=== PATIENT | male | born 1955 | race Hispanic/Latino ===

== ENCOUNTER 2019-09-30 08:43 | Inpatient (IN) | payer MEDICARE ==
[2019-09-27 10:15] LABS: BASOPHILS # (AUTO) 0.1 (0.0-0.1); BASOPHILS % 0.6 % (0.0-1.0); EOSINOPHILS # (AUTO) 0.8 (0.0-0.4); EOSINOPHILS % 10.2 % (0.0-6.0); HEMATOCRIT 34.4 % (38.2-49.6); HEMOGLOBIN 10.9 g/dL (14.0-18.0); LYMPHOCYTES # (AUTO) 1.4 (1.0-3.2); LYMPHOCYTES % 16.9 % (18.0-39.1); MEAN CORPUSCULAR HEMOGLOBIN 26.9 pg (28-32); MEAN CORPUSCULAR HGB CONC 31.7 g/dL (31-35); MEAN CORPUSCULAR VOLUME 84.9 fL (81-99); MONOCYTES # (AUTO) 0.6 (0.2-0.8); MONOCYTES % 7.4 % (4.4-11.3); NEUTROPHILS # (AUTO) 5.2 (2.1-6.9); NEUTROPHILS % 64.5 % (38.7-80.0); PLATELET COUNT 159 x10e3/uL (140-360); RED BLOOD COUNT 4.05 x10e6/uL (4.3-5.7); RED CELL DISTRIBUTION WIDTH 17.3 % (11.7-14.4)
[2019-09-27 10:31] LABS: ANION GAP 15.4 mmol/L (8-16); CALCIUM 9.2 mg/dL (8.4-10.2); CREATININE, SERUM 2.31 mg/dL (0.72-1.25); POTASSIUM 4.4 mmol/L (3.5-5.1)
--- NOTE | 2019-09-27 11:14 | Diagnostic Imaging Report ---
Chest, PA and lateral. History: Preoperative evaluation for knee surgery. Comparison: None available. Discussion: The cardiomediastinal silhouette and pulmonary vasculature are within normal limits. The lungs are clear without evidence of consolidation or effusion. There are no acute osseous abnormalities. IMPRESSION: No acute cardiopulmonary abnormality. Signed by: Alpesh Dalton MD on 09/27/2019 11:10 AM
[~2019-09-30] VITALS: Ht 172.7 cm; Wt 140.2 kg
[~2019-09-30 08:43] MED LIST: ALLOPURINOL300 MG PO; AMLODIPINE BESY10 MG PO; ASPIR-LOW81 MG PO; BUMETANIDE PO; FERROUS SULFAT325 MG PO; FLOMAX0.4 MG PO; GABAPENTIN300 MG PO; GLIMEPERIDE PO; HUMALOG MI100 UNITS/ SQ; HYDROCODON-ACE1 EAC9 PO; ISOSORBIDE ER PO; LISINOPRIL PO; METOLAZONE PO; METOPROLOL SUCC50 MG PO; NITROGLYCERIN0.4 MG SL; POTASSIUM CHLO10 ME1 PO; PRAVASTATIN SOD40 MG PO; TRULICITY1.5 MG/0.5 SQ; TYLENOL EXTRA500 MG PO; [UNRECOGNIZED DRUG - OTHER] PO
[2019-09-30] MEDS ORDERED: ROPIVACAINE 246.25 MG, EPINEPHRINE HCL 1:1000 1ML 0.5 MG, CLONIDINE HCL 0.08 MG, KETORO... INJ ONE ×5 (09:00)
[2019-09-30] MEDS ORDERED: TRANEXAMIC ACID 1,000 MG/10 ML ML ONE (09:27)
[2019-09-30] MEDS ORDERED: BACITRACIN 50,000 UNIT VIAL ONE ×2 (09:27→11:54)
[2019-09-30] MEDS ORDERED: SODIUM CHLORIDE 0.9% 500ML 500 ML ONE (09:27)
[2019-09-30] MEDS ORDERED: VANCOMYCIN HCL 1,000 MG ONE (09:27)
[2019-09-30] MEDS ORDERED: CELECOXIB 200 MG CAP ONE (09:36)
[2019-09-30] MEDS ORDERED: VANCOMYCIN 1GM/NS 250 ML 250 ML ONE (09:37)
[2019-09-30] MEDS ORDERED: GABAPENTIN 300 MG CAP ONE (09:37)
[2019-09-30] MEDS ORDERED: DEXAMETHASONE SOD PHOS 10 MG/1 ML VIAL ONE (09:37)
[2019-09-30] MEDS ORDERED: HYDROCODONE/APAP 5MG-325MG TAB PO PRN (13:00)
[2019-09-30] MEDS ORDERED: DIPHENHYDRAMINE HCL INJ 50 MG/ML VIAL IM/IV PRN (13:00)
[2019-09-30] MEDS ORDERED: DOCUSATE SODIUM 100 MG CAP PO PRN (13:00)
[2019-09-30] MEDS ORDERED: ACETAMINOPHEN 650 MG SUPP PR PRN (13:00)
[2019-09-30] MEDS ORDERED: ONDANSETRON HCL INJ 2MG/ML 2ML 2 MG/ML VIAL IV PRN (13:00)
[2019-09-30] MEDS ORDERED: PROMETHAZINE HCL (IM) 25 MG/ML VIAL INJ PRN (13:00)
[2019-09-30] MEDS ORDERED: ZOLPIDEM TARTRATE 5 MG TAB PO PRN (13:00)
[2019-09-30] MEDS ORDERED: HYDROMORPHONE 1MG/1ML INJ ONE ×2 (13:35→13:48)
--- NOTE | 2019-09-30 14:55 | Diagnostic Imaging Report ---
EXAMINATION: KNEE LEFT 1-2 VIEWS INDICATION: Postoperative COMPARISON: None FINDINGS: Postoperative findings of left knee arthroplasty hardware removal and placement of spacer. Alignment appears anatomic. Cortical regularity at the anterior tibial metaphysis may be postoperative. Postoperative subcutaneous soft tissue emphysema. Surgical clips in the soft tissues. IMPRESSION: Postoperative findings of the left knee as above. Signed by: Eulalio Johnson MD on 09/30/2019 2:52 PM
[2019-09-30 15:30] VITALS: BP 111/52
--- NOTE | 2019-09-30 15:30 | NUR ---
Received patient from PACU. Lying in bed with eyes open. Respiration even and unlabored without SOB. Left knee surgical site with acewrap and brace, no bleeding noted. Family members at bedside.
[2019-09-30 15:47] VITALS: BP 111/52
[2019-09-30] MEDS ORDERED: VANCOMYCIN 1GM/NS 250 ML 250 ML IV SCH ×2 (16:00→21:00)
[2019-09-30] MEDS ORDERED: CELECOXIB 100 MG CAP PO SCH (17:00)
[2019-09-30 17:35] LABS: CREATINE KINASE MB 4.3 ng/mL (0-5.0)
[2019-09-30] MEDS ORDERED: NITROGLYCERIN 0.4 MG SUBL SL PRN (17:45)
[2019-09-30] MEDS: CELECOXIB 200 MG CAP PO SCH (17:54)
[2019-09-30] MEDS: SODIUM CHLORIDE 0.9% 1000ML 1,000 ML IV SCH (17:54)
[2019-09-30] MEDS: ASPIRIN 325 MG TAB PO SCH (17:54)
[2019-09-30] MEDS: ACETAMINOPHEN 1000 MG/100 ML 100 ML IV SCH (17:54)
[2019-09-30] MEDS ORDERED: ACETAMINOPHEN 1000 MG/100 ML IV SCH (18:00)
[2019-09-30] MEDS ORDERED: FENTANYL CITRATE/PF 100MCG/2 ML INJ ONE (18:54)
[2019-09-30] MEDS ORDERED: MIDAZOLAM HCL 2 MG/2 ML VIAL ONE (18:54)
--- NOTE | 2019-09-30 19:05 | NUR ---
Report given to veneer redrier. Respiration even and unlabored without SOB. Family at bedside. Call light in reach.
[2019-09-30] MEDS ORDERED: BUPIVACAINE 0.25% 30ML SDV INJ ONE (19:52)
[2019-09-30] MEDS ORDERED: EPINEPHRINE HCL 1:1000 1ML 1 MG/ML AMP ONE (19:52)
[2019-09-30 20:00] VITALS: BP 101/55
[2019-09-30] MEDS ORDERED: SEVOFLURANE INHAL SOLN 250 ML PEN BTL ONE (20:14)
[2019-09-30] MEDS ORDERED: LIDOCAINE HCL 2% LOCAL INJ 5 ML SDV VIAL INJ ONE (20:14)
[2019-09-30] MEDS ORDERED: PROPOFOL IV EMULSION 10 MG/ML 20 ML VIAL ONE (20:14)
[2019-09-30] MEDS ORDERED: ONDANSETRON HCL INJ 2MG/ML 2ML 2 MG/ML VIAL ONE (20:14)
[2019-09-30] MEDS ORDERED: PHENYLEPHRINE HCL 1% 10 MG/ML VIAL ONE (20:14)
[2019-09-30] MEDS: KETOROLAC TROMETHAMINE 30 MG/ML VIAL IV PRN (20:30)
[2019-09-30 21:00] VITALS: BP 101/55
[2019-09-30] MEDS: HYDROCODONE/APAP 7.5MG-325MG 1 EA TAB PO PRN (22:40)
--- NOTE | 2019-09-30 22:53 | Consultation ---
DATE OF CONSULTATION: HISTORY OF PRESENT ILLNESS: The patient has infected knee. This patient who is a 64-year-old male, who was admitted from Dr. Kan jones. The patient had revision of left total knee arthroplasty, was placed on antibiotic spacer. I was asked to see him. The patient cultures still pending. The patient is currently lying in bed comfortably. No complaints. PHYSICAL EXAMINATION: GENERAL: He is currently alert, oriented, does not seem to be in acute distress. VITAL SIGNS: Stable, currently afebrile. HEENT: Not icteric. NECK: Supple. CHEST: Clear. HEART: S1-S2. No S3, S4 or murmur. ABDOMEN: Soft. Bowel sounds present. No tenderness. EXTREMITIES: No edema. SKIN: No rash, status post total knee surgery. LABORATORY DATA: White count 8.1, hemoglobin of 10. Sodium 136, potassium 4.4, creatinine of 2.3. The patient total knee infection, status post revision and status post first-stage, await culture and sensitivity. He is currently on vancomycin. We will adjust for his kidney function. We will get a central line for IV antibiotic. We will follow. MD ALISSA Menard/HERIBERTO /[id number]
[2019-10-01] VITALS (8 sets, daily range): BP systolic 119–129; BP diastolic 56–63
[2019-10-01] MEDS: HYDROCODONE/APAP 7.5MG-325MG 1 EA TAB PO PRN ×2 (03:24→21:05)
[2019-10-01 05:50] LABS: HEMATOCRIT 29.5 % (38.2-49.6); HEMOGLOBIN 9.6 g/dL (14.0-18.0)
[2019-10-01] MEDS: ACETAMINOPHEN 1000 MG/100 ML 100 ML IV SCH ×3 (06:00→12:06)
--- NOTE | 2019-10-01 06:15 | Consultation ---
DATE OF CONSULTATION: REASON FOR CONSULTATION: Postop medical management. HISTORY OF PRESENT ILLNESS: The patient is a 64-year-old gentleman who is status post revision of the left knee due to infected left knee, who is doing well postoperatively, but does complain of some pain in the left knee, but just recently got some pain medicine and denies any chest pain, fever, chills, nausea, vomiting, headache, shortness of breath, or dizziness. PAST MEDICAL HISTORY: Significant for diabetes, chronic kidney disease stage 3, hypertension, neuropathy, hyperlipidemia, and gout. MEDICATIONS: See MAR. ALLERGIES: NONE. SOCIAL HISTORY: Disabled, is . Nonsmoker and nondrinker. FAMILY HISTORY: Alzheimer's and coronary artery disease. PHYSICAL EXAMINATION: VITAL SIGNS: Temperature 98.6, pulse 74, blood pressure 142/76, sats 98%. GENERAL: No apparent distress, lying in bed, wearing his BiPAP. NECK: Supple. CARDIOVASCULAR: Regular rate and rhythm. LUNGS: Clear to auscultation bilaterally. ABDOMEN: Good bowel sounds. Soft, nontender. EXTREMITIES: No clubbing or cyanosis. NEUROLOGIC: Nonfocal. ASSESSMENT AND PLAN: 1. Left knee pain, continue with physical therapy and postoperative pain medicine. 2. Diabetes. Continue with current care monitoring. 3. Chronic kidney disease, stage 3. Continue to monitor. 4. Anemia. Continue to monitor and check a CBC. 5. Hypertension. Continue to monitor. 6. Sleep apnea. Continue with his BiPAP. Please see hospital chart for full details. MD ALONZO Calvert/HERIBERTO /[id number]
[2019-10-01] MEDS: SODIUM CHLORIDE 0.9% 1000ML 1,000 ML IV SCH ×2 (06:39→08:50)
[2019-10-01] MEDS: ASPIRIN 325 MG TAB PO SCH ×2 (08:48→17:59)
[2019-10-01] MEDS: CELECOXIB 200 MG CAP PO SCH ×2 (08:49→17:59)
[2019-10-01 08:56] LABS: BASOPHILS % 0.1 % (0.0-1.0); HEMATOCRIT 31.3 % (38.2-49.6); LYMPHOCYTES # (AUTO) 0.7 (1.0-3.2); LYMPHOCYTES % 5.7 % (18.0-39.1); MEAN CORPUSCULAR HEMOGLOBIN 27.1 pg (28-32); MEAN CORPUSCULAR HGB CONC 31.9 g/dL (31-35); MEAN CORPUSCULAR VOLUME 84.8 fL (81-99); MONOCYTES # (AUTO) 0.4 (0.2-0.8); MONOCYTES % 3.4 % (4.4-11.3); NEUTROPHILS # (AUTO) 11.6 (2.1-6.9); NEUTROPHILS % 90.4 % (38.7-80.0); PLATELET COUNT 152 x10e3/uL (140-360); RED BLOOD COUNT 3.69 x10e6/uL (4.3-5.7); RED CELL DISTRIBUTION WIDTH 17.6 % (11.7-14.4)
[2019-10-01] MEDS: CEFEPIME 1GM/NS 0.9% 50 ML 50 ML IV SCH (08:59)
[2019-10-01 09:11] LABS: ANION GAP 14.5 mmol/L (8-16); CALCIUM 8.1 mg/dL (8.4-10.2); CREATININE, SERUM 2.55 mg/dL (0.72-1.25); POTASSIUM 4.5 mmol/L (3.5-5.1)
--- NOTE | 2019-10-01 10:06 | Diagnostic Imaging Report ---
EXAM: CHEST SINGLE (PORTABLE) DATE: 10/01/2019 8:21 AM INDICATION: Hypothermia COMPARISON: 09/27/2019 IMPRESSION: The trachea is midline. There has been interval improvement of previously visualized perihilar opacities. There is no evidence for large focal consolidation, pneumothorax, or significant pleural effusion. The cardiomediastinal silhouette is stable in appearance. No acute osseous abnormality is identified. The surrounding soft tissues are unremarkable. Signed by: Dr. Simeon Sorto MD on 10/01/2019 10:03 AM
--- NOTE | 2019-10-01 11:42 | NUR ---
Dr. Darwin Bunn nephrology in to consult patient, made aware patient will need 6 weeks of antibiotics therapy with dr. Valdes, I also informed Dr. Bunn the hospital policy regarding peripherally inserted central catheter, regarding GFR is less than 30. Received orders for PICC line to be today and once PICC line is inserted; patient line is ok to use patient can be discharged home from renal standpoint.
--- NOTE | 2019-10-01 12:15 | NUR ---
Spoke with Al regarding IV abx outpatient. He states patient not to d/c today dt hypothemia, also he wants to check labs in am and possibly adjust abx dosing
--- NOTE | 2019-10-01 12:33 | Consultation ---
DATE OF CONSULTATION: Nephrology Consultation REASON FOR CONSULTATION: Chronic kidney disease. HISTORY OF PRESENT ILLNESS: The patient is a 64-year-old, obese male with type 2 diabetes mellitus, hypertension, dyslipidemia, and chronic kidney disease stage 3. He is followed by us in the office and likely has a creatinine at baseline of just under 2 mg/dL. He is presently admitted with an infected left knee joint, which has been surgically cleaned and will need IV antibiotics for several weeks before redo surgery is attempted. This consultation is requested to assist in managing his chronic kidney disease. The patient denies any shortness of breath, nausea, vomiting, diarrhea, abdominal or flank pain, dysuria or gross hematuria. He has not been taking NSAIDs at home. PAST MEDICAL HISTORY: As above. He has had bilateral lower extremity bypass surgeries. SOCIAL HISTORY: Denies alcohol or tobacco use. MEDICATIONS: As per MAR. REVIEW OF SYSTEMS: Negative, except as noted above in HPI. PHYSICAL EXAMINATION: GENERAL: The patient is alert and oriented and comfortable at rest. VITAL SIGNS: Blood pressure 125/60, pulse 60 per minute, respirations 18 per minute, he is afebrile. Oxygen saturation 98% on room air. SKIN: Normal turgor. No active lesions. HEENT: Normocephalic, atraumatic head. No icterus. NECK: Supple without jugular venous distention. CHEST: Somewhat diminished breath sounds bilaterally, but I do not hear any wheezing or crepitations. CARDIOVASCULAR: Regular rate and rhythm. I do not hear any rub or gallop. ABDOMEN: Soft, obese, but not distended. Not tender. EXTREMITIES: Left lower leg is under an Aniket wrap. Right leg has no appreciable pitting edema. No cyanosis. NEUROLOGIC: Alert and oriented x3. Grossly, nonfocal exam. IMAGING DATA: Chest x-ray report is stable. LABORATORY DATA: Hemoglobin is 10, white count 12.8, platelet count 152,000. Electrolytes show serum sodium mildly decreased at 133, potassium normal, bicarb low at 17, BUN 82, creatinine 2.5, estimated GFR 26, glucose 224, calcium 8.1. IMPRESSION: 1. Chronic kidney disease, likely secondary to diabetes mellitus and hypertension. He was stage III chronic kidney disease at last followup, while current creatinine is a little higher. This may either be a natural progression of chronic kidney disease or acute deterioration from infection and potential vancomycin nephrotoxicity, although his trough level was 14 and not very high. He has also received some IV Toradol for pain in the hospital. 2. Hypertension, controlled on current medications. 3. Metabolic acidosis, secondary to chronic kidney disease. 4. Mild hyponatremia, dilutional. Asymptomatic. 5. Anemia secondary to chronic kidney disease. 6. Infected left knee, requiring several weeks of IV vancomycin. RECOMMENDATIONS: 1. The patient will have a PICC line placed if no other stable IV access is possible for long-term IV antibiotics. 2. Vancomycin trough level need to be kept below 20 to avoid nephrotoxicity. 3. Avoid all NSAIDs including Toradol. 4. May resume his home medications including diuretics at discharge from the hospital. 5. He will follow up in the Nephrology Clinic within a week with BMP result if discharged soon. We will follow the patient in the hospital if he stays on today. Thank you for the opportunity to participate in his care. Darwin Bunn MD [facility]/MOD[facility] /[id number]
[2019-10-01] MEDS ORDERED: ACETAMINOPHEN 1000 MG/100 ML IV PRN (13:00)
--- NOTE | 2019-10-01 19:10 | NUR ---
Bedside report with morning nurse. Pt alert and orient to name and situation. Pt with chips on bedside table, Pt educated about the unhealthy eating of potato chips. Pt lying in bed HOB 75 degrees. Denies pain at this time. Bed low and locked call jeffrey within reach.
--- NOTE | 2019-10-01 19:54 | Diagnostic Imaging Report ---
EXAMINATION: CHEST XRAY LINE PLACEMENT INDICATION: ^Check Picc line placement COMPARISON: 10/01/2019 FINDINGS: TUBES and LINES: Left upper extremity PICC with distal tip not well-visualized. It does not appear to extend into the SVC, possibly within the left innominate vein.. LUNGS: Lungs are well inflated. Lungs are clear. There is no evidence of pneumonia or pulmonary edema. PLEURA: No pleural effusion or pneumothorax. HEART AND MEDIASTINUM: The cardiomediastinal silhouette is unremarkable. BONES AND SOFT TISSUES: No acute osseous lesion. Soft tissues are unremarkable. UPPER ABDOMEN: No free air under the diaphragm. IMPRESSION: Left upper extremity PICC with distal tip not well-visualized, possibly within the left innominate vein. Signed by: Dr. Ramya Traore M.D. on 10/01/2019 7:51 PM
--- NOTE | 2019-10-01 20:05 | Operative Report ---
DATE OF PROCEDURE: 09/30/2019 SURGEON: Kip Kim MD WHARF LABOURER: Mele Garcia, certified PA. PREOPERATIVE DIAGNOSIS: Mechanical loosening of internal left knee prosthetic joint. 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 PROCEDURE: Left knee irrigation and debridement, synovectomy, removal of prosthesis, and placement of temporary antibiotic prosthesis, * and added complexity secondary to BMI of 46. INDICATIONS: The patient is a 64-year-old gentleman with a long and complicated history. He had a left total knee replacement done several years ago by another doctor. He initially had the procedure done in 2013. Approximately eight months later, he had a one stage irrigation and debridement. Over the years, he has had continued pain in his left knee. Clinic exam shows catastrophic loosening of the tibial base plate. I have discussed the findings and options. We have obtained inflammatory blood work. This was highly elevated. We then obtained cultures which were negative. I explained the possibility of false negatives. The patient would like to proceed with definitive intervention. We have discussed the possibility of a resection arthroplasty and placement of an antibiotic prosthesis versus a one stage revision. The patient understands the difference. The risks and benefits were explained at length. The challenges due to his obesity and the increased risk of perioperative complications was discussed. He states he understands and wishes to proceed. PROCEDURE IN DETAIL: The patient was brought to the operating room and placed under general anesthetic. He received tranexamic acid and a regional block in the holding area. His left lower extremity was prepped and draped in a sterile manner. A preoperative time-out was performed. The extremity was exsanguinated and a proximal tourniquet was inflated to 300 mmHg. The patient had practically two previous incisions over his right knee. These joann-crossed each other in a number of different locations. We tried to utilize with the hybrid of both incisions. This was a fairly extensile incision from before. Dense scar tissue was encountered. Added challenges were encountered due to the patient's size in the altered surgical field. The tissue was rigid in firm and difficult to mobilize. A medial parapatellar arthrotomy was performed. There was extensive synovitis. A subtotal synovectomy was necessary to mobilize the soft tissue. A lateral retinacular release was necessary to mobilize the patella. The patient had a massive on replaced patella that was largely osteophyte. This was dissected out and contoured back to its original anatomy. The synovial tissue was sent to the pathologist for frozen sections. We progressed with soft tissue releases to gradually bring the knee up into flexion. While we were working on mobilization of the tissue and exposure, the pathologist notified us that there were signs of acute inflammatory changes with a high number of polymorphic nuclear leukocytes per high-powered field. We therefore knew that we were going to proceed with a debridement and placement of antibiotic spacer. Antibiotics were given once cultures have been taken. The tibial baseplate was grossly loose. Once this was appropriately exposed, the polyethylene liner was removed. The tibial baseplate was eventually removed. It was very difficult due to the rigidity of the soft tissue to mobilize the knee forward to remove the tibial baseplate without destruction of other structures. The cement mantle from the tibial baseplate was removed with osteotomes and curved curettes. A fibrinous membrane down the canal was debrided. The tibial baseplate had collapsed into varus. Some of the lateral bone was removed to get a more perpendicular baseplate for the tibial antibiotic spacer later on in the case. Throughout this portion of the case, the wound was continuously or repeatedly irrigated with a shower tip pulsatile lavage. Additional irrigation with a diluted mixture of polymyxin and vancomycin spray was performed. The tibial bone was ultimately debrided back to more healthy tissue. Attention was directed towards the distal femur. Flexible osteotomes were used to separate the prosthesis from the cement mantle. A bone punch was used to remove the femoral component. This was done with minimal bone loss. Some bone was lost when we had to remove the bones to the cement mantle that extended into the medial and lateral femoral condyles from the plugs on the prosthesis. A new cut was made of the distal femur to compensate for the pending antibiotic femoral spacer. The Biomet stage I molds were prepared on the back table. 3 g of vancomycin was placed into each of the femoral and tibial molds. Additional 3.6 g of tobramycin was placed into the molds as well. The femoral component had a 70 mm medial to lateral width and a 52 mm anterior to posterior width. The tibial component had a 75 mm medial to lateral width and a 45 mm anterior to posterior width. It took a significant amount of time for the cement to cure with all of the antibiotics placed into the mix. Additional palmaris was used on both the femoral and tibial components. These were mixed sequentially to ensure that we had adequate space for the tibial component. I fabricated a keel for the tibial component. During the time that the cement was curing, further debridement and final aspects of that subtotal synovectomy were performed. The components were cemented into place sequentially using another mix of high viscosity Biomet cement on each side. Ultimately, both components were cemented into place. The wound was further irrigated. A 100 mL premixed pericapsular DANISH injection was placed into the surrounding soft tissue. The arthrotomy was carefully closed with interrupted #1 Ethibond. The skin was closed with interrupted 2-0 Prolene in a [id number] fashion. A sterile bandage and a knee immobilizer were placed. The patient was extubated and transported to the recovery room in stable condition. The tourniquet was deflated at about an hour and a half and the rest of the procedure was performed without the tourniquet. I was concerned because of his peripheral vascular disease. Postoperatively, his toes were pink and warm. Kip Kim MD DR/HERIBERTO /[id number]
[2019-10-01] MEDS: VANCOMYCIN 1GM/NS 250 ML 250 ML IV SCH (20:30)
--- NOTE | 2019-10-01 23:12 | Diagnostic Imaging Report ---
EXAMINATION: CHEST XRAY LINE PLACEMENT INDICATION: ^PICC LINE PLACEMENT ^[id number] ^2245 ^Y COMPARISON: Same day at 1857 hours FINDINGS: AP view TUBES and LINES: Left PICC in place. The distal tip is not clearly visualized and is probably projecting over the left brachiocephalic vein. Multiple external leads overlie the right thorax. LUNGS: Limited by body habitus. Lungs are well inflated. Pulmonary vascular congestion on mild interstitial edema. PLEURA: No pleural effusion or pneumothorax. HEART AND MEDIASTINUM: The cardiomediastinal silhouette is prominent. BONES AND SOFT TISSUES: No acute osseous lesion. Soft tissues are unremarkable. UPPER ABDOMEN: No free air under the diaphragm. IMPRESSION: No change from prior exam. Signed by: Dr. Saeid Painter MD on 10/01/2019 11:09 PM
[2019-10-01] MEDS: KETOROLAC TROMETHAMINE 30 MG/ML VIAL IV PRN (23:15)
[2019-10-02] VITALS (8 sets, daily range): BP systolic 131–151; BP diastolic 63–72
--- NOTE | 2019-10-02 01:10 | Diagnostic Imaging Report ---
EXAMINATION: CHEST XRAY LINE PLACEMENT INDICATION: ^[id number] ^0020 ^picc line adjustment COMPARISON: 10/01/2019 at 2249 hours FINDINGS: AP view TUBES and LINES: Redemonstration of left PICC with tip projecting over mid SVC. LUNGS: Lungs are well inflated. Pulmonary vascular congestion and mild interstitial edema. PLEURA: No pleural effusion or pneumothorax. HEART AND MEDIASTINUM: The cardiomediastinal silhouette is prominent. BONES AND SOFT TISSUES: No acute osseous lesion. Soft tissues are unremarkable. UPPER ABDOMEN: No free air under the diaphragm. IMPRESSION: PICC line tip projects over mid SVC. Pulmonary vascular congestion and mild additional edema. Signed by: Dr. Saeid Painter MD on 10/02/2019 1:07 AM
--- NOTE | 2019-10-02 03:00 | NUR ---
Left knee dressing with mod bleeding. Changed devante wrap, Pt c/o mild pain. Left knee brace in place.
[2019-10-02 05:45] LABS: HEMATOCRIT 27.3 % (38.2-49.6); HEMOGLOBIN 8.8 g/dL (14.0-18.0); MEAN CORPUSCULAR HEMOGLOBIN 27.3 pg (28-32); MEAN CORPUSCULAR HGB CONC 32.2 g/dL (31-35); MEAN CORPUSCULAR VOLUME 84.8 fL (81-99); PLATELET COUNT 138 x10e3/uL (140-360); RED BLOOD COUNT 3.22 x10e6/uL (4.3-5.7); RED CELL DISTRIBUTION WIDTH 17.4 % (11.7-14.4)
[2019-10-02 06:02] LABS: ANION GAP 12.5 mmol/L (8-16); CALCIUM 7.7 mg/dL (8.4-10.2); CREATININE, SERUM 2.07 mg/dL (0.72-1.25); POTASSIUM 4.5 mmol/L (3.5-5.1)
--- NOTE | 2019-10-02 06:55 | NUR ---
Report given to morning nurse. Pt lying quietly in bed. No acute distress noted.
--- NOTE | 2019-10-02 07:00 | NUR ---
BEDSIDE SHIFT REPORT RECEIVED FROM TRANSITION SPECIALIST RN. PT DENIES NEEDS AT THIS TIME.
[2019-10-02] MEDS: ASPIRIN 325 MG TAB PO SCH ×2 (09:00→17:00)
[2019-10-02] MEDS: HYDROCODONE/APAP 7.5MG-325MG 1 EA TAB PO PRN ×2 (09:04→19:35)
[2019-10-02] MEDS: CELECOXIB 200 MG CAP PO SCH (09:29)
[2019-10-02] MEDS: CEFEPIME 1GM/NS 0.9% 50 ML 50 ML IV SCH (09:29)
--- NOTE | 2019-10-02 12:30 | NUR ---
THIS NURSE AT BEDSIDE WITH DARIUS. PT KNEE DRESSING REMOVED, INCISION CLEANED, 5 BEAU PLACED AND 4 STERI STRIPS TO REINFORCE INCISION SITE. PT TOLERATED.
--- NOTE | 2019-10-02 14:50 | NUR ---
Spoke to Dr. Valdes. Order received for IV abx outpatient. Patient has already been set up with home health and PT per order from Dr. Kim. Discussed with patient, he chooses [facility]. Choice letter placed on chart, clinicals sent to [facility] [phone],
[2019-10-02] MEDS ORDERED: ONDANSETRON HCL 4 MG ORAL DISINTEGRATING TAB PO PRN (16:15)
--- NOTE | 2019-10-02 16:37 | NUR ---
Call received from Heidi with [facility] who states the pricing for IV abx will be 200~ dollars a week. Patient is set to have iv abx for 6 weeks. Heidi is calling patient to discuss this 20% copay with him.
--- NOTE | 2019-10-02 17:26 | NUR ---
Spoke to Emily with [employer]. New order faxed to her. [phone]. States since we have to switch it to [facility], not able to confirm if he will be able to be seen tomorrow. States possibly can do an same day admit tomorrow however. Will speak to me in the AM tomorrow.
--- NOTE | 2019-10-02 17:30 | NUR ---
Spoke to Dr. Keisha cernaut pricing - he says ok to not do cefepime. CM order change.d
--- NOTE | 2019-10-02 17:34 | NUR ---
Spoke to Lizzie [phone], she can burr picker her dad any time after 8. New IV abx order faxed to [facility] [phone], and [facility] [phone]
--- NOTE | 2019-10-02 17:58 | Progress Note ---
DATE: Nephrology Progress Note SUBJECTIVE: The patient is being followed up for bakvl-tt-qomwqcj kidney disease. He has no specific complaints today. Appears pain free. OBJECTIVE: VITAL SIGNS: Stable. Blood pressure 150/64, afebrile, pulse is 62 per minute. NECK: Without jugular venous distention. Supple. CHEST: Clear to auscultation. No wheezing or crepitations. CARDIOVASCULAR: Regular S1, S2 without murmur, rub, or gallop. ABDOMEN: Soft, obese, nontender, nondistended. EXTREMITIES: Without pitting edema or cyanosis. LABORATORY DATA: Hemoglobin 8.8, white count 11.4, platelet count 138,000. Sodium 133, potassium 4.5, bicarb 18, creatinine improved to 2.07, BUN 82, glucose 216, total calcium 7.7. IMPRESSION: 1. Acute kidney injury, appears improving. Continue to monitor while in hospital. I have discontinued the Celebrex and IV Toradol. 2. Chronic kidney disease, probably stage III secondary to diabetes mellitus and hypertension. We will continue follow up in the clinic. 3. Hypertension, resume home medications. 4. Anemia, secondary to chronic kidney disease. 5. Infected knee joint, long-term IV antibiotics per Orthopedics. Keep trough vancomycin level less than 20 if vancomycin is used. Darwin Bunn MD [facility] /[id number]
--- NOTE | 2019-10-02 19:29 | Progress Note ---
DATE: SUBJECTIVE: Mr. Razo is doing well. No new complaints. There is no more fever. REVIEW OF SYSTEMS: Negative. Discussed with Dr. Kim. The cultures are remaining negative, but that is from aspiration, which was done in the office. His blood cultures here are negative. PHYSICAL EXAMINATION: GENERAL: He is currently alert and oriented. Obese. Does not seem to be in acute distress. VITAL SIGNS: Stable, afebrile. HEENT: He is not icteric. NECK: Supple. CHEST: Clear. HEART: S1 and S2. No S3, S4, or murmur. ABDOMEN: Soft. LABORATORY DATA: His sodium 133, potassium 4.5, and creatinine 2.07. IMPRESSION: 1. Infected knee, unknown pathogen. 2. Morbidly obese patient. 3. Chronic kidney disease. 4. Diabetes mellitus with neuropathy. 5. We will discharge him home with vancomycin 1 g a day for 6 weeks and cefepime 1 g a day for 6 weeks. Biweekly CBC, chemistry panel, and vancomycin trough. Follow up with me in 2 weeks. MD ALISSA Menard/HERIBERTO /[id number]
[2019-10-02] MEDS: VANCOMYCIN 1GM/NS 250 ML 250 ML IV SCH (19:35)
--- NOTE | 2019-10-02 20:00 | NUR ---
Assessment done.no resp.distress.pain voiced 05/25.medicated with norco 7.5 mg po.dressing to left knee is dry.voided.bed locked and in lowest position.phone and call light within reach.instructed to call for assistance as needed.
[2019-10-03] VITALS: BP 148/65
[2019-10-03 04:00] VITALS: BP 138/65
[2019-10-03] MEDS: HYDROCODONE/APAP 7.5MG-325MG 1 EA TAB PO PRN (04:11)
--- NOTE | 2019-10-03 06:00 | NUR ---
DRESSING CHANGED AFTER GIVING PAIN MEDICINE.PT TOLERATED WELL.
--- NOTE | 2019-10-03 07:00 | NUR ---
BED SIDE SHIFT REPORT GIVEN TO THE ONCOMING RN.STABLE CONDITION.
--- NOTE | 2019-10-03 07:05 | NUR ---
walking rounds completed, change of shift report received from weight shifter RN, pt resting, no signs of distress. will continue to assess.
[2019-10-03 08:28] VITALS: BP 141/63
[2019-10-03] MEDS: ASPIRIN 325 MG TAB PO SCH (08:33)
[2019-10-03] MEDS: CEFEPIME 1GM/NS 0.9% 50 ML 50 ML IV SCH (08:33)
[2019-10-03 08:48] VITALS: BP 141/63
--- NOTE | 2019-10-03 08:50 | NUR ---
OK FROM STANDPOINT OF ID FOR PT TO DC HOME ONCE ABTX IS SET UP. FOLLOW UP IN 2 WEEKS.
--- NOTE | 2019-10-03 09:40 | NUR ---
Called [facility], the filter tip inspector states they will not be able to admit the patient today. Spoke with Intake at [facility] [phone], she gave updated pricing for just vancomycin IV. Called Heidi with [facility] [phone], she states she will be able to do teaching here at bedside after 12 pm. Went to patient's room, gave him and daughter Lizzie updated pricing, they would like to continue both IV abx, provided them with Heidi's number to discuss time to meet up for teaching and ordering abx. Left KATT's number on white board for follow up. Updated Javier POLO.
--- NOTE | 2019-10-03 10:22 | NUR ---
spoke with Hyun from [facility] who states pt is okay to be discharged home; pt's peripheral IV was discontinued. PICC line in place and patent. [facility] states pt will be okay to be discharged around 1200 after receiving education on dressing changes.
--- NOTE | 2019-10-03 11:45 | NUR ---
Spoke to Heidi, she is headed over to do teaching.
[2019-10-03 12:08] VITALS: BP 148/65
[2019-10-03 12:42] LABS: BAND NEUTROPHILS % (MANUAL) 4 %; LYMPHOCYTES % (MANUAL) 9 % (19-48); MONOCYTES % (MANUAL) 6 % (3.4-9.0); NEUTROPHILS % (MANUAL) 81 % (40-74); PLATELET ESTIMATE SLIGHTLY DECREASED; PLATELET MORPHOLOGY COMMENT NORMAL; RBC MORPHOLOGY COMMENT NORMAL
--- NOTE | 2019-10-03 13:05 | NUR ---
Heidi is here to do the teaching. Daughter Lizzie is here. Spoke to [facility], provided Lizzie's number to facilitate ordering of meds, also [facility] confirmed they have the order for both IV abx which is the one the patient wants
--- NOTE | 2019-10-03 13:42 | NUR ---
spoke to [facility] - provided dorcas's chele
--- OUTSIDE RECORDS SUMMARY | 2019-10-04 12:49 | XMS REPORT ---
[facility] Address Unknown Phone Unavailable Care Team Providers Care Capital Project Engineer Name Role Phone INES GUO Unavailable Unavailable Payers Payer Name Policy Type Policy Number Effective Date Expiration Date Problems This patient has no known problems. Allergies, Adverse Reactions, Alerts Allergy Name Allergy Type Status Severity Reaction(s) Onset Date Inactive Date Treating Clinician Comments No Known Allergies DA Active U 2019-05-09 00:00:00 No Known Allergies DA Active U 2018-09-03 00:00:00 No Known Allergies DA Active U 2018-01-02 00:00:00 Medications This patient has no known medications. Results Test Description Test Time Test Comments Text Results Atomic Results Result Comments CHEST XRAY LINE PLACEMENT 2019-10-02 01:06:[address] [address] Patient Name: NJ MELCHOR JR MR #: [id number] : 1955 Age/Sex: 64/M Req #: [id number] Adm Physician: INES GUO MD Ordered by: ANAHI BARROS MD Report #: [id number] Location: MED/SURG Room/Bed: [facility] Procedure: [id number] DX/CHEST XRAY LINE PLACEMENT Exam Date: 10/02/19 Exam Time: 19 REPORT STATUS: Signed EXAMINATION: CHEST XRAY LINE PLACEMENT INDICATION: [id number] picc line adjustment COMPARISON: 10/01/2019 at 2249 hours FINDINGS: AP view TUBES and LINES: Redemonstration of left PICC with tip projecting over mid SVC. LUNGS: Lungs are well inflated. Pulmonary vascular congestion and mild interstitial edema. PLEURA: No pleural effusion or pneumothorax. HEART AND MEDIAS TINUM: The cardiomediastinal silhouette is prominent. BONES AND SOFT TISSUES: No acute osseous lesion. Soft tissues are unremarkable. UPPER ABDOMEN: No free air under the diaphragm. IMPRESSION: PICC line tip projects over mid SVC. Pulmonary vascular congestion and mild additional edema. Signed by: Dr. Anahi Barros MD on 10/02/2019 1:07 AM Dictated By: ANAHI BARROS MD 6 Transcribed By: AJ on 10/02/19106 COPY TO: ANAHI BARROS MD CHEST XRAY LINE PLACEMENT 2019-10-01 23:07:00 [place] [address] Patient Name: NJ MELCHOR JR MR #: [id number] : 1955 Age/Sex: 64/M Req #: [id number] [facility] Physician: INES GUO MD Ordered by: KENNEDY HEIN MD Report #: [id number] Location: MED/SURG Room/Bed: [facility] Procedure: [id number] DX/CHEST XRAY LINE PLACEMENT Exam Date: 10/01/19 Exam Time: 2244 REPORT STATUS: Signed EXAMINATION: CHEST XRAY LINE PLACEMENT INDICATION: PICC LINE PLACEMENT 20191001 Y COMPARISON: Same day at 1857 hours FINDINGS: AP view TUBES and LINES: Left PICC in place. The distal tip is not clearly visualized and is probably projecting over the left brachiocephalic vein. Multiple external leads overlie the right thorax. LUNGS: Limited by body habitus. Lungs are well inflated. Pulmonary vascular congestion on mild interstitial edema. PLEURA: No pleural effusion or pneumothorax. HEART AND MEDIASTINUM: The cardiomediastinal silhouette is prominent. BONES AND SOFT TISSUES: No acute osseous lesion. Soft tissues are unremarkable. UPPER ABDOMEN: No free air under the diaphragm. IMPRESSION: No change from prior exam. Signed by: Dr. Anahi Barros MD on 10/01/2019 11:09 PM Dictated By: ANAHI BARROS MD 08 Transcribed By: AJ on 10/01/192308 COPY TO: KENNEDY HEIN MD CHEST XRAY LINE PLACEMENT 2019-10-01 19:49:00 [place] [address] Patient Name: NJ MELCHOR JR MR #: [id number] : 1955 Age/Sex: 64/M Req #: [id number] Adm Physician: INES GUO MD Ordered by: KENNEDY HARVEY MD Report #: [id number] Location: MED/SURG Room/Bed: [facility] Procedure: [id number] DX/CHEST XRAY LINE PLACEMENT Exam Date: Exam Time: REPORT STATUS: Signed EXAMINATION: CHEST XRAY LINE PLACEMENT INDICATION: Check Picc line placement COMPARISON: 10/01/2019 FINDINGS: TUBES and LINES: Left upper extremity PICC with distal tip not well-visualized. It does not appear to extend into the SVC, possibly within the left innominate vein.. LUNGS: Lungs are well inflated. Lungs are clear. There is no evidence of pneumonia or pulmonary edema. PLEURA: No pleur al effusion or pneumothorax. HEART AND MEDIASTINUM: The cardiomediastinal silhouette is unremarkable. BONES AND SOFT TISSUES: No acute osseous lesion. Soft tissues are unremarkable. UPPER ABDOMEN: No free air under the diaphragm. IMPRESSION: Left upper extremity PICC with distal tip not well-visualized, possibly within the left innominate vein. Signed by: Dr. Ramya Del Toro M.D. on 10/01/2019 7:51 PM Dictated By: CLINT DEL TORO MD, MD 50 Transcribed By: JA on 10/01/191950 COPY TO: KENNEDY HARVEY MD CHEST SINGLE (PORTABLE) 2019-10-01 10:01:00 [place] [address] Patient Name: NJ MELCHOR JR MR #: [id number] : 1955 Age/Sex: 64/M Req #: [id number] Adm Physician: INES GUO MD Ordered by: ABARHAM ALVES PA Report #: [id number] Location: MED/SURG Room/Bed: [facility] Procedure: [id number] DX/CHEST SINGLE (PORTABLE) Exam Date: 10/01/19 Exam Time: 0900 REPORT STATUS: Signed EXAM: CHEST SINGLE (PORTABLE) DATE: 10/01/2019 8:21 AM INDICATION: Hypothermia COMPARISON: 09/27/2019 IMPRESSION: The trachea is midline. There has been interval improvement of previously visualized perihilar opacities. There is no evidence for large focal consolidation, pneumothorax, or significant pleural effusion. The cardiomediastinal silhouette is stable in appearance. No acute osseous abnormality is identified. The surrounding soft tissues are unremarkable. Signed by: Dr. Simeon Sorto MD on 10/01/2019 10:03 AM Dictated By: SIMEON SORTO MD 1003 Transcribed By: AJ on 10/01/19 1003 COPY TO: ABRAHAM ALVES KNEE LEFT 1-2 VIEWS 2019-09-30 14:50:00 [place] [address] Patient Name: NJ MELCHOR JR MR #: [id number] : 1955 Age/Sex: 64/M Req #: [id number] Adm Physician: INES GUO MD Ordered by: INES GUO MD Report #: [id number] Location: PACU Room/Bed: PACU-1 Procedure: [id number] DX/KNEE LEFT 1-2 VIEWS Exam Date: Exam Time: REPORT STATUS: Signed EXAMINATION: KNEE LEFT 1-2 VIEWS INDICATION: Postoperative COMPARISON: None FINDINGS: Postoperative findings of left knee arthroplasty hardware removal and placement of spacer. Alignment appears anatomic. Cortical regularity at the anterior tibial metaphysis may be postoperative. Postoperative subcutaneous soft tissue emphysema. Surgical clips in the soft tissues. IMPRESSION: Postoperative findings of the left knee as above. Signed by: Jyothi Tapia MD on 09/30/2019 2:52 PM Dictated By: JYOTHI TAPIA MD 51 Transcribed By: AJ on 09/30/191451 COPY TO: INES GUO MD CHEST 2 VIEWS 2019-09-27 11:10:00 [place] [address] Patient Name: NJ MELCHOR JR MR #: [id number] : 1955 Age/Sex: 64/M Req #: [id number] Adm Physician: Ordered by: INES GUO MD Report #: [id number] Location: OR Room/Bed: Procedure: [id number] DX/CHEST 2 VIEWS Exam Date: 09/27/19 Exam Time: 1019 REPORT STATUS: Signed Chest, PA and lateral. History: Preoperative evaluation for knee surgery. Comparison: None available. Discussion: The cardiomediastinal silhouette and pulmonary vasculature are within normal limits. The lungs are clear without evidence of consolidation or effusion. There are no acute osseous abnormalities. IMPRESSION: No acute cardiopulmonary abnormality. Signed by: Alpesh Mcgee MD on 09/27/2019 11:10 AM Dictated By: ALPESH MCGEE MD 09 Transcribed By: AJ on 09/27/191109 COPY TO: INES GUO MD GLUBED 2019-05-23 17:58:00 GLUBED (test code=GLUBED) 145 mg/dL 74-106 Performed by certified wired music operator at [facility] [id number] 16:53:00* Test Item Value Reference Range Comments GLUBED (test code=GLUBED) 198 mg/dL 74-106 Performed by certified wired music operator at [facility] COMPREHENSIVE METABOLIC [id number] 06:38:00* Test Item Value Reference Range Comments SODIUM (test code=NA) 134 mmol/L 136-145 POTASSIUM (test code=K) 3.9 mmol/L 3.5-5.1 CHLORIDE (test code=CL) 94.0 mmol/L 98-107 CARBON DIOXIDE (test code=CO2) 29.0 mmol/L 21-32 ANION GAP (test code=GAP) 14.9 10-20 GLUCOSE (test code=GLU) 197 mg/dL 74-106 BLOOD UREA NITROGEN (test code=BUN) 60 mg/dL 7-18 GLOMERULAR FILTRATION RATE (test code=GFR) 34 mL/min >=60 Estimated GFR by using Modified MDRD formula.Chronic kidney disease is defined as either kidney damageor GFR <60 mL/min/1.73 m2 for >3 months. CREATININE (test code=CREAT) 2.00 mg/dL 0.7-1.3 BUN/CREATININE RATIO (test code=BUN/CREA) 29.9 10-20 TOTAL PROTEIN (test code=PROT) 7.6 gram/dL 6.4-8.2 ALBUMIN (test code=ALB) 3.1 g/dL 3.4-5.0 GLOBULIN (test code=GLOB) 4.5 gram/dL 2.7-4.2 ALBUMIN/GLOBULIN RATIO (test code=A/G) 0.7 0.75-1.50 CALCIUM (test code=CA) 8.7 mg/dL 8.5-10.1 BILIRUBIN TOTAL (test code=BILT) 0.30 mg/dL 0.0-1.0 SGOT/AST (test code=AST) 31 IUnit/L 15-37 SGPT/ALT (test code=ALT) 48 IUnit/L 12-78 ALKALINE PHOSPHATASE TOTAL (test code=ALKP) 112 IUnit/L 45-117 Note change in reference range due to change in reagent. [id number] 06:38:00* Test Item Value Reference Range Comments MAGNESIUM (test code=MAG) 2.6 mg/dL 1.8-2.4 COMPREHENSIVE METABOLIC [id number] 06:28:00* Test Item Value Reference Range Comments SODIUM (test code=NA) 134 mmol/L 136-145 POTASSIUM (test code=K) 3.9 mmol/L 3.5-5.1 CHLORIDE (test code=CL) 94.0 mmol/L 98-107 CARBON DIOXIDE (test code=CO2) mmol/L 21-32 ANION GAP (test code=GAP) 10-20 GLUCOSE (test code=GLU) mg/dL 74-106 BLOOD UREA NITROGEN (test code=BUN) mg/dL 7-18 GLOMERULAR FILTRATION RATE (test code=GFR) mL/min >=60 CREATININE (test code=CREAT) mg/dL 0.7-1.3 BUN/CREATININE RATIO (test code=BUN/CREA) 10-20 TOTAL PROTEIN (test code=PROT) gram/dL 6.4-8.2 ALBUMIN (test code=ALB) g/dL 3.4-5.0 GLOBULIN (test code=GLOB) gram/dL 2.7-4.2 ALBUMIN/GLOBULIN RATIO (test code=A/G) 0.75-1.50 CALCIUM (test code=CA) mg/dL 8.5-10.1 BILIRUBIN TOTAL (test code=BILT) mg/dL 0.0-1.0 SGOT/AST (test code=AST) IUnit/L 15-37 SGPT/ALT (test code=ALT) IUnit/L 12-78 ALKALINE PHOSPHATASE TOTAL (test code=ALKP) IUnit/L 45-117 [id number] 06:28:00* Test Item Value Reference Range Comments MAGNESIUM (test code=MAG) mg/dL 1.8-2.4 CBC W/AUTO [id number] 06:10:00* Test Item Value Reference Range Comments WHITE BLOOD CELL (test code=WBC) 9.6 K/mm3 4.5-12.5 RED BLOOD CELL (test code=RBC) 3.87 mill/mm3 4.0-5.8 HEMOGLOBIN (test code=HGB) 10.4 gram/dL 13.0-17.5 HEMATOCRIT (test code=HCT) 32.4 % 42.0-52.0 MEAN CELL VOLUME (test code=MCV) 83.7 fL 80-98 MEAN CELL HGB (test code=MCH) 26.9 picogram 27.0-33.0 MEAN CELL HGB CONCETRATION (test code=MCHC) 32.1 gram/dL 33.0-36.0 RED CELL DISTRIBUTION WIDTH (test code=RDW) 15.3 % 11.6-16.2 RED CELL DISTRIBUTION WIDTH SD (test code=RDW-SD) 46.5 fL 37.0-51.0 PLATELET COUNT (test code=PLT) 307 K/mm3 150-450 MEAN PLATELET VOLUME (test code=MPV) 10.9 fL 6.7-11.0 NEUTROPHIL % (test code=NT%) 66.8 % 39.0-69.0 IMMATURE GRANULOCYTE % (test code=IG%) 1.3 % 0.0-5.0 LYMPHOCYTE % (test code=LY%) 20.4 % 25.0-55.0 MONOCYTE % (test code=MO%) 7.3 % 0.0-10.0 EOSINOPHIL % (test code=EO%) 3.8 % 0.0-5.0 BASOPHIL % (test code=BA%) 0.4 % 0.0-1.0 NUCLEATED RBC % (test code=NRBC%) 0.0 % 0-0 NEUTROPHIL # (test code=NT#) 6.42 K/mm3 1.8-7.7 IMMATURE GRANULOCYTE # (test code=IG#) 0.12 x10 3/uL 0-0.03 LYMPHOCYTE # (test code=LY#) 1.96 K/mm3 1.0-5.0 MONOCYTE # (test code=MO#) 0.70 K/mm3 0-0.8 EOSINOPHIL # (test code=EO#) 0.36 K/mm3 0.0-0.5 BASOPHIL # (test code=BA#) 0.04 K/mm3 0.0-0.2 NUCLEATED RBC # (test code=NRBC#) 0.00 K/mm3 0.0-0.1 MANUAL DIFF REQUIRED (test code=MDIFF) NO [id number] 05:03:00* Test Item Value Reference Range Comments GLUBED (test code=GLUBED) 186 mg/dL 74-106 Performed by certified wired music operator at [facility] [id number] 20:58:00* Test Item Value Reference Range Comments GLUBED (test code=GLUBED) 152 mg/dL 74-106 Performed by certified wired music operator at [facility] [id number] 17:02:00* Test Item Value Reference Range Comments GLUBED (test code=GLUBED) 194 mg/dL 74-106 Performed by certified wired music operator at [facility] [id number] 12:08:00* Test Item Value Reference Range Comments GLUBED (test code=GLUBED) 249 mg/dL 74-106 Performed by certified wired music operator at [facility] - XR CHEST 1 [id number] 09:30:00 FAX: Shreyas Johnson MD [phone] [place]: St: ADM FAX: Baldemar Barreto MD [phone] FAX: Ines Barbosa MD [phone] Name: NJ MELCHOR [facility] : 1955 Age/S: 63/M [address] [facility] Unit #: [id number] Loc: V.2 [place] [address] Phys: Shreyas Stack MD Acct: [id number] Dis Date: Status: ADM IN ONE #: [phone] Exam Date: 05/22/2019 08 FAX #: [phone] Reason: chf EXAMS: CPT CODE: [id number] XR CHEST 1 V 25005 REASON FOR EXAM: chf Exam Order Date: 05/22/2019 6:00 AM Alisa anderson M.D.: Shreyas Stack MD PROCEDURE: - XR CHEST 1 V COMPARISON: 2 view chest x-ray May 20, 2019 FINDINGS: There is atelectasis within the right middle lobe. Otherwise the lungs are clear. Cardiomediastinal silhouette is prominent but stable in size. The mediastinal contours are within normal limits. Deg enerative changes are present in the spine. The visualized upper a bdomen is within normal limits. IMPRESSION: The lungs ar e clear other than atelectasis within the right middle lobe. Remaining f indings are unchanged. Electronically Signed by Arya Crow MD on at 0930 Reported and signed by: Arya Crow MD CC: Shreyas Stack MD; Baldemar Barreto MD; Ines Torres MD Technolo gist: MARI RODAS, RT(R) Trnscrd Date/Time/B y: 05/22/2019 (929) : By: [email or web address] Orig Print D/T: S: 05/22/2019 () PAGE 1 Signed Report COMPREHENSIVE METABOLIC [id number] 07:06:00* Test Item Value Reference Range Comments SODIUM (test code=NA) 134 mmol/L 136-145 POTASSIUM (test code=K) 4.0 mmol/L 3.5-5.1 CHLORIDE (test code=CL) 92.0 mmol/L 98-107 CARBON DIOXIDE (test code=CO2) 30.0 mmol/L 21-32 ANION GAP (test code=GAP) 16.0 10-20 GLUCOSE (test code=GLU) 166 mg/dL 74-106 BLOOD UREA NITROGEN (test code=BUN) 62 mg/dL 7-18 GLOMERULAR FILTRATION RATE (test code=GFR) 34 mL/min >=60 Estimated GFR by using Modified MDRD formula.Chronic kidney disease is defined as either kidney damageor GFR <60 mL/min/1.73 m2 for >3 months. CREATININE (test code=CREAT) 2.00 mg/dL 0.7-1.3 BUN/CREATININE RATIO (test code=BUN/CREA) 31.0 10-20 TOTAL PROTEIN (test code=PROT) 8.2 gram/dL 6.4-8.2 ALBUMIN (test code=ALB) 2.9 g/dL 3.4-5.0 GLOBULIN (test code=GLOB) 5.3 gram/dL 2.7-4.2 ALBUMIN/GLOBULIN RATIO (test code=A/G) 0.6 0.75-1.50 CALCIUM (test code=CA) 8.8 mg/dL 8.5-10.1 BILIRUBIN TOTAL (test code=BILT) 0.50 mg/dL 0.0-1.0 SGOT/AST (test code=AST) 32 IUnit/L 15-37 SGPT/ALT (test code=ALT) 61 IUnit/L 12-78 ALKALINE PHOSPHATASE TOTAL (test code=ALKP) 109 IUnit/L 45-117 Note change in reference range due to change in reagent. [id number] 07:06:00* Test Item Value Reference Range Comments PHOSPHORUS (test code=PHOS) 4.9 mg/dL 2.5-4.9 [id number] 07:06:00* Test Item Value Reference Range Comments MAGNESIUM (test code=MAG) 2.5 mg/dL 1.8-2.4 COMPREHENSIVE METABOLIC [id number] 06:59:00* Test Item Value Reference Range Comments SODIUM (test code=NA) 134 mmol/L 136-145 POTASSIUM (test code=K) 4.0 mmol/L 3.5-5.1 CHLORIDE (test code=CL) 92.0 mmol/L 98-107 CARBON DIOXIDE (test code=CO2) mmol/L 21-32 ANION GAP (test code=GAP) 10-20 GLUCOSE (test code=GLU) mg/dL 74-106 BLOOD UREA NITROGEN (test code=BUN) mg/dL 7-18 GLOMERULAR FILTRATION RATE (test code=GFR) mL/min >=60 CREATININE (test code=CREAT) mg/dL 0.7-1.3 BUN/CREATININE RATIO (test code=BUN/CREA) 10-20 TOTAL PROTEIN (test code=PROT) gram/dL 6.4-8.2 ALBUMIN (test code=ALB) g/dL 3.4-5.0 GLOBULIN (test code=GLOB) gram/dL 2.7-4.2 ALBUMIN/GLOBULIN RATIO (test code=A/G) 0.75-1.50 CALCIUM (test code=CA) mg/dL 8.5-10.1 BILIRUBIN TOTAL (test code=BILT) mg/dL 0.0-1.0 SGOT/AST (test code=AST) IUnit/L 15-37 SGPT/ALT (test code=ALT) IUnit/L 12-78 ALKALINE PHOSPHATASE TOTAL (test code=ALKP) IUnit/L 45-117 [id number] 06:59:00* Test Item Value Reference Range Comments PHOSPHORUS (test code=PHOS) mg/dL 2.5-4.9 [id number] 06:59:00* Test Item Value Reference Range Comments MAGNESIUM (test code=MAG) mg/dL 1.8-2.4 CBC W/AUTO [id number] 06:38:00* Test Item Value Reference Range Comments WHITE BLOOD CELL (test code=WBC) 9.0 K/mm3 4.5-12.5 RED BLOOD CELL (test code=RBC) 3.77 mill/mm3 4.0-5.8 HEMOGLOBIN (test code=HGB) 9.9 gram/dL 13.0-17.5 HEMATOCRIT (test code=HCT) 31.3 % 42.0-52.0 MEAN CELL VOLUME (test code=MCV) 83.0 fL 80-98 MEAN CELL HGB (test code=MCH) 26.3 picogram 27.0-33.0 MEAN CELL HGB CONCETRATION (test code=MCHC) 31.6 gram/dL 33.0-36.0 RED CELL DISTRIBUTION WIDTH (test code=RDW) 15.2 % 11.6-16.2 RED CELL DISTRIBUTION WIDTH SD (test code=RDW-SD) 46.1 fL 37.0-51.0 PLATELET COUNT (test code=PLT) 318 K/mm3 150-450 MEAN PLATELET VOLUME (test code=MPV) 10.8 fL 6.7-11.0 NEUTROPHIL % (test code=NT%) 60.9 % 39.0-69.0 IMMATURE GRANULOCYTE % (test code=IG%) 1.2 % 0.0-5.0 LYMPHOCYTE % (test code=LY%) 25.5 % 25.0-55.0 MONOCYTE % (test code=MO%) 7.8 % 0.0-10.0 EOSINOPHIL % (test code=EO%) 4.0 % 0.0-5.0 BASOPHIL % (test code=BA%) 0.6 % 0.0-1.0 NUCLEATED RBC % (test code=NRBC%) 0.0 % 0-0 NEUTROPHIL # (test code=NT#) 5.46 K/mm3 1.8-7.7 IMMATURE GRANULOCYTE # (test code=IG#) 0.11 x10 3/uL 0-0.03 LYMPHOCYTE # (test code=LY#) 2.29 K/mm3 1.0-5.0 MONOCYTE # (test code=MO#) 0.70 K/mm3 0-0.8 EOSINOPHIL # (test code=EO#) 0.36 K/mm3 0.0-0.5 BASOPHIL # (test code=BA#) 0.05 K/mm3 0.0-0.2 NUCLEATED RBC # (test code=NRBC#) 0.00 K/mm3 0.0-0.1 MANUAL DIFF REQUIRED (test code=MDIFF) NO [id number] 05:18:00* Test Item Value Reference Range Comments GLUBED (test code=GLUBED) 167 mg/dL 74-106 Performed by certified wired music operator at [facility] [id number] 21:38:00* Test Item Value Reference Range Comments GLUBED (test code=GLUBED) 193 mg/dL 74-106 Performed by certified wired music operator at [facility] [id number] 18:54:00* Test Item Value Reference Range Comments GLUBED (test code=GLUBED) 184 mg/dL 74-106 Performed by certified wired music operator at [facility] [id number] 18:54:00* Test Item Value Reference Range Comments GLUBED (test code=GLUBED) 172 mg/dL 74-106 Performed by certified wired music operator at [facility] COMPREHENSIVE METABOLIC [id number] 06:24:00* Test Item Value Reference Range Comments SODIUM (test code=NA) 136 mmol/L 136-145 POTASSIUM (test code=K) 4.4 mmol/L 3.5-5.1 CHLORIDE (test code=CL) 94.0 mmol/L 98-107 CARBON DIOXIDE (test code=CO2) 31.0 mmol/L 21-32 ANION GAP (test code=GAP) 15.4 10-20 GLUCOSE (test code=GLU) 201 mg/dL 74-106 BLOOD UREA NITROGEN (test code=BUN) 58 mg/dL 7-18 GLOMERULAR FILTRATION RATE (test code=GFR) 32 mL/min >=60 Estimated GFR by using Modified MDRD formula.Chronic kidney disease is defined as either kidney damageor GFR <60 mL/min/1.73 m2 for >3 months. CREATININE (test code=CREAT) 2.10 mg/dL 0.7-1.3 BUN/CREATININE RATIO (test code=BUN/CREA) 27.6 10-20 TOTAL PROTEIN (test code=PROT) 7.9 gram/dL 6.4-8.2 ALBUMIN (test code=ALB) 3.1 g/dL 3.4-5.0 GLOBULIN (test code=GLOB) 4.8 gram/dL 2.7-4.2 ALBUMIN/GLOBULIN RATIO (test code=A/G) 0.7 0.75-1.50 CALCIUM (test code=CA) 8.8 mg/dL 8.5-10.1 BILIRUBIN TOTAL (test code=BILT) 0.50 mg/dL 0.0-1.0 SGOT/AST (test code=AST) 53 IUnit/L 15-37 SGPT/ALT (test code=ALT) 79 IUnit/L 12-78 ALKALINE PHOSPHATASE TOTAL (test code=ALKP) 117 IUnit/L 45-117 Note change in reference range due to change in reagent. [id number] 06:24:00* Test Item Value Reference Range Comments MAGNESIUM (test code=MAG) 2.3 mg/dL 1.8-2.4 COMPREHENSIVE METABOLIC [id number] 06:11:00* Test Item Value Reference Range Comments SODIUM (test code=NA) 136 mmol/L 136-145 POTASSIUM (test code=K) 4.4 mmol/L 3.5-5.1 CHLORIDE (test code=CL) 94.0 mmol/L 98-107 CARBON DIOXIDE (test code=CO2) mmol/L 21-32 ANION GAP (test code=GAP) 10-20 GLUCOSE (test code=GLU) mg/dL 74-106 BLOOD UREA NITROGEN (test code=BUN) mg/dL 7-18 GLOMERULAR FILTRATION RATE (test code=GFR) mL/min >=60 CREATININE (test code=CREAT) mg/dL 0.7-1.3 BUN/CREATININE RATIO (test code=BUN/CREA) 10-20 TOTAL PROTEIN (test code=PROT) gram/dL 6.4-8.2 ALBUMIN (test code=ALB) g/dL 3.4-5.0 GLOBULIN (test code=GLOB) gram/dL 2.7-4.2 ALBUMIN/GLOBULIN RATIO (test code=A/G) 0.75-1.50 CALCIUM (test code=CA) mg/dL 8.5-10.1 BILIRUBIN TOTAL (test code=BILT) mg/dL 0.0-1.0 SGOT/AST (test code=AST) IUnit/L 15-37 SGPT/ALT (test code=ALT) IUnit/L 12-78 ALKALINE PHOSPHATASE TOTAL (test code=ALKP) IUnit/L 45-117 [id number] 06:11:00* Test Item Value Reference Range Comments MAGNESIUM (test code=MAG) mg/dL 1.8-2.4 B-TYPE NATRIURETIC [id number] 06:09:00* Test Item Value Reference Range Comments B-TYPE NATRIURETIC PEPTIDE (test code=BNP) 66.67 pgram/mL 0-100 CBC W/AUTO [id number] 05:32:00* Test Item Value Reference Range Comments WHITE BLOOD CELL (test code=WBC) 9.4 K/mm3 4.5-12.5 RED BLOOD CELL (test code=RBC) 3.77 mill/mm3 4.0-5.8 HEMOGLOBIN (test code=HGB) 10.0 gram/dL 13.0-17.5 HEMATOCRIT (test code=HCT) 31.7 % 42.0-52.0 MEAN CELL VOLUME (test code=MCV) 84.1 fL 80-98 MEAN CELL HGB (test code=MCH) 26.5 picogram 27.0-33.0 MEAN CELL HGB CONCETRATION (test code=MCHC) 31.5 gram/dL 33.0-36.0 RED CELL DISTRIBUTION WIDTH (test code=RDW) 15.2 % 11.6-16.2 RED CELL DISTRIBUTION WIDTH SD (test code=RDW-SD) 46.0 fL 37.0-51.0 PLATELET COUNT (test code=PLT) 317 K/mm3 150-450 MEAN PLATELET VOLUME (test code=MPV) 10.9 fL 6.7-11.0 NEUTROPHIL % (test code=NT%) 63.6 % 39.0-69.0 IMMATURE GRANULOCYTE % (test code=IG%) 1.6 % 0.0-5.0 LYMPHOCYTE % (test code=LY%) 21.9 % 25.0-55.0 MONOCYTE % (test code=MO%) 8.0 % 0.0-10.0 EOSINOPHIL % (test code=EO%) 4.0 % 0.0-5.0 BASOPHIL % (test code=BA%) 0.9 % 0.0-1.0 NUCLEATED RBC % (test code=NRBC%) 0.0 % 0-0 NEUTROPHIL # (test code=NT#) 5.99 K/mm3 1.8-7.7 IMMATURE GRANULOCYTE # (test code=IG#) 0.15 x10 3/uL 0-0.03 LYMPHOCYTE # (test code=LY#) 2.06 K/mm3 1.0-5.0 MONOCYTE # (test code=MO#) 0.75 K/mm3 0-0.8 EOSINOPHIL # (test code=EO#) 0.38 K/mm3 0.0-0.5 BASOPHIL # (test code=BA#) 0.08 K/mm3 0.0-0.2 NUCLEATED RBC # (test code=NRBC#) 0.00 K/mm3 0.0-0.1 MANUAL DIFF REQUIRED (test code=MDIFF) NO [id number] 05:18:00* Test Item Value Reference Range Comments GLUBED (test code=GLUBED) 191 mg/dL 74-106 Performed by certified wired music operator at [facility] [id number] 20:57:00* Test Item Value Reference Range Comments GLUBED (test code=GLUBED) 203 mg/dL 74-106 Performed by certified wired music operator at [facility] [id number] 16:56:00* Test Item Value Reference Range Comments GLUBED (test code=GLUBED) 214 mg/dL 74-106 Performed by certified wired music operator at [facility] COMPREHENSIVE METABOLIC [id number] 12:13:00* Test Item Value Reference Range Comments SODIUM (test code=NA) 138 mmol/L 136-145 POTASSIUM (test code=K) 4.3 mmol/L 3.5-5.1 CHLORIDE (test code=CL) 98.0 mmol/L 98-107 CARBON DIOXIDE (test code=CO2) 29.0 mmol/L 21-32 ANION GAP (test code=GAP) 15.3 10-20 GLUCOSE (test code=GLU) 221 mg/dL 74-106 BLOOD UREA NITROGEN (test code=BUN) 51 mg/dL 7-18 GLOMERULAR FILTRATION RATE (test code=GFR) 38 mL/min >=60 Estimated GFR by using Modified MDRD formula.Chronic kidney disease is defined as either kidney damageor GFR <60 mL/min/1.73 m2 for >3 months. CREATININE (test code=CREAT) 1.80 mg/dL 0.7-1.3 BUN/CREATININE RATIO (test code=BUN/CREA) 28.3 10-20 TOTAL PROTEIN (test code=PROT) 8.4 gram/dL 6.4-8.2 ALBUMIN (test code=ALB) 2.8 g/dL 3.4-5.0 GLOBULIN (test code=GLOB) 5.6 gram/dL 2.7-4.2 ALBUMIN/GLOBULIN RATIO (test code=A/G) 0.5 0.75-1.50 CALCIUM (test code=CA) 8.9 mg/dL 8.5-10.1 BILIRUBIN TOTAL (test code=BILT) 0.50 mg/dL 0.0-1.0 SGOT/AST (test code=AST) 45 IUnit/L 15-37 SGPT/ALT (test code=ALT) 67 IUnit/L 12-78 ALKALINE PHOSPHATASE TOTAL (test code=ALKP) 111 IUnit/L 45-117 Note change in reference range due to change in reagent. [id number] 12:13:00* Test Item Value Reference Range Comments PHOSPHORUS (test code=PHOS) 4.1 mg/dL 2.5-4.9 [id number] 12:13:00* Test Item Value Reference Range Comments MAGNESIUM (test code=MAG) 2.1 mg/dL 1.8-2.4 CALCIUM [id number] 12:13:00* Test Item Value Reference Range Comments CALCIUM IONIZED (test code=EBENEZER) 1.20 mmol/L 1.12-1.32 [id number] 12:05:00* Test Item Value Reference Range Comments GLUBED (test code=GLUBED) 201 mg/dL 74-106 Performed by certified wired music operator at [facility] COMPREHENSIVE METABOLIC [id number] 12:04:00* Test Item Value Reference Range Comments SODIUM (test code=NA) 138 mmol/L 136-145 POTASSIUM (test code=K) 4.3 mmol/L 3.5-5.1 CHLORIDE (test code=CL) 98.0 mmol/L 98-107 CARBON DIOXIDE (test code=CO2) mmol/L 21-32 ANION GAP (test code=GAP) 10-20 GLUCOSE (test code=GLU) mg/dL 74-106 BLOOD UREA NITROGEN (test code=BUN) mg/dL 7-18 GLOMERULAR FILTRATION RATE (test code=GFR) mL/min >=60 CREATININE (test code=CREAT) mg/dL 0.7-1.3 BUN/CREATININE RATIO (test code=BUN/CREA) 10-20 TOTAL PROTEIN (test code=PROT) gram/dL 6.4-8.2 ALBUMIN (test code=ALB) g/dL 3.4-5.0 GLOBULIN (test code=GLOB) gram/dL 2.7-4.2 ALBUMIN/GLOBULIN RATIO (test code=A/G) 0.75-1.50 CALCIUM (test code=CA) mg/dL 8.5-10.1 BILIRUBIN TOTAL (test code=BILT) mg/dL 0.0-1.0 SGOT/AST (test code=AST) IUnit/L 15-37 SGPT/ALT (test code=ALT) IUnit/L 12-78 ALKALINE PHOSPHATASE TOTAL (test code=ALKP) IUnit/L 45-117 [id number] 12:04:00* Test Item Value Reference Range Comments PHOSPHORUS (test code=PHOS) mg/dL 2.5-4.9 [id number] 12:04:00* Test Item Value Reference Range Comments MAGNESIUM (test code=MAG) mg/dL 1.8-2.4 CALCIUM [id number] 12:04:00* Test Item Value Reference Range Comments CALCIUM IONIZED (test code=EBENEZER) 1.20 mmol/L 1.12-1.32 COMPREHENSIVE METABOLIC [id number] 12:03:00* Test Item Value Reference Range Comments SODIUM (test code=NA) 138 mmol/L 136-145 POTASSIUM (test code=K) 4.3 mmol/L 3.5-5.1 CHLORIDE (test code=CL) 98.0 mmol/L 98-107 CARBON DIOXIDE (test code=CO2) mmol/L 21-32 ANION GAP (test code=GAP) 10-20 GLUCOSE (test code=GLU) mg/dL 74-106 BLOOD UREA NITROGEN (test code=BUN) mg/dL 7-18 GLOMERULAR FILTRATION RATE (test code=GFR) mL/min >=60 CREATININE (test code=CREAT) mg/dL 0.7-1.3 BUN/CREATININE RATIO (test code=BUN/CREA) 10-20 TOTAL PROTEIN (test code=PROT) gram/dL 6.4-8.2 ALBUMIN (test code=ALB) g/dL 3.4-5.0 GLOBULIN (test code=GLOB) gram/dL 2.7-4.2 ALBUMIN/GLOBULIN RATIO (test code=A/G) 0.75-1.50 CALCIUM (test code=CA) mg/dL 8.5-10.1 BILIRUBIN TOTAL (test code=BILT) mg/dL 0.0-1.0 SGOT/AST (test code=AST) IUnit/L 15-37 SGPT/ALT (test code=ALT) IUnit/L 12-78 ALKALINE PHOSPHATASE TOTAL (test code=ALKP) IUnit/L 45-117 [id number] 12:03:00* Test Item Value Reference Range Comments PHOSPHORUS (test code=PHOS) mg/dL 2.5-4.9 [id number] 12:03:00* Test Item Value Reference Range Comments MAGNESIUM (test code=MAG) mg/dL 1.8-2.4 CALCIUM [id number] 12:03:00* Test Item Value Reference Range Comments CALCIUM IONIZED (test code=EBENEZER) mmol/L 1.12-1.32 CBC W/AUTO [id number] 11:13:00* Test Item Value Reference Range Comments WHITE BLOOD CELL (test code=WBC) 8.9 K/mm3 4.5-12.5 RED BLOOD CELL (test code=RBC) 3.53 mill/mm3 4.0-5.8 HEMOGLOBIN (test code=HGB) 9.4 gram/dL 13.0-17.5 HEMATOCRIT (test code=HCT) 29.9 % 42.0-52.0 MEAN CELL VOLUME (test code=MCV) 84.7 fL 80-98 MEAN CELL HGB (test code=MCH) 26.6 picogram 27.0-33.0 MEAN CELL HGB CONCETRATION (test code=MCHC) 31.4 gram/dL 33.0-36.0 RED CELL DISTRIBUTION WIDTH (test code=RDW) 15.3 % 11.6-16.2 RED CELL DISTRIBUTION WIDTH SD (test code=RDW-SD) 46.5 fL 37.0-51.0 PLATELET COUNT (test code=PLT) 298 K/mm3 150-450 MEAN PLATELET VOLUME (test code=MPV) 10.7 fL 6.7-11.0 NEUTROPHIL % (test code=NT%) 66.2 % 39.0-69.0 IMMATURE GRANULOCYTE % (test code=IG%) 1.6 % 0.0-5.0 LYMPHOCYTE % (test code=LY%) 19.8 % 25.0-55.0 MONOCYTE % (test code=MO%) 7.2 % 0.0-10.0 EOSINOPHIL % (test code=EO%) 4.6 % 0.0-5.0 BASOPHIL % (test code=BA%) 0.6 % 0.0-1.0 NUCLEATED RBC % (test code=NRBC%) 0.0 % 0-0 NEUTROPHIL # (test code=NT#) 5.86 K/mm3 1.8-7.7 IMMATURE GRANULOCYTE # (test code=IG#) 0.14 x10 3/uL 0-0.03 LYMPHOCYTE # (test code=LY#) 1.75 K/mm3 1.0-5.0 MONOCYTE # (test code=MO#) 0.64 K/mm3 0-0.8 EOSINOPHIL # (test code=EO#) 0.41 K/mm3 0.0-0.5 BASOPHIL # (test code=BA#) 0.05 K/mm3 0.0-0.2 NUCLEATED RBC # (test code=NRBC#) 0.00 K/mm3 0.0-0.1 MANUAL DIFF REQUIRED (test code=MDIFF) NO - XR CHEST 2 [id number] 09:15:00 FAX: Gaurav Green MD [phone] [place]: B St: ADM FAX: Baldemar Barreto MD [phone] FAX: Ines Barbosa MD [phone] Name: [place] MELCHOR [facility] : 1955 Age/S: 63/M [address] [facility] Unit #: [id number] Loc: V.[address] [place] [address] Phys: Gaurav Amos MD Acct: [id number] Dis Date: Status: ADM IN ONE #: [phone] Exam Date: 05/20/2019 0900 FAX #: [phone] Reason: CHF EXAMS: CPT CODE: [id number] XR CHEST 2 V [id number] REASON FOR EXAM: CHF Exam Order Date: 05/20/2019 7:00 AM Ord monica Hayes: Gaurav Amos MD PROCEDURE: - XR CHEST 2 V COMPARISON: CT of the chest May 18, 2019 FINDINGS: There are small pleural effusions blunting the costophrenic recesses. T here is also mild subsegmental atelectasis in the lung bases. Upper lungs appear grossly clear and the previously seen groundglass opacities are not appreciated on this exam. Cardiomediastinal silhouette is normal in size for technique. The mediastinal contours are within normal limits. Degenerative changes are present in the right shoulder and through out the spine. The visualized upper abdomen is within normal limits. IMPRESSION: Small bilateral pleural effusions. Lungs otherwise appear clear other than mild bibasilar subsegmental atel ectasis. The previously seen opacities are not appreciated on this exam. at 0915 Reported and signed by: Arya Crow MD CC: Gaurav Amos MD; Baldemar Barreto MD; Ines Torres MD Technologist: ETTA KNUTSON JR Trnscrd Date/Time/By: 05/20/2019 (15) : By: [email or web address] Orig Print D/T: S: 05/20/2019 (18) PAGE 1 Signed Report GLUBED 2019-05-20 05:17:00* Test Item Value Reference Range Comments GLUBED (test code=GLUBED) 154 mg/dL 74-106 Performed by certified wired music operator at [facility] [id number] 20:11:00* Test Item Value Reference Range Comments GLUBED (test code=GLUBED) 271 mg/dL 74-106 Performed by certified wired music operator at [facility] [id number] 16:48:00* Test Item Value Reference Range Comments GLUBED (test code=GLUBED) 261 mg/dL 74-106 Performed by certified wired music operator at [facility] [id number] 12:06:00* Test Item Value Reference Range Comments GLUBED (test code=GLUBED) 223 mg/dL 74-106 Performed by certified wired music operator at [facility] B-TYPE NATRIURETIC [id number] 07:51:00* Test Item Value Reference Range Comments B-TYPE NATRIURETIC PEPTIDE (test code=BNP) 251.78 pgram/mL 0-100 BASIC METABOLIC [id number] 07:50:00* Test Item Value Reference Range Comments SODIUM (test code=NA) 134 mmol/L 136-145 POTASSIUM (test code=K) 4.6 mmol/L 3.5-5.1 CHLORIDE (test code=CL) 101.0 mmol/L 98-107 CARBON DIOXIDE (test code=CO2) 27.0 mmol/L 21-32 ANION GAP (test code=GAP) 10.6 10-20 GLUCOSE (test code=GLU) 260 mg/dL 74-106 BLOOD UREA NITROGEN (test code=BUN) 53 mg/dL 7-18 GLOMERULAR FILTRATION RATE (test code=GFR) 38 mL/min >=60 Estimated GFR by using Modified MDRD formula.Chronic kidney disease is defined as either kidney damageor GFR <60 mL/min/1.73 m2 for >3 months. CREATININE (test code=CREAT) 1.80 mg/dL 0.7-1.3 BUN/CREATININE RATIO (test code=BUN/CREA) 29.6 10-20 CALCIUM (test code=CA) 8.6 mg/dL 8.5-10.1 HEPATIC FUNCTION [id number] 07:50:00* Test Item Value Reference Range Comments TOTAL PROTEIN (test code=PROT) 8.3 gram/dL 6.4-8.2 ALBUMIN (test code=ALB) 2.7 g/dL 3.4-5.0 GLOBULIN (test code=GLOB) 5.6 gram/dL 2.7-4.2 ALBUMIN/GLOBULIN RATIO (test code=A/G) 0.5 0.75-1.50 BILIRUBIN TOTAL (test code=BILT) 0.30 mg/dL 0.0-1.0 BILIRUBIN DIRECT (test code=BILD) 0.15 mg/dL 0.0-0.20 SGOT/AST (test code=AST) 44 IUnit/L 15-37 SGPT/ALT (test code=ALT) 62 IUnit/L 12-78 ALKALINE PHOSPHATASE TOTAL (test code=ALKP) 115 IUnit/L 45-117 Note change in reference range due to change in reagent. [id number] 07:50:00* Test Item Value Reference Range Comments PHOSPHORUS (test code=PHOS) 4.2 mg/dL 2.5-4.9 [id number] 07:50:00* Test Item Value Reference Range Comments MAGNESIUM (test code=MAG) 2.9 mg/dL 1.8-2.4 CALCIUM [id number] 07:50:00* Test Item Value Reference Range Comments CALCIUM IONIZED (test code=EBENEZER) 1.20 mmol/L 1.12-1.32 BASIC METABOLIC [id number] 07:43:00* Test Item Value Reference Range Comments SODIUM (test code=NA) 134 mmol/L 136-145 POTASSIUM (test code=K) 4.6 mmol/L 3.5-5.1 CHLORIDE (test code=CL) 101.0 mmol/L 98-107 CARBON DIOXIDE (test code=CO2) mmol/L 21-32 ANION GAP (test code=GAP) 10-20 GLUCOSE (test code=GLU) mg/dL 74-106 BLOOD UREA NITROGEN (test code=BUN) mg/dL 7-18 GLOMERULAR FILTRATION RATE (test code=GFR) mL/min >=60 CREATININE (test code=CREAT) mg/dL 0.7-1.3 BUN/CREATININE RATIO (test code=BUN/CREA) 10-20 CALCIUM (test code=CA) mg/dL 8.5-10.1 HEPATIC FUNCTION [id number] 07:43:00* Test Item Value Reference Range Comments TOTAL PROTEIN (test code=PROT) gram/dL 6.4-8.2 ALBUMIN (test code=ALB) g/dL 3.4-5.0 GLOBULIN (test code=GLOB) gram/dL 2.7-4.2 ALBUMIN/GLOBULIN RATIO (test code=A/G) 0.75-1.50 BILIRUBIN TOTAL (test code=BILT) mg/dL 0.0-1.0 BILIRUBIN DIRECT (test code=BILD) mg/dL 0.0-0.20 SGOT/AST (test code=AST) IUnit/L 15-37 SGPT/ALT (test code=ALT) IUnit/L 12-78 ALKALINE PHOSPHATASE TOTAL (test code=ALKP) IUnit/L 45-117 [id number] 07:43:00* Test Item Value Reference Range Comments PHOSPHORUS (test code=PHOS) mg/dL 2.5-4.9 [id number] 07:43:00* Test Item Value Reference Range Comments MAGNESIUM (test code=MAG) mg/dL 1.8-2.4 CALCIUM [id number] 07:43:00* Test Item Value Reference Range Comments CALCIUM IONIZED (test code=EBENEZER) mmol/L 1.12-1.32 BASIC METABOLIC [id number] 07:43:00* Test Item Value Reference Range Comments SODIUM (test code=NA) 134 mmol/L 136-145 POTASSIUM (test code=K) 4.6 mmol/L 3.5-5.1 CHLORIDE (test code=CL) 101.0 mmol/L 98-107 CARBON DIOXIDE (test code=CO2) mmol/L 21-32 ANION GAP (test code=GAP) 10-20 GLUCOSE (test code=GLU) mg/dL 74-106 BLOOD UREA NITROGEN (test code=BUN) mg/dL 7-18 GLOMERULAR FILTRATION RATE (test code=GFR) mL/min >=60 CREATININE (test code=CREAT) mg/dL 0.7-1.3 BUN/CREATININE RATIO (test code=BUN/CREA) 10-20 CALCIUM (test code=CA) mg/dL 8.5-10.1 HEPATIC FUNCTION [id number] 07:43:00* Test Item Value Reference Range Comments TOTAL PROTEIN (test code=PROT) gram/dL 6.4-8.2 ALBUMIN (test code=ALB) g/dL 3.4-5.0 GLOBULIN (test code=GLOB) gram/dL 2.7-4.2 ALBUMIN/GLOBULIN RATIO (test code=A/G) 0.75-1.50 BILIRUBIN TOTAL (test code=BILT) mg/dL 0.0-1.0 BILIRUBIN DIRECT (test code=BILD) mg/dL 0.0-0.20 SGOT/AST (test code=AST) IUnit/L 15-37 SGPT/ALT (test code=ALT) IUnit/L 12-78 ALKALINE PHOSPHATASE TOTAL (test code=ALKP) IUnit/L 45-117 [id number] 07:43:00* Test Item Value Reference Range Comments PHOSPHORUS (test code=PHOS) mg/dL 2.5-4.9 [id number] 07:43:00* Test Item Value Reference Range Comments MAGNESIUM (test code=MAG) mg/dL 1.8-2.4 CALCIUM [id number] 07:43:00* Test Item Value Reference Range Comments CALCIUM IONIZED (test code=EBENEZER) 1.20 mmol/L 1.12-1.32 CBC W/AUTO [id number] 07:21:00* Test Item Value Reference Range Comments WHITE BLOOD CELL (test code=WBC) 10.7 K/mm3 4.5-12.5 RED BLOOD CELL (test code=RBC) 3.22 mill/mm3 4.0-5.8 HEMOGLOBIN (test code=HGB) 8.5 gram/dL 13.0-17.5 HEMATOCRIT (test code=HCT) 27.3 % 42.0-52.0 MEAN CELL VOLUME (test code=MCV) 84.8 fL 80-98 MEAN CELL HGB (test code=MCH) 26.4 picogram 27.0-33.0 MEAN CELL HGB CONCETRATION (test code=MCHC) 31.1 gram/dL 33.0-36.0 RED CELL DISTRIBUTION WIDTH (test code=RDW) 15.1 % 11.6-16.2 RED CELL DISTRIBUTION WIDTH SD (test code=RDW-SD) 46.7 fL 37.0-51.0 PLATELET COUNT (test code=PLT) 278 K/mm3 150-450 MEAN PLATELET VOLUME (test code=MPV) 11.3 fL 6.7-11.0 NEUTROPHIL % (test code=NT%) 87.0 % 39.0-69.0 IMMATURE GRANULOCYTE % (test code=IG%) 1.1 % 0.0-5.0 LYMPHOCYTE % (test code=LY%) 7.1 % 25.0-55.0 MONOCYTE % (test code=MO%) 4.7 % 0.0-10.0 EOSINOPHIL % (test code=EO%) 0.0 % 0.0-5.0 BASOPHIL % (test code=BA%) 0.1 % 0.0-1.0 NUCLEATED RBC % (test code=NRBC%) 0.0 % 0-0 NEUTROPHIL # (test code=NT#) 9.34 K/mm3 1.8-7.7 IMMATURE GRANULOCYTE # (test code=IG#) 0.12 x10 3/uL 0-0.03 LYMPHOCYTE # (test code=LY#) 0.76 K/mm3 1.0-5.0 MONOCYTE # (test code=MO#) 0.50 K/mm3 0-0.8 EOSINOPHIL # (test code=EO#) 0.00 K/mm3 0.0-0.5 BASOPHIL # (test code=BA#) 0.01 K/mm3 0.0-0.2 NUCLEATED RBC # (test code=NRBC#) 0.00 K/mm3 0.0-0.1 [id number] 06:07:00* Test Item Value Reference Range Comments GLUBED (test code=GLUBED) 268 mg/dL 74-106 Performed by certified wired music operator at [facility] [id number] 21:21:00* Test Item Value Reference Range Comments GLUBED (test code=GLUBED) 285 mg/dL 74-106 Performed by certified wired music operator at [facility] [id number] 20:54:00* Test Item Value Reference Range Comments GLUBED (test code=GLUBED) 318 mg/dL 74-106 Performed by certified wired music operator at [facility] [id number] 16:43:00* Test Item Value Reference Range Comments GLUBED (test code=GLUBED) 311 mg/dL 74-106 [facility]~ [id number] 11:58:00* Test Item Value Reference Range Comments LIA (test code=GLUBED) 197 mg/dL 74-106 Performed by certified wired music operator at [facility] - CT CHEST W/O [id number] 11:24:00 Name: [place] MELCHOR [facility] : 1955 Age/S: 63 / M [address] [facility]: [id number] Loc: [place] [address] Phys: Gaurav Amos MD Acct: [id number] Dis Date: Status: ADM IN PHONE #: [phone] Exam Date: 05/18/2019 1108 FAX #: [phone] Reason: Infiltrates Dyspnea EXAMS: CPT CODE: [id number] CT CHEST W/O CONTRAST 51683 REASON FOR EXAM: Infiltrates Dyspnea EXAM ORDER DATE: 05/18/2019 8:09 AM Ordering M.D.: Gaurav Amos MD PROCEDURE: - CT CHEST W/O CONTRAST FINDINGS: CT images of the chest were obtained without IV contrast. Reconstructed sagittal and coronal images of the chest were provided for interpretation. Dose modulation, iterative reconstruction, and/or weight based adjustment of the MA/KV was utilized to reduce the radiation dose to as low as reasonably achievable. The heart size is minimally enlarged. No evidence of pericardial effusion. The thoracic aorta is aorta is unremarkable. No evidence of mediastinal or hilar adenopathy. Diffuse patchy airspace opacities suggestive of pulmonary edema. Small bilateral pleural effusion seen slightly larger on the right IMPRESSION: 4 cm fat-containing left adrenal mass suggestive of benign adrenal adenoma. Congestive heart failure with pulmonary edema and small bilateral pleural effusions at 1124 Reported and signed by: Trae Powers M.D. CC: Gaurav Amos MD; Baldemar Barreto MD; Dionicio Torres MD Technologist:Vin Jackson RT(R)(CT) CTDI: DLP: Trnscb Date/Time: 05/18/2019 (1124) t.[email or web address].VTL Orig Print D/T: S: 05/18/2019 (1121) PAGE 1 Signed Report - XR CHEST 1 [id number] 08:14:00 FAX: Shreyas Johnson MD [phone] [place]: St: ADM FAX: Baldemar Barreto MD [phone] FAX: Ines Barbosa MD [phone] Name: [place] MELCHOR [facility] : 1955 Age/S: 63/M [address] [facility] Unit #: [id number] Loc: V.2044 [facility] [place] [address] Phys: Shreyas Stack MD Acct: [id number] Dis Date: Status: ADM IN ONE #: [phone] Exam Date: 05/18/2019 0737 FAX #: [phone] Reason: chf EXAMS: CPT CODE: [id number] XR CHEST 1 V 16524 REASON FOR EXAM: chf EXAM ORDER DATE: 05/18/2019 6:00 AM Alisa anderson M.D.: Shreyas Stack MD PROCEDURE: - XR CHEST 1 V COMPARISON: FINDINGS: Portable AP frontal view of the chest obtained at 7:36 AM shows diffuse airspace opacity. There is no evidence o f effusion. The heart size is minimally enlarged. Pulmonary vasculatures a re unremarkable. IMPRESSION: No active disease. at 0814 Reported and signed by: Trae Powers M.D. CC: Shreyas Stack MD; Baldemar Barreto MD; Ines Torres MD Technologist: Richie STEWART(R) Trnscrd Date/Time/By: 05/18/2019 (0814) : By: Leonardo.VTL Orig Print D/T: S: 05/18/2019 (5071) PAGE 1 Signed Report GLUBED 2019-05-18 06:25:00* Test Item Value Reference Range Comments GLUBED (test code=GLUBED) 223 mg/dL 74-106 [facility] CBC W/AUTO [id number] 05:21:00* Test Item Value Reference Range Comments WHITE BLOOD CELL (test code=WBC) 6.5 K/mm3 4.5-12.5 RED BLOOD CELL (test code=RBC) 3.21 mill/mm3 4.0-5.8 HEMOGLOBIN (test code=HGB) 8.6 gram/dL 13.0-17.5 HEMATOCRIT (test code=HCT) 27.2 % 42.0-52.0 MEAN CELL VOLUME (test code=MCV) 84.7 fL 80-98 MEAN CELL HGB (test code=MCH) 26.8 picogram 27.0-33.0 MEAN CELL HGB CONCETRATION (test code=MCHC) 31.6 gram/dL 33.0-36.0 RED CELL DISTRIBUTION WIDTH (test code=RDW) 15.0 % 11.6-16.2 RED CELL DISTRIBUTION WIDTH SD (test code=RDW-SD) 46.4 fL 37.0-51.0 PLATELET COUNT (test code=PLT) 253 K/mm3 150-450 MEAN PLATELET VOLUME (test code=MPV) 11.1 fL 6.7-11.0 NEUTROPHIL % (test code=NT%) 89.6 % 39.0-69.0 IMMATURE GRANULOCYTE % (test code=IG%) 1.1 % 0.0-5.0 LYMPHOCYTE % (test code=LY%) 6.9 % 25.0-55.0 MONOCYTE % (test code=MO%) 2.2 % 0.0-10.0 EOSINOPHIL % (test code=EO%) 0.0 % 0.0-5.0 BASOPHIL % (test code=BA%) 0.2 % 0.0-1.0 NUCLEATED RBC % (test code=NRBC%) 0.0 % 0-0 NEUTROPHIL # (test code=NT#) 5.84 K/mm3 1.8-7.7 IMMATURE GRANULOCYTE # (test code=IG#) 0.07 x10 3/uL 0-0.03 LYMPHOCYTE # (test code=LY#) 0.45 K/mm3 1.0-5.0 MONOCYTE # (test code=MO#) 0.14 K/mm3 0-0.8 EOSINOPHIL # (test code=EO#) 0.00 K/mm3 0.0-0.5 BASOPHIL # (test code=BA#) 0.01 K/mm3 0.0-0.2 NUCLEATED RBC # (test code=NRBC#) 0.00 K/mm3 0.0-0.1 MANUAL DIFF REQUIRED (test code=MDIFF) NO BASIC METABOLIC [id number] 05:20:00* Test Item Value Reference Range Comments SODIUM (test code=NA) 137 mmol/L 136-145 POTASSIUM (test code=K) 4.6 mmol/L 3.5-5.1 CHLORIDE (test code=CL) 102.0 mmol/L 98-107 CARBON DIOXIDE (test code=CO2) 27.0 mmol/L 21-32 ANION GAP (test code=GAP) 12.6 10-20 GLUCOSE (test code=GLU) 243 mg/dL 74-106 BLOOD UREA NITROGEN (test code=BUN) 49 mg/dL 7-18 GLOMERULAR FILTRATION RATE (test code=GFR) 38 mL/min >=60 Estimated GFR by using Modified MDRD formula.Chronic kidney disease is defined as either kidney damageor GFR <60 mL/min/1.73 m2 for >3 months. CREATININE (test code=CREAT) 1.80 mg/dL 0.7-1.3 BUN/CREATININE RATIO (test code=BUN/CREA) 28.0 10-20 CALCIUM (test code=CA) 8.8 mg/dL 8.5-10.1 [id number] 05:20:00* Test Item Value Reference Range Comments PHOSPHORUS (test code=PHOS) 4.4 mg/dL 2.5-4.9 [id number] 05:20:00* Test Item Value Reference Range Comments MAGNESIUM (test code=MAG) 3.0 mg/dL 1.8-2.4 CALCIUM [id number] 05:20:00* Test Item Value Reference Range Comments CALCIUM IONIZED (test code=EBENEZER) 1.21 mmol/L 1.12-1.32 BASIC METABOLIC [id number] 05:13:00* Test Item Value Reference Range Comments SODIUM (test code=NA) 137 mmol/L 136-145 POTASSIUM (test code=K) 4.6 mmol/L 3.5-5.1 CHLORIDE (test code=CL) 102.0 mmol/L 98-107 CARBON DIOXIDE (test code=CO2) mmol/L 21-32 ANION GAP (test code=GAP) 10-20 GLUCOSE (test code=GLU) mg/dL 74-106 BLOOD UREA NITROGEN (test code=BUN) mg/dL 7-18 GLOMERULAR FILTRATION RATE (test code=GFR) mL/min >=60 CREATININE (test code=CREAT) mg/dL 0.7-1.3 BUN/CREATININE RATIO (test code=BUN/CREA) 10-20 CALCIUM (test code=CA) mg/dL 8.5-10.1 [id number] 05:13:00* Test Item Value Reference Range Comments PHOSPHORUS (test code=PHOS) mg/dL 2.5-4.9 [id number] 05:13:00* Test Item Value Reference Range Comments MAGNESIUM (test code=MAG) mg/dL 1.8-2.4 CALCIUM [id number] 05:13:00* Test Item Value Reference Range Comments CALCIUM IONIZED (test code=EBENEZER) 1.21 mmol/L 1.12-1.32 BASIC METABOLIC [id number] 05:08:00* Test Item Value Reference Range Comments SODIUM (test code=NA) mmol/L 136-145 POTASSIUM (test code=K) mmol/L 3.5-5.1 CHLORIDE (test code=CL) mmol/L 98-107 CARBON DIOXIDE (test code=CO2) mmol/L 21-32 ANION GAP (test code=GAP) 10-20 GLUCOSE (test code=GLU) mg/dL 74-106 BLOOD UREA NITROGEN (test code=BUN) mg/dL 7-18 GLOMERULAR FILTRATION RATE (test code=GFR) mL/min >=60 CREATININE (test code=CREAT) mg/dL 0.7-1.3 BUN/CREATININE RATIO (test code=BUN/CREA) 10-20 CALCIUM (test code=CA) mg/dL 8.5-10.1 [id number] 05:08:00* Test Item Value Reference Range Comments PHOSPHORUS (test code=PHOS) mg/dL 2.5-4.9 [id number] 05:08:00* Test Item Value Reference Range Comments MAGNESIUM (test code=MAG) mg/dL 1.8-2.4 CALCIUM [id number] 05:08:00* Test Item Value Reference Range Comments CALCIUM IONIZED (test code=EBENEZER) 1.21 mmol/L 1.12-1.32 [id number] 20:57:00* Test Item Value Reference Range Comments GLUBED (test code=GLUBED) 267 mg/dL 74-106 Performed by certified wired music operator at [facility] [id number] 17:35:00* Test Item Value Reference Range Comments GLUBED (test code=GLUBED) 215 mg/dL 74-106 Performed by certified wired music operator at [facility] [id number] 17:35:00* Test Item Value Reference Range Comments GLUBED (test code=GLUBED) 173 mg/dL 74-106 Performed by certified wired music operator at [facility] - PULM VENT PERF [id number] 15:34:00 FAX: Gaurav Green MD [phone] [place]: [address] St: ADM FAX: Baldemar Barreto MD [phone] FAX: Ines Barbosa MD [phone] Name: [place] MELCHOR [facility] : 1955 Age/S: 63/M [address] [facility] Unit #: [id number] Loc: V.2045 [place] [address] Phys: Gaurav Amos MD Acct: [id number] Dis Date: Status: ADM IN ONE #: [phone] Exam Date: 05/17/2019 1516 FAX #: [phone] Reason: Dyspnea EXAMS: CPT CODE: [id number] PU LM VENT PERF IMAG [id number] REASON FOR EXA M: Dyspnea Exam Order Date: 05/17/2019 1:01 PM Procedu re: - PULM VENT PERF IMAG FINDINGS: The patient was injected with 5.5 mCi of technetium 99m MAA. Unremarkable radiotracer uptake in the lungs in the perfusion phase. The patient was then inhaled 10.3 mCi of x enon-133. Unremarkable inhalation uptake seen. IMPRESSION: Low probability of pulmonary embolus at 1531 Reported and signed by: Melanie Powers M.D. CC: Gaurav Amos MD; Baldemar Barreto MD ; Ines Torres MD Technologist: Roberta Tena RT(N) Trnscrd Date/Time/By: 05/17/2019 (1539) : By: [email or web address] Orig Print D/T: S: 05/17/2019 (0768) PAGE 1 Signed Report BASIC METABOLIC [id number] 09:27:00* Test Item Value Reference Range Comments SODIUM (test code=NA) 136 mmol/L 136-145 POTASSIUM (test code=K) 4.3 mmol/L 3.5-5.1 CHLORIDE (test code=CL) 102.0 mmol/L 98-107 CARBON DIOXIDE (test code=CO2) 26.0 mmol/L 21-32 ANION GAP (test code=GAP) 12.3 10-20 GLUCOSE (test code=GLU) 130 mg/dL 74-106 BLOOD UREA NITROGEN (test code=BUN) 48 mg/dL 7-18 GLOMERULAR FILTRATION RATE (test code=GFR) 38 mL/min >=60 Estimated GFR by using Modified MDRD formula.Chronic kidney disease is defined as either kidney damageor GFR <60 mL/min/1.73 m2 for >3 months. CREATININE (test code=CREAT) 1.80 mg/dL 0.7-1.3 BUN/CREATININE RATIO (test code=BUN/CREA) 26.7 10-20 CALCIUM (test code=CA) 7.9 mg/dL 8.5-10.1 [id number] 09:27:00* Test Item Value Reference Range Comments PHOSPHORUS (test code=PHOS) 5.2 mg/dL 2.5-4.9 [id number] 09:27:00* Test Item Value Reference Range Comments MAGNESIUM (test code=MAG) 2.8 mg/dL 1.8-2.4 CALCIUM [id number] 09:27:00* Test Item Value Reference Range Comments CALCIUM IONIZED (test code=EBENEZER) 1.17 mmol/L 1.12-1.32 [id number] 08:20:00* Test Item Value Reference Range Comments GLUBED (test code=GLUBED) 149 mg/dL 74-106 Performed by certified wired music operator at [facility] BASIC METABOLIC [id number] 07:01:00* Test Item Value Reference Range Comments SODIUM (test code=NA) mmol/L 136-145 POTASSIUM (test code=K) mmol/L 3.5-5.1 CHLORIDE (test code=CL) mmol/L 98-107 CARBON DIOXIDE (test code=CO2) mmol/L 21-32 ANION GAP (test code=GAP) 10-20 GLUCOSE (test code=GLU) mg/dL 74-106 BLOOD UREA NITROGEN (test code=BUN) mg/dL 7-18 GLOMERULAR FILTRATION RATE (test code=GFR) mL/min >=60 CREATININE (test code=CREAT) mg/dL 0.7-1.3 BUN/CREATININE RATIO (test code=BUN/CREA) 10-20 CALCIUM (test code=CA) mg/dL 8.5-10.1 [id number] 07:01:00* Test Item Value Reference Range Comments PHOSPHORUS (test code=PHOS) mg/dL 2.5-4.9 [id number] 07:01:00* Test Item Value Reference Range Comments MAGNESIUM (test code=MAG) mg/dL 1.8-2.4 CALCIUM [id number] 07:01:00* Test Item Value Reference Range Comments CALCIUM IONIZED (test code=EBENEZER) 1.17 mmol/L 1.12-1.32 CBC W/AUTO [id number] 06:45:00* Test Item Value Reference Range Comments WHITE BLOOD CELL (test code=WBC) 7.1 K/mm3 4.5-12.5 RED BLOOD CELL (test code=RBC) 2.98 mill/mm3 4.0-5.8 HEMOGLOBIN (test code=HGB) 8.0 gram/dL 13.0-17.5 HEMATOCRIT (test code=HCT) 25.3 % 42.0-52.0 MEAN CELL VOLUME (test code=MCV) 84.9 fL 80-98 MEAN CELL HGB (test code=MCH) 26.8 picogram 27.0-33.0 MEAN CELL HGB CONCETRATION (test code=MCHC) 31.6 gram/dL 33.0-36.0 RED CELL DISTRIBUTION WIDTH (test code=RDW) 15.4 % 11.6-16.2 RED CELL DISTRIBUTION WIDTH SD (test code=RDW-SD) 47.5 fL 37.0-51.0 PLATELET COUNT (test code=PLT) 225 K/mm3 150-450 MEAN PLATELET VOLUME (test code=MPV) 11.6 fL 6.7-11.0 NEUTROPHIL % (test code=NT%) 65.9 % 39.0-69.0 IMMATURE GRANULOCYTE % (test code=IG%) 1.4 % 0.0-5.0 LYMPHOCYTE % (test code=LY%) 17.0 % 25.0-55.0 MONOCYTE % (test code=MO%) 8.9 % 0.0-10.0 EOSINOPHIL % (test code=EO%) 6.2 % 0.0-5.0 BASOPHIL % (test code=BA%) 0.6 % 0.0-1.0 NUCLEATED RBC % (test code=NRBC%) 0.0 % 0-0 NEUTROPHIL # (test code=NT#) 4.64 K/mm3 1.8-7.7 IMMATURE GRANULOCYTE # (test code=IG#) 0.10 x10 3/uL 0-0.03 LYMPHOCYTE # (test code=LY#) 1.20 K/mm3 1.0-5.0 MONOCYTE # (test code=MO#) 0.63 K/mm3 0-0.8 EOSINOPHIL # (test code=EO#) 0.44 K/mm3 0.0-0.5 BASOPHIL # (test code=BA#) 0.04 K/mm3 0.0-0.2 NUCLEATED RBC # (test code=NRBC#) 0.00 K/mm3 0.0-0.1 MANUAL DIFF REQUIRED (test code=MDIFF) NO [id number] 20:58:00* Test Item Value Reference Range Comments GLUBED (test code=GLUBED) 195 mg/dL 74-106 Performed by certified wired music operator at [facility] ARTERIAL BLOOD [id number] 19:24:00* Test Item Value Reference Range Comments ARTERIAL BLOOD GAS PH (test code=PHA) 7.47 7.35-7.45 ARTERIAL BLOOD GAS PCO2 (test code=PCO2A) 33.3 mm Hg 35-45 ARTERIAL BLOOD GAS PO2 (test code=PO2A) 48.0 mmHg 80-100 Results called to and read back by dr colunga 19:05/16/2019; by [id number] BICARBONATE TOTAL HCO3 (test code=HCO3) 23.9 mmol/L 23.0-27.0 BASE EXCESS (test code=WILFRED) 0.6 mmol/L -3.0-5.0 ABG O2 SATURATION (test code=SATA) 87.7 % 90.0-98.0 ABG TYPE (test code=TYPEA) Arterial FIO2 (test code=FIO2A) 32.0 ABG SITE (test code=SITEA) Lt BRACHIAL ARTERY MODIFIED ALLENS (test code=MODALL) Yes CHECK PERFORMED SODIUM (test code=NA/ABG) 132.5 mEq/L 135-148 POTASSIUM (test code=K/ABG) 3.8 mEq/L 3.5-4.5 CHLORIDE (test code=CL/ABG) 98 mEq/L 98-106 GLUCOSE (test code=GLU/ABG) 229 mg/dL 74-99 HEMATOCRIT (test code=HCT/ABG) 29 % 42-52 IONIZED CALCIUM (test code=CAIABG) 1.08 mmol/L 1.1-1.37 TOTAL HGB (test code=THB) 9.9 gram/dL 13.0-17.5 HGB O2 SAT (test code=HBOSAT) 87.1 % 94.00-98.00 CARBOXYHEMOGLOBIN (test code=HOHGBT) 0.3 %totalHg 0.5-1.5 Results called to and read back by dr colunga 19:05/16/2019; by [id number] METHEMOGLOBIN (test code=METHGB) 0.4 % 0.0-1.50 O2 CONTENT (test code=O2CT) 12.1 % vol 18.0-22.0 - XR CHEST 1 [id number] 18:58:00 FAX: Shawna Navarro NP [phone] [place]: St: ADM FAX: Baldemar Barreto MD [phone] FAX: Ines Barbosa MD [phone] Name: [place] MELCHOR [facility] : 1955 Age/S: 63/M [address] Unit #: [id number] Loc: V.S06 [place] [address] Phys: Shawna Navarro NP Acct: [id number] Dis Date: Status: ADM IN ONE #: [phone] Exam Date: 05/16/2019 1857 FAX #: [phone] Reason: sob EXAMS: CPT CODE: [id number] XR CHEST 1 V 15824 REASON FOR EXAM: sob EXAM ORDER DATE: 05/16/2019 6:37 PM Alisa anderson M.D.: Shawna Navarro NP PROCEDURE: - XR CHEST 1 V COMPARISON: 05/16/2019 at 5:25 AM FINDINGS: Portable AP frontal view of the chest obtained at 6:55 PM shows diffuse airspace opacity. The heart size is minimally enlarged. Pulmonary vasculatures are mildly sakshi ested. IMPRESSION: Persistent congestive heart failure with den se pulmonary edema at 1858 Reported and signed by: Trae Powers M.D. CC: Shawna Navarro NP; Baldemar Barreto MD; Ines Torres MD Technologist: PREM ROGER; RT Mervat(R Trnscrd Da te/Time/By: 05/16/2019 (9468) : By: PaigeL Orig Print D/T: S: 05/16 (9485) PAGE 1 Signed Report [id number] 16:25:00* Test Item Value Reference Range Comments GLUBED (test code=GLUBED) 131 mg/dL 74-106 Performed by certified wired music operator at [facility] [id number] 11:43:00* Test Item Value Reference Range Comments GLUBED (test code=GLUBED) 153 mg/dL 74-106 Performed by certified wired music operator at [facility] B-TYPE NATRIURETIC [id number] 07:45:00* Test Item Value Reference Range Comments B-TYPE NATRIURETIC PEPTIDE (test code=BNP) 235.78 pgram/mL 0-100 BASIC METABOLIC [id number] 07:23:00* Test Item Value Reference Range Comments SODIUM (test code=NA) 135 mmol/L 136-145 POTASSIUM (test code=K) 3.9 mmol/L 3.5-5.1 CHLORIDE (test code=CL) 101.0 mmol/L 98-107 CARBON DIOXIDE (test code=CO2) 27.0 mmol/L 21-32 ANION GAP (test code=GAP) 10.9 10-20 GLUCOSE (test code=GLU) 163 mg/dL 74-106 BLOOD UREA NITROGEN (test code=BUN) 48 mg/dL 7-18 GLOMERULAR FILTRATION RATE (test code=GFR) 41 mL/min >=60 Estimated GFR by using Modified MDRD formula.Chronic kidney disease is defined as either kidney damageor GFR <60 mL/min/1.73 m2 for >3 months. CREATININE (test code=CREAT) 1.70 mg/dL 0.7-1.3 BUN/CREATININE RATIO (test code=BUN/CREA) 28.2 10-20 CALCIUM (test code=CA) 8.7 mg/dL 8.5-10.1 [id number] 07:23:00* Test Item Value Reference Range Comments ALBUMIN (test code=ALB) 2.4 g/dL 3.4-5.0 [id number] 07:23:00* Test Item Value Reference Range Comments PHOSPHORUS (test code=PHOS) 3.7 mg/dL 2.5-4.9 [id number] 07:23:00* Test Item Value Reference Range Comments MAGNESIUM (test code=MAG) 3.1 mg/dL 1.8-2.4 CALCIUM [id number] 07:23:00* Test Item Value Reference Range Comments CALCIUM IONIZED (test code=EBENEZER) 1.16 mmol/L 1.12-1.32 - XR CHEST 1 [id number] 07:19:00 FAX: Shreyas Johnson MD [phone] [place]: St: ADM FAX: Baldemar Barreto MD [phone] FAX: Ines Barbosa MD [phone] Name: [place] MELCHOR [facility] : 1955 Age/S: 63/M [address] [facility] Unit #: [id number] Loc: V.S06 [place] [address] Phys: Shreyas Stack MD Acct: [id number] Dis Date: Status: ADM IN ONE #: [phone] Exam Date: 05/16/2019521 FAX #: [phone] Reason: chf EXAMS: CPT CODE: [id number] XR CHEST 1 V 33572 CLINICAL HISTO RY: chf TECHNIQUE: AP chest x-ray COMPARISON: 9 IMPRESSION: Diffuse patchy bilateral airspac e opacification. No pleural effusion. Normal heart size. Degenerative ch anges of the spine and shoulders. at 0719 Reported and signed by: Meagan Caldera D.O. CC: Shreyas Stack MD; Baldemar Barreto MD; Ines Torres MD Technologist: ETTA KNUTSON JR Trnscrd Date/Time/By: 05/16/2019 (07) : By: [email or web address] Orig Print D/T: S: 05/16/2019 (0180) PAGE 1 Signed Report BASIC METABOLIC PANEL 2019-05-16 07:09:00* Test Item Value Reference Range Comments SODIUM (test code=NA) 135 mmol/L 136-145 POTASSIUM (test code=K) 3.9 mmol/L 3.5-5.1 CHLORIDE (test code=CL) 101.0 mmol/L 98-107 CARBON DIOXIDE (test code=CO2) mmol/L 21-32 ANION GAP (test code=GAP) 10-20 GLUCOSE (test code=GLU) mg/dL 74-106 BLOOD UREA NITROGEN (test code=BUN) mg/dL 7-18 GLOMERULAR FILTRATION RATE (test code=GFR) mL/min >=60 CREATININE (test code=CREAT) mg/dL 0.7-1.3 BUN/CREATININE RATIO (test code=BUN/CREA) 10-20 CALCIUM (test code=CA) mg/dL 8.5-10.1 [id number] 07:09:00* Test Item Value Reference Range Comments ALBUMIN (test code=ALB) g/dL 3.4-5.0 [id number] 07:09:00* Test Item Value Reference Range Comments PHOSPHORUS (test code=PHOS) mg/dL 2.5-4.9 [id number] 07:09:00* Test Item Value Reference Range Comments MAGNESIUM (test code=MAG) mg/dL 1.8-2.4 CALCIUM [id number] 07:09:00* Test Item Value Reference Range Comments CALCIUM IONIZED (test code=EBENEZER) 1.16 mmol/L 1.12-1.32 BASIC METABOLIC [id number] 07:07:00* Test Item Value Reference Range Comments SODIUM (test code=NA) 135 mmol/L 136-145 POTASSIUM (test code=K) 3.9 mmol/L 3.5-5.1 CHLORIDE (test code=CL) 101.0 mmol/L 98-107 CARBON DIOXIDE (test code=CO2) mmol/L 21-32 ANION GAP (test code=GAP) 10-20 GLUCOSE (test code=GLU) mg/dL 74-106 BLOOD UREA NITROGEN (test code=BUN) mg/dL 7-18 GLOMERULAR FILTRATION RATE (test code=GFR) mL/min >=60 CREATININE (test code=CREAT) mg/dL 0.7-1.3 BUN/CREATININE RATIO (test code=BUN/CREA) 10-20 CALCIUM (test code=CA) mg/dL 8.5-10.1 [id number] 07:07:00* Test Item Value Reference Range Comments ALBUMIN (test code=ALB) g/dL 3.4-5.0 [id number] 07:07:00* Test Item Value Reference Range Comments PHOSPHORUS (test code=PHOS) mg/dL 2.5-4.9 [id number] 07:07:00* Test Item Value Reference Range Comments MAGNESIUM (test code=MAG) mg/dL 1.8-2.4 CALCIUM [id number] 07:07:00* Test Item Value Reference Range Comments CALCIUM IONIZED (test code=EBENEZER) mmol/L 1.12-1.32 CBC W/AUTO [id number] 07:01:00* Test Item Value Reference Range Comments WHITE BLOOD CELL (test code=WBC) 8.2 K/mm3 4.5-12.5 RED BLOOD CELL (test code=RBC) 2.90 mill/mm3 4.0-5.8 HEMOGLOBIN (test code=HGB) 7.8 gram/dL 13.0-17.5 HEMATOCRIT (test code=HCT) 24.4 % 42.0-52.0 MEAN CELL VOLUME (test code=MCV) 84.1 fL 80-98 MEAN CELL HGB (test code=MCH) 26.9 picogram 27.0-33.0 MEAN CELL HGB CONCETRATION (test code=MCHC) 32.0 gram/dL 33.0-36.0 RED CELL DISTRIBUTION WIDTH (test code=RDW) 14.8 % 11.6-16.2 RED CELL DISTRIBUTION WIDTH SD (test code=RDW-SD) 45.4 fL 37.0-51.0 PLATELET COUNT (test code=PLT) 210 K/mm3 150-450 MEAN PLATELET VOLUME (test code=MPV) 11.6 fL 6.7-11.0 NEUTROPHIL % (test code=NT%) 74.2 % 39.0-69.0 IMMATURE GRANULOCYTE % (test code=IG%) 1.5 % 0.0-5.0 LYMPHOCYTE % (test code=LY%) 9.9 % 25.0-55.0 MONOCYTE % (test code=MO%) 8.3 % 0.0-10.0 EOSINOPHIL % (test code=EO%) 5.5 % 0.0-5.0 BASOPHIL % (test code=BA%) 0.6 % 0.0-1.0 NUCLEATED RBC % (test code=NRBC%) 0.2 % 0-0 NEUTROPHIL # (test code=NT#) 6.10 K/mm3 1.8-7.7 IMMATURE GRANULOCYTE # (test code=IG#) 0.12 x10 3/uL 0-0.03 LYMPHOCYTE # (test code=LY#) 0.81 K/mm3 1.0-5.0 MONOCYTE # (test code=MO#) 0.68 K/mm3 0-0.8 EOSINOPHIL # (test code=EO#) 0.45 K/mm3 0.0-0.5 BASOPHIL # (test code=BA#) 0.05 K/mm3 0.0-0.2 NUCLEATED RBC # (test code=NRBC#) 0.02 K/mm3 0.0-0.1 [id number] 19:27:00* Test Item Value Reference Range Comments GLUBED (test code=GLUBED) 156 mg/dL 74-106 Performed by certified wired music operator at [facility] [id number] 17:04:00* Test Item Value Reference Range Comments GLUBED (test code=GLUBED) 181 mg/dL 74-106 Performed by certified wired music operator at [facility] THROMBOPLASTIN TIME [id number] 07:52:00* Test Item Value Reference Range Comments THROMBOPLASTIN TIME PARTIAL (test code=PTT) 75.5 seconds 25.0-36.5 IS PATIENT ON ANTICOAGULANTS? YLIST ANTICOAGULANTS [id number] 07:50:00* Test Item Value Reference Range Comments GLUBED (test code=GLUBED) 210 mg/dL 74-106 Performed by certified wired music operator at [facility] B-TYPE NATRIURETIC [id number] 07:09:00* Test Item Value Reference Range Comments B-TYPE NATRIURETIC PEPTIDE (test code=BNP) 206.46 pgram/mL 0-100 CBC W/AUTO [id number] 07:03:00* Test Item Value Reference Range Comments WHITE BLOOD CELL (test code=WBC) 9.2 K/mm3 4.5-12.5 RED BLOOD CELL (test code=RBC) 2.81 mill/mm3 4.0-5.8 HEMOGLOBIN (test code=HGB) 7.7 gram/dL 13.0-17.5 HEMATOCRIT (test code=HCT) 23.5 % 42.0-52.0 MEAN CELL VOLUME (test code=MCV) 83.6 fL 80-98 MEAN CELL HGB (test code=MCH) 27.4 picogram 27.0-33.0 MEAN CELL HGB CONCETRATION (test code=MCHC) 32.8 gram/dL 33.0-36.0 RED CELL DISTRIBUTION WIDTH (test code=RDW) 14.9 % 11.6-16.2 RED CELL DISTRIBUTION WIDTH SD (test code=RDW-SD) 45.6 fL 37.0-51.0 PLATELET COUNT (test code=PLT) 174 K/mm3 150-450 MEAN PLATELET VOLUME (test code=MPV) 11.9 fL 6.7-11.0 NEUTROPHIL % (test code=NT%) 71.9 % 39.0-69.0 IMMATURE GRANULOCYTE % (test code=IG%) 1.5 % 0.0-5.0 LYMPHOCYTE % (test code=LY%) 13.1 % 25.0-55.0 MONOCYTE % (test code=MO%) 9.0 % 0.0-10.0 EOSINOPHIL % (test code=EO%) 4.1 % 0.0-5.0 BASOPHIL % (test code=BA%) 0.4 % 0.0-1.0 NUCLEATED RBC % (test code=NRBC%) 0.2 % 0-0 NEUTROPHIL # (test code=NT#) 6.60 K/mm3 1.8-7.7 IMMATURE GRANULOCYTE # (test code=IG#) 0.14 x10 3/uL 0-0.03 LYMPHOCYTE # (test code=LY#) 1.20 K/mm3 1.0-5.0 MONOCYTE # (test code=MO#) 0.83 K/mm3 0-0.8 EOSINOPHIL # (test code=EO#) 0.38 K/mm3 0.0-0.5 BASOPHIL # (test code=BA#) 0.04 K/mm3 0.0-0.2 NUCLEATED RBC # (test code=NRBC#) 0.02 K/mm3 0.0-0.1 COMPREHENSIVE METABOLIC [id number] 06:51:00* Test Item Value Reference Range Comments SODIUM (test code=NA) 133 mmol/L 136-145 POTASSIUM (test code=K) 3.7 mmol/L 3.5-5.1 CHLORIDE (test code=CL) 99.0 mmol/L 98-107 CARBON DIOXIDE (test code=CO2) 26.0 mmol/L 21-32 ANION GAP (test code=GAP) 11.7 10-20 GLUCOSE (test code=GLU) 180 mg/dL 74-106 BLOOD UREA NITROGEN (test code=BUN) 53 mg/dL 7-18 GLOMERULAR FILTRATION RATE (test code=GFR) 36 mL/min >=60 Estimated GFR by using Modified MDRD formula.Chronic kidney disease is defined as either kidney damageor GFR <60 mL/min/1.73 m2 for >3 months. CREATININE (test code=CREAT) 1.90 mg/dL 0.7-1.3 BUN/CREATININE RATIO (test code=BUN/CREA) 28.3 10-20 TOTAL PROTEIN (test code=PROT) 7.6 gram/dL 6.4-8.2 ALBUMIN (test code=ALB) 2.4 g/dL 3.4-5.0 GLOBULIN (test code=GLOB) 5.2 gram/dL 2.7-4.2 ALBUMIN/GLOBULIN RATIO (test code=A/G) 0.5 0.75-1.50 CALCIUM (test code=CA) 8.3 mg/dL 8.5-10.1 BILIRUBIN TOTAL (test code=BILT) 0.60 mg/dL 0.0-1.0 SGOT/AST (test code=AST) 48 IUnit/L 15-37 SGPT/ALT (test code=ALT) 52 IUnit/L 12-78 ALKALINE PHOSPHATASE TOTAL (test code=ALKP) 114 IUnit/L 45-117 Note change in reference range due to change in reagent. [id number] 06:51:00* Test Item Value Reference Range Comments MAGNESIUM (test code=MAG) 2.9 mg/dL 1.8-2.4 COMPREHENSIVE METABOLIC [id number] 06:46:00* Test Item Value Reference Range Comments SODIUM (test code=NA) 133 mmol/L 136-145 POTASSIUM (test code=K) 3.7 mmol/L 3.5-5.1 CHLORIDE (test code=CL) 99.0 mmol/L 98-107 CARBON DIOXIDE (test code=CO2) mmol/L 21-32 ANION GAP (test code=GAP) 10-20 GLUCOSE (test code=GLU) mg/dL 74-106 BLOOD UREA NITROGEN (test code=BUN) mg/dL 7-18 GLOMERULAR FILTRATION RATE (test code=GFR) mL/min >=60 CREATININE (test code=CREAT) mg/dL 0.7-1.3 BUN/CREATININE RATIO (test code=BUN/CREA) 10-20 TOTAL PROTEIN (test code=PROT) gram/dL 6.4-8.2 ALBUMIN (test code=ALB) g/dL 3.4-5.0 GLOBULIN (test code=GLOB) gram/dL 2.7-4.2 ALBUMIN/GLOBULIN RATIO (test code=A/G) 0.75-1.50 CALCIUM (test code=CA) mg/dL 8.5-10.1 BILIRUBIN TOTAL (test code=BILT) mg/dL 0.0-1.0 SGOT/AST (test code=AST) IUnit/L 15-37 SGPT/ALT (test code=ALT) IUnit/L 12-78 ALKALINE PHOSPHATASE TOTAL (test code=ALKP) IUnit/L 45-117 [id number] 06:46:00* Test Item Value Reference Range Comments MAGNESIUM (test code=MAG) mg/dL 1.8-2.4 THROMBOPLASTIN TIME [id number] 01:02:00* Test Item Value Reference Range Comments THROMBOPLASTIN TIME PARTIAL (test code=PTT) 45.9 seconds 25.0-36.5 IS PATIENT ON ANTICOAGULANTS? YLIST ANTICOAGULANTS [id number] 20:02:00* Test Item Value Reference Range Comments GLUBED (test code=GLUBED) 186 mg/dL 74-106 Performed by certified wired music operator at [facility] THROMBOPLASTIN TIME [id number] 18:53:00* Test Item Value Reference Range Comments THROMBOPLASTIN TIME PARTIAL (test code=PTT) 48.3 seconds 25.0-36.5 IS PATIENT ON ANTICOAGULANTS? YLIST ANTICOAGULANTS [id number] 16:15:00* Test Item Value Reference Range Comments GLUBED (test code=GLUBED) 179 mg/dL 74-106 Performed by certified wired music operator at [facility] [id number] 15:20:00* Test Item Value Reference Range Comments TROPONIN-I (test code=TROPI) 1.440 ng/mL 0-0.045 Results called to [place] [address] by V.LAB. 05/14/19 1520Critical results verified and read back by Nurse? Y THROMBOPLASTIN TIME [id number] 12:45:00* Test Item Value Reference Range Comments THROMBOPLASTIN TIME PARTIAL (test code=PTT) 49.5 seconds 25.0-36.5 IS PATIENT ON ANTICOAGULANTS? YLIST ANTICOAGULANTS [id number] 11:16:00* Test Item Value Reference Range Comments GLUBED (test code=GLUBED) 195 mg/dL 74-106 Performed by certified wired music operator at [facility] [id number] 10:00:00* Test Item Value Reference Range Comments GLUBED (test code=GLUBED) 189 mg/dL 74-106 Performed by certified wired music operator at [facility] THROMBOPLASTIN TIME [id number] 08:25:00* Test Item Value Reference Range Comments THROMBOPLASTIN TIME PARTIAL (test code=PTT) 53.4 seconds 25.0-36.5 IS PATIENT ON ANTICOAGULANTS? YLIST ANTICOAGULANTS HEPARINCOMPREHENSIVE METABOLIC [id number] 07:14:00* Test Item Value Reference Range Comments SODIUM (test code=NA) 133 mmol/L 136-145 POTASSIUM (test code=K) 3.4 mmol/L 3.5-5.1 CHLORIDE (test code=CL) 98.0 mmol/L 98-107 CARBON DIOXIDE (test code=CO2) 23.0 mmol/L 21-32 ANION GAP (test code=GAP) 15.4 10-20 GLUCOSE (test code=GLU) 191 mg/dL 74-106 BLOOD UREA NITROGEN (test code=BUN) 51 mg/dL 7-18 GLOMERULAR FILTRATION RATE (test code=GFR) 30 mL/min >=60 Estimated GFR by using Modified MDRD formula.Chronic kidney disease is defined as either kidney damageor GFR <60 mL/min/1.73 m2 for >3 months. CREATININE (test code=CREAT) 2.20 mg/dL 0.7-1.3 BUN/CREATININE RATIO (test code=BUN/CREA) 23.4 10-20 TOTAL PROTEIN (test code=PROT) 6.9 gram/dL 6.4-8.2 ALBUMIN (test code=ALB) 2.6 g/dL 3.4-5.0 GLOBULIN (test code=GLOB) 4.3 gram/dL 2.7-4.2 ALBUMIN/GLOBULIN RATIO (test code=A/G) 0.6 0.75-1.50 CALCIUM (test code=CA) 7.8 mg/dL 8.5-10.1 BILIRUBIN TOTAL (test code=BILT) 0.80 mg/dL 0.0-1.0 SGOT/AST (test code=AST) 82 IUnit/L 15-37 SGPT/ALT (test code=ALT) 68 IUnit/L 12-78 ALKALINE PHOSPHATASE TOTAL (test code=ALKP) 135 IUnit/L 45-117 Note change in reference range due to change in reagent. COMPREHENSIVE METABOLIC [id number] 07:05:00* Test Item Value Reference Range Comments SODIUM (test code=NA) 133 mmol/L 136-145 POTASSIUM (test code=K) 3.4 mmol/L 3.5-5.1 CHLORIDE (test code=CL) 98.0 mmol/L 98-107 CARBON DIOXIDE (test code=CO2) mmol/L 21-32 ANION GAP (test code=GAP) 10-20 GLUCOSE (test code=GLU) mg/dL 74-106 BLOOD UREA NITROGEN (test code=BUN) mg/dL 7-18 GLOMERULAR FILTRATION RATE (test code=GFR) mL/min >=60 CREATININE (test code=CREAT) mg/dL 0.7-1.3 BUN/CREATININE RATIO (test code=BUN/CREA) 10-20 TOTAL PROTEIN (test code=PROT) gram/dL 6.4-8.2 ALBUMIN (test code=ALB) g/dL 3.4-5.0 GLOBULIN (test code=GLOB) gram/dL 2.7-4.2 ALBUMIN/GLOBULIN RATIO (test code=A/G) 0.75-1.50 CALCIUM (test code=CA) mg/dL 8.5-10.1 BILIRUBIN TOTAL (test code=BILT) mg/dL 0.0-1.0 SGOT/AST (test code=AST) IUnit/L 15-37 SGPT/ALT (test code=ALT) IUnit/L 12-78 ALKALINE PHOSPHATASE TOTAL (test code=ALKP) IUnit/L 45-117 [id number] 06:50:00* Test Item Value Reference Range Comments MAGNESIUM (test code=MAG) 2.6 mg/dL 1.8-2.4 CBC W/AUTO [id number] 06:03:00* Test Item Value Reference Range Comments WHITE BLOOD CELL (test code=WBC) 10.0 K/mm3 4.5-12.5 RED BLOOD CELL (test code=RBC) 3.07 mill/mm3 4.0-5.8 HEMOGLOBIN (test code=HGB) 8.3 gram/dL 13.0-17.5 HEMATOCRIT (test code=HCT) 25.7 % 42.0-52.0 MEAN CELL VOLUME (test code=MCV) 83.7 fL 80-98 MEAN CELL HGB (test code=MCH) 27.0 picogram 27.0-33.0 MEAN CELL HGB CONCETRATION (test code=MCHC) 32.3 gram/dL 33.0-36.0 RED CELL DISTRIBUTION WIDTH (test code=RDW) 14.8 % 11.6-16.2 RED CELL DISTRIBUTION WIDTH SD (test code=RDW-SD) 45.7 fL 37.0-51.0 PLATELET COUNT (test code=PLT) 160 K/mm3 150-450 MEAN PLATELET VOLUME (test code=MPV) 12.0 fL 6.7-11.0 NEUTROPHIL % (test code=NT%) 74.6 % 39.0-69.0 IMMATURE GRANULOCYTE % (test code=IG%) 1.3 % 0.0-5.0 LYMPHOCYTE % (test code=LY%) 13.9 % 25.0-55.0 MONOCYTE % (test code=MO%) 7.4 % 0.0-10.0 EOSINOPHIL % (test code=EO%) 2.3 % 0.0-5.0 BASOPHIL % (test code=BA%) 0.5 % 0.0-1.0 NUCLEATED RBC % (test code=NRBC%) 0.0 % 0-0 NEUTROPHIL # (test code=NT#) 7.49 K/mm3 1.8-7.7 IMMATURE GRANULOCYTE # (test code=IG#) 0.13 x10 3/uL 0-0.03 LYMPHOCYTE # (test code=LY#) 1.40 K/mm3 1.0-5.0 MONOCYTE # (test code=MO#) 0.74 K/mm3 0-0.8 EOSINOPHIL # (test code=EO#) 0.23 K/mm3 0.0-0.5 BASOPHIL # (test code=BA#) 0.05 K/mm3 0.0-0.2 NUCLEATED RBC # (test code=NRBC#) 0.00 K/mm3 0.0-0.1 MANUAL DIFF REQUIRED (test code=MDIFF) NO THROMBOPLASTIN TIME [id number] 01:04:00* Test Item Value Reference Range Comments THROMBOPLASTIN TIME PARTIAL (test code=PTT) 61.7 seconds 25.0-36.5 IS PATIENT ON ANTICOAGULANTS? [employer] ANTICOAGULANTS [id number] 20:23:00* Test Item Value Reference Range Comments GLUBED (test code=GLUBED) 161 mg/dL 74-106 Performed by certified wired music operator at [facility] THROMBOPLASTIN TIME [id number] 17:45:00* Test Item Value Reference Range Comments THROMBOPLASTIN TIME PARTIAL (test code=PTT) 41.3 seconds 25.0-36.5 IS PATIENT ON ANTICOAGULANTS? [employer] ANTICOAGULANTS [id number] 16:26:00* Test Item Value Reference Range Comments GLUBED (test code=GLUBED) 165 mg/dL 74-106 Performed by certified wired music operator at [facility] [id number] 11:34:00* Test Item Value Reference Range Comments GLUBED (test code=GLUBED) 187 mg/dL 74-106 Performed by certified wired music operator at [facility] THROMBOPLASTIN TIME [id number] 11:29:00* Test Item Value Reference Range Comments THROMBOPLASTIN TIME PARTIAL (test code=PTT) 46.2 seconds 25.0-36.5 IS PATIENT ON ANTICOAGULANTS? [employer] ANTICOAGULANTS HEPARINCOMPREHENSIVE METABOLIC [id number] 05:40:00* Test Item Value Reference Range Comments SODIUM (test code=NA) 133 mmol/L 136-145 POTASSIUM (test code=K) 3.4 mmol/L 3.5-5.1 CHLORIDE (test code=CL) 97.0 mmol/L 98-107 CARBON DIOXIDE (test code=CO2) 27.0 mmol/L 21-32 ANION GAP (test code=GAP) 12.4 10-20 GLUCOSE (test code=GLU) 203 mg/dL 74-106 BLOOD UREA NITROGEN (test code=BUN) 45 mg/dL 7-18 RESULT VERIFIED BY REPEAT ANALYSIS GLOMERULAR FILTRATION RATE (test code=GFR) 25 mL/min >=60 Estimated GFR by using Modified MDRD formula.Chronic kidney disease is defined as either kidney damageor GFR <60 mL/min/1.73 m2 for >3 months. CREATININE (test code=CREAT) 2.60 mg/dL 0.7-1.3 BUN/CREATININE RATIO (test code=BUN/CREA) 17.3 10-20 TOTAL PROTEIN (test code=PROT) 7.7 gram/dL 6.4-8.2 ALBUMIN (test code=ALB) 2.5 g/dL 3.4-5.0 GLOBULIN (test code=GLOB) 5.2 gram/dL 2.7-4.2 ALBUMIN/GLOBULIN RATIO (test code=A/G) 0.5 0.75-1.50 CALCIUM (test code=CA) 8.2 mg/dL 8.5-10.1 BILIRUBIN TOTAL (test code=BILT) 0.70 mg/dL 0.0-1.0 SGOT/AST (test code=AST) 60 IUnit/L 15-37 SGPT/ALT (test code=ALT) 54 IUnit/L 12-78 ALKALINE PHOSPHATASE TOTAL (test code=ALKP) 119 IUnit/L 45-117 Note change in reference range due to change in reagent. [id number] 05:40:00* Test Item Value Reference Range Comments MAGNESIUM (test code=MAG) 2.5 mg/dL 1.8-2.4 COMPREHENSIVE METABOLIC [id number] 05:15:00* Test Item Value Reference Range Comments SODIUM (test code=NA) 133 mmol/L 136-145 POTASSIUM (test code=K) 3.4 mmol/L 3.5-5.1 CHLORIDE (test code=CL) 97.0 mmol/L 98-107 CARBON DIOXIDE (test code=CO2) mmol/L 21-32 ANION GAP (test code=GAP) 10-20 GLUCOSE (test code=GLU) mg/dL 74-106 BLOOD UREA NITROGEN (test code=BUN) mg/dL 7-18 GLOMERULAR FILTRATION RATE (test code=GFR) mL/min >=60 CREATININE (test code=CREAT) mg/dL 0.7-1.3 BUN/CREATININE RATIO (test code=BUN/CREA) 10-20 TOTAL PROTEIN (test code=PROT) gram/dL 6.4-8.2 ALBUMIN (test code=ALB) g/dL 3.4-5.0 GLOBULIN (test code=GLOB) gram/dL 2.7-4.2 ALBUMIN/GLOBULIN RATIO (test code=A/G) 0.75-1.50 CALCIUM (test code=CA) mg/dL 8.5-10.1 BILIRUBIN TOTAL (test code=BILT) mg/dL 0.0-1.0 SGOT/AST (test code=AST) IUnit/L 15-37 SGPT/ALT (test code=ALT) IUnit/L 12-78 ALKALINE PHOSPHATASE TOTAL (test code=ALKP) IUnit/L 45-117 [id number] 05:15:00* Test Item Value Reference Range Comments MAGNESIUM (test code=MAG) mg/dL 1.8-2.4 THROMBOPLASTIN TIME [id number] 05:05:00* Test Item Value Reference Range Comments THROMBOPLASTIN TIME PARTIAL (test code=PTT) 50.8 seconds 25.0-36.5 IS PATIENT ON ANTICOAGULANTS? YLIST ANTICOAGULANTS HEPARINCBC W/AUTO DIFF 2019-05-13 04:59:00* Test Item Value Reference Range Comments WHITE BLOOD CELL (test code=WBC) 8.1 K/mm3 4.5-12.5 RED BLOOD CELL (test code=RBC) 2.99 mill/mm3 4.0-5.8 HEMOGLOBIN (test code=HGB) 8.1 gram/dL 13.0-17.5 HEMATOCRIT (test code=HCT) 25.3 % 42.0-52.0 MEAN CELL VOLUME (test code=MCV) 84.6 fL 80-98 MEAN CELL HGB (test code=MCH) 27.1 picogram 27.0-33.0 MEAN CELL HGB CONCETRATION (test code=MCHC) 32.0 gram/dL 33.0-36.0 RED CELL DISTRIBUTION WIDTH (test code=RDW) 14.6 % 11.6-16.2 RED CELL DISTRIBUTION WIDTH SD (test code=RDW-SD) 45.4 fL 37.0-51.0 PLATELET COUNT (test code=PLT) 136 K/mm3 150-450 MEAN PLATELET VOLUME (test code=MPV) 11.9 fL 6.7-11.0 NEUTROPHIL % (test code=NT%) 77.0 % 39.0-69.0 IMMATURE GRANULOCYTE % (test code=IG%) 0.5 % 0.0-5.0 LYMPHOCYTE % (test code=LY%) 10.8 % 25.0-55.0 MONOCYTE % (test code=MO%) 10.9 % 0.0-10.0 EOSINOPHIL % (test code=EO%) 0.4 % 0.0-5.0 BASOPHIL % (test code=BA%) 0.4 % 0.0-1.0 NUCLEATED RBC % (test code=NRBC%) 0.0 % 0-0 NEUTROPHIL # (test code=NT#) 6.27 K/mm3 1.8-7.7 IMMATURE GRANULOCYTE # (test code=IG#) 0.04 x10 3/uL 0-0.03 LYMPHOCYTE # (test code=LY#) 0.88 K/mm3 1.0-5.0 MONOCYTE # (test code=MO#) 0.89 K/mm3 0-0.8 EOSINOPHIL # (test code=EO#) 0.03 K/mm3 0.0-0.5 BASOPHIL # (test code=BA#) 0.03 K/mm3 0.0-0.2 NUCLEATED RBC # (test code=NRBC#) 0.00 K/mm3 0.0-0.1 THROMBOPLASTIN TIME [id number] 23:37:00* Test Item Value Reference Range Comments THROMBOPLASTIN TIME PARTIAL (test code=PTT) 47.7 seconds 25.0-36.5 HEMOLYZED, CALLED [id number] FOR REDRAW,V.LAB. [id number] PATIENT ON ANTICOAG ULANTS? YLIST ANTICOAGULANTS [id number] 18:28:00* Test Item Value Reference Range Comments TROPONIN-I (test code=TROPI) 0.324 ng/mL 0-0.045 RESULT VERIFIED BY REPEAT ANALYSIS - XR CHEST 1 [id number] 17:30:00 FAX: Baldemar Barreto MD [phone] [place]: St: ADM FAX: Ines Barbosa MD [phone] FAX: Elisabeth Lindquist MD [phone] Name: [place] MELCHOR [facility] : 1955 Age/S: 63/M [address] [facility] Unit #: [id number] Loc: V.S06 [place] [address] Phys: Elisabeth Joy MD Acct: [id number] Dis Date: Status: ADM IN ONE #: [phone] Exam Date: 05/12/2019 1710 FAX #: [phone] Reason: CHEST PAIN EXAMS: CPT CODE: [id number] XR CHEST 1 V [id number] REASON FOR EXAM: CHEST PAIN Exam Order Date: 05/12/2019 5:03 PM Ordering M.D.: Elisabeth Joy MD PROCEDURE: - XR CHEST 1 V COMPARISON: AP chest x-ray earlier today at 9:00 AM FINDINGS: There is atelectatic changes in the bilateral lung bases. Supe rimposed aspiration and/or developing infection cannot be excluded. Cardiomediastinal silhouette is normal in size for technique. The mediastinal contours are within normal limits. Musculoskeletal str uctures are within normal limits. The visualized upper abdomen is within normal limits. IMPRESSION: Atelectatic changes in the lung bases, similar to prior exam. Superimposed aspiration and/or d eveloping infection cannot be excluded. Electronically Sara d by Arya Crow MD on 05/12/2019 at 1730 Reported and s igned by: Arya Crow MD CC: Baldemar Barreto MD; Ines Torres MD; Elisabeth Joy MD Technologist: Ryne STEWART(Tanvir) Trnscrd Date/Time/By: 05/12/2019 (1776) : By: [email or web address] Orig Print D/T: S: 05/12/2019 (9119) PAGE 1 Signed Report THROMBOPLASTIN TIME PARTIAL 2019-05-12 17:01:00* Test Item Value Reference Range Comments THROMBOPLASTIN TIME PARTIAL (test code=PTT) 47.2 seconds 25.0-36.5 IS PATIENT ON ANTICOAGULANTS? YLIST ANTICOAGULANTS HEPARINTROPONIN-I 2019-05-12 11:35:00* Test Item Value Reference Range Comments TROPONIN-I (test code=TROPI) 0.484 ng/mL 0-0.045 [id number] 11:21:00* Test Item Value Reference Range Comments POTASSIUM (test code=K) 3.2 mmol/L 3.5-5.1 RESULT VERIFIED BY REPEAT ANALYSIS THROMBOPLASTIN TIME [id number] 10:59:00* Test Item Value Reference Range Comments THROMBOPLASTIN TIME PARTIAL (test code=PTT) 47.8 seconds 25.0-36.5 IS PATIENT ON ANTICOAGULANTS? YLIST ANTICOAGULANTS HEPARIN- XR CHEST 1 V 2019-05-12 10:16:00 FAX: Baldemar Barreto MD [phone] [place]: St: [facility] FAX: Ines Barbosa MD [phone] FAX: Elisabeth Lindquist MD [phone] Name: [place] MELCHOR [facility] : 1955 Age/S: 63/M [address] [facility] Unit #: [id number] Loc: V.S06 [place] [address] Phys: Elisabeth Joy MD Acct: [id number] Dis Date: Status: ADM IN PH ONE #: [phone] Exam Date: 05/12/2019904 FAX #: [phone] Reason: respiratory failure EXAMS: CPT CODE: [id number] XR CHEST 1 V [id number] HISTORY: Respi ratory failure. COMPARISON: Previous day. Congestion has resolved. Dependent changes. Mild cardiomegaly. IMPRESSIO N: Resolved interstitial edema. Dependent changes. No effusi on. at 1016 Reported and signed by: Nelson Sanchez M.D. CC: Baldemar Barreto MD; Ines Torres MD; Elisabeth Joy MD Tech nologist: SEKOU CHOWDARY RT(R) Trnscrd Date/Ti me/By: 05/12/2019 (1016) : By: [email or web address] Orig Print D/T: S: 05/12/2019 (1019) PAGE 1 Signed Report COMPREHENSIVE METABOLIC [id number] 06:22:00* Test Item Value Reference Range Comments SODIUM (test code=NA) 134 mmol/L 136-145 POTASSIUM (test code=K) 5.6 mmol/L 3.5-5.1 CHLORIDE (test code=CL) 101.0 mmol/L 98-107 CARBON DIOXIDE (test code=CO2) 26.0 mmol/L 21-32 ANION GAP (test code=GAP) 12.6 10-20 GLUCOSE (test code=GLU) 145 mg/dL 74-106 BLOOD UREA NITROGEN (test code=BUN) 34 mg/dL 7-18 GLOMERULAR FILTRATION RATE (test code=GFR) 30 mL/min >=60 Estimated GFR by using Modified MDRD formula.Chronic kidney disease is defined as either kidney damageor GFR <60 mL/min/1.73 m2 for >3 months. CREATININE (test code=CREAT) 2.20 mg/dL 0.7-1.3 BUN/CREATININE RATIO (test code=BUN/CREA) 15.4 10-20 TOTAL PROTEIN (test code=PROT) 8.1 gram/dL 6.4-8.2 ALBUMIN (test code=ALB) 2.6 g/dL 3.4-5.0 GLOBULIN (test code=GLOB) 5.5 gram/dL 2.7-4.2 ALBUMIN/GLOBULIN RATIO (test code=A/G) 0.5 0.75-1.50 CALCIUM (test code=CA) 8.3 mg/dL 8.5-10.1 BILIRUBIN TOTAL (test code=BILT) 1.00 mg/dL 0.0-1.0 SGOT/AST (test code=AST) 81 IUnit/L 15-37 SGPT/ALT (test code=ALT) 52 IUnit/L 12-78 ALKALINE PHOSPHATASE TOTAL (test code=ALKP) 102 IUnit/L 45-117 Note change in reference range due to change in reagent. COMPREHENSIVE METABOLIC [id number] 06:08:00* Test Item Value Reference Range Comments SODIUM (test code=NA) 134 mmol/L 136-145 POTASSIUM (test code=K) 5.6 mmol/L 3.5-5.1 CHLORIDE (test code=CL) 101.0 mmol/L 98-107 CARBON DIOXIDE (test code=CO2) mmol/L 21-32 ANION GAP (test code=GAP) 10-20 GLUCOSE (test code=GLU) mg/dL 74-106 BLOOD UREA NITROGEN (test code=BUN) mg/dL 7-18 GLOMERULAR FILTRATION RATE (test code=GFR) mL/min >=60 CREATININE (test code=CREAT) mg/dL 0.7-1.3 BUN/CREATININE RATIO (test code=BUN/CREA) 10-20 TOTAL PROTEIN (test code=PROT) gram/dL 6.4-8.2 ALBUMIN (test code=ALB) g/dL 3.4-5.0 GLOBULIN (test code=GLOB) gram/dL 2.7-4.2 ALBUMIN/GLOBULIN RATIO (test code=A/G) 0.75-1.50 CALCIUM (test code=CA) mg/dL 8.5-10.1 BILIRUBIN TOTAL (test code=BILT) mg/dL 0.0-1.0 SGOT/AST (test code=AST) IUnit/L 15-37 SGPT/ALT (test code=ALT) IUnit/L 12-78 ALKALINE PHOSPHATASE TOTAL (test code=ALKP) IUnit/L 45-117 CBC W/AUTO [id number] 05:35:00* Test Item Value Reference Range Comments WHITE BLOOD CELL (test code=WBC) 7.9 K/mm3 4.5-12.5 RED BLOOD CELL (test code=RBC) 3.20 mill/mm3 4.0-5.8 HEMOGLOBIN (test code=HGB) 8.8 gram/dL 13.0-17.5 HEMATOCRIT (test code=HCT) 27.3 % 42.0-52.0 MEAN CELL VOLUME (test code=MCV) 85.3 fL 80-98 MEAN CELL HGB (test code=MCH) 27.5 picogram 27.0-33.0 MEAN CELL HGB CONCETRATION (test code=MCHC) 32.2 gram/dL 33.0-36.0 RED CELL DISTRIBUTION WIDTH (test code=RDW) 14.9 % 11.6-16.2 RED CELL DISTRIBUTION WIDTH SD (test code=RDW-SD) 46.5 fL 37.0-51.0 PLATELET COUNT (test code=PLT) 141 K/mm3 150-450 MEAN PLATELET VOLUME (test code=MPV) 12.0 fL 6.7-11.0 NEUTROPHIL % (test code=NT%) 72.6 % 39.0-69.0 IMMATURE GRANULOCYTE % (test code=IG%) 0.5 % 0.0-5.0 LYMPHOCYTE % (test code=LY%) 12.5 % 25.0-55.0 MONOCYTE % (test code=MO%) 11.6 % 0.0-10.0 EOSINOPHIL % (test code=EO%) 2.4 % 0.0-5.0 BASOPHIL % (test code=BA%) 0.4 % 0.0-1.0 NUCLEATED RBC % (test code=NRBC%) 0.0 % 0-0 NEUTROPHIL # (test code=NT#) 5.75 K/mm3 1.8-7.7 IMMATURE GRANULOCYTE # (test code=IG#) 0.04 x10 3/uL 0-0.03 LYMPHOCYTE # (test code=LY#) 0.99 K/mm3 1.0-5.0 MONOCYTE # (test code=MO#) 0.92 K/mm3 0-0.8 EOSINOPHIL # (test code=EO#) 0.19 K/mm3 0.0-0.5 BASOPHIL # (test code=BA#) 0.03 K/mm3 0.0-0.2 NUCLEATED RBC # (test code=NRBC#) 0.00 K/mm3 0.0-0.1 THROMBOPLASTIN TIME [id number] 04:59:00* Test Item Value Reference Range Comments THROMBOPLASTIN TIME PARTIAL (test code=PTT) 59.0 seconds 25.0-36.5 IS PATIENT ON ANTICOAGULANTS? YLIST ANTICOAGULANTS HEPARINTHROMBOPLASTIN TIME [id number] 20:47:00* Test Item Value Reference Range Comments THROMBOPLASTIN TIME PARTIAL (test code=PTT) 40.2 seconds 25.0-36.5 IS PATIENT ON ANTICOAGULANTS? YLIST ANTICOAGULANTS HEPARINTHROMBOPLASTIN TIME [id number] 16:02:00* Test Item Value Reference Range Comments THROMBOPLASTIN TIME PARTIAL (test code=PTT) 39.4 seconds 25.0-36.5 IS PATIENT ON ANTICOAGULANTS? NB-TYPE NATRIURETIC [id number] 12:56:00* Test Item Value Reference Range Comments B-TYPE NATRIURETIC PEPTIDE (test code=BNP) 313.17 pgram/mL 0-100 COMPREHENSIVE METABOLIC [id number] 12:14:00* Test Item Value Reference Range Comments SODIUM (test code=NA) 136 mmol/L 136-145 POTASSIUM (test code=K) 3.8 mmol/L 3.5-5.1 CHLORIDE (test code=CL) 102.0 mmol/L 98-107 CARBON DIOXIDE (test code=CO2) 29.0 mmol/L 21-32 ANION GAP (test code=GAP) 8.8 10-20 GLUCOSE (test code=GLU) 196 mg/dL 74-106 BLOOD UREA NITROGEN (test code=BUN) 34 mg/dL 7-18 GLOMERULAR FILTRATION RATE (test code=GFR) 29 mL/min >=60 Estimated GFR by using Modified MDRD formula.Chronic kidney disease is defined as either kidney damageor GFR <60 mL/min/1.73 m2 for >3 months. CREATININE (test code=CREAT) 2.30 mg/dL 0.7-1.3 BUN/CREATININE RATIO (test code=BUN/CREA) 14.9 10-20 TOTAL PROTEIN (test code=PROT) 7.7 gram/dL 6.4-8.2 ALBUMIN (test code=ALB) 2.7 g/dL 3.4-5.0 GLOBULIN (test code=GLOB) 5.0 gram/dL 2.7-4.2 ALBUMIN/GLOBULIN RATIO (test code=A/G) 0.5 0.75-1.50 CALCIUM (test code=CA) 7.5 mg/dL 8.5-10.1 BILIRUBIN TOTAL (test code=BILT) 0.70 mg/dL 0.0-1.0 SGOT/AST (test code=AST) 63 IUnit/L 15-37 SGPT/ALT (test code=ALT) 58 IUnit/L 12-78 ALKALINE PHOSPHATASE TOTAL (test code=ALKP) 106 IUnit/L 45-117 Note change in reference range due to change in reagent. [id number] 12:14:00* Test Item Value Reference Range Comments PHOSPHORUS (test code=PHOS) 3.3 mg/dL 2.5-4.9 [id number] 12:14:00* Test Item Value Reference Range Comments MAGNESIUM (test code=MAG) 2.3 mg/dL 1.8-2.4 THYROID STIMULATING [id number] 12:14:00* Test Item Value Reference Range Comments THYROID STIMULATING HORMONE (test code=TSH) 2.010 uIU/mL 0.36-3.74 TSH REFERENCE RANGES: EUTHYROID: 0.35 - 4.3 mIU/mL HYPO : > 5.5 mIU/mL HYPER : < 0.35 mIU/mL [id number] 12:14:00* Test Item Value Reference Range Comments CKMB (test code=CKMBT) 2.3 ng/mL 0-6.0 [id number] 12:14:00* Test Item Value Reference Range Comments TROPONIN-I (test code=TROPI) 0.887 ng/mL 0-0.045 Results called to [id number] by RYLAN 05/11/19 1213Critical results verified and read back by Nurse? Y PROTHROMBIN [id number] 12:06:00* Test Item Value Reference Range Comments PROTHROMBIN TIME PATIENT (test code=PTP) 15.3 seconds 9.0-14.0 INTERNATIONAL NORMAL RATIO (test code=INR) 1.3 0.8-1.2 The therapeutic range for oral anticoagulant therapy formost indications is an international normalized ratio (INR)of between 2.0 and 3.0. The recommended therapeutic INRrange for various clinical situations is listed below: Clinical Situation INR range Pulmonary e mbolism treatment (2.0-3.0)Venous thrombosis treatmentVenous thrombosis prophylaxis (high risk surgery)Prevention of systemic embolism from: Acute myocardial infarction Valvular heart disease Atrial fibrillation Mechanical prosthetic heart valves (2.5-3.5) IS PATIENT ON ANTICOAGULANTS? NTHROMBOPLASTIN TIME [id number] 12:06:00* Test Item Value Reference Range Comments THROMBOPLASTIN TIME PARTIAL (test code=PTT) 54.0 seconds 25.0-36.5 IS PATIENT ON ANTICOAGULANTS? NCBC W/AUTO [id number] 12:04:00* Test Item Value Reference Range Comments WHITE BLOOD CELL (test code=WBC) 10.7 K/mm3 4.5-12.5 RED BLOOD CELL (test code=RBC) 3.18 mill/mm3 4.0-5.8 HEMOGLOBIN (test code=HGB) 8.8 gram/dL 13.0-17.5 HEMATOCRIT (test code=HCT) 26.9 % 42.0-52.0 MEAN CELL VOLUME (test code=MCV) 84.6 fL 80-98 MEAN CELL HGB (test code=MCH) 27.7 picogram 27.0-33.0 MEAN CELL HGB CONCETRATION (test code=MCHC) 32.7 gram/dL 33.0-36.0 RED CELL DISTRIBUTION WIDTH (test code=RDW) 14.9 % 11.6-16.2 RED CELL DISTRIBUTION WIDTH SD (test code=RDW-SD) 46.2 fL 37.0-51.0 PLATELET COUNT (test code=PLT) 120 K/mm3 150-450 MEAN PLATELET VOLUME (test code=MPV) 12.6 fL 6.7-11.0 NEUTROPHIL % (test code=NT%) 85.2 % 39.0-69.0 IMMATURE GRANULOCYTE % (test code=IG%) 0.7 % 0.0-5.0 LYMPHOCYTE % (test code=LY%) 5.3 % 25.0-55.0 MONOCYTE % (test code=MO%) 7.9 % 0.0-10.0 EOSINOPHIL % (test code=EO%) 0.5 % 0.0-5.0 BASOPHIL % (test code=BA%) 0.4 % 0.0-1.0 NUCLEATED RBC % (test code=NRBC%) 0.0 % 0-0 NEUTROPHIL # (test code=NT#) 9.10 K/mm3 1.8-7.7 IMMATURE GRANULOCYTE # (test code=IG#) 0.07 x10 3/uL 0-0.03 LYMPHOCYTE # (test code=LY#) 0.57 K/mm3 1.0-5.0 MONOCYTE # (test code=MO#) 0.84 K/mm3 0-0.8 EOSINOPHIL # (test code=EO#) 0.05 K/mm3 0.0-0.5 BASOPHIL # (test code=BA#) 0.04 K/mm3 0.0-0.2 NUCLEATED RBC # (test code=NRBC#) 0.00 K/mm3 0.0-0.1 MANUAL DIFF REQUIRED (test code=MDIFF) NO COMPREHENSIVE METABOLIC [id number] 11:51:00* Test Item Value Reference Range Comments SODIUM (test code=NA) 136 mmol/L 136-145 POTASSIUM (test code=K) 3.8 mmol/L 3.5-5.1 CHLORIDE (test code=CL) 102.0 mmol/L 98-107 CARBON DIOXIDE (test code=CO2) mmol/L 21-32 ANION GAP (test code=GAP) 10-20 GLUCOSE (test code=GLU) mg/dL 74-106 BLOOD UREA NITROGEN (test code=BUN) mg/dL 7-18 GLOMERULAR FILTRATION RATE (test code=GFR) mL/min >=60 CREATININE (test code=CREAT) mg/dL 0.7-1.3 BUN/CREATININE RATIO (test code=BUN/CREA) 10-20 TOTAL PROTEIN (test code=PROT) gram/dL 6.4-8.2 ALBUMIN (test code=ALB) g/dL 3.4-5.0 GLOBULIN (test code=GLOB) gram/dL 2.7-4.2 ALBUMIN/GLOBULIN RATIO (test code=A/G) 0.75-1.50 CALCIUM (test code=CA) mg/dL 8.5-10.1 BILIRUBIN TOTAL (test code=BILT) mg/dL 0.0-1.0 SGOT/AST (test code=AST) IUnit/L 15-37 SGPT/ALT (test code=ALT) IUnit/L 12-78 ALKALINE PHOSPHATASE TOTAL (test code=ALKP) IUnit/L 45-117 [id number] 11:51:00* Test Item Value Reference Range Comments PHOSPHORUS (test code=PHOS) mg/dL 2.5-4.9 [id number] 11:51:00* Test Item Value Reference Range Comments MAGNESIUM (test code=MAG) mg/dL 1.8-2.4 THYROID STIMULATING [id number] 11:51:00* Test Item Value Reference Range Comments THYROID STIMULATING HORMONE (test code=TSH) uIU/mL 0.36-3.74 [id number] 11:51:00* Test Item Value Reference Range Comments CKMB (test code=CKMBT) ng/mL 0-6.0 [id number] 11:51:00* Test Item Value Reference Range Comments TROPONIN-I (test code=TROPI) ng/mL 0-0.045 - XR CHEST 1 [id number] 11:28:00 FAX: Baldemar Barreto MD [phone] [place]: B St: ADM FAX: Ines Barbosa MD [phone] FAX: Elisabeth Lindquist MD [phone] Name: [place] MELCHOR [facility] : 1955 Age/S: 63/M [address] Unit #: [id number] Loc: V.S06 [place], [place] [address] Phys: Elisabeth Joy MD Acct: [id number] Dis Date: Status: ADM IN ONE #: [phone] Exam Date: 05/11/2019 1119 FAX #: [phone] Reason: chest pain EXAMS: CPT CODE: [id number] XR CHEST 1 V [id number] REASON FOR EXAM: chest pain Exam Order Date: 05/11/2019 10:07 AM Ordering M.D.: Elisabeth Joy MD PROCEDURE: - XR CHEST 1 V COMPARISON: AP chest x-ray May 09, 2019 FINDINGS: There are prominent reticulations throughout both lungs. Costophrenic sulci are sharp. Cardiomediastinal silhouette is widened but s table in size. The mediastinal contours are within normal limits. Generative changes in the spine and shoulders are similar-appearing. The visualized upper abdomen is within normal limits. IMPRESSION: Prominent reticulations in both lungs is new from the previous exam and may represent interstitial pulmonary edema however an infection cannot be excluded. at 1128 Reported and signed by: Arya maldonado MD CC: Baldemar Barreto MD; Ines Torres MD; Elisabeth Joy MD echnologist: ANDRE PATTERSON RT; SEKOU CHOWDARY RT(R) Trnscrd Date /Time/By: 05/11/2019 (1120) : By: [email or web address] Orig Print D/T: S: 019 (1382) PAGE 1 Signed Report [id number] 08:30:00* Test Item Value Reference Range Comments GLUBED (test code=GLUBED) 209 mg/dL 74-106 Performed by certified wired music operator at [facility] THROMBOPLASTIN TIME [id number] 08:19:00* Test Item Value Reference Range Comments THROMBOPLASTIN TIME PARTIAL (test code=PTT) 34.8 seconds 25.0-36.5 IS PATIENT ON ANTICOAGULANTS? [id number] 08:04:00* Test Item Value Reference Range Comments HEMATOCRIT (test code=HCT) 29.5 % 42.0-52.0 PLATELET [id number] 08:04:00* Test Item Value Reference Range Comments PLATELET COUNT (test code=PLT) 131 K/mm3 150-450 BASIC METABOLIC [id number] 06:44:00* Test Item Value Reference Range Comments SODIUM (test code=NA) 138 mmol/L 136-145 POTASSIUM (test code=K) 3.7 mmol/L 3.5-5.1 CHLORIDE (test code=CL) 102.0 mmol/L 98-107 CARBON DIOXIDE (test code=CO2) 25.0 mmol/L 21-32 ANION GAP (test code=GAP) 14.7 10-20 GLUCOSE (test code=GLU) 157 mg/dL 74-106 BLOOD UREA NITROGEN (test code=BUN) 36 mg/dL 7-18 GLOMERULAR FILTRATION RATE (test code=GFR) 28 mL/min >=60 Estimated GFR by using Modified MDRD formula.Chronic kidney disease is defined as either kidney damageor GFR <60 mL/min/1.73 m2 for >3 months. CREATININE (test code=CREAT) 2.40 mg/dL 0.7-1.3 BUN/CREATININE RATIO (test code=BUN/CREA) 15.3 10-20 CALCIUM (test code=CA) 8.5 mg/dL 8.5-10.1 [id number] 06:44:00* Test Item Value Reference Range Comments PHOSPHORUS (test code=PHOS) 4.2 mg/dL 2.5-4.9 [id number] 06:44:00* Test Item Value Reference Range Comments MAGNESIUM (test code=MAG) 2.4 mg/dL 1.8-2.4 [id number] 06:44:00* Test Item Value Reference Range Comments TROPONIN-I (test code=TROPI) 0.017 ng/mL 0-0.045 CBC W/O [id number] 05:54:00* Test Item Value Reference Range Comments WHITE BLOOD CELL (test code=WBC) 12.6 K/mm3 4.5-12.5 RED BLOOD CELL (test code=RBC) 3.59 mill/mm3 4.0-5.8 HEMOGLOBIN (test code=HGB) 9.9 gram/dL 13.0-17.5 HEMATOCRIT (test code=HCT) 30.8 % 42.0-52.0 MEAN CELL VOLUME (test code=MCV) 85.8 fL 80-98 MEAN CELL HGB (test code=MCH) 27.6 picogram 27.0-33.0 MEAN CELL HGB CONCETRATION (test code=MCHC) 32.1 gram/dL 33.0-36.0 RED CELL DISTRIBUTION WIDTH (test code=RDW) 15.2 % 11.6-16.2 PLATELET COUNT (test code=PLT) 138 K/mm3 150-450 MEAN PLATELET VOLUME (test code=MPV) 12.7 fL 6.7-11.0 [id number] 23:27:00* Test Item Value Reference Range Comments TROPONIN-I (test code=TROPI) 0.017 ng/mL 0-0.045 CPK-MB [id number] 20:05:00* Test Item Value Reference Range Comments CREATINE KINASE (CK) (test code=CK) 113 IUnit/L 26-208 CKMB (test code=CKMBT) < 1.0 ng/mL 0-6.0 RELATIVE % INDEX (test code=REL%) 0.88 % 0.00-2.50 "If the total CK is elevated, the CKMB Fraction must beinterpreted as a Relative % Index, Normal is less than 2.5%"NOTE: Relative % Index is not valid with a normal total CK. COMPREHENSIVE METABOLIC [id number] 20:05:00* Test Item Value Reference Range Comments SODIUM (test code=NA) 136 mmol/L 136-145 POTASSIUM (test code=K) 3.4 mmol/L 3.5-5.1 CHLORIDE (test code=CL) 102.0 mmol/L 98-107 CARBON DIOXIDE (test code=CO2) 27.0 mmol/L 21-32 ANION GAP (test code=GAP) 10.4 10-20 GLUCOSE (test code=GLU) 172 mg/dL 74-106 BLOOD UREA NITROGEN (test code=BUN) 32 mg/dL 7-18 GLOMERULAR FILTRATION RATE (test code=GFR) 30 mL/min >=60 Estimated GFR by using Modified MDRD formula.Chronic kidney disease is defined as either kidney damageor GFR <60 mL/min/1.73 m2 for >3 months. CREATININE (test code=CREAT) 2.20 mg/dL 0.7-1.3 BUN/CREATININE RATIO (test code=BUN/CREA) 14.4 10-20 TOTAL PROTEIN (test code=PROT) 7.9 gram/dL 6.4-8.2 ALBUMIN (test code=ALB) 2.8 g/dL 3.4-5.0 GLOBULIN (test code=GLOB) 5.1 gram/dL 2.7-4.2 ALBUMIN/GLOBULIN RATIO (test code=A/G) 0.5 0.75-1.50 CALCIUM (test code=CA) 8.0 mg/dL 8.5-10.1 BILIRUBIN TOTAL (test code=BILT) 0.70 mg/dL 0.0-1.0 SGOT/AST (test code=AST) 52 IUnit/L 15-37 SGPT/ALT (test code=ALT) 37 IUnit/L 12-78 ALKALINE PHOSPHATASE TOTAL (test code=ALKP) 105 IUnit/L 45-117 Note change in reference range due to change in reagent. [id number] 20:05:00* Test Item Value Reference Range Comments TROPONIN-I (test code=TROPI) <0.015 ng/mL 0-0.045 COMPREHENSIVE METABOLIC [id number] 20:01:00* Test Item Value Reference Range Comments SODIUM (test code=NA) 136 mmol/L 136-145 POTASSIUM (test code=K) 3.4 mmol/L 3.5-5.1 CHLORIDE (test code=CL) 102.0 mmol/L 98-107 CARBON DIOXIDE (test code=CO2) mmol/L 21-32 ANION GAP (test code=GAP) 10-20 GLUCOSE (test code=GLU) mg/dL 74-106 BLOOD UREA NITROGEN (test code=BUN) mg/dL 7-18 GLOMERULAR FILTRATION RATE (test code=GFR) mL/min >=60 CREATININE (test code=CREAT) mg/dL 0.7-1.3 BUN/CREATININE RATIO (test code=BUN/CREA) 10-20 TOTAL PROTEIN (test code=PROT) gram/dL 6.4-8.2 ALBUMIN (test code=ALB) g/dL 3.4-5.0 GLOBULIN (test code=GLOB) gram/dL 2.7-4.2 ALBUMIN/GLOBULIN RATIO (test code=A/G) 0.75-1.50 CALCIUM (test code=CA) mg/dL 8.5-10.1 BILIRUBIN TOTAL (test code=BILT) mg/dL 0.0-1.0 SGOT/AST (test code=AST) IUnit/L 15-37 SGPT/ALT (test code=ALT) IUnit/L 12-78 ALKALINE PHOSPHATASE TOTAL (test code=ALKP) IUnit/L 45-117 CBC W/AUTO [id number] 19:57:00* Test Item Value Reference Range Comments WHITE BLOOD CELL (test code=WBC) 11.2 K/mm3 4.5-12.5 RED BLOOD CELL (test code=RBC) 3.51 mill/mm3 4.0-5.8 HEMOGLOBIN (test code=HGB) 9.6 gram/dL 13.0-17.5 HEMATOCRIT (test code=HCT) 29.7 % 42.0-52.0 MEAN CELL VOLUME (test code=MCV) 84.6 fL 80-98 MEAN CELL HGB (test code=MCH) 27.4 picogram 27.0-33.0 MEAN CELL HGB CONCETRATION (test code=MCHC) 32.3 gram/dL 33.0-36.0 RED CELL DISTRIBUTION WIDTH (test code=RDW) 15.1 % 11.6-16.2 RED CELL DISTRIBUTION WIDTH SD (test code=RDW-SD) 45.9 fL 37.0-51.0 PLATELET COUNT (test code=PLT) 129 K/mm3 150-450 MEAN PLATELET VOLUME (test code=MPV) 12.8 fL 6.7-11.0 NEUTROPHIL % (test code=NT%) 79.5 % 39.0-69.0 IMMATURE GRANULOCYTE % (test code=IG%) 0.3 % 0.0-5.0 LYMPHOCYTE % (test code=LY%) 10.2 % 25.0-55.0 MONOCYTE % (test code=MO%) 7.0 % 0.0-10.0 EOSINOPHIL % (test code=EO%) 2.7 % 0.0-5.0 BASOPHIL % (test code=BA%) 0.3 % 0.0-1.0 NUCLEATED RBC % (test code=NRBC%) 0.0 % 0-0 NEUTROPHIL # (test code=NT#) 8.92 K/mm3 1.8-7.7 IMMATURE GRANULOCYTE # (test code=IG#) 0.03 x10 3/uL 0-0.03 LYMPHOCYTE # (test code=LY#) 1.14 K/mm3 1.0-5.0 MONOCYTE # (test code=MO#) 0.78 K/mm3 0-0.8 EOSINOPHIL # (test code=EO#) 0.30 K/mm3 0.0-0.5 BASOPHIL # (test code=BA#) 0.03 K/mm3 0.0-0.2 NUCLEATED RBC # (test code=NRBC#) 0.00 K/mm3 0.0-0.1 MANUAL DIFF REQUIRED (test code=MDIFF) NO [id number] 16:35:00* Test Item Value Reference Range Comments GLUBED (test code=GLUBED) 156 mg/dL 74-106 Performed by certified wired music operator at [facility] [id number] 15:01:00* Test Item Value Reference Range Comments TROPONIN-I (test code=TROPI) <0.015 ng/mL 0-0.045 [id number] 12:13:00* Test Item Value Reference Range Comments GLUBED (test code=GLUBED) 174 mg/dL 74-106 Performed by certified wired music operator at [facility] LIPID PROFILE (CORONARY RISK)2019-05-10 10:41:00* Test Item Value Reference Range Comments TRIGLYCERIDES (test code=TRIG) 100 mg/dL 20-150 CHOLESTEROL (test code=CHOL) 91 mg/dL 0-200 CHOLESTEROL/HDL RATIO (test code=CHOLHDL) 3.0 RATIO 0-4.9 RISK ASSOCIATED WITH CHOL/HDL RATIOS: Risk Male Female1/2 AVERAGE 3.43 3.27AVERAGE 4.97 4.442X AVERAGE 9.55 7.053X AVERAGE 23.39 11.04 REFERENCE VALUE IS RELATED TO RISK LEVELS ASRECOMMENDED BY THE [facility]. HEART, LUNG, AND BLOOD INST. HDL CHOLESTEROL (test code=HDL) 27 mg/dL 40-60 LIPOPROTEIN LDL (test code=LDL) 52 mg/dL 100-129 Reference Interval: mg/dL mmol/L Optimal <100 <2.6Near/above optimal 100-129 2.6- 3.3Borderline High 130-159 3.4-4.1High 160-189 4.1-4.9Very High >=190 >=4.9=========This LDL result is a direct measurement.========= [id number] 10:09:00* Test Item Value Reference Range Comments GLYCOSYLATED HEMOGLOBIN (HA1C) (test code=GLYHGB) 6.4 % HbA1 4.8-6.0 ESTIMATED AVERAGE GLUCOSE (test code=EAG) 137 MG/DL [id number] 08:12:00* Test Item Value Reference Range Comments GLUBED (test code=GLUBED) 124 mg/dL 74-106 Performed by certified wired music operator at [facility] [id number] 02:42:00* Test Item Value Reference Range Comments GLUBED (test code=GLUBED) 115 mg/dL 74-106 Performed by certified wired music operator at [facility] [id number] 20:55:00* Test Item Value Reference Range Comments GLUBED (test code=GLUBED) 102 mg/dL 74-106 Performed by certified wired music operator at [facility] [id number] 20:22:00* Test Item Value Reference Range Comments TROPONIN-I (test code=TROPI) 0.028 ng/mL 0-0.045 COMMENTS TO PAPER PRODUCTION ENGINEER: COLLECT 3 HOURS AFTER PREVIOUS [id number] 18:22:00* Test Item Value Reference Range Comments TROPONIN-I (test code=TROPI) 0.029 ng/mL 0-0.045 COMMENTS TO PAPER PRODUCTION ENGINEER: COLLECT 3 HOURS AFTER PREVIOUS [id number] 16:02:00* Test Item Value Reference Range Comments GLUBED (test code=GLUBED) 123 mg/dL 74-106 Performed by certified wired music operator at [facility] URINALYSIS [id number] 13:52:00* Test Item Value Reference Range Comments UA COLOR (test code=COLU) Light-Yellow YELLOW UA APPEARANCE (test code=APPU) Cloudy CLEAR UA GLUCOSE DIPSTICK (test code=DGLUU) NEGATIVE mg/dL NEGATIVE UA BILIRUBIN DIPSTICK (test code=BILU) NEGATIVE mg/dL NEGATIVE UA KETONE DIPSTICK (test code=KETU) NEGATIVE mg/dL NEGATIVE UA SPECIFIC GRAVITY (test code=SGU) 1.014 1.001-1.035 UA BLOOD DIPSTICK (test code=GAGANDEEP) 0.03 mg/dL (Trace) mg/dL NEGATIVE UA PH DIPSTICK (test code=RAUL) 5.5 5.0-8.0 UA PROTEIN DIPSTICK (test code=PROU) 100 (2+) mg/dL NEGATIVE UA UROBILINIOGEN DIPSTICK (test code=URO) Normal mg/dL NEGATIVE UA NITRITE DIPSTICK (test code=STACEY) NEGATIVE NEGATIVE UA LEUKOCYTE ESTERASE W REFLEX (test code=LEUUR) 250 Marilee/uL (2+) Marilee/uL NEGATIVE UA WBC (test code=WBCU) 101-150 per HPF 0-5 UA RBC (test code=RBCU) 0-2 #/HPF 0-5 UA EPITHELIAL CELLS (test code=EPIU) FEW per HPF FEW UA BACTERIA (test code=BACU) FEW #/HPF NONE UA MUCUS (test code=MUCU) FEW #/LPF FEW Urine Source? Clean CatchURINALYSIS [id number] 13:20:00* Test Item Value Reference Range Comments UA COLOR (test code=COLU) Light-Yellow YELLOW UA APPEARANCE (test code=APPU) Cloudy CLEAR UA GLUCOSE DIPSTICK (test code=DGLUU) NEGATIVE mg/dL NEGATIVE UA BILIRUBIN DIPSTICK (test code=BILU) NEGATIVE mg/dL NEGATIVE UA KETONE DIPSTICK (test code=KETU) NEGATIVE mg/dL NEGATIVE UA SPECIFIC GRAVITY (test code=SGU) 1.014 1.001-1.035 UA BLOOD DIPSTICK (test code=GAGANDEEP) 0.03 mg/dL (Trace) mg/dL NEGATIVE UA PH DIPSTICK (test code=RAUL) 5.5 5.0-8.0 UA PROTEIN DIPSTICK (test code=PROU) 100 (2+) mg/dL NEGATIVE UA UROBILINIOGEN DIPSTICK (test code=URO) Normal mg/dL NEGATIVE UA NITRITE DIPSTICK (test code=STACEY) NEGATIVE NEGATIVE UA LEUKOCYTE ESTERASE W REFLEX (test code=LEUUR) 250 Marilee/uL (2+) Marilee/uL NEGATIVE UA WBC (test code=WBCU) per HPF 0-5 UA RBC (test code=RBCU) per HPF 0-5 UA EPITHELIAL CELLS (test code=EPIU) per HPF Few UA BACTERIA (test code=BACU) per HPF NONE Urine Source? Clean Catch- DUP AB/PEL/SC [id number] 11:04:00 Name: [place] MELCHOR [facility] : 1955 Age/S: 63 / M [address] [facility] Unit #: [id number] Loc: [place] [address] Phys: Juan Alejandro MD Acct: [id number] Di s Date: Status: REG ER PHONE #: [phone] Exam Date: 05/09/2019 [facility] FAX #: [phone] Reason: R/O TORSION EXAMS: CPT CODE: [id number] DUP AB/PEL/SC COMP 81412 HISTORY: Left testicular pain. COMPARISON: CT pelvis from February 16, 2019. Bilate ral testicular ultrasound with color and Doppler flow and grayscale imagin g. Color and Doppler flow with normal spectral waveform in either testicle excluding testicular torsion bilaterally. No solid intratesticular mass in either testicle. Simple cyst within the left centr al testicle measuring 1.4 cm. Echogenicity and texture is normal excluding orchitis. Right testicle measured 4.8 x 2.4 x 2.5 cm. Epididymis is not clearly visible however simple massive hydrocele measuring 8 x 7.4 x 3.8 cm. No varicocele. Left testicle is measuring 4 x 3 x 2.4 cm. Epididymis is again not clearly visible. Multi septated complex oc cupying nearly the entire left scrotal sac measuring 9.6 x 6.3 x 8 cm. No varicocele. IMPRESSION: No testicular torsion or solid intratesticular mass. No orchitis. Simple cyst within the left testicle measured 1.4 cm. No varicocele. Large left complex mu lti septated hydrocele with debris measuring 9.6 x 6.3 x 8 cm. Epididymi s is not clearly seen separately. This may suggest acute epididymitis re sulting in septated hydrocele. Large simple right hydrocele wi thout visualization of the epididymis measuring 8 x 7.4 x 3.8 cm. at 1104 Reported and signed by: Nelson Sanchez M.D. CC: Janell Alejandro MD; Ines Torres MD Technologist: OMA ROCHA RT( R),RDIA Trncab Date/Time: 05/09/2019 (1101) t.SDR.TH4 Orig Print D/T: S: 05/09/2019 (5145) Probe: PAGE 1 Signed Report - US SCROTUM AND [id number] 11:04:00 Name: [place] MELCHOR [facility] : 1955 Age/S: 63 / M [address] [facility] Unit #: [id number] Loc: [place] [address] Phys: Juan Alejandro MD Acct: [id number] Dis Date: Status: REG ER PHONE #: [phone] Exam Date: 05/09/2019 1038 FAX #: [phone] Reason: left testis pain EXAMS: CPT CODE: [id number] US SCROTUM AND CNTS 52359 HISTORY: Left testicular pain. COMPARISON: CT pelvis from February 16, 2019. Bilateral testicular ultrasound with color and Doppler flow and grayscale imaging. Color and Doppler flow with normal spectral waveform in either testicle excluding testicular torsion bilaterally. No solid intratesticular mass in either testicle. Simple cyst within the left central testicle measuring 1.4 cm. Echogenicity and texture is normal excluding orchitis. Right testicle measured 4.8 x 2.4 x 2.5 cm. Epididymis is not clearly visible however simple massive hydrocele measuring 8 x 7.4 x 3.8 cm. No varicocele. Left testicle is measuring 4 x 3 x 2.4 cm. Epididymis is again not clearly visible. Multi septated complex oc cupying nearly the entire left scrotal sac measuring 9.6 x 6.3 x 8 cm. No varicocele. IMPRESSION: No testicular torsion or solid intratesticular mass. No orchitis. Simple cyst within the left testicle measured 1.4 cm. No varicocele. Large left complex mu lti septated hydrocele with debris measuring 9.6 x 6.3 x 8 cm. Epididymi s is not clearly seen separately. This may suggest acute epididymitis re sulting in septated hydrocele. Large simple right hydrocele wi thout visualization of the epididymis measuring 8 x 7.4 x 3.8 cm. at 1104 Reported and signed by: Nelson Sanchez M.D. CC: Janell Alejandro MD; Ines Torres MD Technologist: OMA ROCHA RT( R),[facility] Date/Time: 05/09/2019 (1104) t.SDR.TH4 Orig Print D/T: S: 05/09/2019 (1107) Probe: PAGE 1 Signed Report BASIC METABOLIC [id number] 10:46:00* Test Item Value Reference Range Comments SODIUM (test code=NA) 136 mmol/L 136-145 POTASSIUM (test code=K) 3.4 mmol/L 3.5-5.1 CHLORIDE (test code=CL) 102.7 mmol/L 98-107 CARBON DIOXIDE (test code=CO2) 25.0 mmol/L 21-32 ANION GAP (test code=GAP) 11.7 10-20 GLUCOSE (test code=GLU) 136 mg/dL 74-106 BLOOD UREA NITROGEN (test code=BUN) 25 mg/dL 7-18 GLOMERULAR FILTRATION RATE (test code=GFR) 29 mL/min >=60 Estimated GFR by using Modified MDRD formula.Chronic kidney disease is defined as either kidney damageor GFR <60 mL/min/1.73 m2 for >3 months. CREATININE (test code=CREAT) 2.28 mg/dL 0.7-1.3 BUN/CREATININE RATIO (test code=BUN/CREA) 11.0 10-20 CALCIUM (test code=CA) 8.6 mg/dL 8.5-10.1 [id number] 10:46:00* Test Item Value Reference Range Comments TROPONIN-I (test code=TROPI) 0.031 ng/mL 0-0.045 CBC W/O [id number] 10:17:00* Test Item Value Reference Range Comments WHITE BLOOD CELL (test code=WBC) 17.0 K/mm3 4.5-12.5 RED BLOOD CELL (test code=RBC) 3.61 mill/mm3 4.0-5.8 HEMOGLOBIN (test code=HGB) 10.1 gram/dL 13.0-17.5 HEMATOCRIT (test code=HCT) 31.3 % 42.0-52.0 MEAN CELL VOLUME (test code=MCV) 86.7 fL 80-98 MEAN CELL HGB (test code=MCH) 28.0 picogram 27.0-33.0 MEAN CELL HGB CONCETRATION (test code=MCHC) 32.3 gram/dL 33.0-36.0 RED CELL DISTRIBUTION WIDTH (test code=RDW) 15.4 % 11.6-16.2 PLATELET COUNT (test code=PLT) 144 K/mm3 150-450 MEAN PLATELET VOLUME (test code=MPV) 12.2 fL 6.7-11.0 - XR CHEST 1 [id number] 09:57:00 FAX: Ines Barbosa MD [phone] [place]: B St: REG FAX: Mil Milan NP [phone] Name: NJ MELCHOR [facility] : 1955 Age/S: 63/M [address] Unit #: [id number] Loc: [place] [address] Phys: Mil Milan SPLITTER TENDER Acct: [id number] Dis Date: Status: REG ER PHONE #: [phone] Exam Date: 05/09/2019 0950 FAX #: [phone] Reason: CHEST PAIN EXAMS: CPT CODE: [id number] XR CHEST 1 V 94634 HISTORY: Chest pain. COMPARISON: February 07, 2019. No acute infiltrates, effusion or congestion is noted. Mild cardiomegaly. IMPRESSION: No acute infiltrates, effusion or congestion. at 0957 Reported and signed by: Nelson Sanchez M.D. CC: Ines Torres MD; Mil Milan NP Technologist: OSCAR JACKSON) Trnscrd Date/Time/By: 05/09/2019 (0957) : By: [email or web address] Orig Print D/T: S: 05/09/2019 (1000) PAGE 1 Signed Report [id number] 12:56:00* Test Item Value Reference Range Comments GLUBED (test code=GLUBED) 181 mg/dL 74-106 Performed by certified wired music operator at [facility] [id number] 12:55:00* Test Item Value Reference Range Comments GLUBED (test code=GLUBED) 151 mg/dL 74-106 Performed by certified wired music operator at [facility] [id number] 12:55:00* Test Item Value Reference Range Comments GLUBED (test code=GLUBED) 137 mg/dL 74-106 Performed by certified wired music operator at [facility] [id number] 12:54:00* Test Item Value Reference Range Comments GLUBED (test code=GLUBED) 176 mg/dL 74-106 Performed by certified wired music operator at [facility] [id number] 12:54:00* Test Item Value Reference Range Comments GLUBED (test code=GLUBED) 229 mg/dL 74-106 Performed by certified wired music operator at [facility] [id number] 12:54:00* Test Item Value Reference Range Comments GLUBED (test code=GLUBED) 187 mg/dL 74-106 [facility]~ [id number] 12:54:00* Test Item Value Reference Range Comments GLUBED (test code=GLUBED) 50 mg/dL 74-106 Performed by certified wired music operator at [facility] COAGULATION TIME [id number] 09:32:00* Test Item Value Reference Range Comments COAGULATION TIME ACTIVATED (test code=ACT) 218 seconds 62.8-88.0 [id number] 08:19:00* Test Item Value Reference Range Comments GLUBED (test code=GLUBED) 164 mg/dL 74-106 Performed by certified wired music operator at [facility] [id number] 20:42:00* Test Item Value Reference Range Comments GLUBED (test code=GLUBED) 137 mg/dL 74-106 Performed by certified wired music operator at [facility] - CT ABD PELVIS W/O [id number] 18:48:00 Name: [place] MELCHOR [facility] : 1955 Age/S: 63 / M [address] [facility]: [id number] [place] [address] Phys: Isai Collins MD Acct: [id number] Dis Date: Status: ADM IN PHONE #: [phone] Exam Date: 02/16/2019 174 FAX #: [phone] Reason: STONE PROTOCOL. EVALUATE POSSIBLE STONE ON U/S, EXAMS: CPT CODE: [id number] CT ABD PELVIS W/O CONT 30524 HISTORY: STONE PROTOCOL. EVALUATE POSSIBLE STONE ON U/S, ADRENAL TECHNIQUE: 5mm axial CT images were obtained through the abdomen and pelvis without contrast. Sagittal and coronal reformatted images were generated. Automated exposure control for dose reduction. COMPARISON: 01/02/18 FINDINGS: Lung bases are clear. Mild cardiomegaly. Hepatomegaly. Gallbladder, pancreas, spleen, right adrenal gland are unremarkable. 5 cm left adrenal myelolipoma. Nonenhanced bilateral renal parenchyma is unremarkable. 1 cm left interpolar calyceal calculus. No ureteral calculus or hydronephrosis. Limited evaluation the GI tract witho ut oral contrast. Stomach, small bowel, appendix, and colon are unremarkab le. No free air or free fluid. No lymphadenopathy. Aortoiliac atherosclerotic vascular calcification without aneurysm. Urinary bladder is unremarkable. Seminal vesicles and prostate gland are unremark able. Stable mildly enlarged bilateral iliac nodes. No pelvic free fluid. Degenerative changes of the spine, sacral iliac joints, and hips. IMPRESSION: No acute findings on nonc ontrast CT of the abdomen/pelvis. 1 cm left interpolar calycea l calculus. No ureteral calculus or hydronephrosis. St able 5 cm left adrenal adenoma. Stable mildly enlarged bilater al iliac nodes. PAGE 1 Signed Report (CONTINUED) Name: NJ MELCHOR [facility] : 1955 Age/S: 63 / M [address] [facility] Unit #: [id number] Loc: [place] [address] Phys: Isai Collins MD Acct: [id number] Dis Date: Status: ADM IN PHONE #: [phone] Exam Date: 02/16/2019 1749 FAX #: [phone] Reason: STONE PROTOCOL. EVALUATE POSSIBLE STONE ON U/S, EXAMS: CPT CODE: [id number] ABD PELVIS W/O CONT 13974 <Continued > at 1848 Reported and signed by: Meagan Caldera D.O. CC: Isai Collins MD; Baldemar Barreto MD; Ines Torres MD Technolo gist:Anyi Jackson,RT(R),CT; Gabrielle CTDI: DLP: Trnscb Date/Time: 02/16/2019 (1847) RomeP1 Orig Print D/T: S: 02/16/2019 (1850) CTDI: DLP: PAGE 2 Signed Report [id number] 17:07:00* Test Item Value Reference Range Comments GLUBED (test code=GLUBED) 223 mg/dL 74-106 Performed by certified wired music operator at [facility] [id number] 12:43:00* Test Item Value Reference Range Comments GLUBED (test code=GLUBED) 173 mg/dL 74-106 Performed by certified wired music operator at [facility] BASIC METABOLIC [id number] 07:28:00* Test Item Value Reference Range Comments SODIUM (test code=NA) 139 mmol/L 136-145 POTASSIUM (test code=K) 4.1 mmol/L 3.5-5.1 CHLORIDE (test code=CL) 108.0 mmol/L 98-107 CARBON DIOXIDE (test code=CO2) 24.0 mmol/L 21-32 ANION GAP (test code=GAP) 11.1 10-20 GLUCOSE (test code=GLU) 126 mg/dL 74-106 BLOOD UREA NITROGEN (test code=BUN) 25 mg/dL 7-18 GLOMERULAR FILTRATION RATE (test code=GFR) 44 mL/min >=60 Estimated GFR by using Modified MDRD formula.Chronic kidney disease is defined as either kidney damageor GFR <60 mL/min/1.73 m2 for >3 months. CREATININE (test code=CREAT) 1.60 mg/dL 0.7-1.3 BUN/CREATININE RATIO (test code=BUN/CREA) 15.6 10-20 CALCIUM (test code=CA) 8.1 mg/dL 8.5-10.1 BASIC METABOLIC [id number] 07:23:00* Test Item Value Reference Range Comments SODIUM (test code=NA) 139 mmol/L 136-145 POTASSIUM (test code=K) 4.1 mmol/L 3.5-5.1 CHLORIDE (test code=CL) 108.0 mmol/L 98-107 CARBON DIOXIDE (test code=CO2) mmol/L 21-32 ANION GAP (test code=GAP) 10-20 GLUCOSE (test code=GLU) mg/dL 74-106 BLOOD UREA NITROGEN (test code=BUN) mg/dL 7-18 GLOMERULAR FILTRATION RATE (test code=GFR) mL/min >=60 CREATININE (test code=CREAT) mg/dL 0.7-1.3 BUN/CREATININE RATIO (test code=BUN/CREA) 10-20 CALCIUM (test code=CA) mg/dL 8.5-10.1 [id number] 06:54:00* Test Item Value Reference Range Comments GLUBED (test code=GLUBED) 153 mg/dL 74-106 Performed by certified wired music operator at [facility] [id number] 20:47:00* Test Item Value Reference Range Comments GLUBED (test code=GLUBED) 129 mg/dL 74-106 Performed by certified wired music operator at [facility] [id number] 13:22:00* Test Item Value Reference Range Comments GLUBED (test code=GLUBED) 223 mg/dL 74-106 Performed by certified wired music operator at [facility] BASIC METABOLIC [id number] 08:49:00* Test Item Value Reference Range Comments SODIUM (test code=NA) 139 mmol/L 136-145 POTASSIUM (test code=K) 4.1 mmol/L 3.5-5.1 CHLORIDE (test code=CL) 108.0 mmol/L 98-107 CARBON DIOXIDE (test code=CO2) 26.0 mmol/L 21-32 ANION GAP (test code=GAP) 9.1 10-20 GLUCOSE (test code=GLU) 131 mg/dL 74-106 BLOOD UREA NITROGEN (test code=BUN) 27 mg/dL 7-18 GLOMERULAR FILTRATION RATE (test code=GFR) 44 mL/min >=60 Estimated GFR by using Modified MDRD formula.Chronic kidney disease is defined as either kidney damageor GFR <60 mL/min/1.73 m2 for >3 months. CREATININE (test code=CREAT) 1.60 mg/dL 0.7-1.3 BUN/CREATININE RATIO (test code=BUN/CREA) 16.9 10-20 CALCIUM (test code=CA) 8.5 mg/dL 8.5-10.1 [id number] 08:49:00* Test Item Value Reference Range Comments PHOSPHORUS (test code=PHOS) 3.5 mg/dL 2.5-4.9 [id number] 08:49:00* Test Item Value Reference Range Comments MAGNESIUM (test code=MAG) 2.1 mg/dL 1.8-2.4 BASIC METABOLIC [id number] 08:24:00* Test Item Value Reference Range Comments SODIUM (test code=NA) 139 mmol/L 136-145 POTASSIUM (test code=K) 4.1 mmol/L 3.5-5.1 CHLORIDE (test code=CL) 108.0 mmol/L 98-107 CARBON DIOXIDE (test code=CO2) mmol/L 21-32 ANION GAP (test code=GAP) 10-20 GLUCOSE (test code=GLU) mg/dL 74-106 BLOOD UREA NITROGEN (test code=BUN) mg/dL 7-18 GLOMERULAR FILTRATION RATE (test code=GFR) mL/min >=60 CREATININE (test code=CREAT) mg/dL 0.7-1.3 BUN/CREATININE RATIO (test code=BUN/CREA) 10-20 CALCIUM (test code=CA) mg/dL 8.5-10.1 [id number] 08:24:00* Test Item Value Reference Range Comments PHOSPHORUS (test code=PHOS) mg/dL 2.5-4.9 [id number] 08:24:00* Test Item Value Reference Range Comments MAGNESIUM (test code=MAG) mg/dL 1.8-2.4 [id number] 06:11:00* Test Item Value Reference Range Comments GLUBED (test code=GLUBED) 125 mg/dL 74-106 Performed by certified wired music operator at [facility] [id number] 15:56:00* Test Item Value Reference Range Comments GLUBED (test code=GLUBED) 191 mg/dL 74-106 Performed by certified wired music operator at [facility] - US GUIDANCE VASC [id number] 14:27:00 Name: [place] MELCHOR [facility] : 1955 Age/S: 63 / M [address] [facility] Unit #: [id number] Loc: [place] [address] Phys: Adriano Elizalde MD Acct: [id number] Dis Date: Status: ADM IN PHONE #: [phone] Exam Date: 02/07/2019 1905 FAX #: [phone] Reason: EXAMS: CPT CODE: [id number] US GUIDANCE VASC ACCESS 05717 Fluoro Time: 0 DAP (Gy m2): 0 Air Kerma (mGy): 0 EXAM: Insertion of a non-tunneled temporary hemodialysis catheter with sonographic guidance; CPT: 47602, 90444; INFORMATION: Renal failure; TECHNIQUE AND FINDINGS: After obtaining informed consent, sonography was performed, demonstrating a patent and compressible right internal jugular vein. Sonographic images were stored in PACS. The patient's skin in the right neck region was prepped and draped in the usual sterile fashion, applying all elements of maximal sterile barrier technique. Xylocaine was administered and using real-time sonographic guidance the right IJ was accessed with a micr opuncture system, followed by insertion of an 035 guidewire. Sequential di latation was performed and a 13 Wolof triple lumen central line was then inserted over the guidewire. Good blood return was noticed; the cath eter was sutured to the skin and flushed with heparinized saline. Th ere were no apparent complications. IMPRESSION: Successf ul insertion of a non-tunneled triple-lumen temporary hemodialysis sofía ter via right IJ access, using sonographic guidance. Electr onically Signed by Abigail Elizalde on 9 at 1427 Reported and signed by: Adriano zeng M.D. CC: Baldemar Barreto MD; Ines Torres MD Technologist: Julian Cason [facility] Date/Time: 02/14/2019 (1427) t.[email or web address].GRW Orig Print D/T: S: 02/14/2019 (2716) PAGE 1 Signed Report BASIC METABOLIC [id number] 06:22:00* Test Item Value Reference Range Comments SODIUM (test code=NA) 139 mmol/L 136-145 POTASSIUM (test code=K) 4.2 mmol/L 3.5-5.1 CHLORIDE (test code=CL) 106.0 mmol/L 98-107 CARBON DIOXIDE (test code=CO2) 26.0 mmol/L 21-32 ANION GAP (test code=GAP) 11.2 10-20 GLUCOSE (test code=GLU) 128 mg/dL 74-106 BLOOD UREA NITROGEN (test code=BUN) 31 mg/dL 7-18 GLOMERULAR FILTRATION RATE (test code=GFR) 41 mL/min >=60 Estimated GFR by using Modified MDRD formula.Chronic kidney disease is defined as either kidney damageor GFR <60 mL/min/1.73 m2 for >3 months. CREATININE (test code=CREAT) 1.70 mg/dL 0.7-1.3 BUN/CREATININE RATIO (test code=BUN/CREA) 18.2 10-20 CALCIUM (test code=CA) 7.8 mg/dL 8.5-10.1 BASIC METABOLIC [id number] 06:18:00* Test Item Value Reference Range Comments SODIUM (test code=NA) 139 mmol/L 136-145 POTASSIUM (test code=K) 4.2 mmol/L 3.5-5.1 CHLORIDE (test code=CL) 106.0 mmol/L 98-107 CARBON DIOXIDE (test code=CO2) mmol/L 21-32 ANION GAP (test code=GAP) 10-20 GLUCOSE (test code=GLU) mg/dL 74-106 BLOOD UREA NITROGEN (test code=BUN) mg/dL 7-18 GLOMERULAR FILTRATION RATE (test code=GFR) mL/min >=60 CREATININE (test code=CREAT) mg/dL 0.7-1.3 BUN/CREATININE RATIO (test code=BUN/CREA) 10-20 CALCIUM (test code=CA) mg/dL 8.5-10.1 [id number] 06:14:00* Test Item Value Reference Range Comments GLUBED (test code=GLUBED) 133 mg/dL 74-106 Performed by certified wired music operator at [facility] [id number] 21:05:00* Test Item Value Reference Range Comments GLUBED (test code=GLUBED) 168 mg/dL 74-106 Performed by certified wired music operator at [facility] [id number] 15:24:00* Test Item Value Reference Range Comments GLUBED (test code=GLUBED) 172 mg/dL 74-106 Performed by certified wired music operator at [facility] FECES OVA [id number] 15:11:00* Test Item Value Reference Range Comments CONCENTRATE RESULT (test code=CONC) Final report () These results were obtained using wet preparation(s) andtrichrome stained smear. This test does not include testingfor Cryptosporidium parvum, Cyclospora, or Microsporidia. TRICHROME RESULT (test code=TRIC) SOURCE: STOOLSPECIMEN DESCRIPTION: 1ST SPECIMENFECES OVA [id number] 15:11:00* Test Item Value Reference Range Comments CONCENTRATE RESULT (test code=CONC) Final report () These results were obtained using wet preparation(s) andtrichrome stained smear. This test does not include testingfor Cryptosporidium parvum, Cyclospora, or Microsporidia. TRICHROME RESULT (test code=TRIC) () No ova, cysts, or parasites seen.One negative specimen does not rule out the possibility ofa parasitic infection.Performed At: [facility] [address] [id number] Akash Lacey MD Ph:[phone] SOURCE: STOOLSPECIMEN DESCRIPTION: 1ST [id number] 11:34:00* Test Item Value Reference Range Comments GLUBED (test code=GLUBED) 204 mg/dL 74-106 Performed by certified wired music operator at [facility] CBC W/O [id number] 09:16:00* Test Item Value Reference Range Comments WHITE BLOOD CELL (test code=WBC) 9.0 K/mm3 4.5-12.5 RED BLOOD CELL (test code=RBC) 3.64 mill/mm3 4.0-5.8 HEMOGLOBIN (test code=HGB) 10.4 gram/dL 13.0-17.5 HEMATOCRIT (test code=HCT) 32.3 % 42.0-52.0 MEAN CELL VOLUME (test code=MCV) 88.7 fL 80-98 MEAN CELL HGB (test code=MCH) 28.6 picogram 27.0-33.0 MEAN CELL HGB CONCETRATION (test code=MCHC) 32.2 gram/dL 33.0-36.0 RED CELL DISTRIBUTION WIDTH (test code=RDW) 16.0 % 11.6-16.2 PLATELET COUNT (test code=PLT) 141 K/mm3 150-450 MEAN PLATELET VOLUME (test code=MPV) 11.4 fL 6.7-11.0 BASIC METABOLIC [id number] 07:50:00* Test Item Value Reference Range Comments SODIUM (test code=NA) 140 mmol/L 136-145 POTASSIUM (test code=K) 3.8 mmol/L 3.5-5.1 CHLORIDE (test code=CL) 107.0 mmol/L 98-107 CARBON DIOXIDE (test code=CO2) 26.0 mmol/L 21-32 ANION GAP (test code=GAP) 10.8 10-20 GLUCOSE (test code=GLU) 140 mg/dL 74-106 BLOOD UREA NITROGEN (test code=BUN) 32 mg/dL 7-18 GLOMERULAR FILTRATION RATE (test code=GFR) 38 mL/min >=60 Estimated GFR by using Modified MDRD formula.Chronic kidney disease is defined as either kidney damageor GFR <60 mL/min/1.73 m2 for >3 months. CREATININE (test code=CREAT) 1.80 mg/dL 0.7-1.3 BUN/CREATININE RATIO (test code=BUN/CREA) 17.8 10-20 CALCIUM (test code=CA) 8.3 mg/dL 8.5-10.1 [id number] 07:50:00* Test Item Value Reference Range Comments PHOSPHORUS (test code=PHOS) 3.3 mg/dL 2.5-4.9 [id number] 07:50:00* Test Item Value Reference Range Comments MAGNESIUM (test code=MAG) 2.1 mg/dL 1.8-2.4 BASIC METABOLIC [id number] 07:44:00* Test Item Value Reference Range Comments SODIUM (test code=NA) 140 mmol/L 136-145 POTASSIUM (test code=K) 3.8 mmol/L 3.5-5.1 CHLORIDE (test code=CL) 107.0 mmol/L 98-107 CARBON DIOXIDE (test code=CO2) mmol/L 21-32 ANION GAP (test code=GAP) 10-20 GLUCOSE (test code=GLU) mg/dL 74-106 BLOOD UREA NITROGEN (test code=BUN) mg/dL 7-18 GLOMERULAR FILTRATION RATE (test code=GFR) mL/min >=60 CREATININE (test code=CREAT) mg/dL 0.7-1.3 BUN/CREATININE RATIO (test code=BUN/CREA) 10-20 CALCIUM (test code=CA) mg/dL 8.5-10.1 [id number] 07:44:00* Test Item Value Reference Range Comments PHOSPHORUS (test code=PHOS) mg/dL 2.5-4.9 [id number] 07:44:00* Test Item Value Reference Range Comments MAGNESIUM (test code=MAG) mg/dL 1.8-2.4 [id number] 06:13:00* Test Item Value Reference Range Comments GLUBED (test code=GLUBED) 146 mg/dL 74-106 Performed by certified wired music operator at [facility] [id number] 16:11:00* Test Item Value Reference Range Comments GLUBED (test code=GLUBED) 185 mg/dL 74-106 Performed by certified wired music operator at [facility] [id number] 07:51:00* Test Item Value Reference Range Comments GLUBED (test code=GLUBED) 142 mg/dL 74-106 Performed by certified wired music operator at [facility] ANGIOTENSIN-I CONVERTING [id number] 07:21:00* Test Item Value Reference Range Comments ANGIOTENSIN-I CONVERTING ENZ (test code=ACE1) < 15 U/L 14-82 Results verified by repeat testingPerformed At: Lab[address] [id number] Sanjai MD Ph:[phone] BASIC METABOLIC [id number] 05:11:00* Test Item Value Reference Range Comments SODIUM (test code=NA) 141 mmol/L 136-145 POTASSIUM (test code=K) 4.2 mmol/L 3.5-5.1 CHLORIDE (test code=CL) 108.0 mmol/L 98-107 CARBON DIOXIDE (test code=CO2) 27.0 mmol/L 21-32 ANION GAP (test code=GAP) 10.2 10-20 GLUCOSE (test code=GLU) 134 mg/dL 74-106 BLOOD UREA NITROGEN (test code=BUN) 44 mg/dL 7-18 GLOMERULAR FILTRATION RATE (test code=GFR) 30 mL/min >=60 Estimated GFR by using Modified MDRD formula.Chronic kidney disease is defined as either kidney damageor GFR <60 mL/min/1.73 m2 for >3 months. CREATININE (test code=CREAT) 2.20 mg/dL 0.7-1.3 BUN/CREATININE RATIO (test code=BUN/CREA) 20.0 10-20 CALCIUM (test code=CA) 8.4 mg/dL 8.5-10.1 [id number] 05:11:00* Test Item Value Reference Range Comments PHOSPHORUS (test code=PHOS) 3.6 mg/dL 2.5-4.9 [id number] 05:11:00* Test Item Value Reference Range Comments MAGNESIUM (test code=MAG) 2.1 mg/dL 1.8-2.4 THROMBOPLASTIN TIME [id number] 05:09:00* Test Item Value Reference Range Comments THROMBOPLASTIN TIME PARTIAL (test code=PTT) 38.1 seconds 25.0-36.5 IS PATIENT ON ANTICOAGULANTS? YLIST ANTICOAGULANTS HEPARIN ASPIRIN P LAVIXBASIC METABOLIC [id number] 05:06:00* Test Item Value Reference Range Comments SODIUM (test code=NA) 141 mmol/L 136-145 POTASSIUM (test code=K) 4.2 mmol/L 3.5-5.1 CHLORIDE (test code=CL) 108.0 mmol/L 98-107 CARBON DIOXIDE (test code=CO2) mmol/L 21-32 ANION GAP (test code=GAP) 10-20 GLUCOSE (test code=GLU) mg/dL 74-106 BLOOD UREA NITROGEN (test code=BUN) mg/dL 7-18 GLOMERULAR FILTRATION RATE (test code=GFR) mL/min >=60 CREATININE (test code=CREAT) mg/dL 0.7-1.3 BUN/CREATININE RATIO (test code=BUN/CREA) 10-20 CALCIUM (test code=CA) 8.4 mg/dL 8.5-10.1 [id number] 05:06:00* Test Item Value Reference Range Comments PHOSPHORUS (test code=PHOS) mg/dL 2.5-4.9 [id number] 05:06:00* Test Item Value Reference Range Comments MAGNESIUM (test code=MAG) mg/dL 1.8-2.4 CBC W/O [id number] 05:02:00* Test Item Value Reference Range Comments WHITE BLOOD CELL (test code=WBC) 9.4 K/mm3 4.5-12.5 RED BLOOD CELL (test code=RBC) 3.69 mill/mm3 4.0-5.8 HEMOGLOBIN (test code=HGB) 10.3 gram/dL 13.0-17.5 HEMATOCRIT (test code=HCT) 33.3 % 42.0-52.0 MEAN CELL VOLUME (test code=MCV) 90.2 fL 80-98 MEAN CELL HGB (test code=MCH) 27.9 picogram 27.0-33.0 MEAN CELL HGB CONCETRATION (test code=MCHC) 30.9 gram/dL 33.0-36.0 RED CELL DISTRIBUTION WIDTH (test code=RDW) 15.9 % 11.6-16.2 PLATELET COUNT (test code=PLT) 154 K/mm3 150-450 MEAN PLATELET VOLUME (test code=MPV) 11.8 fL 6.7-11.0 HEPATITIS B CORE ANTIBODY,[id number] 01:06:00* Test Item Value Reference Range Comments HEPATITIS B CORE ANTIBODY,TOT (test code=HBCAB) Negative Negative Performed At: [facility] [address] [id number] Lacey MD Ph:[phone] AB HEPATITIS B [id number] 01:06:00* Test Item Value Reference Range Comments AB HEPATITIS B SURFACE (test code=HBSAB) Non Reactive () Non Reactive: Inconsistent with immunity, less than 10 mIU/mL Reactive: Consistent with immunity, greater than 9.9 mIU/mLPerformed At: [facility] [address] [id number] Lacey MD Ph:[phone] THROMBOPLASTIN TIME [id number] 22:06:00* Test Item Value Reference Range Comments THROMBOPLASTIN TIME PARTIAL (test code=PTT) 36.4 seconds 25.0-36.5 IS PATIENT ON ANTICOAGULANTS? [employer]LIST ANTICOAGULANTS [id number] 16:26:00* Test Item Value Reference Range Comments GLUBED (test code=GLUBED) 160 mg/dL 74-106 Performed by certified wired music operator at [facility] THROMBOPLASTIN TIME [id number] 15:57:00* Test Item Value Reference Range Comments THROMBOPLASTIN TIME PARTIAL (test code=PTT) 63.9 seconds 25.0-36.5 IS PATIENT ON ANTICOAGULANTS? [employer]LIST ANTICOAGULANTS [id number] 11:38:00* Test Item Value Reference Range Comments GLUBED (test code=GLUBED) 138 mg/dL 74-106 Performed by certified wired music operator at [facility] BASIC METABOLIC [id number] 10:38:00* Test Item Value Reference Range Comments SODIUM (test code=NA) 137 mmol/L 136-145 POTASSIUM (test code=K) 3.8 mmol/L 3.5-5.1 CHLORIDE (test code=CL) 110.0 mmol/L 98-107 CARBON DIOXIDE (test code=CO2) 21.0 mmol/L 21-32 ANION GAP (test code=GAP) 9.8 10-20 GLUCOSE (test code=GLU) 147 mg/dL 74-106 BLOOD UREA NITROGEN (test code=BUN) 49 mg/dL 7-18 GLOMERULAR FILTRATION RATE (test code=GFR) 29 mL/min >=60 Estimated GFR by using Modified MDRD formula.Chronic kidney disease is defined as either kidney damageor GFR <60 mL/min/1.73 m2 for >3 months. CREATININE (test code=CREAT) 2.30 mg/dL 0.7-1.3 BUN/CREATININE RATIO (test code=BUN/CREA) 21.3 10-20 CALCIUM (test code=CA) 8.5 mg/dL 8.5-10.1 BASIC METABOLIC [id number] 10:34:00* Test Item Value Reference Range Comments SODIUM (test code=NA) 137 mmol/L 136-145 POTASSIUM (test code=K) 3.8 mmol/L 3.5-5.1 CHLORIDE (test code=CL) 110.0 mmol/L 98-107 CARBON DIOXIDE (test code=CO2) mmol/L 21-32 ANION GAP (test code=GAP) 10-20 GLUCOSE (test code=GLU) mg/dL 74-106 BLOOD UREA NITROGEN (test code=BUN) mg/dL 7-18 GLOMERULAR FILTRATION RATE (test code=GFR) mL/min >=60 CREATININE (test code=CREAT) mg/dL 0.7-1.3 BUN/CREATININE RATIO (test code=BUN/CREA) 10-20 CALCIUM (test code=CA) mg/dL 8.5-10.1 THROMBOPLASTIN TIME [id number] 09:43:00* Test Item Value Reference Range Comments THROMBOPLASTIN TIME PARTIAL (test code=PTT) 49.0 seconds 25.0-36.5 IS PATIENT ON ANTICOAGULANTS? YLIST ANTICOAGULANTS HEPARINCBC W/AUTO DIFF 2019-02-11 09:31:00* Test Item Value Reference Range Comments WHITE BLOOD CELL (test code=WBC) 9.7 K/mm3 4.5-12.5 RED BLOOD CELL (test code=RBC) 3.77 mill/mm3 4.0-5.8 HEMOGLOBIN (test code=HGB) 10.6 gram/dL 13.0-17.5 HEMATOCRIT (test code=HCT) 33.5 % 42.0-52.0 MEAN CELL VOLUME (test code=MCV) 88.9 fL 80-98 MEAN CELL HGB (test code=MCH) 28.1 picogram 27.0-33.0 MEAN CELL HGB CONCETRATION (test code=MCHC) 31.6 gram/dL 33.0-36.0 RED CELL DISTRIBUTION WIDTH (test code=RDW) 16.0 % 11.6-16.2 RED CELL DISTRIBUTION WIDTH SD (test code=RDW-SD) 51.9 fL 37.0-51.0 PLATELET COUNT (test code=PLT) 146 K/mm3 150-450 MEAN PLATELET VOLUME (test code=MPV) 11.9 fL 6.7-11.0 NEUTROPHIL % (test code=NT%) 63.5 % 39.0-69.0 IMMATURE GRANULOCYTE % (test code=IG%) 1.8 % 0.0-5.0 LYMPHOCYTE % (test code=LY%) 19.5 % 25.0-55.0 MONOCYTE % (test code=MO%) 10.5 % 0.0-10.0 EOSINOPHIL % (test code=EO%) 4.3 % 0.0-5.0 BASOPHIL % (test code=BA%) 0.4 % 0.0-1.0 NUCLEATED RBC % (test code=NRBC%) 0.0 % 0-0 NEUTROPHIL # (test code=NT#) 6.14 K/mm3 1.8-7.7 IMMATURE GRANULOCYTE # (test code=IG#) 0.17 x10 3/uL 0-0.03 LYMPHOCYTE # (test code=LY#) 1.88 K/mm3 1.0-5.0 MONOCYTE # (test code=MO#) 1.01 K/mm3 0-0.8 EOSINOPHIL # (test code=EO#) 0.42 K/mm3 0.0-0.5 BASOPHIL # (test code=BA#) 0.04 K/mm3 0.0-0.2 NUCLEATED RBC # (test code=NRBC#) 0.00 K/mm3 0.0-0.1 MANUAL DIFF REQUIRED (test code=MDIFF) NO [id number] 06:39:00* Test Item Value Reference Range Comments GLUBED (test code=GLUBED) 144 mg/dL 74-106 Performed by certified wired music operator at [facility] THROMBOPLASTIN TIME [id number] 03:09:00* Test Item Value Reference Range Comments THROMBOPLASTIN TIME PARTIAL (test code=PTT) 59.3 seconds 25.0-36.5 IS PATIENT ON ANTICOAGULANTS? YLIST ANTICOAGULANTS [id number] 21:56:00* Test Item Value Reference Range Comments GLUBED (test code=GLUBED) 136 mg/dL 74-106 Performed by certified wired music operator at [facility] THROMBOPLASTIN TIME [id number] 21:05:00* Test Item Value Reference Range Comments THROMBOPLASTIN TIME PARTIAL (test code=PTT) 52.3 seconds 25.0-36.5 IS PATIENT ON ANTICOAGULANTS? YLIST ANTICOAGULANTS [id number] 16:57:00* Test Item Value Reference Range Comments GLUBED (test code=GLUBED) 144 mg/dL 74-106 Performed by certified wired music operator at [facility] THROMBOPLASTIN TIME [id number] 14:37:00* Test Item Value Reference Range Comments THROMBOPLASTIN TIME PARTIAL (test code=PTT) 56.1 seconds 25.0-36.5 IS PATIENT ON ANTICOAGULANTS? YLIST ANTICOAGULANTS [id number] 11:45:00* Test Item Value Reference Range Comments GLUBED (test code=GLUBED) 192 mg/dL 74-106 Performed by certified wired music operator at [facility] THROMBOPLASTIN TIME [id number] 07:34:00* Test Item Value Reference Range Comments THROMBOPLASTIN TIME PARTIAL (test code=PTT) 53.9 seconds 25.0-36.5 IS PATIENT ON ANTICOAGULANTS? YLIST ANTICOAGULANTS [id number] 06:38:00* Test Item Value Reference Range Comments GLUBED (test code=GLUBED) 155 mg/dL 74-106 [facility] THROMBOPLASTIN TIME [id number] 01:05:00* Test Item Value Reference Range Comments THROMBOPLASTIN TIME PARTIAL (test code=PTT) 59.4 seconds 25.0-36.5 IS PATIENT ON ANTICOAGULANTS? YLIST ANTICOAGULANTS [id number] 23:19:00* Test Item Value Reference Range Comments GLUBED (test code=GLUBED) 156 mg/dL 74-106 [facility] [id number] 19:17:00* Test Item Value Reference Range Comments GLUBED (test code=GLUBED) 169 mg/dL 74-106 Performed by certified wired music operator at [facility] THROMBOPLASTIN TIME [id number] 18:16:00* Test Item Value Reference Range Comments THROMBOPLASTIN TIME PARTIAL (test code=PTT) 58.3 seconds 25.0-36.5 IS PATIENT ON ANTICOAGULANTS? YLIST ANTICOAGULANTS HEPARINTHROMBOPLASTIN TIME [id number] 12:51:00* Test Item Value Reference Range Comments THROMBOPLASTIN TIME PARTIAL (test code=PTT) 55.1 seconds 25.0-36.5 IS PATIENT ON ANTICOAGULANTS? YLIST ANTICOAGULANTS HEPARINBASIC METABOLIC [id number] 11:42:00* Test Item Value Reference Range Comments SODIUM (test code=NA) 138 mmol/L 136-145 POTASSIUM (test code=K) 3.8 mmol/L 3.5-5.1 CHLORIDE (test code=CL) 104.0 mmol/L 98-107 CARBON DIOXIDE (test code=CO2) 26.0 mmol/L 21-32 ANION GAP (test code=GAP) 11.8 10-20 GLUCOSE (test code=GLU) 218 mg/dL 74-106 BLOOD UREA NITROGEN (test code=BUN) 73 mg/dL 7-18 RESULT VERIFIED BY REPEAT ANALYSIS GLOMERULAR FILTRATION RATE (test code=GFR) 18 mL/min >=60 Estimated GFR by using Modified MDRD formula.Chronic kidney disease is defined as either kidney damageor GFR <60 mL/min/1.73 m2 for >3 months. CREATININE (test code=CREAT) 3.50 mg/dL 0.7-1.3 BUN/CREATININE RATIO (test code=BUN/CREA) 20.9 10-20 CALCIUM (test code=CA) 7.9 mg/dL 8.5-10.1 CBC W/AUTO [id number] 09:36:00* Test Item Value Reference Range Comments WHITE BLOOD CELL (test code=WBC) 10.5 K/mm3 4.5-12.5 RED BLOOD CELL (test code=RBC) 3.76 mill/mm3 4.0-5.8 HEMOGLOBIN (test code=HGB) 10.8 gram/dL 13.0-17.5 HEMATOCRIT (test code=HCT) 33.0 % 42.0-52.0 MEAN CELL VOLUME (test code=MCV) 87.8 fL 80-98 MEAN CELL HGB (test code=MCH) 28.7 picogram 27.0-33.0 MEAN CELL HGB CONCETRATION (test code=MCHC) 32.7 gram/dL 33.0-36.0 RED CELL DISTRIBUTION WIDTH (test code=RDW) 16.0 % 11.6-16.2 RED CELL DISTRIBUTION WIDTH SD (test code=RDW-SD) 51.0 fL 37.0-51.0 PLATELET COUNT (test code=PLT) 133 K/mm3 150-450 MEAN PLATELET VOLUME (test code=MPV) 12.7 fL 6.7-11.0 NEUTROPHIL % (test code=NT%) 81.5 % 39.0-69.0 IMMATURE GRANULOCYTE % (test code=IG%) 0.7 % 0.0-5.0 LYMPHOCYTE % (test code=LY%) 8.9 % 25.0-55.0 MONOCYTE % (test code=MO%) 7.9 % 0.0-10.0 EOSINOPHIL % (test code=EO%) 0.8 % 0.0-5.0 BASOPHIL % (test code=BA%) 0.2 % 0.0-1.0 NUCLEATED RBC % (test code=NRBC%) 0.0 % 0-0 NEUTROPHIL # (test code=NT#) 8.59 K/mm3 1.8-7.7 IMMATURE GRANULOCYTE # (test code=IG#) 0.07 x10 3/uL 0-0.03 LYMPHOCYTE # (test code=LY#) 0.94 K/mm3 1.0-5.0 MONOCYTE # (test code=MO#) 0.83 K/mm3 0-0.8 EOSINOPHIL # (test code=EO#) 0.08 K/mm3 0.0-0.5 BASOPHIL # (test code=BA#) 0.02 K/mm3 0.0-0.2 NUCLEATED RBC # (test code=NRBC#) 0.00 K/mm3 0.0-0.1 MANUAL DIFF REQUIRED (test code=MDIFF) NO THROMBOPLASTIN TIME [id number] 06:23:00* Test Item Value Reference Range Comments THROMBOPLASTIN TIME PARTIAL (test code=PTT) 34.7 seconds 25.0-36.5 IS PATIENT ON ANTICOAGULANTS? YLIST ANTICOAGULANTS PLAVIXHEMATOCRIT 2019-02-09 06:04:00* Test Item Value Reference Range Comments HEMATOCRIT (test code=HCT) 32.5 % 42.0-52.0 PLATELET [id number] 06:04:00* Test Item Value Reference Range Comments PLATELET COUNT (test code=PLT) 134 K/mm3 150-450 [id number] 04:35:00* Test Item Value Reference Range Comments TROPONIN-I (test code=TROPI) 1.740 ng/mL 0-0.045 Results called to [id number] by V.LAB.AG1 02/09/19 0434Critical results verified and read back by Nurse? Y PT NURSE WAS GOING TO DRAW AND SEND DOWN [id number] 00:40:00* Test Item Value Reference Range Comments GLUBED (test code=GLUBED) 144 mg/dL 74-106 Performed by certified wired music operator at [facility] [id number] 19:32:00* Test Item Value Reference Range Comments TROPONIN-I (test code=TROPI) 0.098 ng/mL 0-0.045 Results called to [id number] by V.LAB.HP 02/08/19 1932Critical results verified and read back by Nurse? SPECIMEN COMMENTS: CHEST [id number] 17:45:00* Test Item Value Reference Range Comments GLUBED (test code=GLUBED) 185 mg/dL 74-106 Performed by certified wired music operator at [facility] [id number] 13:05:00* Test Item Value Reference Range Comments GLYCOSYLATED HEMOGLOBIN (HA1C) (test code=GLYHGB) 7.3 % HbA1 4.8-6.0 ESTIMATED AVERAGE GLUCOSE (test code=EAG) 163 MG/DL 0900LIPID PROFILE (CORONARY RISK)2019-02-08 12:41:00* Test Item Value Reference Range Comments TRIGLYCERIDES (test code=TRIG) 119 mg/dL 20-150 CHOLESTEROL (test code=CHOL) 102 mg/dL 0-200 CHOLESTEROL/HDL RATIO (test code=CHOLHDL) 3.0 RATIO 0-4.9 RISK ASSOCIATED WITH CHOL/HDL RATIOS: Risk Male Female1/2 AVERAGE 3.43 3.27AVERAGE 4.97 4.442X AVERAGE 9.55 7.053X AVERAGE 23.39 11.04 REFERENCE VALUE IS RELATED TO RISK LEVELS ASRECOMMENDED BY THE [facility]. HEART, LUNG, AND BLOOD INST. HDL CHOLESTEROL (test code=HDL) 26 mg/dL 40-60 LIPOPROTEIN LDL (test code=LDL) 62 mg/dL 100-129 Reference Interval: mg/dL mmol/L Optimal <100 <2.6Near/above optimal 100-129 2.6- 3.3Borderline High 130-159 3.4-4.1High 160-189 4.1-4.9Very High >=190 >=4.9=========This LDL result is a direct measurement.========= 02/08/19 0900B-TYPE NATRIURETIC [id number] 12:20:00* Test Item Value Reference Range Comments B-TYPE NATRIURETIC PEPTIDE (test code=BNP) 310.97 pgram/mL 0-100 0900BASIC METABOLIC [id number] 12:19:00* Test Item Value Reference Range Comments SODIUM (test code=NA) 134 mmol/L 136-145 POTASSIUM (test code=K) 3.8 mmol/L 3.5-5.1 CHLORIDE (test code=CL) 101.0 mmol/L 98-107 CARBON DIOXIDE (test code=CO2) 20.0 mmol/L 21-32 ANION GAP (test code=GAP) 16.8 10-20 GLUCOSE (test code=GLU) 177 mg/dL 74-106 BLOOD UREA NITROGEN (test code=BUN) 100 mg/dL 7-18 GLOMERULAR FILTRATION RATE (test code=GFR) 13 mL/min >=60 Estimated GFR by using Modified MDRD formula.Chronic kidney disease is defined as either kidney damageor GFR <60 mL/min/1.73 m2 for >3 months. CREATININE (test code=CREAT) 4.50 mg/dL 0.7-1.3 BUN/CREATININE RATIO (test code=BUN/CREA) 22.2 10-20 CALCIUM (test code=CA) 7.4 mg/dL 8.5-10.1 [id number] 12:19:00* Test Item Value Reference Range Comments PHOSPHORUS (test code=PHOS) 2.1 mg/dL 2.5-4.9 [id number] 12:19:00* Test Item Value Reference Range Comments MAGNESIUM (test code=MAG) 2.2 mg/dL 1.8-2.4 0901BASIC METABOLIC [id number] 12:15:00* Test Item Value Reference Range Comments SODIUM (test code=NA) 134 mmol/L 136-145 POTASSIUM (test code=K) 3.8 mmol/L 3.5-5.1 CHLORIDE (test code=CL) 101.0 mmol/L 98-107 CARBON DIOXIDE (test code=CO2) mmol/L 21-32 ANION GAP (test code=GAP) 10-20 GLUCOSE (test code=GLU) mg/dL 74-106 BLOOD UREA NITROGEN (test code=BUN) 100 mg/dL 7-18 GLOMERULAR FILTRATION RATE (test code=GFR) mL/min >=60 CREATININE (test code=CREAT) mg/dL 0.7-1.3 BUN/CREATININE RATIO (test code=BUN/CREA) 10-20 CALCIUM (test code=CA) 7.4 mg/dL 8.5-10.1 [id number] 12:15:00* Test Item Value Reference Range Comments PHOSPHORUS (test code=PHOS) mg/dL 2.5-4.9 [id number] 12:15:00* Test Item Value Reference Range Comments MAGNESIUM (test code=MAG) mg/dL 1.8-2.4 0901CBC W/O [id number] 11:45:00* Test Item Value Reference Range Comments WHITE BLOOD CELL (test code=WBC) 7.0 K/mm3 4.5-12.5 RED BLOOD CELL (test code=RBC) 3.62 mill/mm3 4.0-5.8 HEMOGLOBIN (test code=HGB) 10.4 gram/dL 13.0-17.5 HEMATOCRIT (test code=HCT) 31.4 % 42.0-52.0 MEAN CELL VOLUME (test code=MCV) 86.7 fL 80-98 MEAN CELL HGB (test code=MCH) 28.7 picogram 27.0-33.0 MEAN CELL HGB CONCETRATION (test code=MCHC) 33.1 gram/dL 33.0-36.0 RED CELL DISTRIBUTION WIDTH (test code=RDW) 16.3 % 11.6-16.2 PLATELET COUNT (test code=PLT) 132 K/mm3 150-450 MEAN PLATELET VOLUME (test code=MPV) 12.2 fL 6.7-11.0 [id number] 06:50:00* Test Item Value Reference Range Comments GLUBED (test code=GLUBED) 123 mg/dL 74-106 Performed by certified wired music operator at [facility] [id number] 03:35:00* Test Item Value Reference Range Comments GLUBED (test code=GLUBED) 131 mg/dL 74-106 Performed by certified wired music operator at [facility] [id number] 01:03:00* Test Item Value Reference Range Comments GLUBED (test code=GLUBED) 96 mg/dL 74-106 Performed by certified wired music operator at [facility] [id number] 23:16:00* Test Item Value Reference Range Comments GLUBED (test code=GLUBED) 71 mg/dL 74-106 Performed by certified wired music operator at [facility] - XR CHEST 1 [id number] 19:27:00 FAX: Baldemar Barreto MD [phone] [place]: B St: ADM FAX: Ines Barbosa MD [phone] Name: [place] MELCHOR [facility] : 1955 Age/S: 63/M Ran Caicedo Unit #: [id number] Loc: V.20[address] [place] [address] Phys: Adriano Elizalde MD Acct: [id number] Dis Date: Status: ADM IN PHONE #: [phone] Exam Date: 02/07/20191924 FAX #: [phone] Reason: Renal failure; st[facility]p. tremp HD cath; EXAMS: CPT CODE: [id number] XR CHEST 1 V [id number] REASON FOR EXAM: Renal failure; [facility] HD cath; EXAM ORDER DATE: 02/07/2019 7:02 PM Ordering M.DNickie: Adriano Elizalde MD PROCEDURE: - XR CHEST 1 V COMPARISON: 02/07/2019 at 11:05 AM FINDINGS: Portable AP frontal view of the chest obtained at 7:22 PM shows clear lungs without evidence of consolidation. There is no evidence of effusion. The heart size is minimally enlarged. Pulmonary vasculatures are minimally congested.. IMPRESSION: Newly placed right IJ dialysis catheter tip is in the SVC at 192 Reported and signed by: Trae Powers M.D. CC: Baldemar Barreto MD; Ines Torres MD Technologist: ANDRE PATTERSON Trnscrd Date/Time/By: 02/07/2019 (1926) : By: [email or web address] Orig Print D/T: S: 02/07/2019 (1929) PAGE 1 Signed Report [id number] 17:49:00* Test Item Value Reference Range Comments GLUBED (test code=GLUBED) 94 mg/dL 74-106 Performed by certified wired music operator at [facility] [id number] 17:14:00* Test Item Value Reference Range Comments GLUBED (test code=GLUBED) 108 mg/dL 74-106 Performed by certified wired music operator at [facility] [id number] 17:14:00* Test Item Value Reference Range Comments GLUBED (test code=GLUBED) 51 mg/dL 74-106 Performed by certified wired music operator at [facility] LACTIC [id number] 14:08:00* Test Item Value Reference Range Comments LACTIC ACID (test code=LACT) 1.1 mmol/L 0.4-1.9 PT STILL IN THE RESTROOM NOTIFIED RN @V.LAB.SP3 [id number] 02/07/19 0958 PROTHROMBIN [id number] 13:54:00* Test Item Value Reference Range Comments PROTHROMBIN TIME PATIENT (test code=PTP) 11.9 seconds 9.0-14.0 INTERNATIONAL NORMAL RATIO (test code=INR) 1.0 0.8-1.2 The therapeutic range for oral anticoagulant therapy formost indications is an international normalized ratio (INR)of between 2.0 and 3.0. The recommended therapeutic INRrange for various clinical situations is listed below: Clinical Situation INR range Pulmonary e mbolism treatment (2.0-3.0)Venous thrombosis treatmentVenous thrombosis prophylaxis (high risk surgery)Prevention of systemic embolism from: Acute myocardial infarction Valvular heart disease Atrial fibrillation Mechanical prosthetic heart valves (2.5-3.5) NEED STAT FOR SUGERYIS PATIENT ON ANTICOAGULANTS? YLIST ANTICOAGULANTS ASPIR INCOMMENTS TO PAPER PRODUCTION ENGINEER: NEED STAT FOR SURGERYTHROMBOPLASTIN TIME PARTIAL 2019-02-07 13:54:00* Test Item Value Reference Range Comments THROMBOPLASTIN TIME PARTIAL (test code=PTT) 34.7 seconds 25.0-36.5 NEED STAT FOR SUGERYIS PATIENT ON ANTICOAGULANTS? YLIST ANTICOAGULANTS ASPIR INCOMMENTS TO PAPER PRODUCTION ENGINEER: NEED STAT FOR SURGERYAG HEPAT B [id number] 13:04:00* Test Item Value Reference Range Comments AG HEPAT B SURF (test code=HBSAG) Nonreactive Index Nonreactive - XR CHEST 1 [id number] 11:30:00 FAX: Shreyas Johnson MD [phone] [place]: St: ADM FAX: Baldemar Barreto MD [phone] FAX: Ines Barbosa MD [phone] Name: CALLUM MELCHOR [facility] : 1955 Age/S: 63/M [address] [facility] Unit #: [id number] Loc: V.20[address] [place] [address] Phys: Shreyas Stack MD Acct: [id number] Dis Date: Status: ADM IN ONE #: [phone] Exam Date: 02/07/2019 1115 FAX #: [phone] Reason: chf EXAMS: CPT CODE: [id number] XR CHEST 1 V 06157 HISTORY: CHF. COMPARISON: February 06, 2019. No acute infiltrates, ef fusion or congestion is noted. Dependent changes. Suboptimal inspiration. Moderate cardiomegaly. IMPRESSION: No acute infiltrates, effusion or congestion. Electronically Si gned by Abigail Sanchez on 02/07/2019 at 1130 Reported and signed by: Nelson Sanchez M.D. CC: Shreyas Stack MD; Baldemar Barreto MD; Ines Torres MD Technologist: RT RENETTA(R) Trnscrd Date/Time/By: 02/07/2019 (9675) : By: [email or web address] Orig Print D/T: S: 02/07/2019 (4249) PAGE 1 Signed Report BASIC METABOLIC [id number] 09:45:00* Test Item Value Reference Range Comments SODIUM (test code=NA) 133 mmol/L 136-145 POTASSIUM (test code=K) 5.4 mmol/L 3.5-5.1 CHLORIDE (test code=CL) 109.0 mmol/L 98-107 CARBON DIOXIDE (test code=CO2) 15.0 mmol/L 21-32 ANION GAP (test code=GAP) 14.4 10-20 GLUCOSE (test code=GLU) 46 mg/dL 74-106 Results called to [id number] by XUAN 02/07/19 0836Critical results verified and read back by Nurse? Y BLOOD UREA NITROGEN (test code=BUN) 125 mg/dL 7-18 GLOMERULAR FILTRATION RATE (test code=GFR) 10 mL/min >=60 Estimated GFR by using Modified MDRD formula.Chronic kidney disease is defined as either kidney damageor GFR <60 mL/min/1.73 m2 for >3 months. CREATININE (test code=CREAT) 5.70 mg/dL 0.7-1.3 BUN/CREATININE RATIO (test code=BUN/CREA) 21.9 10-20 CALCIUM (test code=CA) 8.2 mg/dL 8.5-10.1 [id number] 09:45:00* Test Item Value Reference Range Comments ALBUMIN (test code=ALB) 3.6 g/dL 3.4-5.0 [id number] 09:45:00* Test Item Value Reference Range Comments PHOSPHORUS (test code=PHOS) 1.5 mg/dL 2.5-4.9 [id number] 09:45:00* Test Item Value Reference Range Comments MAGNESIUM (test code=MAG) 3.0 mg/dL 1.8-2.4 CALCIUM [id number] 09:45:00* Test Item Value Reference Range Comments CALCIUM IONIZED (test code=EBENEZER) 1.29 mmol/L 1.12-1.32 PARATHYROID HORMONE [id number] 09:45:00* Test Item Value Reference Range Comments PARATHYROID HORMONE INTACT (test code=PARAI) 49.70 pgram/mL 8.4-88 BASIC METABOLIC [id number] 08:36:00* Test Item Value Reference Range Comments SODIUM (test code=NA) 133 mmol/L 136-145 POTASSIUM (test code=K) 5.4 mmol/L 3.5-5.1 CHLORIDE (test code=CL) 109.0 mmol/L 98-107 CARBON DIOXIDE (test code=CO2) 15.0 mmol/L 21-32 ANION GAP (test code=GAP) 14.4 10-20 GLUCOSE (test code=GLU) 46 mg/dL 74-106 Results called to [id number] by [facility].LAB.ROQUE 02/07/19 0836Critical results verified and read back by Nurse? Y BLOOD UREA NITROGEN (test code=BUN) 125 mg/dL 7-18 GLOMERULAR FILTRATION RATE (test code=GFR) 10 mL/min >=60 Estimated GFR by using Modified MDRD formula.Chronic kidney disease is defined as either kidney damageor GFR <60 mL/min/1.73 m2 for >3 months. CREATININE (test code=CREAT) 5.70 mg/dL 0.7-1.3 BUN/CREATININE RATIO (test code=BUN/CREA) 21.9 10-20 CALCIUM (test code=CA) 8.2 mg/dL 8.5-10.1 [id number] 08:36:00* Test Item Value Reference Range Comments ALBUMIN (test code=ALB) 3.6 g/dL 3.4-5.0 [id number] 08:36:00* Test Item Value Reference Range Comments PHOSPHORUS (test code=PHOS) 1.5 mg/dL 2.5-4.9 [id number] 08:36:00* Test Item Value Reference Range Comments MAGNESIUM (test code=MAG) 3.0 mg/dL 1.8-2.4 CALCIUM [id number] 08:36:00* Test Item Value Reference Range Comments CALCIUM IONIZED (test code=EBENEZER) 1.29 mmol/L 1.12-1.32 PARATHYROID HORMONE [id number] 08:36:00* Test Item Value Reference Range Comments PARATHYROID HORMONE INTACT (test code=PARAI) pgram/mL 8.4-88 LACTIC [id number] 08:18:00* Test Item Value Reference Range Comments LACTIC ACID (test code=LACT) 2.0 mmol/L 0.4-1.9 Results called to [id number] by [facility].ROQUE 02/07/19 0817Critical results verified and read back by Nurse? Y BASIC METABOLIC [id number] 08:18:00* Test Item Value Reference Range Comments SODIUM (test code=NA) 133 mmol/L 136-145 POTASSIUM (test code=K) 5.4 mmol/L 3.5-5.1 CHLORIDE (test code=CL) 109.0 mmol/L 98-107 CARBON DIOXIDE (test code=CO2) mmol/L 21-32 ANION GAP (test code=GAP) 10-20 GLUCOSE (test code=GLU) mg/dL 74-106 BLOOD UREA NITROGEN (test code=BUN) mg/dL 7-18 GLOMERULAR FILTRATION RATE (test code=GFR) mL/min >=60 CREATININE (test code=CREAT) mg/dL 0.7-1.3 BUN/CREATININE RATIO (test code=BUN/CREA) 10-20 CALCIUM (test code=CA) mg/dL 8.5-10.1 [id number] 08:18:00* Test Item Value Reference Range Comments ALBUMIN (test code=ALB) g/dL 3.4-5.0 [id number] 08:18:00* Test Item Value Reference Range Comments PHOSPHORUS (test code=PHOS) mg/dL 2.5-4.9 [id number] 08:18:00* Test Item Value Reference Range Comments MAGNESIUM (test code=MAG) mg/dL 1.8-2.4 CALCIUM [id number] 08:18:00* Test Item Value Reference Range Comments CALCIUM IONIZED (test code=EBENEZER) 1.29 mmol/L 1.12-1.32 PARATHYROID HORMONE [id number] 08:18:00* Test Item Value Reference Range Comments PARATHYROID HORMONE INTACT (test code=PARAI) pgram/mL 8.4-88 BASIC METABOLIC [id number] 08:14:00* Test Item Value Reference Range Comments SODIUM (test code=NA) mmol/L 136-145 POTASSIUM (test code=K) mmol/L 3.5-5.1 CHLORIDE (test code=CL) mmol/L 98-107 CARBON DIOXIDE (test code=CO2) mmol/L 21-32 ANION GAP (test code=GAP) 10-20 GLUCOSE (test code=GLU) mg/dL 74-106 BLOOD UREA NITROGEN (test code=BUN) mg/dL 7-18 GLOMERULAR FILTRATION RATE (test code=GFR) mL/min >=60 CREATININE (test code=CREAT) mg/dL 0.7-1.3 BUN/CREATININE RATIO (test code=BUN/CREA) 10-20 CALCIUM (test code=CA) mg/dL 8.5-10.1 [id number] 08:14:00* Test Item Value Reference Range Comments ALBUMIN (test code=ALB) g/dL 3.4-5.0 [id number] 08:14:00* Test Item Value Reference Range Comments PHOSPHORUS (test code=PHOS) mg/dL 2.5-4.9 [id number] 08:14:00* Test Item Value Reference Range Comments MAGNESIUM (test code=MAG) mg/dL 1.8-2.4 CALCIUM [id number] 08:14:00* Test Item Value Reference Range Comments CALCIUM IONIZED (test code=EBENEZER) 1.29 mmol/L 1.12-1.32 PARATHYROID HORMONE [id number] 08:14:00* Test Item Value Reference Range Comments PARATHYROID HORMONE INTACT (test code=PARAI) pgram/mL 8.4-88 CBC W/O [id number] 08:09:00* Test Item Value Reference Range Comments WHITE BLOOD CELL (test code=WBC) 9.7 K/mm3 4.5-12.5 RED BLOOD CELL (test code=RBC) 3.89 mill/mm3 4.0-5.8 HEMOGLOBIN (test code=HGB) 11.2 gram/dL 13.0-17.5 HEMATOCRIT (test code=HCT) 36.0 % 42.0-52.0 MEAN CELL VOLUME (test code=MCV) 92.5 fL 80-98 MEAN CELL HGB (test code=MCH) 28.8 picogram 27.0-33.0 MEAN CELL HGB CONCETRATION (test code=MCHC) 31.1 gram/dL 33.0-36.0 RED CELL DISTRIBUTION WIDTH (test code=RDW) 17.0 % 11.6-16.2 PLATELET COUNT (test code=PLT) 155 K/mm3 150-450 MEAN PLATELET VOLUME (test code=MPV) 12.7 fL 6.7-11.0 URINALYSIS [id number] 07:41:00* Test Item Value Reference Range Comments UA COLOR (test code=COLU) DARK YELLOW YELLOW UA APPEARANCE (test code=APPU) Cloudy CLEAR UA GLUCOSE DIPSTICK (test code=DGLUU) NEGATIVE mg/dL NEGATIVE UA BILIRUBIN DIPSTICK (test code=BILU) NEGATIVE mg/dL NEGATIVE UA KETONE DIPSTICK (test code=KETU) NEGATIVE mg/dL NEGATIVE UA SPECIFIC GRAVITY (test code=SGU) 1.020 1.001-1.035 UA BLOOD DIPSTICK (test code=GAGANDEEP) Negative mg/dL NEGATIVE UA PH DIPSTICK (test code=RAUL) 5.0 5.0-8.0 UA PROTEIN DIPSTICK (test code=PROU) 30 (1+) mg/dL NEGATIVE UA UROBILINIOGEN DIPSTICK (test code=URO) NEGATIVE mg/dL NEGATIVE UA NITRITE DIPSTICK (test code=STACEY) NEGATIVE NEGATIVE UA LEUKOCYTE ESTERASE W REFLEX (test code=LEUUR) NEGATIVE Marilee/uL NEGATIVE UA WBC (test code=WBCU) 0-5 per HPF 0-5 UA RBC (test code=RBCU) 0-2 #/HPF 0-5 UA EPITHELIAL CELLS (test code=EPIU) FEW per HPF FEW UA BACTERIA (test code=BACU) FEW #/HPF NONE UA HYALINE CAST (test code=HYALU) >20 #/LPF 0-5 UA MUCUS (test code=MUCU) FEW #/LPF FEW Urine Source? Clean CatchDRUGS OF ABUSE SCREEN [id number] 07:41:00* Test Item Value Reference Range Comments URN COCAINE (test code=COCAURN) NEGATIVE <300 ng/mL URN CANNABINOIDS (test code=CANNABURN) NEGATIVE <50 ng/mL URN AMPHETAMINE (test code=AMPHETURN) NEGATIVE <1000 ng/mL URN BARBITURATE (test code=BARBITURN) NEGATIVE <200 ng/mL URN BENZODIAZEPINE (test code=BENZOURN) NEGATIVE <200 ng/mL URN OPIATES (test code=OPIATURN) POSITIVE <300 ng/mL This test provides only a preliminary test result. A morespecific alternate chemical method must be used in order toobtain a confirmed analytical result. Gas chromatography/mass spectrometry (GC/MS) is thepreferred confirmatory method. Other chemical confirmationmethods are available. Clinical consideration and professional judgment should be applied to any drug of abusetest result, particularly when preliminary positive resultsare used.Unconfirmed screening results must not be used fornon-medical purposes (e.g., employment testing, legaltesting). URN PHENCYCLIDINE (PCP) (test code=PHENCURN) NEGATIVE <25 ng/mL URN METHADONE (test code=METHAURN) NEGATIVE <300 ng/mL Urine Source? Clean CatchURINALYSIS [id number] 07:32:00* Test Item Value Reference Range Comments UA COLOR (test code=COLU) DARK YELLOW YELLOW UA APPEARANCE (test code=APPU) Cloudy CLEAR UA GLUCOSE DIPSTICK (test code=DGLUU) NEGATIVE mg/dL NEGATIVE UA BILIRUBIN DIPSTICK (test code=BILU) NEGATIVE mg/dL NEGATIVE UA KETONE DIPSTICK (test code=KETU) NEGATIVE mg/dL NEGATIVE UA SPECIFIC GRAVITY (test code=SGU) 1.020 1.001-1.035 UA BLOOD DIPSTICK (test code=GAGANDEEP) Negative mg/dL NEGATIVE UA PH DIPSTICK (test code=RAUL) 5.0 5.0-8.0 UA PROTEIN DIPSTICK (test code=PROU) 30 (1+) mg/dL NEGATIVE UA UROBILINIOGEN DIPSTICK (test code=URO) NEGATIVE mg/dL NEGATIVE UA NITRITE DIPSTICK (test code=STACEY) NEGATIVE NEGATIVE UA LEUKOCYTE ESTERASE W REFLEX (test code=LEUUR) NEGATIVE Marilee/uL NEGATIVE UA WBC (test code=WBCU) 0-5 per HPF 0-5 UA RBC (test code=RBCU) 0-2 #/HPF 0-5 UA EPITHELIAL CELLS (test code=EPIU) FEW per HPF FEW UA BACTERIA (test code=BACU) FEW #/HPF NONE UA HYALINE CAST (test code=HYALU) >20 #/LPF 0-5 UA MUCUS (test code=MUCU) FEW #/LPF FEW Urine Source? Clean CatchDRUGS OF ABUSE SCREEN [id number] 07:32:00* Test Item Value Reference Range Comments URN COCAINE (test code=COCAURN) <300 ng/mL URN CANNABINOIDS (test code=CANNABURN) <50 ng/mL URN AMPHETAMINE (test code=AMPHETURN) <1000 ng/mL URN BARBITURATE (test code=BARBITURN) <200 ng/mL URN BENZODIAZEPINE (test code=BENZOURN) <200 ng/mL URN OPIATES (test code=OPIATURN) <300 ng/mL URN PHENCYCLIDINE (PCP) (test code=PHENCURN) <25 ng/mL URN METHADONE (test code=METHAURN) <300 ng/mL Urine Source? Clean CatchUR NA,[id number] 07:21:00* Test Item Value Reference Range Comments UR NA,RANDOM (test code=RENY) 14 mmol/L 20-110 UR CREATININE [id number] 07:21:00* Test Item Value Reference Range Comments UR CREATININE RANDOM (test code=CREATU) 341.0 mg/dL 30-125 URINALYSIS [id number] 07:16:00* Test Item Value Reference Range Comments UA COLOR (test code=COLU) DARK YELLOW YELLOW UA APPEARANCE (test code=APPU) Cloudy CLEAR UA GLUCOSE DIPSTICK (test code=DGLUU) NEGATIVE mg/dL NEGATIVE UA BILIRUBIN DIPSTICK (test code=BILU) NEGATIVE mg/dL NEGATIVE UA KETONE DIPSTICK (test code=KETU) NEGATIVE mg/dL NEGATIVE UA SPECIFIC GRAVITY (test code=SGU) 1.020 1.001-1.035 UA BLOOD DIPSTICK (test code=GAGANDEEP) Negative mg/dL NEGATIVE UA PH DIPSTICK (test code=RAUL) 5.0 5.0-8.0 UA PROTEIN DIPSTICK (test code=PROU) 30 (1+) mg/dL NEGATIVE UA UROBILINIOGEN DIPSTICK (test code=URO) NEGATIVE mg/dL NEGATIVE UA NITRITE DIPSTICK (test code=STACEY) NEGATIVE NEGATIVE UA LEUKOCYTE ESTERASE W REFLEX (test code=LEUUR) NEGATIVE Marilee/uL NEGATIVE UA WBC (test code=WBCU) per HPF 0-5 UA RBC (test code=RBCU) per HPF 0-5 UA EPITHELIAL CELLS (test code=EPIU) per HPF Few UA BACTERIA (test code=BACU) per HPF NONE Urine Source? Clean CatchDRUGS OF ABUSE SCREEN [id number] 07:16:00* Test Item Value Reference Range Comments URN COCAINE (test code=COCAURN) <300 ng/mL URN CANNABINOIDS (test code=CANNABURN) <50 ng/mL URN AMPHETAMINE (test code=AMPHETURN) <1000 ng/mL URN BARBITURATE (test code=BARBITURN) <200 ng/mL URN BENZODIAZEPINE (test code=BENZOURN) <200 ng/mL URN OPIATES (test code=OPIATURN) <300 ng/mL URN PHENCYCLIDINE (PCP) (test code=PHENCURN) <25 ng/mL URN METHADONE (test code=METHAURN) <300 ng/mL Urine Source? Clean CatchUR NA,[id number] 07:09:00* Test Item Value Reference Range Comments UR NA,RANDOM (test code=RENY) 14 mmol/L 20-110 UR CREATININE [id number] 07:09:00* Test Item Value Reference Range Comments UR CREATININE RANDOM (test code=CREATU) mg/dL 30-125 [id number] 00:20:00* Test Item Value Reference Range Comments GLUBED (test code=GLUBED) 62 mg/dL 74-106 Performed by certified wired music operator at [facility] [id number] 00:05:00* Test Item Value Reference Range Comments TROPONIN-I (test code=TROPI) <0.015 ng/mL 0-0.045 COMMENTS TO PAPER PRODUCTION ENGINEER: COLLECT 3 HOURS AFTER PREVIOUS [id number] 23:56:00* Test Item Value Reference Range Comments GLUBED (test code=GLUBED) 87 mg/dL 74-106 Performed by certified wired music operator at [facility] [id number] 20:57:00* Test Item Value Reference Range Comments TROPONIN-I (test code=TROPI) <0.015 ng/mL 0-0.045 COMMENTS TO PAPER PRODUCTION ENGINEER: COLLECT 3 HOURS AFTER PREVIOUS [id number] 20:35:00* Test Item Value Reference Range Comments GLUBED (test code=GLUBED) 78 mg/dL 74-106 Performed by certified wired music operator at [facility] [id number] 20:35:00* Test Item Value Reference Range Comments GLUBED (test code=GLUBED) 55 mg/dL 74-106 Performed by certified wired music operator at [facility] - US RETRO [id number] 19:32:00 Name: CALLUM MELCHOR [facility] : 1955 Age/S: 63 / M [address]iced[address] Unit #: [id number] Loc: [place] [address] Phys: Shreyas Stack MD Acct: [id number] Dis Date: Status: ADM IN PHONE #: [phone] Exam Date: 02/06/20191919 FAX #: [phone] Reason: eval size EXAMS: CPT CODE: [id number] US RETRO LTD 93533 REASON FOR EXAM: eval size EXAM ORDER DATE: 02/06/2019 6:46 PM Attending M.Avi: Shreyas Stack MD PROCEDURE: - US RETRO LTD FINDINGS: The right kidney measures 11.3 x 5.8 cm. The cross-sectional thickness of the right renal cortex measured 1.5 cm. The left kidney measures 11.9 x 6.6 cm. The cross- sectional thickness of the left renal cortex measured 1.5 cm. There is no evidence of hydronephrosis. There is no evidence of renal mass. The urinary bladder is unremarkable IMPRESSION: 1.5 cm echogenic focus in the left kidney and 0.7 cm echogenic focus in the right kidney suggestive of nonobstructing renal stones at 193 Reported and signed by: Trae Powers M.D. CC: Shreyas Stack MD; Baldemar Barreto MD; Ines Torres MD Technologist: Santana [employer] Trnscb Date/Time: 02/06/2019 (1931) t.SDR.VTL Orig Print D/T: S: 02/06/2019 (2049) Probe: PAGE 1 Signed Report [id number] 18:46:00* Test Item Value Reference Range Comments GLUBED (test code=GLUBED) 39 mg/dL 74-106 Performed by certified wired music operator at [facility] [id number] 17:29:00* Test Item Value Reference Range Comments GLUBED (test code=GLUBED) 37 mg/dL 74-106 [facility] wired [facility] Not[facility]~ BASIC METABOLIC [id number] 13:35:00* Test Item Value Reference Range Comments SODIUM (test code=NA) 134 mmol/L 136-145 POTASSIUM (test code=K) 5.1 mmol/L 3.5-5.1 CHLORIDE (test code=CL) 110.0 mmol/L 98-107 CARBON DIOXIDE (test code=CO2) 14.0 mmol/L 21-32 ANION GAP (test code=GAP) 15.1 10-20 GLUCOSE (test code=GLU) 46 mg/dL 74-106 Results called to [id number] by XUAN 02/06/19 1335Critical results verified and read back by Nurse? Y BLOOD UREA NITROGEN (test code=BUN) 123 mg/dL 7-18 GLOMERULAR FILTRATION RATE (test code=GFR) 11 mL/min >=60 Estimated GFR by using Modified MDRD formula.Chronic kidney disease is defined as either kidney damageor GFR <60 mL/min/1.73 m2 for >3 months. CREATININE (test code=CREAT) 5.30 mg/dL 0.7-1.3 BUN/CREATININE RATIO (test code=BUN/CREA) 23.2 10-20 CALCIUM (test code=CA) 8.2 mg/dL 8.5-10.1 HEPATIC FUNCTION [id number] 13:35:00* Test Item Value Reference Range Comments TOTAL PROTEIN (test code=PROT) 7.8 gram/dL 6.4-8.2 ALBUMIN (test code=ALB) 3.6 g/dL 3.4-5.0 GLOBULIN (test code=GLOB) 4.2 gram/dL 2.7-4.2 ALBUMIN/GLOBULIN RATIO (test code=A/G) 0.9 0.75-1.50 BILIRUBIN TOTAL (test code=BILT) 0.20 mg/dL 0.0-1.0 BILIRUBIN DIRECT (test code=BILD) 0.07 mg/dL 0.0-0.20 SGOT/AST (test code=AST) 18 IUnit/L 15-37 SGPT/ALT (test code=ALT) 21 IUnit/L 12-78 ALKALINE PHOSPHATASE TOTAL (test code=ALKP) 75 IUnit/L 45-117 Note change in reference range due to change in reagent. [id number] 13:35:00* Test Item Value Reference Range Comments TROPONIN-I (test code=TROPI) <0.015 ng/mL 0-0.045 B-TYPE NATRIURETIC [id number] 13:26:00* Test Item Value Reference Range Comments B-TYPE NATRIURETIC PEPTIDE (test code=BNP) 138.69 pgram/mL 0-100 CBC W/O [id number] 12:49:00* Test Item Value Reference Range Comments WHITE BLOOD CELL (test code=WBC) 10.5 K/mm3 4.5-12.5 RED BLOOD CELL (test code=RBC) 3.90 mill/mm3 4.0-5.8 HEMOGLOBIN (test code=HGB) 10.9 gram/dL 13.0-17.5 HEMATOCRIT (test code=HCT) 36.7 % 42.0-52.0 MEAN CELL VOLUME (test code=MCV) 94.1 fL 80-98 MEAN CELL HGB (test code=MCH) 27.9 picogram 27.0-33.0 MEAN CELL HGB CONCETRATION (test code=MCHC) 29.7 gram/dL 33.0-36.0 RED CELL DISTRIBUTION WIDTH (test code=RDW) 17.0 % 11.6-16.2 PLATELET COUNT (test code=PLT) 162 K/mm3 150-450 MEAN PLATELET VOLUME (test code=MPV) 12.5 fL 6.7-11.0 BASIC METABOLIC [id number] 12:48:00* Test Item Value Reference Range Comments SODIUM (test code=NA) 134 mmol/L 136-145 POTASSIUM (test code=K) 5.1 mmol/L 3.5-5.1 CHLORIDE (test code=CL) 110.0 mmol/L 98-107 CARBON DIOXIDE (test code=CO2) mmol/L 21-32 ANION GAP (test code=GAP) 10-20 GLUCOSE (test code=GLU) mg/dL 74-106 BLOOD UREA NITROGEN (test code=BUN) mg/dL 7-18 GLOMERULAR FILTRATION RATE (test code=GFR) mL/min >=60 CREATININE (test code=CREAT) mg/dL 0.7-1.3 BUN/CREATININE RATIO (test code=BUN/CREA) 10-20 CALCIUM (test code=CA) mg/dL 8.5-10.1 HEPATIC FUNCTION [id number] 12:48:00* Test Item Value Reference Range Comments TOTAL PROTEIN (test code=PROT) gram/dL 6.4-8.2 ALBUMIN (test code=ALB) g/dL 3.4-5.0 GLOBULIN (test code=GLOB) gram/dL 2.7-4.2 ALBUMIN/GLOBULIN RATIO (test code=A/G) 0.75-1.50 BILIRUBIN TOTAL (test code=BILT) mg/dL 0.0-1.0 BILIRUBIN DIRECT (test code=BILD) mg/dL 0.0-0.20 SGOT/AST (test code=AST) IUnit/L 15-37 SGPT/ALT (test code=ALT) IUnit/L 12-78 ALKALINE PHOSPHATASE TOTAL (test code=ALKP) IUnit/L 45-117 [id number] 12:48:00* Test Item Value Reference Range Comments TROPONIN-I (test code=TROPI) ng/mL 0-0.045 - CT HEAD/BRAIN W/O [id number] 12:37:00 Name: CALLUM MELCHOR [facility] : 1955 Age/S: 63 / M [address] [facility] Unit #: [id number] Loc: [place] [address] Phys: Juan Alejandro MD Acct: [id number] Dis Date: Status: REG ER PHONE #: [phone] Exam Date: 02/06/2019 1230 FAX #: [phone] Reason: headaches, dizziness EXAMS: CPT CODE: [id number] CT HEAD/BRAIN W/O CONT 11758 HISTORY: Headache and dizziness. COMPARISON: None available. CT brain without contrast: Automated exposure control.. No acute intracranial bleeds or extra-axial collections are noted. No acute territorial vascular infarction is noted. The sulci, gyri, ventricles and subarachnoid spaces and the basilar cisterns are normal for patient's age. No herniation or hydrocephalus or midline shift is noted. Mild periventricular ischemic gliosis is noted. Age-appropriate atrophy is noted as well. Portions of the visualized paranasal sinuses are normal. No obvious bony calvarial defect is noted. IMPRESSION: No acute intracranial bleeds or extra-axial collections. No acute territorial vascular infarction. No herniation or hydrocephalus or midline shift. Chronic white matter ischemic disease and atrophy . at 1237 Reported and signed by: Nelson Sanchez M.D. CC: Juan Alejandro MD; Ines Torres MD Technologist:Damian Rodríguez RT(R),(MR),(CT) CTDI: DLP: Trnscb Date/Time: 02/06/2019 (2934) t.SDR.TH4 Orig Print D/T: S: 02/06/2019 (8763) CTDI: DLP: PAGE 1 Signed Report - XR CHEST 1 V 2019-02-06 12:13:00 FAX: Juan Alejandro Mcfarland: B St: REG FAX: Y Ines Torres MD [phone] Name: CALLUM MELCHOR [facility] : 1955 Age/S: 63/M [address] [facility] Unit #: [id number] Loc: [place] [address] Phys: Juan Alejandro MD Acct: [id number] Dis Date: Status: REG ER PHONE #: [phone] Exam Date: 02/06/2019 1200 FAX #: [phone] Reason: CHEST PAIN EXAMS: CPT CODE: [id number] XR CHEST 1 V 26355 HISTORY: Chest pain. COMPARISON: September 03, 2018. No acute infiltrates, effusion or congestion is noted. Cardiomegaly. IMPRESSION: No acute infiltrates, effusion or congestion. at 1213 Reported and signed by: Nelson Sanchez M.D. CC: Juan Alejandro MD; Ines Torres MD Technologist: Ivonne Silverio RT(R); STUDENT TECHNOLOGIST Trnscrd Date/Time/By: 02/06/2019 (4183) : By: [email or web address] Orig Print D/T: S: 02/06/2019 (4169) PAGE 1 Signed Report TROPONIN I [id number] 12:11:00* Test Item Value Reference Range Comments TROPONIN I RAPID (test code=TROPIRAP) 0.01 ng/mL <0.08 Please Note New Reference Range 0.00-0.079 ng/mL - Negative>or=0.08 ng/mL - Positive The use of serial sampling and testing protocol is arecommended practice.An elevated troponin level alone is often not sufficient fordiagnosis of myocardial infarction. Troponin results obtained by different assays may vary.Evaluation of the extent of myocardial damage based onincrease of troponin would be valid only if similarmethodology is used.
--- NOTE | 2019-10-17 14:14 | Diagnostic Imaging Report ---
EXAMINATION: CHEST XRAY LINE PLACEMENT INDICATION: Line placement COMPARISON: Chest radiograph 09/27/2019 FINDINGS: LINES/TUBES:Left PICC line terminates near the confluence of innominate veins. LUNGS:The lungs are well-inflated. There is perihilar fullness and indistinctness of the pulmonary vasculature. PLEURA:No pleural effusion or pneumothorax. MEDIASTINUM:The cardiomediastinal silhouette appears normal in size and shape. BONES/SOFT TISSUES:No acute osseous injury. ABDOMEN:No free air under the diaphragm. IMPRESSION: Left PICC line terminates near the confluence of innominate veins. Pulmonary interstitial edema. Signed by: Eulalio Johnson MD on 10/17/2019 2:10 PM
== END 2019-10-03 13:27 | disposition home or self-care (01) | DRG 467 ==
LOC: OR 08:43 → PACU V 12:54 → MED/SURG 15:15
PROVIDERS: ADMIT Specialist; ATTEND Specialist
PROC: 0SPD0JZ Removal of Synthetic Substitute from Left Knee Joint, Open Approach (ICD-10-PCS; principal; 2019-10-01)
PROC: 0SRD0J9 Replacement of Left Knee Joint with Synthetic Substitute, Cemented, Open Approach (ICD-10-PCS; 2019-10-01)
PROC: 0QBH0ZZ Excision of Left Tibia, Open Approach (ICD-10-PCS; 2019-10-01)
PROC: 3E0U029 Introduction of Other Anti-infective into Joints, Open Approach (ICD-10-PCS; 2019-10-01)
PROC: 02HV33Z Insertion of Infusion Device into Superior Vena Cava, Percutaneous Approach (ICD-10-PCS; 2019-10-01)
DX: T84.54XA Infection and inflammatory reaction due to internal left knee prosthesis, initial encounter (principal); E87.2 Acidosis; E87.1 Hypo-osmolality and hyponatremia; M00.9 Pyogenic arthritis, unspecified; Z68.42 Body mass index [BMI] 45.0-49.9, adult; N17.9 Acute kidney failure, unspecified; T84.033A Mechanical loosening of internal left knee prosthetic joint, initial encounter; N18.3 Chronic kidney disease, stage 3 (moderate); E11.9 Type 2 diabetes mellitus without complications; E66.01 Morbid (severe) obesity due to excess calories; M65.162 Other infective (teno)synovitis, left knee; E11.22 Type 2 diabetes mellitus with diabetic chronic kidney disease; G47.33 Obstructive sleep apnea (adult) (pediatric); E11.40 Type 2 diabetes mellitus with diabetic neuropathy, unspecified; E78.5 Hyperlipidemia, unspecified; M10.9 Gout, unspecified; D63.1 Anemia in chronic kidney disease; M17.0 Bilateral primary osteoarthritis of knee; M47.896 Other spondylosis, lumbar region; E11.42 Type 2 diabetes mellitus with diabetic polyneuropathy; M19.072 Primary osteoarthritis, left ankle and foot; M19.071 Primary osteoarthritis, right ankle and foot; E78.00 Pure hypercholesterolemia, unspecified; I25.10 Atherosclerotic heart disease of native coronary artery without angina pectoris
CPT/HCPCS: 36415; 36569; 71045; 71046; 80048; 80202; 82550; 82553; 82948; 84484; 85007; 85014; 85018; 85025; 85027; 86850; 86900; 86920; 87040; 87071; 87075; 87205; 88305; 88331; 93005; 97139; C1713; J0171; J0692; J1100; J1170; J1885; J2001; J2250; J2370; J2405; J2795; J3010; J3370; J7030; J7040

== ENCOUNTER 2020-03-17 09:48 | Inpatient (IN) | payer MEDICARE, OTHER ==
--- NOTE | 2020-03-13 10:54 | Diagnostic Imaging Report ---
EXAMINATION: CHEST 2 VIEWS INDICATION: Pre-operative COMPARISON: Chest radiograph 10/21/2019 FINDINGS: LINES/TUBES:Right IJ tunneled dialysis catheter terminates in the superior vena cava. LUNGS:The lungs are well-inflated. No focal consolidation or pulmonary edema. PLEURA:No pleural effusion or pneumothorax. MEDIASTINUM:The cardiomediastinal silhouette appears normal in size and shape. BONES/SOFT TISSUES:No acute osseous injury. ABDOMEN:No free air under the diaphragm. IMPRESSION: No focal pneumonia or pulmonary edema. Signed by: Eulalio Johnson MD on 03/13/2020 10:51 AM
[2020-03-13 11:16] LABS: BASOPHILS # (AUTO) 0.1 (0.0-0.1); BASOPHILS % 0.7 % (0.0-1.0); EOSINOPHILS # (AUTO) 0.5 (0.0-0.4); EOSINOPHILS % 6.3 % (0.0-6.0); HEMATOCRIT 36.3 % (38.2-49.6); HEMOGLOBIN 11.5 g/dL (14.0-18.0); LYMPHOCYTES % 26.8 % (18.0-39.1); MEAN CORPUSCULAR HEMOGLOBIN 26.6 pg (28-32); MEAN CORPUSCULAR HGB CONC 31.7 g/dL (31-35); MEAN CORPUSCULAR VOLUME 83.8 fL (81-99); MONOCYTES # (AUTO) 0.7 (0.2-0.8); MONOCYTES % 9.1 % (4.4-11.3); NEUTROPHILS # (AUTO) 4.3 (2.1-6.9); NEUTROPHILS % 56.7 % (38.7-80.0); PLATELET COUNT 159 x10e3/uL (140-360); RED BLOOD COUNT 4.33 x10e6/uL (4.3-5.7); RED CELL DISTRIBUTION WIDTH 16.8 % (11.7-14.4)
[2020-03-13 11:48] LABS: ANION GAP 17.5 mmol/L (8-16); CALCIUM 8.4 mg/dL (8.4-10.2); CREATININE, SERUM 5.06 mg/dL (0.72-1.25); POTASSIUM 4.5 mmol/L (3.5-5.1)
[~2020-03-17] VITALS: Ht 170.2 cm; Wt 137.0 kg
[~2020-03-17 09:48] MED LIST changes: +BACITRACIN 50,000 UNIT VIAL ONE; +ROPIVACAINE 246.25 MG, EPINEPHRINE HCL 1:1000 1ML 0.5 MG, CLONIDINE HCL 0.08 MG, KETORO... INJ ONE; +SODIUM CHLORIDE 0.9% 500ML 500 ML ONE; +TRANEXAMIC ACID 1,000 MG/10 ML ML ONE; +VANCOMYCIN HCL 1,000 MG ONE
[2020-03-17] MEDS ORDERED: VANCOMYCIN HCL 500 MG ONE (10:19)
[2020-03-17] MEDS ORDERED: SODIUM CHLORIDE 0.9% 500ML 500 ML ONE ×2 (10:19→10:29)
[2020-03-17] MEDS ORDERED: DEXAMETHASONE SOD PHOS 10 MG/1 ML VIAL ONE (10:29)
[2020-03-17] MEDS ORDERED: GABAPENTIN 300 MG CAP ONE (10:29)
[2020-03-17] MEDS ORDERED: CELECOXIB 200 MG CAP ONE (10:29)
[2020-03-17 10:47] LABS: INR 0.97; PROTHROMBIN TIME 13.5 seconds (11.9-14.5)
[2020-03-17] MEDS ORDERED: SODIUM CHLORIDE 0.9% 50ML 50 ML ONE (11:07)
[2020-03-17] MEDS ORDERED: ACETAMINOPHEN 650 MG SUPP PR PRN (13:15)
[2020-03-17] MEDS ORDERED: DOCUSATE SODIUM 100 MG CAP PO PRN (13:15)
[2020-03-17] MEDS ORDERED: KETOROLAC TROMETHAMINE 30 MG/ML VIAL IV PRN (13:15)
[2020-03-17] MEDS ORDERED: DIPHENHYDRAMINE HCL INJ 50 MG/ML VIAL IV PRN (13:15)
[2020-03-17] MEDS ORDERED: HYDROCODONE/APAP 5MG-325MG TAB PO PRN (13:15)
[2020-03-17] MEDS ORDERED: ONDANSETRON HCL INJ 2MG/ML 2ML 2 MG/ML VIAL IV PRN (13:15)
[2020-03-17] MEDS ORDERED: MORPHINE SULFATE INJ 4 MG/ML INJ 1ML ONE ×2 (13:57→14:51)
[2020-03-17] MEDS ORDERED: NITROGLYCERIN 0.4 MG SUBL ONE (14:02)
[2020-03-17] MEDS ORDERED: FENTANYL CITRATE/PF 100MCG/2 ML INJ ONE ×2 (14:05→14:11)
[2020-03-17] MEDS ORDERED: MIDAZOLAM HCL 2 MG/2 ML VIAL ONE (14:11)
[2020-03-17] MEDS ORDERED: ASPIRIN 81 MG CHEW TAB PO ONE ×2 (14:15→17:15)
[2020-03-17 14:22] LABS: BASOPHILS % 0.4 % (0.0-1.0); EOSINOPHILS # (AUTO) 0.2 (0.0-0.4); HEMATOCRIT 35.9 % (38.2-49.6); HEMOGLOBIN 11.3 g/dL (14.0-18.0); LYMPHOCYTES % 20.2 % (18.0-39.1); MEAN CORPUSCULAR HEMOGLOBIN 26.5 pg (28-32); MEAN CORPUSCULAR HGB CONC 31.5 g/dL (31-35); MEAN CORPUSCULAR VOLUME 84.3 fL (81-99); MONOCYTES # (AUTO) 0.4 (0.2-0.8); MONOCYTES % 3.9 % (4.4-11.3); NEUTROPHILS # (AUTO) 7.3 (2.1-6.9); NEUTROPHILS % 72.8 % (38.7-80.0); PLATELET COUNT 161 x10e3/uL (140-360); RED BLOOD COUNT 4.26 x10e6/uL (4.3-5.7); RED CELL DISTRIBUTION WIDTH 16.8 % (11.7-14.4)
[2020-03-17] MEDS ORDERED: ROPIVACAINE 0.5% 5 MG/ML 30 ML SDV ONE (14:26)
[2020-03-17 14:47] LABS: ALBUMIN 3.3 g/dL (3.5-5.0); ALBUMIN/GLOBULIN RATIO 0.7 (0.8-2.0); ANION GAP 16.9 mmol/L (8-16); CALCIUM 8.4 mg/dL (8.4-10.2); CREATININE, SERUM 4.5 mg/dL (0.72-1.25); POTASSIUM 3.9 mmol/L (3.5-5.1)
[2020-03-17 14:54] LABS: CREATINE KINASE MB 1.9 ng/mL (0-5.0)
--- NOTE | 2020-03-17 15:05 | Diagnostic Imaging Report ---
EXAMINATION: KNEE LEFT 1-2 VIEWS INDICATION: Postoperative COMPARISON: None FINDINGS: Portable AP and crosstable lateral images of the left knee demonstrate immediate postoperative findings of left total knee replacement. Alignment appears anatomic. No unexpected fracture. Postoperative subcutaneous soft tissue emphysema. Surgical skin damian in place. IMPRESSION: Expected postoperative findings status post left total knee replacement. Signed by: Eulalio Johnson MD on 03/17/2020 3:02 PM
[2020-03-17] MEDS ORDERED: ACETAMINOPHEN 1000 MG/100 ML IV ONE (16:12)
[2020-03-17] MEDS ORDERED: PROPOFOL IV EMULSION 10 MG/ML 20 ML VIAL ONE (16:12)
[2020-03-17] MEDS ORDERED: DEXAMETHASONE SOD PHOS INJ 4 MG/ML VIAL ONE (16:12)
[2020-03-17] MEDS ORDERED: ONDANSETRON HCL INJ 2MG/ML 2ML 2 MG/ML VIAL ONE (16:12)
[2020-03-17] MEDS ORDERED: CEFAZOLIN SOD 1 GM VIAL ONE (16:12)
[2020-03-17] MEDS ORDERED: SEVOFLURANE INHAL SOLN 250 ML PEN BTL ONE (16:12)
[2020-03-17] MEDS ORDERED: LIDOCAINE HCL 2% JELLY 5 ML TUBE ONE (16:12)
[2020-03-17] MEDS ORDERED: LIDOCAINE HCL 2% LOCAL INJ 5 ML SDV VIAL INJ ONE (16:12)
--- OUTSIDE RECORDS SUMMARY | 2020-03-17 16:25 | XMS REPORT | Clinical Summary ---
Author Author [facility] Address Unknown Phone Unavailable Care Team Providers Care Marine Surveyor Name Role Phone Kip Torres MD PCP Allergies No Known Allergies Medications End Date Status Medication Sig Dispensed Refills Start Date Active INVOKANA 300 mg tablet Take 1 tablet 12 01 by mouth 6 daily. Active gabapentin (NEURONTIN) Take 1 tablet 5 600 MG tablet by mouth 3 6 (three) times a day. Active lisinopril Take 1 tablet 2 (PRINIVIL,ZESTRIL) 20 MG by mouth 6 tablet daily. Active amLODIPine (NORVASC) 5 MG Take 10 mg by 1 02/13 tablet mouth daily. 6 Active allopurinol (ZYLOPRIM) Take 1 tablet 6 300 MG tablet by mouth 6 daily. Active niacin (NIASPAN) 1000 MG Take 1 tablet 12 03/16 CR tablet by mouth 6 nightly. Active pravastatin (PRAVACHOL) Take 1 tablet 11 40 MG tablet by mouth 6 nightly. Active NITROSTAT 0.[address] 1 tablet tablet under 6 the tongue as needed. Active HYDROcodone-acetaminophen Take 1 tablet 0 (NORCO) 7.5-325 mg per by mouth tablet every 6 (six) hours as needed for moderate pain. Active aspirin (ECOTRIN) 81 MG Take 81 mg by 0 enteric coated tablet mouth daily. Active metFORMIN (GLUCOPHAGE) Take 1,000 mg 0 500 MG tablet by mouth 2 (two) times a day with meals. Active metoprolol succinate XL Take 50 mg by 0 (TOPROL-XL) 50 mg 24 hr mouth daily. tablet Active pantoprazole (PROTONIX) Take 40 mg by 0 40 MG EC tablet mouth daily. Active furosemide (LASIX) 40 mg Take 40 mg by 2 12/05 tablet mouth daily. 7 Active pravastatin (PRAVACHOL) Take 40 mg by 0 40 MG tablet mouth nightly. Active Problems Problem Noted Date Surgical wound infection 02/19/2017 Uncontrolled type 2 diabetes mellitus with peripheral neuropathy 02/02/2017 Mixed hyperlipidemia due to type 2 diabetes mellitus 02/02/2017 Morbid obesity with BMI of 45.0-49.9, adult 02/03/20 17 PVD (peripheral vascular disease) 02/01/2017 Encephalopathy 02/01/2017 S/P L femoral-popliteal bypass surgery 02/01/2017 Pain of right upper extremity (? neuropathic) 2016 Thrombocytopenia due to blood loss 02/01/2017 Essential hypertension 02/01/2017 Peripheral vascular disease, s/p R fem-pop bypass s/p R femoral-popliteal bypass surgery 04/20/2016 MICHEL on CPAP 04/20/2016 Stress hyperglycemia 04/20/2016 Metabolic acidosis 04/20/2016 Postoperative anemia due to acute blood loss 016 Social History Date Tobacco Use Types Packs/Day Years Used Never Smoker Drinks/Week oz/Week Comments Alcohol Use occasional Yes Sex Assigned at Date Recorded Not on file Industry Job Start Date Occupation Not on file Not on file Not on file Travel End Travel History Travel Start No recent travel history available. Last Filed Vital Signs Not on file Plan of Treatment Health Maintenance Due Date Last Done Comments DIABETIC RETINAL EYE EXAM 1956 DIABETIC FOOT EXAM 1966 URINE MICROALBUMIN 1966 COLONOSCOPY SCREENING 2006 SHINGLES VACCINES (#1) 2006 INFLUENZA VACCINE 05/16/2020 Implants Device Identifier Shelf Expiration Date Model / Serial / L ot Implanted Type Area Manufactur er 12/13/2020 [id number] / / [id number] [employer] Perp Vasclr Ptfe 1.2x10cm Vascular Left: Femur BARD 1.65mm - [id number] Graft PERIPHERAL Implanted: Qty: 1 on 04/20/2016 by VASCULAR Robinson Correa MD at [facility] 10/12/2021 [id number] / / [id number] [facility] Vasclr Ptfe 1.2x10cm Vascular N/A: N/A BARD 1.65mm - [id number] Graft PERIPHERAL Implanted: Qty: 1 on 02/01/2017 by VASCULAR Robinson Correa MD at [facility] Results Not on fileafter 03/17/2019 Insurance Type Payer Benefit Subscriber ID Effective Phone Address Plan / Dates Group HMO [employer] CIGNA xxxxxxxxx [id number] [facility] [id number] Advance Directives For more information, please contact: [phone] Patient Access Clinician Explanation Type Date Recorded Advance Directives, 01/25/2017 11:22 AM Living Will and Medical Power of Project Management Analyst Date Inactivated Comments Code Status Date Activated 03/02/2017 12:03 AM Full Code 02/20/2017 4:57 AM Code Status decision reached by: Patient
--- OUTSIDE RECORDS SUMMARY | 2020-03-17 16:26 | XMS REPORT | Continuity of Care Document ---
Author Author [facility] t Organization [facility] Address [address] [place] [address] Phone Unavailable Care Team Providers Care Installer Inspector Final Name Role Phone ANTUNEZ, (NON STAFF) INES PCP INES GUO Attphys Unavailable ARLEEN MIDDLETON Attphys Unavailable RACHELLE CHAPIN Admphys Unavailable ARLEEN MIDDLETON Admphys Unavailable INES GUO Admphys Unavailable Payers Payer Name Policy Type Policy Number Effective Date Expiration Date Debra Borden [facility] [id number] [facility] Problems Condition Name Condition Details Condition Category Status Onset Date Resolution Date Last Treatment Date Treating Clinician Comments Source Surgical wound infection Surgical wound infection Disease Acti ve 2017-02-19 00:00:00 Marin fraga Uncontrolled type 2 diabetes mellitus with peripheral neuropathy Uncontrolled type 2 diabetes mellitus with peripheral neuropathy Disease Active 2017-02-02 00:00:00 Marin fraga Mixed hyperlipidemia due to type 2 diabetes mellitus M ixed hyperlipidemia due to type 2 diabetes mellitus Disease Active 2017-02-02 00:00:00 Marin Mari Morbid obesity with BMI of 45.0-49.9, adult Morbid obe sity with BMI of 45.0- 49.9, adult Disease Active 2017-02-02 00:00:00 Marin Mari PVD (peripheral vascular disease) PVD (peripheral vascular disea se) Disease Active 2017-02-01 00:00:00 Suri Mari Encephalopathy Encephalopathy Disease Active 2017-02-01 00:00:00 Marin Mari S/P L femoral-popliteal bypass surgery S/P L femoral-poplite al bypass surgery Disease Active 2017-02-01 00:00:00 Marin Mari Pain of right upper extremity (? neuropathic) Pain of right upper extremity (? neuropathic) Disease Active 2017-02-01 00:00:00 Marin Mari Thrombocytopenia due to blood loss Thrombocytopenia due to blood loss Disease Active 2017-02-01 00:00:00 Suri Mari Essential hypertension Essential hypertension Disease Active 2017-02-01 00:00:[address] Peripheral vascular disease, s/p R fem-pop bypass [place] pheral vascular disease, s/p R fem-pop bypass Disease Active 2016-04-20 00:00:00 Marin Mari s/p R femoral-popliteal bypass surgery s/p R femoral-poplite al bypass surgery Disease Active 2016-04-20 00:00:00 Marin Mari MICHEL on CPAP MICHEL on CPAP Disease Active 2016-04-20 00:00:00 Marin Mari Stress hyperglycemia Stress hyperglycemia Disease Active 00:00:00 Marin Mari Metabolic acidosis Metabolic acidosis Disease Active 2016-04-20 00:00:0 0 Marin Mari Postoperative anemia due to acute blood loss Postopera tive anemia due to acute blood loss Disease Active 2016-04-20 00:00:00 Cornelio Mari Acute renal failure Acute renal failure (ARF) Problem Active [facility] Bradycardia Bradycardia Problem Active [facility] Hyperkalemia Hyperkalemia Problem Active [facility] Hypotension Hypotension Problem Active [facility] Pulmonary edema Pulmonary edema Problem Active [facility] Uremia Uremia Problem Active [facility] Allergies, Adverse Reactions, Alerts Allergy Name Allergy Type Status Severity Reaction(s) Onset Date Inacti ve Date Treating Clinician Comments Source No Known Allergies DA Active U 2019-05-09 00:00:00 [facility] No Known Allergies DA Active U 2018-09-03 00:00:00 [facility] No Known Allergies DA Active U 2018-01-02 00:00:00 [facility] Social History Social Habit Start Date Stop Date Quantity Comments Source Sex Assigned At Yuliet best Kamaljit Alcohol intake 2017-02-27 00:00:00 2017-02-27 00:00:00 Current drinker of alcohol (finding) Marin Mari Alcohol Comment 2016-04-13 00:00:00 2016-04-13 00:00:00 occasional Marin Mari Smoking Status Start Date Stop Date Source Never smoker Marin juarez Medications Ordered Medication Name Filled Medication Name Start Date Stop Da te Current Medication? Ordering Clinician Indication Dosage Frequency Signature (SIG) Comments Components Source HYDROcodone-acetaminophen (NORCO) 7.5-325 mg per tablet 2017-03-01 19:58:01 Yes 1{tbl} Q6H Take 1 tablet b y mouth every 6 (six) hours as needed for moderate pain. Marin Mari aspirin (ECOTRIN) 81 MG enteric coated tablet 2017-03-01 19:58:0 1 Yes 81mg QD Take 81 mg by mouth daily. Cornelio Mari metFORMIN (GLUCOPHAGE) 500 MG tablet 2017-03-01 19:58:01 Yes 1000mg Q.5D Take 1,000 mg by mouth 2 (two) times a day with meals. Marin Mari metoprolol succinate XL (TOPROL-XL) 50 mg 24 hr tablet 2017-03-01 19:58:01 Yes 50mg QD Take 50 mg by mouth daily. Marin Mari pantoprazole (PROTONIX) 40 MG EC tablet 2017-03-01 19:58:01 Yes 40mg QD Take 40 mg by mouth daily. Marin martino pravastatin (PRAVACHOL) 40 MG tablet 2017-03-01 19:58:01 Ye s 40mg QD Take 40 mg by mouth nightly. Marin whitt furosemide (LASIX) 40 mg tablet 2016-12-05 00:00:00 Yes 40mg QD Take 40 mg by mouth daily. Marin Mari allopurinol (ZYLOPRIM) 300 MG tablet 2016-03-21 00:00:00 Ye s 1{tbl} QD Take 1 tablet by mouth daily. Marin pitts niacin (NIASPAN) 1000 MG CR tablet 2016-03-16 00:00:00 Yes 1{tbl} QD Take 1 tablet by mouth nightly. Marin Mari amLODIPine (NORVASC) 5 MG tablet 2016-02-29 00:00:00 Yes 10mg QD Take 10 mg by mouth daily. Marin Mari gabapentin (NEURONTIN) 600 MG tablet 2016-02-28 00:00:00 Yes 1{tbl} Q.[id number] Take 1 tablet by mouth 3 (three) times a day. Marin Mari INVOKANA 300 mg tablet 2016-02-25 00:00:00 Yes 1{tbl} QD Take 1 tablet by mouth daily. Marin Mari NITROSTAT 0.4 mg SL tablet 2016-02-17 00:00:00 Yes 1{tbl} Place 1 tablet under the tongue as needed. Suri Mari lisinopril (PRINIVIL,ZESTRIL) 20 MG tablet 2016-02-11 00:00:00 Yes 1{tbl} QD Take 1 tablet by mouth daily. Marin Mari pravastatin (PRAVACHOL) 40 MG tablet 2016-01-13 00:00:00 Ye s 1{tbl} QD Take 1 tablet by mouth nightly. Marin Mari Acetaminophen (Tylenol Extra Strength) 500 Mg Tablet A cetaminophen (Tylenol Extra Strength) 500 Mg Tablet Yes [facility] Allopurinol 300 Mg Tablet Allopurinol 300 Mg Tablet Yes 300 Daily [facility] Amlodipine Besylate 10 Mg Tablet Amlodipine Besylate 10 Mg Tablet Yes 10 Daily [facility] Aspirin (Aspir-Low) 81 Mg Tablet. Aspirin (Aspir-Low) 81 Mg Tablet. Yes Daily [facility] Bumetanide Bumetanide Yes 2 Twice A Day [facility] Dulaglutide (Trulicity) 1.5 Mg/0.5 Ml Pen.injctr Dulag lutide (Trulicity) 1.5 Mg/0.5 Ml Pen.injctr Yes Weekly [facility] Ferrous Sulfate 325 Mg Tablet Ferrous Sulfate 325 Mg Tablet Yes Daily [facility] Gabapentin 300 Mg Capsule Gabapentin 300 Mg Capsule Yes 600 Four Times Daily [facility] Glimeperide Glimeperide Yes 40 Twice A Day [facility] Hydrocodone Bit/Acetaminophen (Hydrocodon-Acetaminophn 10-325) 1 Each Tablet Hydrocodone Bit/Acetaminophen (Hydrocodon-Acetaminophn 10-325) 1 Each Tablet Yes Every 6 Hours as needed for Mode rate Pain (4-6) [facility] Insulin Lisp Protam/Lisp Human (Humalog Mix 75-25 Vial ) 100 Units/Ml Ml Insulin Lisp Protam/Lisp Human (Humalog Mix 75-25 Vial) 100 Units/Ml Ml Yes 47 Daily [facility] Insulin Lisp Protam/Lisp Human (Humalog Mix 75-25 Vial ) 100 Units/Ml Ml Insulin Lisp Protam/Lisp Human (Humalog Mix 75-25 Vial) 100 Units/Ml Ml Yes 30 Qevening [facility] Isosorbide Er Isosorbide Er Yes 60 Daily [facility] Lisinopril Lisinopril Yes 5 Daily CH I [facility] Metolazone Metolazone Yes 2.5 Qmwf [facility] Metoprolol Succinate 50 Mg Tab.er.24h Metoprolol Succinate 50 Mg Ta b.er.24h Yes 50 Daily [facility] Nitroglycerin 0.4 Mg Tab.subl Nitroglycerin 0.4 Mg Tab.subl Yes .4 Every 5 Minutes as needed for Chest Pain [facility] Potassium Chloride 10 Meq Tab.er.prt Potassium Chloride 10 Meq Tab. er.prt Yes 10 Twice A Day [facility] Pravastatin Sodium 40 Mg Tablet Pravastatin Sodium 40 Mg Tablet Yes Bedtime [facility] Tamsulosin Hcl (Flomax*) 0.4 Mg Cap Tamsulosin Hcl (Flomax*) 0.4 Mg C ap Yes .4 Daily [facility] Vitamin A One A Day Vitamin A One A Day Yes Daily [facility] Procedures Procedure Date / Time Performed Performing Clinician [facility] e Ultrasound guidance for vascular access 2019-10-29 00:00:00 ABRAHAM BROWNE [facility] Ultrasound guidance for vascular access 2019-10-21 00:00:00 BALDEMAR CHERY [facility] Ultrasound, renal 2019-10-20 00:00:00 ANDRIA MICHAEL [facility] REMOVAL OF SYNTH SUB FROM L KNEE JT, OPEN APPROACH 2019-09-15 7 00:00:00 INES GUO [facility] REPLACE OF L KNEE JT WITH SYNTH SUB, CEMENT, OPEN APPROACH 2 00:00:00 INES GUO [facility] EXCISION OF LEFT TIBIA, OPEN APPROACH 2019-10-01 00:00:00 INES AGUILERA [facility] INTRODUCTION OF OTH ANTI-INFECT INTO JOINT, OPEN APPROACH 03-10-17 00:00:00 INES GUO [facility] INSERTION OF INFUSION DEV INTO SUP VENA CAVA, PERC APPROACH 2019-10-01 00:00:00 CLINT DEL TORO [facility] X-ray of chest, two views 2019-09-27 00:00:00 INES GUO CH I [facility] Plan of Care Planned Activity Planned Date Details Comments Source Future Scheduled Test 2020-05-16 00:00:00 INFLUENZA VACCINE [code = INFLUENZA VACCINE] [facility] Scheduled Test 2006 00:00:00 COLONOSCOPY SCREEN ING [code = COLONOSCOPY SCREENING] [facility] Scheduled Test 2006 00:00:00 SHINGLES VACCINES (#1) [code = SHINGLES VACCINES (#1)] [facility] Future Scheduled Test 1966 00:00:00 DIABETIC FOOT EXAM [code = DIABETIC FOOT EXAM] [facility] Scheduled Test 1966 00:00:00 URINE MICROALBUMIN [code = URINE MICROALBUMIN] [facility] Scheduled Test 1956 00:00:00 DIABETIC RETINAL E YE EXAM [code = DIABETIC RETINAL EYE EXAM] [facility] Encounters Start Date/Time End Date/Time Encounter Type Admission Type Attendi [facility] Care Department Encounter ID Source 2019-10-20 22:32:00 2019-11-01 22:22:00 Discharged Inpatient 1 [facility] [id number] [facility] 2019-09-30 12:54:00 2019-10-03 13:27:00 Discharged Inpatient 3 INES GUO [facility] [id number] [facility] Results Test Description Test Time Test Comments Results Result Comments Source KNEE LEFT 1-2 VIEWS 2020-03-17 15:01:00 [facility] [address] [place] [address] Patient Name: MILA MELCHOR JR MR #: [id number] : 1955 Age/Sex: 64/M Req #: [id number] Adm Physician: Ordered by: INES GUO MD Report #: [id number] Location: OR Room/Bed: Procedure: [id number] DX/KNEE LEFT 1-2 VIEWS Exam Date: 03/17/20 Exam Time: 1410 REPORT STATUS: Signed EXAMINATION: KNEE LEFT 1-2 VIEWS INDICATION: Postoperative COMPARISON: None FINDINGS: Portable AP and crosstable lateral images of the left knee demonstrate immediate postoperative findings of left total knee replacement. Alignment appears anatomic. No unexpected fracture. Postoperative subcutaneous soft tissue emphysema. Surgical skin damian in place. IMPRESSION: Expected postoperative findings status post left total knee replacement. Signed by: Jyothi Tapia MD on 03/17/2020 3:02 PM Dictated By: JYOTHI TAPIA MD [id number] Transcribed By: AJ on 03/17/20 1502 COPY TO: INES GUO MD CHEST 2 VIEWS 2020-03-13 10:50:00 [facility] [address] [address] Patient Name: MILA MELCHOR JR MR #: [id number] : 1955 Age/Sex: 64/M Req #: [id number] Adm Physician: Ordered by: INES GUO MD Report #: [id number] Location: OR Room/Bed: Procedure: [id number] DX/CHEST 2 VIEWS Exam Date: Exam Time: REPORT STATUS: Signed EXAMINATION: CHEST 2 VIEWS INDICATION: Pre- operative COMPARISON: Chest radiograph 10/21/2019 FINDINGS: LINES/TUBES:Right IJ tunneled dialysis catheter terminates in the superior vena cava. LUNGS:The lungs are well-inflated. No focal consolidation or pulmonary edema. PLEURA:No pleural effusion or pneumothorax. MEDIASTINUM:The cardiomediastinal silhouette appears normal in size and shape. BONES/SOFT TISSUES:No acute osseous injury. ABDOMEN:No free air under the diaphragm. IMPRESSION: No focal pneumonia or pulmonary edema. Signed by: Jyothi Tapia MD on 03/13/2020 10:51 AM Dictated By: JYOTHI TAPIA MD 1051 Transcribed By: AJ on 03/13/20 105 COPY TO: INES GUO MD - SP FLUORO GUID CTRL ACC DEV 2019-12-08 15:47:00 Name: MILA MELCHOR [facility] : 1955 Age/S: 64 / M [address] Unit #: [id number] Loc: [place] [address] Phys: Adriano Elizalde MD Acct: [id number] Dis Date: Status: [facility] PHONE #: [phone] Exam Date: 12/05/2019 0909 FAX #: [phone] Reason: / EXAMS: CPT CODE: [id number] SP FLUORO GUID CTRL ACC DEV 66762 Fluoro Time: 2 DAP (Gy m2): 1.59 Air Kerma (mGy): 4 EXAM: Removal of a tunneled central line with fluoroscopic guidance; INFORMATION: End-stage renal disease; history of osteomyelitis; status post completion of long-term intravenous antibiotic therapy. TECHNIQUE AND FINDINGS: The patient was placed supine on the procedure table. Initial fluoroscopic imaging showed the tip of a left IJ tunneled central line positioned in the SVC. The patie nt's skin in the left neck and upper chest region was prepped and draped in the usual sterile fashion. The indwelling tunneled catheter was mobilized by blunt dissection with a hemostat and was then removed. Final fluoroscopic imaging confirmed complete catheter removal. It also showed the tip of a right IJ tunneled hemodialysis catheter positioned in the cranial aspect of the right atrium. No complications. IMPRESSION: Uneventful removal of a tunneled hemodialysis catheter with fluoroscopic guidance, after completion of long-term intravenous antibiotic therapy. Fluoroscopy Time: 2 sec CAK : 4 mGy DAP : 1590 mGy sq cm Location code: [facility] at 1545 Reported and signed by: Adriano Elizalde M.D. CC: nIes Antunez MD Technologist: INES VASQUEZ RRT Trnscb Date/Time: 12/08/2019 (7058) MyrnaGRW Orig Print D/T: S: 12/08/2019 (0374) PAGE 1 Signed Report PROTHROMBIN TIME 2019-12-05 07:52:00 Test Item PROTHROMBIN TIME PATIENT (test code = PTP) 13.9 seconds 9.0-14.0 N INTERNATIONAL NORMAL RATIO (test code = INR) 1.2 0.8-1.2 N The therapeutic range for oral anticoagulant therapy formost indications is an international normalized ratio (INR)of between 2.0 and 3.0. The recommended therapeutic INRrange for various clinical situations is listed below: Clinical Situation INR range Pulmonary e mbolism treatment (2.0-3.0)Venous thrombosis treatmentVenous thrombosis prophylaxis (high risk surgery)Prevention of systemic embolism from: Acute myocardial infarction Valvular heart disease Atrial fibrillation Mechanical prosthetic heart valves (2.5-3.5) THROMBOPLASTIN TIME [id number] 07:52:00* Test Item Value Reference Range Interpretation Comments THROMBOPLASTIN TIME PARTIAL (test code = PTT) 35.6 seconds 25.0-36. 5 N AB HEPATITIS B [id number] 05:09:00* Test Item Value Reference Range Interpretation Comments AB HEPATITIS B SURFACE (test code = HBSAB) Non Reactive () Non Reactive: Inconsistent with immunity, less than 10 mIU/mL Reactive: Consistent with immunity, greater than 9.9 mIU/mLPerformed At: [facility] [address] [id number] Akash Lacey MD Ph:[phone] [id number] 18:49:00* Test Item Value Reference Range Interpretation Comments GLUBED (test code = GLUBED) 132 mg/dL 74-106 H Performed by certified double cut off saw operator at [facility] [id number] 12:50:00* Test Item Value Reference Range Interpretation Comments GLUBED (test code = GLUBED) 135 mg/dL 74-106 H Performed by certified double cut off saw operator at [facility] AG HEPAT B [id number] 10:41:00* Test Item Value Reference Range Interpretation Comments AG HEPAT B SURF (test code = HBSAG) Nonreactive Index Nonreactive COMPREHENSIVE METABOLIC [id number] 06:49:00* Test Item Value Reference Range Interpretation Comments SODIUM (test code = NA) 141 mmol/L 136-145 N POTASSIUM (test code = K) 4.7 mmol/L 3.5-5.1 N CHLORIDE (test code = CL) 105.0 mmol/L 98-107 N CARBON DIOXIDE (test code = CO2) 30.0 mmol/L 21-32 N ANION GAP (test code = GAP) 10.7 10-20 N GLUCOSE (test code = GLU) 107 mg/dL 74-106 H BLOOD UREA NITROGEN (test code = BUN) 31 mg/dL 7-18 H RESULT VERIFIED BY REPEAT ANALYSIS GLOMERULAR FILTRATION RATE (test code = GFR) 9 mL/min >=60 Estimated GFR by using Modified MDRD formula.Chronic kidney disease is defined as either kidney damageor GFR <60 mL/min/1.73 m2 for >3 months. CREATININE (test code = CREAT) 6.50 mg/dL 0.7-1.3 H BUN/CREATININE RATIO (test code = BUN/CREA) 4.8 10-20 L TOTAL PROTEIN (test code = PROT) 7.3 gram/dL 6.4-8.2 N ALBUMIN (test code = ALB) 2.9 g/dL 3.4-5.0 L GLOBULIN (test code = GLOB) 4.4 gram/dL 2.7-4.2 H ALBUMIN/GLOBULIN RATIO (test code = A/G) 0.7 0.75-1.50 L CALCIUM (test code = CA) 7.7 mg/dL 8.5-10.1 L BILIRUBIN TOTAL (test code = BILT) 0.30 mg/dL 0.0-1.0 N SGOT/AST (test code = AST) 16 IUnit/L 15-37 N SGPT/ALT (test code = ALT) 19 IUnit/L 12-78 N ALKALINE PHOSPHATASE TOTAL (test code = ALKP) 69 IUnit/L 45-117 N Note change in reference range due to change in reagent. [id number] 06:34:00* Test Item Value Reference Range Interpretation Comments PHOSPHORUS (test code = PHOS) 4.9 mg/dL 2.5-4.9 N [id number] 06:34:00* Test Item Value Reference Range Interpretation Comments MAGNESIUM (test code = MAG) 2.2 mg/dL 1.8-2.4 N [id number] 06:28:00* Test Item Value Reference Range Interpretation Comments PHOSPHORUS (test code = PHOS) mg/dL 2.5-4.9 [id number] 06:28:00* Test Item Value Reference Range Interpretation Comments MAGNESIUM (test code = MAG) 2.2 mg/dL 1.8-2.4 N [id number] 06:19:00* Test Item Value Reference Range Interpretation Comments GLUBED (test code = GLUBED) 96 mg/dL 74-106 N Performed by certified double cut off saw operator at [facility] COMPREHENSIVE METABOLIC [id number] 06:15:00* Test Item Value Reference Range Interpretation Comments SODIUM (test code = NA) 141 mmol/L 136-145 N POTASSIUM (test code = K) 4.7 mmol/L 3.5-5.1 N CHLORIDE (test code = CL) 105.0 mmol/L 98-107 N CARBON DIOXIDE (test code = CO2) mmol/L 21-32 ANION GAP (test code = GAP) 10-20 GLUCOSE (test code = GLU) mg/dL 74-106 BLOOD UREA NITROGEN (test code = BUN) mg/dL 7-18 GLOMERULAR FILTRATION RATE (test code = GFR) mL/min >=60 CREATININE (test code = CREAT) mg/dL 0.7-1.3 BUN/CREATININE RATIO (test code = BUN/CREA) 10-20 TOTAL PROTEIN (test code = PROT) gram/dL 6.4-8.2 ALBUMIN (test code = ALB) g/dL 3.4-5.0 GLOBULIN (test code = GLOB) gram/dL 2.7-4.2 ALBUMIN/GLOBULIN RATIO (test code = A/G) 0.75-1.50 CALCIUM (test code = CA) mg/dL 8.5-10.1 BILIRUBIN TOTAL (test code = BILT) mg/dL 0.0-1.0 SGOT/AST (test code = AST) IUnit/L 15-37 SGPT/ALT (test code = ALT) IUnit/L 12-78 ALKALINE PHOSPHATASE TOTAL (test code = ALKP) IUnit/L 45-117 CBC W/AUTO [id number] 05:20:00* Test Item Value Reference Range Interpretation Comments WHITE BLOOD CELL (test code = WBC) 6.2 K/mm3 4.5-12.5 N RED BLOOD CELL (test code = RBC) 3.04 mill/mm3 4.0-5.8 L HEMOGLOBIN (test code = HGB) 8.1 gram/dL 13.0-17.5 L HEMATOCRIT (test code = HCT) 26.5 % 42.0-52.0 L MEAN CELL VOLUME (test code = MCV) 87.2 fL 80-98 N MEAN CELL HGB (test code = MCH) 26.6 picogram 27.0-33.0 L MEAN CELL HGB CONCETRATION (test code = MCHC) 30.6 gram/dL 33.0-36. 0 L RED CELL DISTRIBUTION WIDTH (test code = RDW) 16.5 % 11.6-16. 2 H RED CELL DISTRIBUTION WIDTH SD (test code = RDW-SD) 52.0 fL 37 .0-51.0 H PLATELET COUNT (test code = PLT) 170 K/mm3 150-450 N MEAN PLATELET VOLUME (test code = MPV) 11.2 fL 6.7-11.0 H NEUTROPHIL % (test code = NT%) 55.3 % 39.0-69.0 N IMMATURE GRANULOCYTE % (test code = IG%) 0.3 % 0.0-5.0 N LYMPHOCYTE % (test code = LY%) 23.7 % 25.0-55.0 L MONOCYTE % (test code = MO%) 10.8 % 0.0-10.0 H EOSINOPHIL % (test code = EO%) 8.9 % 0.0-5.0 H BASOPHIL % (test code = BA%) 1.0 % 0.0-1.0 N NUCLEATED RBC % (test code = NRBC%) 0.0 % 0-0 N NEUTROPHIL # (test code = NT#) 3.43 K/mm3 1.8-7.7 N IMMATURE GRANULOCYTE # (test code = IG#) 0.02 x10 3/uL 0-0.03 N LYMPHOCYTE # (test code = LY#) 1.47 K/mm3 1.0-5.0 N MONOCYTE # (test code = MO#) 0.67 K/mm3 0-0.8 N EOSINOPHIL # (test code = EO#) 0.55 K/mm3 0.0-0.5 H BASOPHIL # (test code = BA#) 0.06 K/mm3 0.0-0.2 N NUCLEATED RBC # (test code = NRBC#) 0.00 K/mm3 0.0-0.1 N MANUAL DIFF REQUIRED (test code = MDIFF) NO SED RATE [id number] 21:29:00* Test Item Value Reference Range Interpretation Comments SED RATE WESTERGREN (test code = SEDW) 97 mm/hr 0-15 H SED [id number] 21:29:00* Test Item Value Reference Range Interpretation Comments SED RATE (test code = SEDW) 97 mm/hr 0-15 H WINTROBE METHOD: NORMAL RANGE FOR MEN: 0-9 MM/HR WOMAN: 0-20 MM/HR [id number] 21:11:00* Test Item Value Reference Range Interpretation Comments GLUBED (test code = GLUBED) 230 mg/dL 74-106 H Performed by certified double cut off saw operator at [facility] [id number] 18:58:00* Test Item Value Reference Range Interpretation Comments GLUBED (test code = GLUBED) 142 mg/dL 74-106 H Performed by certified double cut off saw operator at [facility] C REACTIVE [id number] 18:15:00* Test Item Value Reference Range Interpretation Comments C REACTIVE PROTEIN (test code = CRP) 1.46 mg/dL 0-0.3 H CREATINE KINASE (CK)2019-11-21 18:15:00* Test Item Value Reference Range Interpretation Comments CREATINE KINASE (CK) (test code = CK) 195 IUnit/L 26-208 N [id number] 17:05:00* Test Item Value Reference Range Interpretation Comments GLUBED (test code = GLUBED) 136 mg/dL 74-106 H Performed by certified double cut off saw operator at [facility] [id number] 12:25:00* Test Item Value Reference Range Interpretation Comments GLUBED (test code = GLUBED) 97 mg/dL 74-106 N Performed by certified double cut off saw operator at [facility] [id number] 12:06:00* Test Item Value Reference Range Interpretation Comments GLYCOSYLATED HEMOGLOBIN (HA1C) (test code = GLYHGB) 6.5 % HbA1 SUGGESTED DIAGNOSIS: HbA1C (%) Diabetic >6.4Prediabetes 5.7 - 6.4Normal <5.7 ESTIMATED AVERAGE GLUCOSE (test code = EAG) 140 MG/DL [id number] 10:15:00* Test Item Value Reference Range Interpretation Comments GLUBED (test code = GLUBED) 111 mg/dL 74-106 H Performed by certified double cut off saw operator at [facility] LACTIC [id number] 09:42:00* Test Item Value Reference Range Interpretation Comments LACTIC ACID (test code = LACT) 1.6 mmol/L 0.4-1.9 N BASIC METABOLIC [id number] 09:15:00* Test Item Value Reference Range Interpretation Comments SODIUM (test code = NA) 144 mmol/L 136-145 N POTASSIUM (test code = K) 3.6 mmol/L 3.5-5.1 N CHLORIDE (test code = CL) 107.0 mmol/L 98-107 N CARBON DIOXIDE (test code = CO2) 29.0 mmol/L 21-32 N ANION GAP (test code = GAP) 11.6 10-20 N GLUCOSE (test code = GLU) 66 mg/dL 74-106 L BLOOD UREA NITROGEN (test code = BUN) 24 mg/dL 7-18 H GLOMERULAR FILTRATION RATE (test code = GFR) 11 mL/min >=60 Estimated GFR by using Modified MDRD formula.Chronic kidney disease is defined as either kidney damageor GFR <60 mL/min/1.73 m2 for >3 months. CREATININE (test code = CREAT) 5.50 mg/dL 0.7-1.3 H BUN/CREATININE RATIO (test code = BUN/CREA) 4.3 10-20 L CALCIUM (test code = CA) 8.5 mg/dL 8.5-10.1 N HEPATIC FUNCTION [id number] 09:15:00* Test Item Value Reference Range Interpretation Comments TOTAL PROTEIN (test code = PROT) 8.3 gram/dL 6.4-8.2 H ALBUMIN (test code = ALB) 3.1 g/dL 3.4-5.0 L GLOBULIN (test code = GLOB) 5.2 gram/dL 2.7-4.2 H ALBUMIN/GLOBULIN RATIO (test code = A/G) 0.6 0.75-1.50 L BILIRUBIN TOTAL (test code = BILT) 0.30 mg/dL 0.0-1.0 N BILIRUBIN DIRECT (test code = BILD) 0.13 mg/dL 0.0-0.20 N SGOT/AST (test code = AST) 23 IUnit/L 15-37 N SGPT/ALT (test code = ALT) 21 IUnit/L 12-78 N ALKALINE PHOSPHATASE TOTAL (test code = ALKP) 76 IUnit/L 45-117 N Note change in reference range due to change in reagent. [id number] 09:15:00* Test Item Value Reference Range Interpretation Comments TROPONIN-I (test code = TROPI) 0.017 ng/mL 0-0.045 N - XR CHEST 1 [id number] 08:56:00 FAX: Ines Barbosa MD [phone] [place]: St: REG FAX: Yvan Pratt MD [phone] Name: MILA MELCHOR [facility] : 1955 Age/S: 64/M [address] [facility] Unit #: [id number] Loc: [place] [address] Phys: Yvan Pratt MD Acct: [id number] Dis Date: Status: REG ER PHONE #: [phone] Exam Date: 11/21/2019 0840 FAX #: [phone] Reason: cough EXAMS: CPT CODE: [id number] XR CHEST 1 V 16835 REASON FOR EXAM: cough Exam Order Date: 11/21/2019 8:29 AM Ordering M.D.: Yvan Pratt MD PROCEDURE: - XR CHEST 1 V COMPARISON: Chest x-ray May 22, 2019 FINDINGS: Mild subsegmental atelectasis in the right middle lobe and lingula. Lungs are otherwise clear. Cardiomediastinal silhouette is prominent but stable in size. Bilateral IJ central lines terminate in the distal SVC. There are degenerative changes in the spine and in the right shoulder. The visualized upper abdomen is within normal limits. IMPRESSION: No acute cardiopulmonary process. Location: [facility] at 0856 Reported and signed by: Arya Crow MD CC: Ines Antunez MD; Yvan Pratt MD Technologist: Annalisa Tijerina(Tanvir) Trnscrd Date/Time/By: 11/21/2019 (2071) : By: [email or web address] Orig Print D/T: S: 11/21/2019 (9770) PAGE 1 Signed Report CBC W/O [id number] 08:44:00* Test Item Value Reference Range Interpretation Comments WHITE BLOOD CELL (test code = WBC) 5.7 K/mm3 4.5-12.5 N RED BLOOD CELL (test code = RBC) 3.06 mill/mm3 4.0-5.8 L HEMOGLOBIN (test code = HGB) 8.1 gram/dL 13.0-17.5 L HEMATOCRIT (test code = HCT) 26.6 % 42.0-52.0 L MEAN CELL VOLUME (test code = MCV) 86.9 fL 80-98 N MEAN CELL HGB (test code = MCH) 26.5 picogram 27.0-33.0 L MEAN CELL HGB CONCETRATION (test code = MCHC) 30.5 gram/dL 33.0-36. 0 L RED CELL DISTRIBUTION WIDTH (test code = RDW) 16.7 % 11.6-16. 2 H PLATELET COUNT (test code = PLT) 176 K/mm3 150-450 N MEAN PLATELET VOLUME (test code = MPV) 9.7 fL 6.7-11.0 N [id number] 08:07:00* Test Item Value Reference Range Interpretation Comments GLUBED (test code = GLUBED) 61 mg/dL 74-106 L Performed by certified double cut off saw operator at [facility] [id number] 07:37:00* Test Item Value Reference Range Interpretation Comments GLUBED (test code = GLUBED) 32 mg/dL 74-106 LL Test performed as P.O.C. by nursing staff.Performed by certified double cut off saw operator [facility]~ Bedside [id number] 19:44:00* Test Item Value Reference Range Interpretation Comments Bedside Glucose (test code = 70136-4) 228 70-120 H Meter ID: [id number] [facility] Centerodium Level 2019-10-31 10:33:00* Test Item Value Reference Range Interpretation Comments Sodium Level (test code = 2951-2) 130 136-145 L [facility] [id number] 10:33:00* Test Item Value Reference Range Interpretation Comments Potassium Level (test code = 2823-3) 4.1 3.5-5.1 [facility] [id number] 10:33:00* Test Item Value Reference Range Interpretation Comments Chloride Level (test code = 2075-0) 93 98-107 L [facility] CenterCar[facility] Dioxide [id number] 10:33:00* Test Item Value Reference Range Interpretation Comments Carbon Dioxide Level (test code = 2028-9) 25 22-29 [facility] CenterAnion [id number] 10:33:00* Test Item Value Reference Range Interpretation Comments Anion Gap (test code = 25013-1) 16.1 8-16 H [facility] Center[facility] Urea [id number] 10:33:00* Test Item Value Reference Range Interpretation Comments Blood Urea Nitrogen (test code = 3094-0) 37 7-26 H [facility] CenterCreatinine2020-01-16 10:33:00* Test Item Value Reference Range Interpretation Comments Creatinine (test code = 2160-0) 8.18 0.72-1.25 H [facility] CenterBUN/Creatinine Iugjp9627-93-29 10:33:00* Test Item Value Reference Range Interpretation Comments BUN/Creatinine Ratio (test code = 3097-3) 5 6-25 L [facility] CenterEstimat Glomerular Filtration Rate 2019-10-31 10:33:00* Test Item Value Reference Range Interpretation Comments Estimat Glomerular Filtration Rate (test code = 086966513) 7 >60 L Ranges were taken from the National Kidney Disease Education Program and the [facility] literature.Reference ranges:60 or greater: Gqvfhg88-77 ( for 3 consecutive months): Chronic kidney disease 15 or less: Kidney failureCHI [facility] PlanoGlucose Mqqmh5974-94-44 10:33:00* Test Item Value Reference Range Interpretation Comments Glucose Level (test code = AUK0364) 137 74-118 H [facility] CenterCalcium Lwcwm1932-05-27 10:33:00* Test Item Value Reference Range Interpretation Comments Calcium Level (test code = 15427-1) 8.2 8.4-10.2 L [facility] CenterIR [id number] 15:22:00 [facility] [address] [address] Patient Name: MILA MELCHOR JR MR #: [id number] : 11/1954 Age/Sex: 64/M Req #: [id number] Adm Physician: ARLEEN MIDDLETON MD Ordered by: ABRAHAM ALVES Report #: [id number] Location: MED/SURG Room/Bed: [facility] [place] Procedure: [id number] DX/IR CONSULT Exam Date: Exam Time: REPORT STATUS: Signed ADDENDUM #1 ADDENDUM: The line was placed on the left side and the report should read: Insertion of LEFT-sided tunneled central venous cathete r, with tip in the expected location of the cavoatrial junction. Signed b y: Jyothi Tapia MD on 10/29/2019 4:28 PM ORIGINAL REPORT PROCEDURE: Tunneled central venous catheter placement Procedural Personnel Attending physician(s): ARLEEN MIDDLETON MD Fellow physician(s): None Reside nt physician(s): None Advanced practice provider(s): None Pre-procedure d iagnosis: Acute kidney injury Post-procedure diagnosis: Same Indication (QCD R): Administration of IV medications Additional clinical history: None Co mplications: No immediate complications. IMPRESSION: Insertion of righ t-sided tunneled central venous catheter, with tip in the expected location of the cavoatrial junction. Plan: The catheter may be used immediately. PROCEDURE SUMMARY: - Venous access with ultrasound guidance - Tunneled central venous catheter insertion with fluoroscopic guidance - Additional procedure(s): None PROCEDURE DETAILS: Pre-procedure Consent: Informed consent for the procedure including risks, benefits and alternatives was obtained and time-out was performed prior to the procedure. Preparation (MIPS): The site was prepa red and draped using all elements of maximal sterile barrier technique includi ng sterile gloves, sterile gown, cap, mask, large sterile sheet, sterile ultra sound probe cover, hand hygiene and cutaneous antisepsis with 2% chlorhexidine . Medical reason for site preparation exception (MIPS): Not applicable A nesthesia/sedation Level of anesthesia/sedation: No sedation Anesthesia/henny tion administered by: Independent trained observer under attending supervision with continuous monitoring of the patient?s level of consciousness and physio logic status Access Local anesthesia was administered. The vessel was son ographically evaluated and determined to be patent. Real time ultrasound was u sed to visualize needle entry into the vessel and a permanent image was not st ored. Vein accessed (QCDR): Internal jugular vein Internal jugular vein acevedo ncy (QCDR): Patent or otherwise accessible on at least one side Access techn ique: Micropuncture set with 21 gauge needle Catheter placement An incisi on was made near the venous access site and the catheter was tunneled subcutan eously to the venous access site. The catheter was advanced via a peel-away sh eath into the vein under fluoroscopic guidance. Catheter tip location was fluo roscopically verified and a permanent image was stored. Catheter placed: INNFOCUS mp Proline 6Fr Catheter flush: Normal saline Closure A sterile dressing was applied. Access site closure technique: Tissue adhesive Catheter secure ment technique: Non-absorbable suture Radiation Dose Fluoroscopy time (mi nutes): 0.9 Reference air kerma (mGy): 15.9 Additional Details Addit ional description of procedure: None Equipment details: None Specimens remov ed: None Estimated blood loss (mL): Less than 10 Standardized report: [id number] [id number] Attestation Signer name: Jyothi Tapia MD I attest that I wa s present for the entire procedure. I reviewed the stored images and agree wit h the report as written. Signed by: Jyothi Tapia MD on 10/29/2019 3:25 PM Dictated By: JYOTHI TAPIA MD 1525 COPY TO: ABRAHAM ALVES DO [facility] OR [id number] 15:22:00 [place] [address] Patient Name: MILA MELCHOR JR MR #: [id number] : 11/1954 Age/Sex: 64/M Req #: [id number] Adm Physician: ARLEEN MIDDLETON MD Ordered by: ARLEEN MIDDLETON MD Report #: [id number] Location: MED/SURG Room/Bed: [facility] [place] Procedure: [id number] IR/YANDYRO DO [facility] OR REM Exam Date: 10/29/19 Exam Time: 1330 REPORT STATUS: S igned ADDENDUM #1 ADDENDUM: The line was plac ed on the left side and the report should read: Insertion of LEFT-sided ann neled central venous catheter, with tip in the expected location of the cavoat rial junction. Signed by: Jyothi Tapia MD on 10/29/2019 4:28 PM OR IGINAL REPORT PROCEDURE: Tunneled central venous catheter placemen t Procedural Personnel Attending physician(s): ARLEEN MIDDLETON MD Fellow physician(s): None Resident physician(s): None Advanced practice provider(s ): None Pre-procedure diagnosis: Acute kidney injury Post-procedure diagn osis: Same Indication (QCDR): Administration of IV medications Additional cl inical history: None Complications: No immediate complications. IMPRES ANAND: Insertion of right-sided tunneled central venous catheter, with tip i n the expected location of the cavoatrial junction. Plan: The sofía ter may be used immediately. PROCEDURE SUMMARY: - Venous access with ultrasound guidanc e - Tunneled central venous catheter insertion with fluoroscopic guidance - Additional procedure(s): None PROCEDURE DETAILS: Pre-procedure Conse nt: Informed consent for the procedure including risks, benefits and alternati ves was obtained and time-out was performed prior to the procedure. Preparatio n (MIPS): The site was prepared and draped using all elements of maximal steri le barrier technique including sterile gloves, sterile gown, cap, mask, large sterile sheet, sterile ultrasound probe cover, hand hygiene and cutaneous anti sepsis with 2% chlorhexidine. Medical reason for site preparation exception ( MIPS): Not applicable Anesthesia/sedation Level of anesthesia/sedation: N o sedation Anesthesia/sedation administered by: Independent trained observer u nder attending supervision with continuous monitoring of the patient?s level o f consciousness and physiologic status Access Local anesthesia was admi nistered. The vessel was sonographically evaluated and determined to be patent . Real time ultrasound was used to visualize needle entry into the vessel and a permanent image was not stored. Vein accessed (QCDR): Internal jugular vein Internal jugular vein patency (QCDR): Patent or otherwise accessible on at l [facility] one side Access technique: Micropuncture set with 21 gauge needle Ca theter placement An incision was made near the venous access site and the cath eter was tunneled subcutaneously to the venous access site. The catheter was a dvanced via a peel-away sheath into the vein under fluoroscopic guidance. Cath eter tip location was fluoroscopically verified and a permanent image was stor ed. Catheter placed: Medcomp Proline 6Fr Catheter flush: Normal saline Closure A sterile dressing was applied. Access site closure technique: Tissu e adhesive Catheter securement technique: Non-absorbable suture Radiation Dose Fluoroscopy time (minutes): 0.9 Reference air kerma (mGy): 15.9 Additional Details Additional description of procedure: None Equipment det ails: None Specimens removed: None Estimated blood loss (mL): Less than 10 Standardized report: [email or web address] Attestation Signer name: Jyothi Tapia MD I attest that I was present for the entire procedure. I reviewed the s tored images and agree with the report as written. Signed by: Jyothi Tapia MD on 10/29/2019 3:25 PM Dictated By: JYOTHI TAPIA MD Electronically Si gned By: JYOTHI TAPIA MD on 10/29/19 1628 Transcribed By: AJ on 10/29/19 152 5 COPY TO: ARLEEN MIDDLETON MD TUNNELLED CVC INSERT W/O PORT 2019-10-29 15:22:00 [place] [address] Patient Name: MILA MELCHOR JR MR #: [id number] : 1955 Age/Sex: 64/M Req #: [id number] Adm Physician: ARLEEN MIDDLETON MD Ordered by: ARLEEN MIDDLETON MD Report #: [id number] Location: MED/SURG Room/Bed: [facility] [place] Procedure: [id number] IR/TUNNELLED CVC INSERT W/O PORT Exam Date: Exam T geena: REPORT STATUS: Signed * ADDENDUM #1 ADDENDUM: The line was placed on the lef t side and the report should read: Insertion of LEFT-sided tunneled central venous catheter, with tip in the expected location of the cavoatrial junction. Signed by: Jyothi Tapia MD on 10/29/2019 4:28 PM ORIGINAL REPORT PROCEDURE: Tunneled central venous catheter placement Proce dural Personnel Attending physician(s): ARLEEN MIDDLETON MD Fellow physician(s) : None Resident physician(s): None Advanced practice provider(s): None Pre-procedure diagnosis: Acute kidney injury Post-procedure diagnosis: Same Indication (QCDR): Administration of IV medications Additional clinical histor y: None Complications: No immediate complications. IMPRESSION: In sertion of right-sided tunneled central venous catheter, with tip in the expec cathy location of the cavoatrial junction. Plan: The catheter may be us ed immediately. _ PROCEDURE SUMMARY: - Venous access with ultrasound guidance - Tunnele d central venous catheter insertion with fluoroscopic guidance - Additional pr ocedure(s): None PROCEDURE DETAILS: Pre-procedure Consent: Informed consent for the procedure including risks, benefits and alternatives was obtai jelani and time-out was performed prior to the procedure. Preparation (MIPS): The site was prepared and draped using all elements of maximal sterile barrier te chnique including sterile gloves, sterile gown, cap, mask, large sterile sheet , sterile ultrasound probe cover, hand hygiene and cutaneous antisepsis with 2 % chlorhexidine. Medical reason for site preparation exception (MIPS): Not ap plicable Anesthesia/sedation Level of anesthesia/sedation: No sedation Anesthesia/sedation administered by: Independent trained observer under attend ing supervision with continuous monitoring of the patient?s level of conscious ness and physiologic status Access Local anesthesia was administered. The vessel was sonographically evaluated and determined to be patent. Real time u ltrasound was used to visualize needle entry into the vessel and a permanent i mage was not stored. Vein accessed (QCDR): Internal jugular vein Internal ju gular vein patency (QCDR): Patent or otherwise accessible on at least one side Access technique: Micropuncture set with 21 gauge needle Catheter placem ent An incision was made near the venous access site and the catheter was tunn eled subcutaneously to the venous access site. The catheter was advanced via a peel-away sheath into the vein under fluoroscopic guidance. Catheter tip lo cation was fluoroscopically verified and a permanent image was stored. Cathete r placed: Medcomp Proline 6Fr Catheter flush: Normal saline Closure A s terile dressing was applied. Access site closure technique: Tissue adhesive Catheter securement technique: Non-absorbable suture Radiation Dose Fluor oscopy time (minutes): 0.9 Reference air kerma (mGy): 15.9 Additional Details Additional description of procedure: None Equipment details: None Specimens removed: None Estimated blood loss (mL): Less than 10 Standardized report: [email or web address] Attestation Signer name: Jyothi Tapia MD I a ttest that I was present for the entire procedure. I reviewed the stored image s and agree with the report as written. Signed by: Jyothi Tapia MD on 10/16 3:25 PM Dictated By: JYOTHI TAPIA MD 1628 Transcribed By: AJ on 10/29/19 1529 COPY TO: ARLEEN MIDDLETON MD US GUIDANCE FOR VASCULAR [id number] 15:22:00 [place] [address] Patient Name: MILA MELCHOR JR MR #: [id number] : 11/1954 Age/Sex: 64/M Req #: [id number] Adm Physician: ARLEEN MIDDLETON MD Ordered by: ABRAHAM ALVES Report #: [id number] Location: MED/SURG Room/Bed: 100 Procedure: [id number] US/US GUIDANCE FOR VASCULAR ACCES Exam Date: 10/29/19 Exam Time: 1407 REPORT STATU S: Signed ADDENDUM #1 ADDENDUM: The line was placed on the left side and the report should read: Insertion of LEFT-sided tunneled central venous catheter, with tip in the expected location of the ca voatrial junction. Signed by: Jyothi Tapia MD on 10/29/2019 4:28 PM * ORIGINAL REPORT PROCEDURE: Tunneled central venous catheter plac ement Procedural Personnel Attending physician(s): ARLEEN MIDDLETON MD [facility] physician(s): None Resident physician(s): None Advanced practice provid er(s): None Pre-procedure diagnosis: Acute kidney injury Post-procedure d iagnosis: Same Indication (QCDR): Administration of IV medications Additiona l clinical history: None Complications: No immediate complications. IM PRESSION: Insertion of right-sided tunneled central venous catheter, with t ip in the expected location of the cavoatrial junction. Plan: The c atheter may be used immediately. PROCEDURE SUMMARY: - Venous access with ultrasound do dance - Tunneled central venous catheter insertion with fluoroscopic guidance - Additional procedure(s): None PROCEDURE DETAILS: Pre-procedure C onsent: Informed consent for the procedure including risks, benefits and alter natives was obtained and time-out was performed prior to the procedure. Prepar ation (MIPS): The site was prepared and draped using all elements of maximal s terile barrier technique including sterile gloves, sterile gown, cap, mask, la rge sterile sheet, sterile ultrasound probe cover, hand hygiene and cutaneous antisepsis with 2% chlorhexidine. Medical reason for site preparation excepti on (MIPS): Not applicable Anesthesia/sedation Level of anesthesia/sedatio n: No sedation Anesthesia/sedation administered by: Independent trained observ er under attending supervision with continuous monitoring of the patient?s lev el of consciousness and physiologic status Access Local anesthesia was administered. The vessel was sonographically evaluated and determined to be pa tent. Real time ultrasound was used to visualize needle entry into the vessel and a permanent image was not stored. Vein accessed (QCDR): Internal jugular v ein Internal jugular vein patency (QCDR): Patent or otherwise accessible on at least one side Access technique: Micropuncture set with 21 gauge needle Catheter placement An incision was made near the venous access site and the catheter was tunneled subcutaneously to the venous access site. The catheter w as advanced via a peel-away sheath into the vein under fluoroscopic guidance. Catheter tip location was fluoroscopically verified and a permanent image was stored. Catheter placed: Medcomp Proline 6Fr Catheter flush: Normal saline Closure A sterile dressing was applied. Access site closure technique: T issue adhesive Catheter securement technique: Non-absorbable suture Radia tion Dose Fluoroscopy time (minutes): 0.9 Reference air kerma (mGy): 15.9 Additional Details Additional description of procedure: None Equipment details: None Specimens removed: None Estimated blood loss (mL): Less than 10 Standardized report: [email or web address]_v3 Attestation Signer name: Reid Tapia MD I attest that I was present for the entire procedure. I reviewed t he stored images and agree with the report as written. Signed by: Lisa Tapia MD on 10/29/2019 3:25 PM Dictated By: JYOTHI TAPIA MD Electronicall y Signed By: JYOTHI TAPIA MD on 10/29/19 2124 Transcribed By: AJ on 10/29/19 0883 COPY TO: ABRAHAM ALVES Creatine [id number] 10:59:00* Test Item Value Reference Range Interpretation Comments Creatine Kinase (test code = 2157-6) 66 30-200 [facility] SED[facility] INIT[facility] >5 [id number] 15:22:00 [facility] [address] [address] Patient Name: MILA MELCHOR JR MR #: [id number] : 1955 Age/Sex: 64/M Req #: [id number] Adm Physician: ARLEEN MIDDLETON MD Ordered by: JYOTHI TAPIA MD Report #: [id number] Location: MED/SURG Room/Bed: [facility] [place] Procedure: [id number] D X/MOD SEDATE INITIAL >5 YRS Exam Date: 10/29/19 Exam Time: 1435 REPORT STATUS: Signed PROCEDURE: Tunneled dialysis catheter placement Procedural Personnel Attending physician(s): Jyothi Tapia MD Fellow physician(s): None Resident physician(s): None Advanced practice provider(s): None Pre-procedure diagnosis: CKD on HD Post-procedure diagnosis: Same Indication (QCDR): Performance of hemodialysis Additional clinical history: None Complications: No immediate complications. IMPRESSION: Insertion of right-sided tunneled dialysis catheter, with tip in the expected location of the cavoatrial junction. Plan: The catheter may be used immediately. PROCEDURE SUMMARY: - Venous access with ultrasound guidance - Tunneled dialysis catheter insertion with fluoroscopic guidance - Additional procedure(s): None PROCEDURE DETAILS: Pre-procedure Consent: Informed consent for the procedure including risks, benefits and alternatives was obtained and time-out was performed prior to the procedure. Preparation (MIPS): The site was prepared and draped using all elements of maximal sterile barrier technique including sterile gloves, sterile gown, cap, mask, large sterile sheet, sterile ultrasound probe cover, hand hygiene and cutaneous antisepsis with 2% chlorhexidine. Medical reason for site preparation exception (MIPS): Not applicable Anesthesia/sedation Level of anesthesia/sedation: Moderate sedation (conscious sedation) Anesthesia/sedation administered by: Independent trained observer under attending supervision with continuous monitoring of the patient?s level of consciousness and physiologic status Total intra-service sedation time (minutes): 30 Access Local anesthesia was administered. The vessel was sonographically evaluated and determined to be patent. Real time ultrasound was used to visualize needle entry into the vessel and a permanent image was not stored. Vein accessed (QCDR): Internal jugular vein Internal jugular vein patency (QCDR): Patent or otherwise accessible on at least one side Access technique: Micropuncture set with 21 gauge needle Catheter placement An incision was made near the venous access site and the catheter w as tunneled subcutaneously to the venous access site. The catheter was advance d via a peel-away sheath into the vein under fluoroscopic guidance. Catheter t ip location was fluoroscopically verified and a permanent image was stored. Catheter placed: HealPayrome Catheter cuff-to-tip length (cm): 19 Ca theter flush: Heparin (1000 units/mL) Closure A sterile dressing was appl ied. Access site closure technique: Tissue adhesive Catheter securement tech nique: Non-absorbable suture Radiation Dose Fluoroscopy time (minutes): 0 .1 Reference air kerma (mGy): 2.2 Additional Details Additional desc ription of procedure: None Equipment details: None Specimens removed: None Estimated blood loss (mL): Less than 10 Standardized report: SIR_TunneledDial ysisCatheter_v3 Attestation Signer name: Jyothi Tapia MD I attest that I was present for the entire procedure. I reviewed the stored images and agree with the report as written. Signed by: Jyothi Tapia MD on 10/28/2019 3:24 PM Dictated By: JYOTHI TAPIA MD 23 COPY TO: VARGAS TAPIA MD IR [id number] 15:22:00 [place] [address] Patient Name: MILA MELCHOR JR MR #: [id number] : 1955 Age/Sex: 64/M Req #: [id number] Adm Physician: ARLEEN MIDDLETON MD Ordered by: RHIANNON STANLEY MD Report #: [id number] Location: MED/SURG Room/Bed: [facility] [place] Procedure: DX/IR CONSULT Exam Date: Exam Time: REPORT STATUS: Signed PROCEDURE: Tunneled d ialysis catheter placement Procedural Personnel Attending physician(s): Jyothi Tapia MD Fellow physician(s): None Resident physician(s): None [facility] practice provider(s): None Pre-procedure diagnosis: CKD on HD Post-pr ocedure diagnosis: Same Indication (QCDR): Performance of hemodialysis Addit ional clinical history: None Complications: No immediate complications. IMPRESSION: Insertion of right-sided tunneled dialysis catheter, with tip in the expected location of the cavoatrial junction. Plan: The cat heter may be used immediately. PROCEDURE SUMMARY: - Venous access with ultrasound jaz nce - Tunneled dialysis catheter insertion with fluoroscopic guidance - Gerald tional procedure(s): None PROCEDURE DETAILS: Pre-procedure Consent: Informed consent for the procedure including risks, benefits and alternatives was obtained and time-out was performed prior to the procedure. Preparation (M IPS): The site was prepared and draped using all elements of maximal sterile b arrier technique including sterile gloves, sterile gown, cap, mask, large ster ile sheet, sterile ultrasound probe cover, hand hygiene and cutaneous antiseps is with 2% chlorhexidine. Medical reason for site preparation exception (MIPS ): Not applicable Anesthesia/sedation Level of anesthesia/sedation: Moder ate sedation (conscious sedation) Anesthesia/sedation administered by: Mariam pantoja trained observer under attending supervision with continuous monitoring o f the patient?s level of consciousness and physiologic status Total intra-se rvice sedation time (minutes): 30 Access Local anesthesia was administere d. The vessel was sonographically evaluated and determined to be patent. Real time ultrasound was used to visualize needle entry into the vessel and a perma nent image was not stored. Vein accessed (QCDR): Internal jugular vein Inter nal jugular vein patency (QCDR): Patent or otherwise accessible on at least on e side Access technique: Micropuncture set with 21 gauge needle Catheter placement An incision was made near the venous access site and the catheter wa s tunneled subcutaneously to the venous access site. The catheter was advanced via a peel-away sheath into the vein under fluoroscopic guidance. Catheter tip location was fluoroscopically verified and a permanent image was stored. C atheter placed: HealPayrome Catheter cuff-to-tip length (cm): 19 Cat heter flush: Heparin (1000 units/mL) Closure A sterile dressing was appli ed. Access site closure technique: Tissue adhesive Catheter securement techn ique: Non-absorbable suture Radiation Dose Fluoroscopy time (minutes): 0. 1 Reference air kerma (mGy): 2.2 Additional Details Additional descr iption of procedure: None Equipment details: None Specimens removed: None Estimated blood loss (mL): Less than 10 Standardized report: SIR_TunneledDialy sisCatheter_v3 Attestation Signer name: Jyothi Tapia MD I attest that I was present for the entire procedure. I reviewed the stored images and agree w ith the report as written. Signed by: Jyothi Tapia MD on 10/28/2019 3:24 PM Dictated By: JYOTHI TAPIA MD 23 COPY TO: MARSHALL STANLEY AM, MD TOMMIE PLMT OR [id number] 15:22:00 [place] [address] Patient Name: MILA MELCHOR JR MR #: [id number] : 11/1954 Age/Sex: 64/M Req #: [id number] Adm Physician: ARLEEN MIDDLETON MD Ordered by: RHIANNON STANLEY MD Report #: [id number] Location: MED/SURG Room/Bed: [facility] [place] Procedure: IR/MARGARITA LEI CENT TOMMIE PLMT OR REM Exam Date: 10/28/19 Exam Time: 1330 REPORT STATUS: Signed PROCEDURE: Tunneled dialysis catheter placement Procedural Pers onnel Attending physician(s): Jyothi Tapia MD Fellow physician(s): None Res ident physician(s): None Advanced practice provider(s): None Pre-procedur e diagnosis: CKD on HD Post-procedure diagnosis: Same Indication (QCDR): Per formance of hemodialysis Additional clinical history: None Complications: No immediate complications. IMPRESSION: Insertion of right-sided tunn eled dialysis catheter, with tip in the expected location of the cavoatrial ju nction. Plan: The catheter may be used immediately. PROCEDURE SUMMARY: - Tommie ous access with ultrasound guidance - Tunneled dialysis catheter insertion wit h fluoroscopic guidance - Additional procedure(s): None PROCEDURE DETAILS : Pre-procedure Consent: Informed consent for the procedure including ris ks, benefits and alternatives was obtained and time-out was performed prior to the procedure. Preparation (MIPS): The site was prepared and draped using all elements of maximal sterile barrier technique including sterile gloves, steri le gown, cap, mask, large sterile sheet, sterile ultrasound probe cover, hand hygiene and cutaneous antisepsis with 2% chlorhexidine. Medical reason for site preparation exception (MIPS): Not applicable Anesthesia/sedation Lev el of anesthesia/sedation: Moderate sedation (conscious sedation) Anesthesia/s edation administered by: Independent trained observer under attending supervis ion with continuous monitoring of the patient?s level of consciousness and phy siologic status Total intra-service sedation time (minutes): 30 Access Local anesthesia was administered. The vessel was sonographically evaluated and determined to be patent. Real time ultrasound was used to visualize needle e ntry into the vessel and a permanent image was not stored. Vein accessed (QCDR ): Internal jugular vein Internal jugular vein patency (QCDR): Patent or other salmon accessible on at least one side Access technique: Micropuncture set wit h 21 gauge needle Catheter placement An incision was made near the venous access site and the catheter was tunneled subcutaneously to the venous access site. The catheter was advanced via a peel-away sheath into the vein under fl uoroscopic guidance. Catheter tip location was fluoroscopically verified and a permanent image was stored. Catheter placed: Covidien Appconomyrome Catheter c uff-to-tip length (cm): 19 Catheter flush: Heparin (1000 units/mL) Closur e A sterile dressing was applied. Access site closure technique: Tissue adhe sive Catheter securement technique: Non-absorbable suture Radiation Dose Fluoroscopy time (minutes): 0.1 Reference air kerma (mGy): 2.2 Addit ional Details Additional description of procedure: None Equipment details: N one Specimens removed: None Estimated blood loss (mL): Less than 10 Standa rdized report: SIR_TunneledDialysisCatheter_v3 Attestation Signer name: Renetta Tapia MD I attest that I was present for the entire procedure. I reviewed the stored images and agree with the report as written. Signed by: Freedom Tapia MD on 10/28/2019 3:24 PM Dictated By: JYOTHI TAPIA MD 23 Transcribed By: AJ on 10/30/191423 COPY TO: RHIANNON STANLEY MD TUNNELLED CVC INSERT W/O PORT 2019-10-28 15:22:00 [place] [address] Patient Name: MILA MELCHOR JR MR #: [id number] : 1955 Age/Sex: 64/M Req #: [id number] Adm Physician: ARLEEN MIDDLETON MD Ordered by: RHIANNON STANLEY MD Report #: [id number] Location: MED/SURG Room/Bed: [facility] [place] Procedure: IR/TUNNELLED CVC INSERT W/O PORT Exam Date: Exam Time: REPORT STATUS: Signed [place] OCEDURE: Tunneled dialysis catheter placement Procedural Personnel Atten ding physician(s): Jyothi Tapia MD Fellow physician(s): None Resident physici an(s): None Advanced practice provider(s): None Pre-procedure diagnosis: CKD on HD Post-procedure diagnosis: Same Indication (QCDR): Performance of h emodialysis Additional clinical history: None Complications: No immediate complications. IMPRESSION: Insertion of right-sided tunneled dialysis catheter, with tip in the expected location of the cavoatrial junction. Plan: The catheter may be used immediately. PROCEDURE SUMMARY: - Venous access wi th ultrasound guidance - Tunneled dialysis catheter insertion with fluoroscopi c guidance - Additional procedure(s): None PROCEDURE DETAILS: Pre-pr ocedure Consent: Informed consent for the procedure including risks, benefits and alternatives was obtained and time-out was performed prior to the procedur e. Preparation (MIPS): The site was prepared and draped using all elements of maximal sterile barrier technique including sterile gloves, sterile gown, cap, mask, large sterile sheet, sterile ultrasound probe cover, hand hygiene and cutaneous antisepsis with 2% chlorhexidine. Medical reason for site preparat ion exception (MIPS): Not applicable Anesthesia/sedation Level of anesthe brittany/sedation: Moderate sedation (conscious sedation) Anesthesia/sedation admin istered by: Independent trained observer under attending supervision with cont inuous monitoring of the patient?s level of consciousness and physiologic stat us Total intra-service sedation time (minutes): 30 Access Local anesthe brittany was administered. The vessel was sonographically evaluated and determined to be patent. Real time ultrasound was used to visualize needle entry into the vessel and a permanent image was not stored. Vein accessed (QCDR): Internal j ugular vein Internal jugular vein patency (QCDR): Patent or otherwise accessib le on at least one side Access technique: Micropuncture set with 21 gauge ne edle Catheter placement An incision was made near the venous access site and the catheter was tunneled subcutaneously to the venous access site. The ca theter was advanced via a peel-away sheath into the vein under fluoroscopic gu idance. Catheter tip location was fluoroscopically verified and a permanent im age was stored. Catheter placed: HealPayrome Catheter cuff-to-tip le ngth (cm): 19 Catheter flush: Heparin (1000 units/mL) Closure A sterile dressing was applied. Access site closure technique: Tissue adhesive Cathet er securement technique: Non-absorbable suture Radiation Dose Fluoroscopy time (minutes): 0.1 Reference air kerma (mGy): 2.2 Additional Details Additional description of procedure: None Equipment details: None Specimens removed: None Estimated blood loss (mL): Less than 10 Standardized report: SIR_TunneledDialysisCatheter_v3 Attestation Signer name: Jyothi Tapia MD I attest that I was present for the entire procedure. I reviewed the stored images and agree with the report as written. Signed by: Jyothi Tapia MD on 10/28/2019 3:24 PM Dictated By: JYOTHI TAPIA MD 23 Transcribed By: AJ on 10/30/191423 CO PY TO: RHIANNON STANLEY MD Phosphorus Hkaej4847-69-85 06:43:00* Test Item Value Reference Range Interpretation Comments Phosphorus Level (test code = LMQ0385) 4.9 2.3-4.7 H [facility] Dsgxq7130-08-49 06:43:00* Test Item Value Reference Range Interpretation Comments Magnesium Level (test code = 13036-2) 1.8 1.3-2.1 [facility]White Blood Ldips4389-19-88 06:18:00* Test Item Value Reference Range Interpretation Comments White Blood Count (test code = 6690-2) 4.74 4.8-10.8 L [facility] CenterRed Blood Zsoro9285-30-85 06:18:00* Test Item Value Reference Range Interpretation Comments Red Blood Count (test code = 789-8) 3.03 4.3-5.7 L [facility] CenterHemoglobin2020-01-13 06:18:00* Test Item Value Reference Range Interpretation Comments Hemoglobin (test code = 80883-4) 8.2 14.0-18.0 L [facility] CenterHematocrit2020-01-13 06:18:00* Test Item Value Reference Range Interpretation Comments Hematocrit (test code = 4544-3) 25.5 38.2-49.6 L [facility] CenterMean Corpuscular Rzqjyz4679-77-63 06:18:00* Test Item Value Reference Range Interpretation Comments Mean Corpuscular Volume (test code = 787-2) 84.2 81-99 [facility]Mean Corpuscular Zkkoptecua6342-96-74 06:18:00* Test Item Value Reference Range Interpretation Comments Mean Corpuscular Hemoglobin (test code = 785-6) 27.1 28-32 L [facility] CenterMean Corpuscular Hemoglobin Concent 2019-10-28 06:18:00* Test Item Value Reference Range Interpretation Comments Mean Corpuscular Hemoglobin Concent (test code = 786-4) 32.2 31-35 [facility]Red Cell Distribution Xsrfz7978-61-87 06:18:00* Test Item Value Reference Range Interpretation Comments Red Cell Distribution Width (test code = 55293-8) 16.1 11.7 -14.4 H [facility] CenterPlatelet Boksm1953-55-00 06:18:00* Test Item Value Reference Range Interpretation Comments Platelet Count (test code = 777-3) 150 140-360 [facility] CenterNeutrophils (%) (Auto)2019-10-28 06:18:00 * Test Item Value Reference Range Interpretation Comments Neutrophils (%) (Auto) (test code = 06363-7) 54.1 38.7-80.0 [facility] CenterLymphocytes (%) (Auto)2019-10-28 06:18:00 * Test Item Value Reference Range Interpretation Comments Lymphocytes (%) (Auto) (test code = 736-9) 18.6 18.0-39.1 [facility] CenterMonocytes (%) (Auto)2019-10-28 06:18:00* Test Item Value Reference Range Interpretation Comments Monocytes (%) (Auto) (test code = 5905-5) 12.2 4.4-11.3 H [facility] CenterEosinophils (%) (Auto)2019-10-28 06:18:00 * Test Item Value Reference Range Interpretation Comments Eosinophils (%) (Auto) (test code = 713-8) 14.3 0.0-6.0 H [facility] CenterBasophils (%) (Auto)2019-10-28 06:18:00* Test Item Value Reference Range Interpretation Comments Basophils (%) (Auto) (test code = 706-2) 0.6 0.0-1.0 [facility] CenterIM GRANULOCYTES %2019-10-28 06:18:00* Test Item Value Reference Range Interpretation Comments IM GRANULOCYTES % (test code = IM GRANULOCYTES %) 0.2 0.0- 1.0 [facility] CenterNeutrophils # (Auto)2019-10-28 06:18:00* Test Item Value Reference Range Interpretation Comments Neutrophils # (Auto) (test code = 751-8) 2.6 2.1-6.9 [facility] CenterLymphocytes # (Auto)2019-10-28 06:18:00* Test Item Value Reference Range Interpretation Comments Lymphocytes # (Auto) (test code = 70932-8) 0.9 1.0-3.2 L [facility] CenterMonocytes # (Auto)2019-10-28 06:18:00* Test Item Value Reference Range Interpretation Comments Monocytes # (Auto) (test code = 742-7) 0.6 0.2-0.8 [facility] CenterEosinophils # (Auto)2019-10-28 06:18:00* Test Item Value Reference Range Interpretation Comments Eosinophils # (Auto) (test code = 711-2) 0.7 0.0-0.4 H [facility] CenterBasophils # (Auto)2019-10-28 06:18:00* Test Item Value Reference Range Interpretation Comments Basophils # (Auto) (test code = 704-7) 0.0 0.0-0.1 [facility] CenterAbsolute Immature Granulocyte (auto 2019-10-28 06:18:00* Test Item Value Reference Range Interpretation Comments Absolute Immature Granulocyte (auto (gin t code = Absolute Immature Granulocyte (auto) 0.01 0-0.1 [facility] CenterTotal Mxdjfrmlo3155-30-86 05:59:00* Test Item Value Reference Range Interpretation Comments Total Bilirubin (test code = 1975-2) 0.4 0.2-1.2 [facility] CenterAspartate Amino Transf (AST/SGOT) 2019-10-25 05:59:00* Test Item Value Reference Range Interpretation Comments Aspartate Amino Transf (AST/SGOT) (test code = Aspartate Amino Transf (AST/SGOT)) 19 5-34 [facility] CenterAlanine Aminotransferase (ALT/SGPT) 2019-10-25 05:59:00* Test Item Value Reference Range Interpretation Comments Alanine Aminotransferase (ALT/SGPT) (test code = 1742-6) 24 0-55 [facility] CenterTotal Nfcjnvm7762-07-47 05:59:00* Test Item Value Reference Range Interpretation Comments Total Protein (test code = 2885-2) 6.7 6.5-8.1 [facility] CenterAlbumin2020-01-10 05:59:00* Test Item Value Reference Range Interpretation Comments Albumin (test code = 1751-7) 2.7 3.5-5.0 L [facility] CenterGlobulin2020-01-10 05:59:00* Test Item Value Reference Range Interpretation Comments Globulin (test code = 30466-3) 4.0 2.3-3.5 H [facility] CenterAlbumin/Globulin Zmlmk2547-02-33 05:59:00 * Test Item Value Reference Range Interpretation Comments Albumin/Globulin Ratio (test code = 1759-0) 0.7 0.8-2.0 L [facility] CenterAlkaline Egnexstybpj5156-88-17 05:59:00* Test Item Value Reference Range Interpretation Comments Alkaline Phosphatase (test code = 6768-6) 82 40-150 [facility] CenterHepatib[facility] B Surface Antibody, Quant 2019-10-22 11:04:00* Test Item Value Reference Range Interpretation Comments Hepatitis B Surface Antibody, Quant (test code = 5194-6) <3.1 Immunity>9.9 L Status of Immunity Anti-HBs Level Inconsistent with Immunity 0.0 - 9.9Consistent with Immunity >9.9[facility] Core Total Glgkhwgn7925-08-86 11:04:00* Test Item Value Reference Range Interpretation Comments Hepatitis B Core Total Antibody (test code = 56426-2) Negative Negative [facility] CenterH[facility] B Surface Bppuxfz7280-42-73 11:04:00* Test Item Value Reference Range Interpretation Comments Hepatitis B Surface Antigen (test code = 5196-1) Negative Negat tg [facility] B Core IgM Thbghmhx4303-59-38 11:04:00* Test Item Value Reference Range Interpretation Comments Hepatitis B Core IgM Antibody (test code = 74422-4) Negative Ne gative Performed at: - [facility] [id number] Director: Akash Parham MD, Phone: [phone] Mountain Medical CenterCreatine Kinase SA5894-00-44 18:05:00* Test Item Value Reference Range Interpretation Comments Creatine Kinase MB (test code = 50141-5) 2.00 0-5.0 [facility] CenterTroponin C8468-22-28 18:05:00* Test Item Value Reference Range Interpretation Comments Troponin I (test code = AAP5109) < 0.001 0-0.300 [facility] CenterCHEST XRAY LINE JOVEYRTDA1096-73-16 11:47:00 [place] [address] Patient Name: MILA MELCHOR JR MR #: [id number] : 1955 Age/Sex: 64/M Req #: [id number] Adm Physician: BALDEMAR WILKES MD Ordered by: JYOTHI TAPIA MD Report #: [id number] Location: ICU Room/Bed: ICU [facility] Procedure: [id number] D X/CHEST XRAY LINE PLACEMENT Exam Date: 10/21/19 Exam Time: 1129 REPORT STATUS: Signed EXAMINATION: CHEST XRAY LINE PLACEMENT INDICATION: Line placement COMPARISON: Chest radiograph 10/21/2019 FINDINGS: LINES/TUBES:In terval placement of right IJ temporary dialysis catheter, terminating in the s uperior vena cava. Left PICC line unchanged. LUNGS:The lungs are well-infla cathy. There is perihilar fullness and indistinctness of the pulmonary vasculatu re. PLEURA:No pleural effusion or pneumothorax. MEDIASTINUM:The cardio mediastinal silhouette appears unchanged in size and shape. BONES/SOFT TI SSUES:No acute osseous injury. ABDOMEN:No free air under the diaphragm. IMPRESSION: Right IJ temp or dialysis catheter terminates in the superior vena cava. Line is ready for immediate use. Otherwise, no significant i nterval change. Signed by: Jyothi Tapia MD on 10/21/2019 11:48 AM Dicta cathy By: JYOTHI TAPIA MD 1148 Transcribed By: AJ on 10/21/19 1148 COPY TO: JYOTHI TAPIA MD IR [id number] 11:17:00 [place] [address] Patient Name: MILA MELCHOR JR MR #: [id number] : 1955 Age/Sex: 64/M Req #: [id number] Adm Physician: BALDEMAR WILKES MD Ordered by: ANDRIA MICHAEL MD Report #: [id number] Location: ICU Room/Bed: ICU [facility] Procedure: [id number] DX/IR CONSULT Exam Date: Exam Time: REPORT STATUS: Signed PROCEDURE: Non- tunneled central venous catheter placement Procedural Personnel Attending physician(s): Jyothi Tapia MD Fellow physician(s): None Resident physician(s ): None Advanced practice provider(s): None Pre-procedure diagnosis: Acut e kidney injury Post-procedure diagnosis: Same Indication: Performance of he modialysis Additional clinical history: None Complications: No immediate complications. IMPRESSION: Insertion of right-sided non-tunneled tripl e-lumen temporary dialysis catheter. Plan: The catheter may be used imme diately. PROCEDURE SUMMARY: - Venous access with ultrasound guidance - Non-tunneled c entral venous catheter insertion - Additional procedure(s): None PROCEDU RE DETAILS: Pre-procedure Consent: Informed consent for the procedure inc luding risks, benefits and alternatives was obtained and time-out was performe d prior to the procedure. Preparation (MIPS): The site was prepared and draped using all elements of maximal sterile barrier technique including sterile kelly ves, sterile gown, cap, mask, large sterile sheet, sterile ultrasound probe co yasir, hand hygiene and cutaneous antisepsis with 2% chlorhexidine. Medical r jessica for site preparation exception (MIPS): Not applicable Anesthesia/henny tion Level of anesthesia/sedation: No sedation Access Local anesthesia was administered. The vessel was sonographically evaluated and determined to b e patent. Real time ultrasound was used to visualize needle entry into the ves chaim and a permanent image was stored. Vein accessed: Internal jugular vein A ccess technique: Micropuncture set with 21 gauge needle Catheter placement The access site was dilated and the catheter was placed into the vein over a wire. A sterile dressing was applied. Catheter placed: Bard Trialysis Sofía ter size ([place]): 13 Catheter length (cm): 15 Catheter flush: Normal saline Catheter securement technique: Non-absorbable suture Contrast Contrast agent: None Radiation Dose None. Ultrasound only. Additional Details Additional description of procedure: None Equipment details: None Specim ens removed: None Estimated blood loss (mL): Less than 10 Standardized repor t: [email or web address]_NonTunneledCatheter_v3 Attestation Signer name: Jyothi Tapia MD I attest that I was present for the entire procedure. I reviewed the stored images and agree with the report as written. Signed by: Jyothi Tapia MD on 10/21/2019 11:20 AM Dictated By: JYOTHI TAPIA MD 19 Transcribed By: AJ on 10/21/191119 CO PY TO: ANDRIA MICHAEL MD NON-TUNNELLED CVC CATH PLACMNT 2019-10-21 11:17:00 [place] [address] Patient Name: MILA MELCHOR JR MR #: [id number] : 1955 Age/Sex: 64/M Req #: [id number] Adm Physician: BALDEMAR WILKES MD Ordered by: BALDEMAR WILKES MD Report #: [id number] Location: ICU Room/Bed: [place] [address] Procedure: [id number] IR/NON-TUNNELLED CVC CATH PLACMNT Exam Date: 10/21/19 Exam Time: 0954 REPORT STATUS: Si gned PROCEDURE: Non-tunneled central venous catheter placement Procedura l Personnel Attending physician(s): Jyothi Tapia MD Fellow physician(s): None Resident physician(s): None Advanced practice provider(s): None Pre-pr ocedure diagnosis: Acute kidney injury Post-procedure diagnosis: Same Indica tion: Performance of hemodialysis Additional clinical history: None Compl ications: No immediate complications. IMPRESSION: Insertion of right-s ided non-tunneled triple-lumen temporary dialysis catheter. Plan: The ca theter may be used immediately. PROCEDURE SUMMARY: - Venous access with ultrasound guid ance - Non-tunneled central venous catheter insertion - Additional procedur e(s): None PROCEDURE DETAILS: Pre-procedure Consent: Informed consen t for the procedure including risks, benefits and alternatives was obtained an d time-out was performed prior to the procedure. Preparation (MIPS): The site was prepared and draped using all elements of maximal sterile barrier techniqu e including sterile gloves, sterile gown, cap, mask, large sterile sheet, ster ile ultrasound probe cover, hand hygiene and cutaneous antisepsis with 2% chlo rhexidine. Medical reason for site preparation exception (MIPS): Not applicab le Anesthesia/sedation Level of anesthesia/sedation: No sedation Acc ess Local anesthesia was administered. The vessel was sonographically evaluate d and determined to be patent. Real time ultrasound was used to visualize need le entry into the vessel and a permanent image was stored. Vein accessed: In ternal jugular vein Access technique: Micropuncture set with 21 gauge needle Catheter placement The access site was dilated and the catheter was placed into the vein over a wire. A sterile dressing was applied. Catheter placed: Bard Trialysis Catheter size (St Helenian): 13 Catheter length (cm): 15 Cathet er flush: Normal saline Catheter securement technique: Non-absorbable suture Contrast Contrast agent: None Radiation Dose None. Ultrasound only. Additional Details Additional description of procedure: None Equipment details: None Specimens removed: None Estimated blood loss (mL): Less than 10 Standardized report: SIR_CVA_NonTunneledCatheter_v3 Attestation Sign er name: Jyothi Tapia MD I attest that I was present for the entire procedure. I reviewed the stored images and agree with the report as written. Signed by: Jyothi Tapia MD on 10/21/2019 11:20 AM Dictated By: JYOTHI TAPIA MD Elec tronically Signed By: JYOTHI TAPIA MD on 10/21/19 1120 Transcribed By: AJ on 10/21/19 1120 COPY TO: BALDEMAR WILKES MD US GUIDANCE FOR VASCULAR [id number] 11:17:00 [place] [address] Patient Name: MILA MELCHOR JR MR #: [id number] : 1955 Age/Sex: 64/M Req #: [id number] Adm Physician: BALDEMAR WILKES MD Ordered by: BALDEMAR WILKES MD Report #: [id number] Location: ICU Room/Bed: [place] [address] Procedure: [id number] US/US GUIDANCE FOR VASCULAR ACCES Exam Date: 10/21/19 Exam Time: 953 REPORT STATUS: Si gned PROCEDURE: Non-tunneled central venous catheter placement Procedura l Personnel Attending physician(s): Jyothi Tapia MD Fellow physician(s): None Resident physician(s): None Advanced practice provider(s): None Pre-pr ocedure diagnosis: Acute kidney injury Post-procedure diagnosis: Same Indica tion: Performance of hemodialysis Additional clinical history: None Compl ications: No immediate complications. IMPRESSION: Insertion of right-s ided non-tunneled triple-lumen temporary dialysis catheter. Plan: The ca theter may be used immediately. PROCEDURE SUMMARY: - Venous access with ultrasound guid ance - Non-tunneled central venous catheter insertion - Additional procedur e(s): None PROCEDURE DETAILS: Pre-procedure Consent: Informed consen t for the procedure including risks, benefits and alternatives was obtained an d time-out was performed prior to the procedure. Preparation (MIPS): The site was prepared and draped using all elements of maximal sterile barrier techniqu e including sterile gloves, sterile gown, cap, mask, large sterile sheet, ster ile ultrasound probe cover, hand hygiene and cutaneous antisepsis with 2% chlo rhexidine. Medical reason for site preparation exception (MIPS): Not applicab le Anesthesia/sedation Level of anesthesia/sedation: No sedation Acc ess Local anesthesia was administered. The vessel was sonographically evaluate d and determined to be patent. Real time ultrasound was used to visualize need le entry into the vessel and a permanent image was stored. Vein accessed: In ternal jugular vein Access technique: Micropuncture set with 21 gauge needle Catheter placement The access site was dilated and the catheter was placed into the vein over a wire. A sterile dressing was applied. Catheter placed: [employer] Trialysis Catheter size (St Helenian): 13 Catheter length (cm): 15 Cathet er flush: Normal saline Catheter securement technique: Non-absorbable suture Contrast Contrast agent: None Radiation Dose None. Ultrasound only. Additional Details Additional description of procedure: None Equipment details: None Specimens removed: None Estimated blood loss (mL): Less than 10 Standardized report: SIR_CVA_NonTunneledCatheter_v3 Attestation Sign er name: Jyothi Tapia MD I attest that I was present for the entire procedure. I reviewed the stored images and agree with the report as written. Signed by: Jyothi Tapia MD on 10/21/2019 11:20 AM Dictated By: JYOTHI TAPIA MD Elec tronically Signed By: JYOTHI TAPIA MD on 10/21/19 1120 Transcribed By: AJ on 10/21/19 1120 COPY TO: BALDEMAR WILKES MD Random Vancomycin Level 2019-10-21 09:49:00* Test Item Value Reference Range Interpretation Comments Random Vancomycin Level (test code = 06794-1) 14.3 [facility]2019-10-21 09:17:00 [place] [address] Patient Name: MILA MELCHOR JR MR #: [id number] : 1955 Age/Sex: 64/M Req #: [id number] Adm Physician: BALDEMAR WILKES MD Ordered by: ANDRIA MICHAEL MD Report #: [id number] Location: ICU Room/Bed: ICU [facility] Procedure: 0 [id number] DX/CHEST SINGLE (PORTABLE) Exam Date: 10/21/19 Exam Time: 05 REPORT STATUS: Signed EXAMINATION: CHEST SINGLE (PORTABLE) INDICATION: Pulmonary e gurpreet COMPARISON: Chest radiograph 10/20/2019 FINDINGS: LINES/T UBES: Left PICC line unchanged. EKG leads overlie the chest. LUNGS:The lung s are well-inflated. There is perihilar fullness and indistinctness of the pul monary vasculature. PLEURA:No pleural effusion or pneumothorax. MEDIAS TINUM:Cardiomediastinal silhouette is stably enlarged. BONES/SOFT TISSUES:N o acute osseous injury. ABDOMEN:No free air under the diaphragm. IM PRESSION: Unchanged pulmonary edema. Signed by: Jyothi Tapia MD on 10/21/19 9:20 AM Dictated By: JYOTHI TAPIA MD 9 Transcribed By: AJ on 10/21/19919 COPY TO: ANDRIA MICHAEL MD Prothrombin Kilj3278-97-40 09:03:00* Test Item Value Reference Range Interpretation Comments Prothrombin Time (test code = 5902-2) 16.1 11.9-14.5 [facility] CenterProthromb Time International Ratio 2019-10-21 09:03:00* Test Item Value Reference Range Interpretation Comments Prothromb Time International Ratio (test code = 6301-6) 1.23 Oral Anticoagulant Therapy INR Values:1. Low Intensity Therapy 1.5 - 2.02 . Moderate Intensity Therapy 2.0 - 3.03. High Intensity Therapy(1) 2.5 - 3. 54. High Intensity Therapy(2) 3.0 - 4.05. Panic Value INR > 5.0 [facility] CenterActivated Partial Thromboplast Time 2019-10-21 09:03:00* Test Item Value Reference Range Interpretation Comments Activated Partial Thromboplast Time (test code = 40089-2) 38.6 23.8-35.5 H [facility] CenterB-Type Natriuretic Htprzvw7844-83-80 05:37:00* Test Item Value Reference Range Interpretation Comments B-Type Natriuretic Peptide (test code = 14586-5) 416.3 0-100 H [facility] CenterUS RENAL RETROPERITONEAL [id number] 00:05:00 [facility] [address] [place] [address] Patient Name: MILA MELCHOR JR MR #: [id number] : 1955 Age/Sex: 64/M Req #: [id number] Adm Physician: BALDEMAR WILKES MD Ordered by: ANDRIA MICHAEL MD Report #: [id number] Location: ICU Room/Bed: ICU [facility] Procedure: 0 105-0002 US/US RENAL RETROPERITONEAL COMP Exam Date: 10/20/19 Exam Time: [address] ATUS: Signed EXAM: Renal Ultrasound INDICATION: ACUTE RENAL FAILURE COM PARISON: None TECHNIQUE: Transverse and longitudinal images of the kidneys an d bladder were obtained. FINDINGS: Right Kidney: Size : 12.7 cm Echogenicity: Normal Parenchymal thickness: Normal Collecting system: No hydronephrosis Stones: None Cyst/Mass: None Left Kidney: Size: 11.4 cm Echogenicity: Normal Parenchymal thickness: Normal Collecting system: No hydronephrosis Stones: None Cyst/Mass: None Bladder: Empty, not well seen Heterogeneous thickened gallbladder wall, approximately 7 mm thick, upper l imit of normal is 3mm. IMPRESSION: Incidental discovery of findings co ncerning for cholecystitis, possibly chronic. No gallstones seen. Normal sonographic appearance of the kidneys. Signed by: Carlton Fernandez DO on 10/21 12:08 AM Dictated By: CARLTON FERNANDEZ DO Transcribed By: AJ on 10/21/197 COPY TO: ANDRIA MICHAEL MD CHEST SINGLE (PORTABLE) 2019-10-20 21:38:00 [place] [address] Patient Name: MILA MELCHOR JR MR #: [id number] : 1955 Age/Sex: 64/M Req #: [id number] Adm Physician: Ordered by: ANDRIA MICHAEL MD Report #: [id number] Location: ER Room/Bed: Procedure: 0 105-0040 DX/CHEST SINGLE (PORTABLE) Exam Date: 10/20/19 Exam Time: 2044 REPORT STATUS: Signed EXAMINATION: CHEST SINGLE (PORTABLE) INDICATION: Short of br eath, eval PICC line placement COMPARISON: Chest x-ray 10/01/2019 FINDINGS: TUBES and LINES: Left upper extremity PICC tip termin ates at the superior cavoatrial junction.. LUNGS/PLEURA: Lung volumes wit hin normal limits. Increased pulmonary cyst along markings. Thickening of the right minor fissure. Peribronchial cuffing. Prominent pulmonary vasculature. T he costophrenic sulci are not well defined. HEART AND MEDIASTINUM: Cardiac size is mildly enlarged. BONES AND SOFT TISSUES: No acute osseous lesion. Soft tissues are unremarkable. UPPER ABDOMEN: No free air under the di aphragm. IMPRESSION: 1. Left upper extremity PICC tip terminates at the superior cavoatrial junction. 2. Mild cardiomegaly and findings of pul monary interstitial edema. Small pleural effusions are suspected. Superimposed pneumonia is possible. Signed by: Carlton Fernandez DO on 10/20/2019 9:40 PM Dictated By: CARLTON FERNANDEZ DO 39 Transcribed By: AJ on 10/20/192139 COPY TO: ANDRIA MICHAEL MD Urine [id number] 21:19:00* Test Item Value Reference Range Interpretation Comments Urine WBC (test code = 5821-4) 0-5 0-5 [facility] BHV1008-16-14 21:19:00* Test Item Value Reference Range Interpretation Comments Urine RBC (test code = 80521-6) 6-10 0-5 H [facility] CenterUrine Jksmefqu8389-40-88 21:19:00* Test Item Value Reference Range Interpretation Comments Urine Bacteria (test code = 08870-0) FEW NONE [facility] Center[facility] Epithelial Nqiig1274-39-02 21:19:00 * Test Item Value Reference Range Interpretation Comments Urine Epithelial Cells (test code = 40038-0) FEW NONE [facility] CenterU[facility] Zsipo8498-11-51 21:11:00* Test Item Value Reference Range Interpretation Comments Urine Color (test code = 5778-6) YELLOW YELLOW [facility] Dgioaor6174-55-54 21:11:00* Test Item Value Reference Range Interpretation Comments Urine Clarity (test code = 60703-6) SL CLOUDY CLEAR H [facility] CenterUrine Specific Ceppqcj6472-97-45 21:11:00 * Test Item Value Reference Range Interpretation Comments Urine Specific [place] (test code = 5811-5) >=1.030 1.010-1.02 5 [facility] CenterU[facility] vF4919-68-85 21:11:00* Test Item Value Reference Range Interpretation Comments Urine pH (test code = 89975-1) 5.5 5-7 [facility] Leukocyte Yxmovjed1954-59-63 21:11:00* Test Item Value Reference Range Interpretation Comments Urine Leukocyte Esterase (test code = 55727-9) NEGATIVE NEGATIV E [facility] CenterU[facility] Bagbpos7228-82-21 21:11:00* Test Item Value Reference Range Interpretation Comments Urine Nitrite (test code = 23770-5) NEGATIVE NEGATIVE [facility] Mxsijsn8616-53-67 21:11:00* Test Item Value Reference Range Interpretation Comments Urine Protein (test code = 67862-3) TRACE NEGATIVE H [facility] CenterUrine Glucose (UA)2019-10-20 21:11:00* Test Item Value Reference Range Interpretation Comments Urine Glucose (UA) (test code = 86931-6) NEGATIVE NEGATIVE [facility] CenterU[facility] Capfbck1726-75-63 21:11:00* Test Item Value Reference Range Interpretation Comments Urine Ketones (test code = 53505-4) NEGATIVE NEGATIVE [facility] CenterU[facility] Lofqmglwfzws0161-66-95 21:11:00* Test Item Value Reference Range Interpretation Comments Urine Urobilinogen (test code = 27722-7) 0.2 0.2-1 [facility] Gixkbwtif0194-68-12 21:11:00* Test Item Value Reference Range Interpretation Comments Urine Bilirubin (test code = 1977-8) NEGATIVE NEGATIVE [facility] Center[facility] Wdlgm5768-36-96 21:11:00* Test Item Value Reference Range Interpretation Comments Urine Blood (test code = 40472-3) MODERATE NEGATIVE [facility] CenterCHEST XRAY LINE SEAQPWMRN2978-20-84 14:09:00 [place] [address] Patient Name: MILA MELCHOR JR MR #: [id number] : 1955 Age/Sex: 64/M Req #: [id number] Adm Physician: INES GUO MD Ordered by: ANAHI PAINTER MD Report #: [id number] Location: MED/SURG Room/Bed: [facility] Procedure: 1217-01 14 DX/CHEST XRAY LINE PLACEMENT Exam Date: 10/01/19 Exam Time: 2335 REPORT STATUS: Sign ed EXAMINATION: CHEST XRAY LINE PLACEMENT INDICATION: Line placemen t COMPARISON: Chest radiograph 09/27/2019 FINDINGS: LINES/TU BES:Left PICC line terminates near the confluence of innominate veins. LUNG S:The lungs are well-inflated. There is perihilar fullness and indistinctness of the pulmonary vasculature. PLEURA:No pleural effusion or pneumothorax. MEDIASTINUM:The cardiomediastinal silhouette appears normal in size and shap e. BONES/SOFT TISSUES:No acute osseous injury. ABDOMEN:No free air und er the diaphragm. IMPRESSION: Left PICC line terminates near the conf luence of innominate veins. Pulmonary interstitial edema. Signed by: Renetta Tapia MD on 10/17/2019 2:10 PM Dictated By: JYOTHI TAPIA MD [facility] Signed By: JYOTHI TAPIA MD on 10/17/19 1410 Transcribed By: AJ on 1410 COPY TO: ANAHI PAINTER MD Blood Ypxmtvh9374-57-97 08:51:00* Test Item Value Reference Range Interpretation Comments Blood Culture (test code = 51371769) NO GROWTH AFTER 5 DAYS, FINAL REPORT [facility] CenterDifferential Total Cells Counted 2019-10-03 12:42:00* Test Item Value Reference Range Interpretation Comments Differential Total Cells Counted (test code = Differen tial Total Cells Counted) 100 [facility] CenterNeutrophils % (Manual)2019-10-03 12:42:00 * Test Item Value Reference Range Interpretation Comments Neutrophils % (Manual) (test code = 40518-1) 81 40-74 H [facility] CenterBand Neutrophils %2019-10-03 12:42:00* Test Item Value Reference Range Interpretation Comments Band Neutrophils % (test code = 764-1) 4 [facility] CenterLymphocytes % (Manual)2019-10-03 12:42:00 * Test Item Value Reference Range Interpretation Comments Lymphocytes % (Manual) (test code = 737-7) 9 19-48 L [facility] CenterMonocytes % (Manual)2019-10-03 12:42:00* Test Item Value Reference Range Interpretation Comments Monocytes % (Manual) (test code = 744-3) 6 3.4-9.0 [facility] CenterPlatelet Zsjlkqyv0965-12-86 12:42:00* Test Item Value Reference Range Interpretation Comments Platelet Estimate (test code = 57506-9) SLIGHTLY DECREASED [facility] CenterPlatelet Morphology Hbdwivl8116-32-36 12:42:00* Test Item Value Reference Range Interpretation Comments Platelet Morphology Comment (test code = 73162-1) NORMAL [facility] CenterRed Cell Morphology Onygmdh4790-17-46 12:42:00* Test Item Value Reference Range Interpretation Comments Red Cell Morphology Comment (test code = 6742-1) NORMAL [facility] CenterDifferential Total Cells Counted 2019-10-03 12:42:00* Test Item Value Reference Range Interpretation Comments Differential Total Cells Counted (test code = Differmane tial Total Cells Counted) 100 [facility] CenterNeutrophils % (Manual)2019-10-03 12:42:00 * Test Item Value Reference Range Interpretation Comments Neutrophils % (Manual) (test code = 05371-1) 81 40-74 H [facility] CenterBand Neutrophils %2019-10-03 12:42:00* Test Item Value Reference Range Interpretation Comments Band Neutrophils % (test code = 764-1) 4 [facility] CenterLymphocytes % (Manual)2019-10-03 12:42:00 * Test Item Value Reference Range Interpretation Comments Lymphocytes % (Manual) (test code = 737-7) 9 19-48 L [facility] CenterMonocytes % (Manual)2019-10-03 12:42:00* Test Item Value Reference Range Interpretation Comments Monocytes % (Manual) (test code = 744-3) 6 3.4-9.0 [facility] CenterPlatelet Httirglm4978-64-70 12:42:00* Test Item Value Reference Range Interpretation Comments Platelet Estimate (test code = 17931-8) SLIGHTLY DECREASED [facility] CenterPlatelet Morphology Qdzzook1065-33-79 12:42:00* Test Item Value Reference Range Interpretation Comments Platelet Morphology Comment (test code = 57259-5) NORMAL [facility] CenterRed Cell Morphology Qdbjuke1087-29-87 12:42:00* Test Item Value Reference Range Interpretation Comments Red Cell Morphology Comment (test code = 6742-1) NORMAL [facility] CenterBlood Bldoqed8802-94-27 08:51:00* Test Item Value Reference Range Interpretation Comments Blood Culture (test code = 10682885) NO GROWTH AFTER 48 HOURS [facility] CenterBedside Ypuavqi4572-53-52 08:15:00* Test Item Value Reference Range Interpretation Comments Bedside Glucose (test code = 71267-8) 199 70-120 H Meter ID: [id number] Midlothian Medical Centerodium Level 2019-10-02 06:03:00* Test Item Value Reference Range Interpretation Comments Sodium Level (test code = 2951-2) 133 136-145 L [facility] CenterPotassium Wnlbz5225-91-50 06:03:00* Test Item Value Reference Range Interpretation Comments Potassium Level (test code = 2823-3) 4.5 3.5-5.1 [facility] CenterChloride Cwofx1547-84-75 06:03:00* Test Item Value Reference Range Interpretation Comments Chloride Level (test code = 2075-0) 107 98-107 [facility] CenterCarbon Dioxide Jjyrz5117-31-82 06:03:00* Test Item Value Reference Range Interpretation Comments Carbon Dioxide Level (test code = 2028-9) 18 22-29 L [facility] CenterAnion Ckv8756-88-76 06:03:00* Test Item Value Reference Range Interpretation Comments Anion Gap (test code = 84538-6) 12.5 8-16 [facility] CenterBlood Urea Txygawfg6195-39-60 06:03:00* Test Item Value Reference Range Interpretation Comments Blood Urea Nitrogen (test code = 3094-0) 82 7-26 H [facility] CenterCreatinine2019-12-18 06:03:00* Test Item Value Reference Range Interpretation Comments Creatinine (test code = 2160-0) 2.07 0.72-1.25 H [facility] CenterBUN/Creatinine Genjk5337-75-41 06:03:00* Test Item Value Reference Range Interpretation Comments BUN/Creatinine Ratio (test code = 3097-3) 40 6-25 H [facility] CenterEstimat Glomerular Filtration Rate 2019-10-02 06:03:00* Test Item Value Reference Range Interpretation Comments Estimat Glomerular Filtration Rate (test code = 759658523) 33 >60 L Ranges were taken from the National Kidney Disease Education Program and the [facility] Kidney Foundation literature.Reference ranges:60 or greater: Viapuv72-61 ( for 3 consecutive months): Chronic kidney disease 15 or less: Kidney failureScenic Mountain Medical CenterGlucose Sdapz0440-42-08 06:03:00* Test Item Value Reference Range Interpretation Comments Glucose Level (test code = SFC0563) 216 74-118 H [facility] CenterCalcium Nzxyy4387-43-77 06:03:00* Test Item Value Reference Range Interpretation Comments Calcium Level (test code = 43169-1) 7.7 8.4-10.2 L [facility] CenterWhite Blood Shjlz8409-25-24 05:45:00* Test Item Value Reference Range Interpretation Comments White Blood Count (test code = 6690-2) 11.47 4.8-10.8 H [facility] CenterRed Blood Axloq0264-99-92 05:45:00* Test Item Value Reference Range Interpretation Comments Red Blood Count (test code = 789-8) 3.22 4.3-5.7 L [facility] CenterHemoglobin2019-12-18 05:45:00* Test Item Value Reference Range Interpretation Comments Hemoglobin (test code = 56656-4) 8.8 14.0-18.0 L [facility] CenterHematocrit2019-12-18 05:45:00* Test Item Value Reference Range Interpretation Comments Hematocrit (test code = 4544-3) 27.3 38.2-49.6 L [facility] CenterMean Corpuscular Umzvda7245-68-68 05:45:00* Test Item Value Reference Range Interpretation Comments Mean Corpuscular Volume (test code = 787-2) 84.8 81-99 [facility] CenterMean Corpuscular Vzcjicbeoe9630-74-74 05:45:00* Test Item Value Reference Range Interpretation Comments Mean Corpuscular Hemoglobin (test code = 785-6) 27.3 28-32 L [facility] Corpuscular Hemoglobin Concent 2019-10-02 05:45:00* Test Item Value Reference Range Interpretation Comments Mean Corpuscular Hemoglobin Concent (test code = 786-4) 32.2 31-35 [facility] CenterRed Cell Distribution Knazw3160-52-76 05:45:00* Test Item Value Reference Range Interpretation Comments Red Cell Distribution Width (test code = 13347-0) 17.4 11.7 -14.4 H [facility] CenterPlatelet Bfxct8771-54-21 05:45:00* Test Item Value Reference Range Interpretation Comments Platelet Count (test code = 777-3) 138 140-360 L [facility] CenterCHEST XRAY LINE KNSKOBRHM3160-90-46 01:06:00 [place] [address] Patient Name: MILA MELCHOR JR MR #: [id number] : 1955 Age/Sex: 64/M Req #: [id number] Adm Physician: INES GUO MD Ordered by: ANAHI PAINTER MD Report #: [id number] Location: MED/SURG Room/Bed: [facility] Procedure: 1218-00 16 DX/CHEST XRAY LINE PLACEMENT Exam Date: 10/02/19 Exam Time: 0 REPORT STATUS: Sign ed EXAMINATION: CHEST XRAY LINE PLACEMENT INDICATION: 2018 1217 0020 picc line adjustment COMPARISON: 10/01/2019 at 2249 hours FINDINGS: AP view TUBES and LINES: Redemonstration of left P ICC with tip projecting over mid SVC. LUNGS: Lungs are well inflated. P ulmonary vascular congestion and mild interstitial edema. PLEURA: No ple ural effusion or pneumothorax. HEART AND MEDIASTINUM: The cardiomediastina l silhouette is prominent. BONES AND SOFT TISSUES: No acute osseous le anand. Soft tissues are unremarkable. UPPER ABDOMEN: No free air under th e diaphragm. IMPRESSION: PICC line tip projects over mid SVC. Pulm onary vascular congestion and mild additional edema. Signed by: Dr. Baba renetta Painter MD on 10/02/2019 1:07 AM Dictated By: ANAHI PAINTER MD Electr onically Signed By: ANAHI PAINTER MD on 10/02/19106 Transcribed By: AJ almanzar 10/02/19106 COPY TO: ANAHI PAINTER MD CHEST XRAY LINE DADEQLNOJ2952-33-40 23:07:00 [place] [address] Patient Name: MILA MELCHOR JR MR #: [id number] : 1955 Age/Sex: 64/M Req #: [id number] Adm Physician: INES GUO MD Ordered by: KENNEDY HEIN MD Report #: [id number] Location: MED/SURG Room/Bed: [facility] Procedure: 2246-1559 DX/CHEST XRAY LINE PLACEMENT Exam Date: 10/01/19 Ada mckeon Time: 2244 REPORT STATUS: Signed EXAMINATION: CHEST XRAY LINE PLACEMENT INDICATION: PICC LI NE PLACEMENT 20191001 Y COMPARISON: Same day at 1857 hours FINDINGS: AP view TUBES and LINES: Left PICC in place. The di stal tip is not clearly visualized and is probably projecting over the left br achiocephalic vein. Multiple external leads overlie the right thorax. NORBERTO GS: Limited by body habitus. Lungs are well inflated. Pulmonary vascular sakshi estion on mild interstitial edema. PLEURA: No pleural effusion or pneumoth orax. HEART AND MEDIASTINUM: The cardiomediastinal silhouette is prominent . BONES AND SOFT TISSUES: No acute osseous lesion. Soft tissues are unremarkable. UPPER ABDOMEN: No free air under the diaphragm. IMP RESSION: No change from prior exam. Signed by: Dr. Anahi Painter MD on 10/01/2019 11:09 PM Dictated By: ANAHI PAINTER MD Electronically Sign ed By: ANAHI PAINTER MD on 10/01/19 9137 Transcribed By: AJ on 10/01/1908 07 COPY TO: KENNEDY HEIN MD CHEST XRAY LINE ISSNOZMIQ9461-09-23 19:49:00 [place] [address] Patient Name: MILA MELCHOR JR MR #: [id number] : 1955 Age/Sex: 64/M Req #: [id number] Adm Physician: INES GUO MD Ordered by: KENNEDY HARVEY MD Report #: [id number] Location: MED/SURG Room/Bed: [facility] Procedure: 7- 02 DX/CHEST XRAY LINE PLACEMENT Exam Date: Exam Christopher e: REPORT STATUS: Signed EXAMIN ATION: CHEST XRAY LINE PLACEMENT INDICATION: Check Picc line placement COMPARISON: 10/01/2019 FINDINGS: TUBES and SERAFIN ES: Left upper extremity PICC with distal tip not well-visualized. It does no t appear to extend into the SVC, possibly within the left innominate vein.. LUNGS: Lungs are well inflated. Lungs are clear. There is no evidence of pneumonia or pulmonary edema. PLEURA: No pleural effusion or pneumothorax. HEART AND MEDIASTINUM: The cardiomediastinal silhouette is unremarkable. BONES AND SOFT TISSUES: No acute osseous lesion. Soft tissues are unremarkable. UPPER ABDOMEN: No free air under the diaphragm. IMP RESSION: Left upper extremity PICC with distal tip not well-visualized, possi tiffanie within the left innominate vein. Signed by: Dr. Ramya vazquez M.D. on 10/01/2019 7:51 PM Dictated By: CLINT DEL TORO MD, MD Electro nically Signed By: CLINT DEL TORO MD, MD on 10/01/191950 Transcribed By: DAWSON Almanzar on 10/01/191950 COPY TO: KENNEDY HARVEY MD CHEST SINGLE (PORTABLE)2019-10-01 10:01:00 [place] [address] Patient Name: MILA MELCHOR JR MR #: [id number] : 1955 Age/Sex: 64/M Req #: [id number] Adm Physician: INES GUO MD Ordered by: ABRAHAM ALVES Report #: [id number] Location: MED/SURG Room/Bed: 102-1 Procedure: 1217 -0027 DX/CHEST SINGLE (PORTABLE) Exam Date: 10/01/19 Exam Time: 09 REPORT STATUS: Sig jelani EXAM: CHEST SINGLE (PORTABLE) DATE: 10/01/2019 8:21 AM INDIC ATION: Hypothermia COMPARISON: 09/27/2019 IMPRESSION: The trachea is midline. There has been interval improvement of previously visualized perih ilar opacities. There is no evidence for large focal consolidation, pneumothor ax, or significant pleural effusion. The cardiomediastinal silhouette is st able in appearance. No acute osseous abnormality is identified. The surroundin g soft tissues are unremarkable. Signed by: Dr. Simeon Sorto MD on 019 10:03 AM Dictated By: SIMEON SORTO MD 1003 Transcribed By: AJ on 10/01/19 1003 COPY TO: ABRAHAM ALVES Random Vancomycin [id number] 09:45:00* Test Item Value Reference Range Interpretation Comments Random Vancomycin Level (test code = 11472-7) 14.9 [facility]2019-10-01 09:07:00 * Test Item Value Reference Range Interpretation Comments Neutrophils (%) (Auto) (test code = 19109-4) 90.4 38.7-80.0 H [facility] (Auto)2019-10-01 09:07:00 * Test Item Value Reference Range Interpretation Comments Lymphocytes (%) (Auto) (test code = 736-9) 5.7 18.0-39.1 L [facility] (Auto)2019-10-01 09:07:00* Test Item Value Reference Range Interpretation Comments Monocytes (%) (Auto) (test code = 5905-5) 3.4 4.4-11.3 L [facility] (Auto)2019-10-01 09:07:00 * Test Item Value Reference Range Interpretation Comments Eosinophils (%) (Auto) (test code = 713-8) 0.0 0.0-6.0 [facility] ([facility])2019-10-01 09:07:00* Test Item Value Reference Range Interpretation Comments Basophils (%) (Auto) (test code = 706-2) 0.1 0.0-1.0 [facility] %2019-10-01 09:07:00* Test Item Value Reference Range Interpretation Comments IM GRANULOCYTES % (test code = IM GRANULOCYTES %) 0.4 0.0- 1.0 [facility] # (Auto)2019-10-01 09:07:00* Test Item Value Reference Range Interpretation Comments Neutrophils # (Auto) (test code = 751-8) 11.6 2.1-6.9 H [facility] # (Auto)2019-10-01 09:07:00* Test Item Value Reference Range Interpretation Comments Lymphocytes # (Auto) (test code = 99057-4) 0.7 1.0-3.2 L [facility] # (Auto)2019-10-01 09:07:00* Test Item Value Reference Range Interpretation Comments Monocytes # (Auto) (test code = 742-7) 0.4 0.2-0.8 [facility] # (Auto)2019-10-01 09:07:00* Test Item Value Reference Range Interpretation Comments Eosinophils # (Auto) (test code = 711-2) 0.0 0.0-0.4 [facility] # (Auto)2019-10-01 09:07:00* Test Item Value Reference Range Interpretation Comments Basophils # (Auto) (test code = 704-7) 0.0 0.0-0.1 [facility] Immature Granulocyte (auto 2019-10-01 09:07:00* Test Item Value Reference Range Interpretation Comments Absolute Immature Granulocyte (auto (gin t code = Absolute Immature Granulocyte (auto) 0.05 0-0.1 [facility] CenterTroponin [id number] 23:19:00* Test Item Value Reference Range Interpretation Comments Troponin I (test code = EFS2131) 0.112 0-0.300 [facility] CenterCreatine Kinase [id number] 17:39:00* Test Item Value Reference Range Interpretation Comments Creatine Kinase MB (test code = 46600-7) 4.30 0-5.0 [facility]Creat[facility] [id number] 17:34:00* Test Item Value Reference Range Interpretation Comments Creatine Kinase (test code = 2157-6) 229 30-200 H [facility] CenterKNEE LEFT 1-2 [id number] 14:50:00 [place] [address] Patient Name: MILA MELCHOR JR MR #: [id number] : 11/1954 Age/Sex: 64/M Req #: [id number] Adm Physician: INES GUO MD Ordered by: INES GUO MD Report #: [id number] [facility]: [facility] Procedure: 54 DX/KNEE LEFT 1-2 VIEWS Exam Date: Exam Time: REPORT STATUS: Signed EXAMINATION: KNEE LEFT 1-2 VIEWS INDICATION: Postoperative COMPARISON: None FINDINGS: Postoperative findings of left knee arthroplasty hardware removal and placement of spacer. Alignment appears anatomic. Cortical regula rity at the anterior tibial metaphysis may be postoperative. Postoperative sub cutaneous soft tissue emphysema. Surgical clips in the soft tissues. IMPR ESSION: Postoperative findings of the left knee as above. Signed by: Reid Tapia MD on 09/30/2019 2:52 PM Dictated By: JYOTHI TAPIA MD Electronica lly Signed By: JYOTHI TAPIA MD on 09/30/19 145 Transcribed By: AJ on 145 COPY TO: INES GUO MD CHEST 2 [id number] 11:10:00 [place] [address] Patient Name: MILA MELCHOR JR MR #: [id number] : 1955 Age/Sex: 64/M Req #: [id number] Adm Physician: Ordered by: INES GUO MD Report #: [id number] Location: OR Room/Bed: Procedure: 1213-002 0 DX/CHEST 2 VIEWS Exam Date: 09/27/19 Exam Time: 08 03 REPORT STATUS: Signed Chest, PA and lateral. History: Preoperative evaluation for knee surgery. Com parison: None available. Discussion: The cardiomediastinal silhouette and pulmonary vasculature are within normal limits. The lungs are clear without ev idence of consolidation or effusion. There are no acute osseous abnormalities . IMPRESSION: No acute cardiopulmonary abnormality. Signed by: Vijay Dalton MD on 09/27/2019 11:10 AM Dictated By: ANNA DALTON MD 1110 Transcribed By: AJ on 09/27/19 1110 COPY TO: INES GUO MD GLUBED 2019-05-23 17:58:00* Test Item Value Reference Range Interpretation Comments GLUBED (test code = GLUBED) 145 mg/dL 74-106 H Performed by certified double cut off saw operator at [facility] [id number] 16:53:00* Test Item Value Reference Range Interpretation Comments GLUBED (test code = GLUBED) 198 mg/dL 74-106 H Performed by certified double cut off saw operator at [facility] COMPREHENSIVE METABOLIC [id number] 06:38:00* Test Item Value Reference Range Interpretation Comments SODIUM (test code = NA) 134 mmol/L 136-145 L POTASSIUM (test code = K) 3.9 mmol/L 3.5-5.1 N CHLORIDE (test code = CL) 94.0 mmol/L 98-107 L CARBON DIOXIDE (test code = CO2) 29.0 mmol/L 21-32 N ANION GAP (test code = GAP) 14.9 10-20 N GLUCOSE (test code = GLU) 197 mg/dL 74-106 H BLOOD UREA NITROGEN (test code = BUN) 60 mg/dL 7-18 H GLOMERULAR FILTRATION RATE (test code = GFR) 34 mL/min >=60 Estimated GFR by using Modified MDRD formula.Chronic kidney disease is defined as either kidney damageor GFR <60 mL/min/1.73 m2 for >3 months. CREATININE (test code = CREAT) 2.00 mg/dL 0.7-1.3 H BUN/CREATININE RATIO (test code = BUN/CREA) 29.9 10-20 H TOTAL PROTEIN (test code = PROT) 7.6 gram/dL 6.4-8.2 N ALBUMIN (test code = ALB) 3.1 g/dL 3.4-5.0 L GLOBULIN (test code = GLOB) 4.5 gram/dL 2.7-4.2 H ALBUMIN/GLOBULIN RATIO (test code = A/G) 0.7 0.75-1.50 L CALCIUM (test code = CA) 8.7 mg/dL 8.5-10.1 N BILIRUBIN TOTAL (test code = BILT) 0.30 mg/dL 0.0-1.0 N SGOT/AST (test code = AST) 31 IUnit/L 15-37 N SGPT/ALT (test code = ALT) 48 IUnit/L 12-78 N ALKALINE PHOSPHATASE TOTAL (test code = ALKP) 112 IUnit/L 45-117 N Note change in reference range due to change in reagent. [id number] 06:38:00* Test Item Value Reference Range Interpretation Comments MAGNESIUM (test code = MAG) 2.6 mg/dL 1.8-2.4 H COMPREHENSIVE METABOLIC [id number] 06:28:00* Test Item Value Reference Range Interpretation Comments SODIUM (test code = NA) 134 mmol/L 136-145 L POTASSIUM (test code = K) 3.9 mmol/L 3.5-5.1 N CHLORIDE (test code = CL) 94.0 mmol/L 98-107 L CARBON DIOXIDE (test code = CO2) mmol/L 21-32 ANION GAP (test code = GAP) 10-20 GLUCOSE (test code = GLU) mg/dL 74-106 BLOOD UREA NITROGEN (test code = BUN) mg/dL 7-18 GLOMERULAR FILTRATION RATE (test code = GFR) mL/min >=60 CREATININE (test code = CREAT) mg/dL 0.7-1.3 BUN/CREATININE RATIO (test code = BUN/CREA) 10-20 TOTAL PROTEIN (test code = PROT) gram/dL 6.4-8.2 ALBUMIN (test code = ALB) g/dL 3.4-5.0 GLOBULIN (test code = GLOB) gram/dL 2.7-4.2 ALBUMIN/GLOBULIN RATIO (test code = A/G) 0.75-1.50 CALCIUM (test code = CA) mg/dL 8.5-10.1 BILIRUBIN TOTAL (test code = BILT) mg/dL 0.0-1.0 SGOT/AST (test code = AST) IUnit/L 15-37 SGPT/ALT (test code = ALT) IUnit/L 12-78 ALKALINE PHOSPHATASE TOTAL (test code = ALKP) IUnit/L 45-117 [id number] 06:28:00* Test Item Value Reference Range Interpretation Comments MAGNESIUM (test code = MAG) mg/dL 1.8-2.4 CBC W/AUTO [id number] 06:10:00* Test Item Value Reference Range Interpretation Comments WHITE BLOOD CELL (test code = WBC) 9.6 K/mm3 4.5-12.5 N RED BLOOD CELL (test code = RBC) 3.87 mill/mm3 4.0-5.8 L HEMOGLOBIN (test code = HGB) 10.4 gram/dL 13.0-17.5 L HEMATOCRIT (test code = HCT) 32.4 % 42.0-52.0 L MEAN CELL VOLUME (test code = MCV) 83.7 fL 80-98 N MEAN CELL HGB (test code = MCH) 26.9 picogram 27.0-33.0 L MEAN CELL HGB CONCETRATION (test code = MCHC) 32.1 gram/dL 33.0-36. 0 L RED CELL DISTRIBUTION WIDTH (test code = RDW) 15.3 % 11.6-16. 2 N RED CELL DISTRIBUTION WIDTH SD (test code = RDW-SD) 46.5 fL 37 .0-51.0 N PLATELET COUNT (test code = PLT) 307 K/mm3 150-450 N MEAN PLATELET VOLUME (test code = MPV) 10.9 fL 6.7-11.0 N NEUTROPHIL % (test code = NT%) 66.8 % 39.0-69.0 N IMMATURE GRANULOCYTE % (test code = IG%) 1.3 % 0.0-5.0 N LYMPHOCYTE % (test code = LY%) 20.4 % 25.0-55.0 L MONOCYTE % (test code = MO%) 7.3 % 0.0-10.0 N EOSINOPHIL % (test code = EO%) 3.8 % 0.0-5.0 N BASOPHIL % (test code = BA%) 0.4 % 0.0-1.0 N NUCLEATED RBC % (test code = NRBC%) 0.0 % 0-0 N NEUTROPHIL # (test code = NT#) 6.42 K/mm3 1.8-7.7 N IMMATURE GRANULOCYTE # (test code = IG#) 0.12 x10 3/uL 0-0.03 H LYMPHOCYTE # (test code = LY#) 1.96 K/mm3 1.0-5.0 N MONOCYTE # (test code = MO#) 0.70 K/mm3 0-0.8 N EOSINOPHIL # (test code = EO#) 0.36 K/mm3 0.0-0.5 N BASOPHIL # (test code = BA#) 0.04 K/mm3 0.0-0.2 N NUCLEATED RBC # (test code = NRBC#) 0.00 K/mm3 0.0-0.1 N MANUAL DIFF REQUIRED (test code = MDIFF) NO [id number] 05:03:00* Test Item Value Reference Range Interpretation Comments GLUBED (test code = GLUBED) 186 mg/dL 74-106 H Performed by certified double cut off saw operator at [facility] [id number] 20:58:00* Test Item Value Reference Range Interpretation Comments GLUBED (test code = GLUBED) 152 mg/dL 74-106 H Performed by certified double cut off saw operator at [facility] [id number] 17:02:00* Test Item Value Reference Range Interpretation Comments GLUBED (test code = GLUBED) 194 mg/dL 74-106 H Performed by certified double cut off saw operator at [facility] [id number] 12:08:00* Test Item Value Reference Range Interpretation Comments GLUBED (test code = GLUBED) 249 mg/dL 74-106 H Performed by certified double cut off saw operator at [facility] - XR CHEST 1 [id number] 09:30:00 FAX: Shreyas Johnson MD [phone] [place]: B St: ADM FAX: Baldemar Wilkes MD [phone] FAX: Ines Barbosa MD [phone] Name: MILA MELCHOR [facility] : 1955 Age/S: 63/M [address] [facility] Unit #: [id number] Loc: V.[address] [place] [address] Phys: Shreyas Stack MD Acct: [id number] Dis Date: Status: ADM IN ONE #: [phone] Exam Date: 05/22/2019819 FAX #: [phone] Reason: chf EXAMS: CPT CODE: [id number] XR CHEST 1 V 01244 REASON FOR EXAM: chf Exam Order Date: [...] Crow MD CC: Shreyas Stack MD; Baldemar Wilkes MD; Ines Antunez MD Technolo gist: RT RENETTA(R) Trnscrd Date/Time/B y: 05/22/2019 (929) : By: [email or web address] Orig Print D/T: S: 05/22/2019 () PAGE 1 Signed Report COMPREHENSIVE METABOLIC [id number] 07:06:00* Test Item Value Reference Range Interpretation Comments SODIUM (test code = NA) 134 mmol/L 136-145 L POTASSIUM (test code = K) 4.0 mmol/L 3.5-5.1 N CHLORIDE (test code = CL) 92.0 mmol/L 98-107 L CARBON DIOXIDE (test code = CO2) 30.0 mmol/L 21-32 N ANION GAP (test code = GAP) 16.0 10-20 N GLUCOSE (test code = GLU) 166 mg/dL 74-106 H BLOOD UREA NITROGEN (test code = BUN) 62 mg/dL 7-18 H GLOMERULAR FILTRATION RATE (test code = GFR) 34 mL/min >=60 Estimated GFR by using Modified MDRD formula.Chronic kidney disease is defined as either kidney damageor GFR <60 mL/min/1.73 m2 for >3 months. CREATININE (test code = CREAT) 2.00 mg/dL 0.7-1.3 H BUN/CREATININE RATIO (test code = BUN/CREA) 31.0 10-20 H TOTAL PROTEIN (test code = PROT) 8.2 gram/dL 6.4-8.2 N ALBUMIN (test code = ALB) 2.9 g/dL 3.4-5.0 L GLOBULIN (test code = GLOB) 5.3 gram/dL 2.7-4.2 H ALBUMIN/GLOBULIN RATIO (test code = A/G) 0.6 0.75-1.50 L CALCIUM (test code = CA) 8.8 mg/dL 8.5-10.1 N BILIRUBIN TOTAL (test code = BILT) 0.50 mg/dL 0.0-1.0 N SGOT/AST (test code = AST) 32 IUnit/L 15-37 N SGPT/ALT (test code = ALT) 61 IUnit/L 12-78 N ALKALINE PHOSPHATASE TOTAL (test code = ALKP) 109 IUnit/L 45-117 N Note change in reference range due to change in reagent. [id number] 07:06:00* Test Item Value Reference Range Interpretation Comments PHOSPHORUS (test code = PHOS) 4.9 mg/dL 2.5-4.9 N [id number] 07:06:00* Test Item Value Reference Range Interpretation Comments MAGNESIUM (test code = MAG) 2.5 mg/dL 1.8-2.4 H COMPREHENSIVE METABOLIC [id number] 06:59:00* Test Item Value Reference Range Interpretation Comments SODIUM (test code = NA) 134 mmol/L 136-145 L POTASSIUM (test code = K) 4.0 mmol/L 3.5-5.1 N CHLORIDE (test code = CL) 92.0 mmol/L 98-107 L CARBON DIOXIDE (test code = CO2) mmol/L 21-32 ANION GAP (test code = GAP) 10-20 GLUCOSE (test code = GLU) mg/dL 74-106 BLOOD UREA NITROGEN (test code = BUN) mg/dL 7-18 GLOMERULAR FILTRATION RATE (test code = GFR) mL/min >=60 CREATININE (test code = CREAT) mg/dL 0.7-1.3 BUN/CREATININE RATIO (test code = BUN/CREA) 10-20 TOTAL PROTEIN (test code = PROT) gram/dL 6.4-8.2 ALBUMIN (test code = ALB) g/dL 3.4-5.0 GLOBULIN (test code = GLOB) gram/dL 2.7-4.2 ALBUMIN/GLOBULIN RATIO (test code = A/G) 0.75-1.50 CALCIUM (test code = CA) mg/dL 8.5-10.1 BILIRUBIN TOTAL (test code = BILT) mg/dL 0.0-1.0 SGOT/AST (test code = AST) IUnit/L 15-37 SGPT/ALT (test code = ALT) IUnit/L 12-78 ALKALINE PHOSPHATASE TOTAL (test code = ALKP) IUnit/L 45-117 [id number] 06:59:00* Test Item Value Reference Range Interpretation Comments PHOSPHORUS (test code = PHOS) mg/dL 2.5-4.9 [id number] 06:59:00* Test Item Value Reference Range Interpretation Comments MAGNESIUM (test code = MAG) mg/dL 1.8-2.4 CBC W/AUTO [id number] 06:38:00* Test Item Value Reference Range Interpretation Comments WHITE BLOOD CELL (test code = WBC) 9.0 K/mm3 4.5-12.5 N RED BLOOD CELL (test code = RBC) 3.77 mill/mm3 4.0-5.8 L HEMOGLOBIN (test code = HGB) 9.9 gram/dL 13.0-17.5 L HEMATOCRIT (test code = HCT) 31.3 % 42.0-52.0 L MEAN CELL VOLUME (test code = MCV) 83.0 fL 80-98 N MEAN CELL HGB (test code = MCH) 26.3 picogram 27.0-33.0 L MEAN CELL HGB CONCETRATION (test code = MCHC) 31.6 gram/dL 33.0-36. 0 L RED CELL DISTRIBUTION WIDTH (test code = RDW) 15.2 % 11.6-16. 2 N RED CELL DISTRIBUTION WIDTH SD (test code = RDW-SD) 46.1 fL 37 .0-51.0 N PLATELET COUNT (test code = PLT) 318 K/mm3 150-450 N MEAN PLATELET VOLUME (test code = MPV) 10.8 fL 6.7-11.0 N NEUTROPHIL % (test code = NT%) 60.9 % 39.0-69.0 N IMMATURE GRANULOCYTE % (test code = IG%) 1.2 % 0.0-5.0 N LYMPHOCYTE % (test code = LY%) 25.5 % 25.0-55.0 N MONOCYTE % (test code = MO%) 7.8 % 0.0-10.0 N EOSINOPHIL % (test code = EO%) 4.0 % 0.0-5.0 N BASOPHIL % (test code = BA%) 0.6 % 0.0-1.0 N NUCLEATED RBC % (test code = NRBC%) 0.0 % 0-0 N NEUTROPHIL # (test code = NT#) 5.46 K/mm3 1.8-7.7 N IMMATURE GRANULOCYTE # (test code = IG#) 0.11 x10 3/uL 0-0.03 H LYMPHOCYTE # (test code = LY#) 2.29 K/mm3 1.0-5.0 N MONOCYTE # (test code = MO#) 0.70 K/mm3 0-0.8 N EOSINOPHIL # (test code = EO#) 0.36 K/mm3 0.0-0.5 N BASOPHIL # (test code = BA#) 0.05 K/mm3 0.0-0.2 N NUCLEATED RBC # (test code = NRBC#) 0.00 K/mm3 0.0-0.1 N MANUAL DIFF REQUIRED (test code = MDIFF) NO [id number] 05:18:00* Test Item Value Reference Range Interpretation Comments GLUBED (test code = GLUBED) 167 mg/dL 74-106 H Performed by certified double cut off saw operator at [facility] [id number] 21:38:00* Test Item Value Reference Range Interpretation Comments GLUBED (test code = GLUBED) 193 mg/dL 74-106 H Performed by certified double cut off saw operator at [facility] [id number] 18:54:00* Test Item Value Reference Range Interpretation Comments GLUBED (test code = GLUBED) 184 mg/dL 74-106 H Performed by certified double cut off saw operator at [facility] [id number] 18:54:00* Test Item Value Reference Range Interpretation Comments GLUBED (test code = GLUBED) 172 mg/dL 74-106 H Performed by certified double cut off saw operator at [facility] COMPREHENSIVE METABOLIC [id number] 06:24:00* Test Item Value Reference Range Interpretation Comments SODIUM (test code = NA) 136 mmol/L 136-145 N POTASSIUM (test code = K) 4.4 mmol/L 3.5-5.1 N CHLORIDE (test code = CL) 94.0 mmol/L 98-107 L CARBON DIOXIDE (test code = CO2) 31.0 mmol/L 21-32 N ANION GAP (test code = GAP) 15.4 10-20 N GLUCOSE (test code = GLU) 201 mg/dL 74-106 H BLOOD UREA NITROGEN (test code = BUN) 58 mg/dL 7-18 H GLOMERULAR FILTRATION RATE (test code = GFR) 32 mL/min >=60 Estimated GFR by using Modified MDRD formula.Chronic kidney disease is defined as either kidney damageor GFR <60 mL/min/1.73 m2 for >3 months. CREATININE (test code = CREAT) 2.10 mg/dL 0.7-1.3 H BUN/CREATININE RATIO (test code = BUN/CREA) 27.6 10-20 H TOTAL PROTEIN (test code = PROT) 7.9 gram/dL 6.4-8.2 N ALBUMIN (test code = ALB) 3.1 g/dL 3.4-5.0 L GLOBULIN (test code = GLOB) 4.8 gram/dL 2.7-4.2 H ALBUMIN/GLOBULIN RATIO (test code = A/G) 0.7 0.75-1.50 L CALCIUM (test code = CA) 8.8 mg/dL 8.5-10.1 N BILIRUBIN TOTAL (test code = BILT) 0.50 mg/dL 0.0-1.0 N SGOT/AST (test code = AST) 53 IUnit/L 15-37 H SGPT/ALT (test code = ALT) 79 IUnit/L 12-78 H ALKALINE PHOSPHATASE TOTAL (test code = ALKP) 117 IUnit/L 45-117 N Note change in reference range due to change in reagent. [id number] 06:24:00* Test Item Value Reference Range Interpretation Comments MAGNESIUM (test code = MAG) 2.3 mg/dL 1.8-2.4 N COMPREHENSIVE METABOLIC [id number] 06:11:00* Test Item Value Reference Range Interpretation Comments SODIUM (test code = NA) 136 mmol/L 136-145 N POTASSIUM (test code = K) 4.4 mmol/L 3.5-5.1 N CHLORIDE (test code = CL) 94.0 mmol/L 98-107 L CARBON DIOXIDE (test code = CO2) mmol/L 21-32 ANION GAP (test code = GAP) 10-20 GLUCOSE (test code = GLU) mg/dL 74-106 BLOOD UREA NITROGEN (test code = BUN) mg/dL 7-18 GLOMERULAR FILTRATION RATE (test code = GFR) mL/min >=60 CREATININE (test code = CREAT) mg/dL 0.7-1.3 BUN/CREATININE RATIO (test code = BUN/CREA) 10-20 TOTAL PROTEIN (test code = PROT) gram/dL 6.4-8.2 ALBUMIN (test code = ALB) g/dL 3.4-5.0 GLOBULIN (test code = GLOB) gram/dL 2.7-4.2 ALBUMIN/GLOBULIN RATIO (test code = A/G) 0.75-1.50 CALCIUM (test code = CA) mg/dL 8.5-10.1 BILIRUBIN TOTAL (test code = BILT) mg/dL 0.0-1.0 SGOT/AST (test code = AST) IUnit/L 15-37 SGPT/ALT (test code = ALT) IUnit/L 12-78 ALKALINE PHOSPHATASE TOTAL (test code = ALKP) IUnit/L 45-117 [id number] 06:11:00* Test Item Value Reference Range Interpretation Comments MAGNESIUM (test code = MAG) mg/dL 1.8-2.4 B-TYPE NATRIURETIC [id number] 06:09:00* Test Item Value Reference Range Interpretation Comments B-TYPE NATRIURETIC PEPTIDE (test code = BNP) 66.67 pgram/mL 0-100 N CBC W/AUTO [id number] 05:32:00* Test Item Value Reference Range Interpretation Comments WHITE BLOOD CELL (test code = WBC) 9.4 K/mm3 4.5-12.5 N RED BLOOD CELL (test code = RBC) 3.77 mill/mm3 4.0-5.8 L HEMOGLOBIN (test code = HGB) 10.0 gram/dL 13.0-17.5 L HEMATOCRIT (test code = HCT) 31.7 % 42.0-52.0 L MEAN CELL VOLUME (test code = MCV) 84.1 fL 80-98 N MEAN CELL HGB (test code = MCH) 26.5 picogram 27.0-33.0 L MEAN CELL HGB CONCETRATION (test code = MCHC) 31.5 gram/dL 33.0-36. 0 L RED CELL DISTRIBUTION WIDTH (test code = RDW) 15.2 % 11.6-16. 2 N RED CELL DISTRIBUTION WIDTH SD (test code = RDW-SD) 46.0 fL 37 .0-51.0 N PLATELET COUNT (test code = PLT) 317 K/mm3 150-450 N MEAN PLATELET VOLUME (test code = MPV) 10.9 fL 6.7-11.0 N NEUTROPHIL % (test code = NT%) 63.6 % 39.0-69.0 N IMMATURE GRANULOCYTE % (test code = IG%) 1.6 % 0.0-5.0 N LYMPHOCYTE % (test code = LY%) 21.9 % 25.0-55.0 L MONOCYTE % (test code = MO%) 8.0 % 0.0-10.0 N EOSINOPHIL % (test code = EO%) 4.0 % 0.0-5.0 N BASOPHIL % (test code = BA%) 0.9 % 0.0-1.0 N NUCLEATED RBC % (test code = NRBC%) 0.0 % 0-0 N NEUTROPHIL # (test code = NT#) 5.99 K/mm3 1.8-7.7 N IMMATURE GRANULOCYTE # (test code = IG#) 0.15 x10 3/uL 0-0.03 H LYMPHOCYTE # (test code = LY#) 2.06 K/mm3 1.0-5.0 N MONOCYTE # (test code = MO#) 0.75 K/mm3 0-0.8 N EOSINOPHIL # (test code = EO#) 0.38 K/mm3 0.0-0.5 N BASOPHIL # (test code = BA#) 0.08 K/mm3 0.0-0.2 N NUCLEATED RBC # (test code = NRBC#) 0.00 K/mm3 0.0-0.1 N MANUAL DIFF REQUIRED (test code = MDIFF) NO [id number] 05:18:00* Test Item Value Reference Range Interpretation Comments GLUBED (test code = GLUBED) 191 mg/dL 74-106 H Performed by certified double cut off saw operator at [facility] [id number] 20:57:00* Test Item Value Reference Range Interpretation Comments GLUBED (test code = GLUBED) 203 mg/dL 74-106 H Performed by certified double cut off saw operator at [facility] [id number] 16:56:00* Test Item Value Reference Range Interpretation Comments GLUBED (test code = GLUBED) 214 mg/dL 74-106 H Performed by certified double cut off saw operator at [facility] COMPREHENSIVE METABOLIC [id number] 12:13:00* Test Item Value Reference Range Interpretation Comments SODIUM (test code = NA) 138 mmol/L 136-145 N POTASSIUM (test code = K) 4.3 mmol/L 3.5-5.1 N CHLORIDE (test code = CL) 98.0 mmol/L 98-107 N CARBON DIOXIDE (test code = CO2) 29.0 mmol/L 21-32 N ANION GAP (test code = GAP) 15.3 10-20 N GLUCOSE (test code = GLU) 221 mg/dL 74-106 H BLOOD UREA NITROGEN (test code = BUN) 51 mg/dL 7-18 H GLOMERULAR FILTRATION RATE (test code = GFR) 38 mL/min >=60 Estimated GFR by using Modified MDRD formula.Chronic kidney disease is defined as either kidney damageor GFR <60 mL/min/1.73 m2 for >3 months. CREATININE (test code = CREAT) 1.80 mg/dL 0.7-1.3 H BUN/CREATININE RATIO (test code = BUN/CREA) 28.3 10-20 H TOTAL PROTEIN (test code = PROT) 8.4 gram/dL 6.4-8.2 H ALBUMIN (test code = ALB) 2.8 g/dL 3.4-5.0 L GLOBULIN (test code = GLOB) 5.6 gram/dL 2.7-4.2 H ALBUMIN/GLOBULIN RATIO (test code = A/G) 0.5 0.75-1.50 L CALCIUM (test code = CA) 8.9 mg/dL 8.5-10.1 N BILIRUBIN TOTAL (test code = BILT) 0.50 mg/dL 0.0-1.0 N SGOT/AST (test code = AST) 45 IUnit/L 15-37 H SGPT/ALT (test code = ALT) 67 IUnit/L 12-78 N ALKALINE PHOSPHATASE TOTAL (test code = ALKP) 111 IUnit/L 45-117 N Note change in reference range due to change in reagent. [id number] 12:13:00* Test Item Value Reference Range Interpretation Comments PHOSPHORUS (test code = PHOS) 4.1 mg/dL 2.5-4.9 N [id number] 12:13:00* Test Item Value Reference Range Interpretation Comments MAGNESIUM (test code = MAG) 2.1 mg/dL 1.8-2.4 N CALCIUM [id number] 12:13:00* Test Item Value Reference Range Interpretation Comments CALCIUM IONIZED (test code = EBENEZER) 1.20 mmol/L 1.12-1.32 N [id number] 12:05:00* Test Item Value Reference Range Interpretation Comments GLUBED (test code = GLUBED) 201 mg/dL 74-106 H Performed by certified double cut off saw operator at [facility] COMPREHENSIVE METABOLIC [id number] 12:04:00* Test Item Value Reference Range Interpretation Comments SODIUM (test code = NA) 138 mmol/L 136-145 N POTASSIUM (test code = K) 4.3 mmol/L 3.5-5.1 N CHLORIDE (test code = CL) 98.0 mmol/L 98-107 N CARBON DIOXIDE (test code = CO2) mmol/L 21-32 ANION GAP (test code = GAP) 10-20 GLUCOSE (test code = GLU) mg/dL 74-106 BLOOD UREA NITROGEN (test code = BUN) mg/dL 7-18 GLOMERULAR FILTRATION RATE (test code = GFR) mL/min >=60 CREATININE (test code = CREAT) mg/dL 0.7-1.3 BUN/CREATININE RATIO (test code = BUN/CREA) 10-20 TOTAL PROTEIN (test code = PROT) gram/dL 6.4-8.2 ALBUMIN (test code = ALB) g/dL 3.4-5.0 GLOBULIN (test code = GLOB) gram/dL 2.7-4.2 ALBUMIN/GLOBULIN RATIO (test code = A/G) 0.75-1.50 CALCIUM (test code = CA) mg/dL 8.5-10.1 BILIRUBIN TOTAL (test code = BILT) mg/dL 0.0-1.0 SGOT/AST (test code = AST) IUnit/L 15-37 SGPT/ALT (test code = ALT) IUnit/L 12-78 ALKALINE PHOSPHATASE TOTAL (test code = ALKP) IUnit/L 45-117 [id number] 12:04:00* Test Item Value Reference Range Interpretation Comments PHOSPHORUS (test code = PHOS) mg/dL 2.5-4.9 [id number] 12:04:00* Test Item Value Reference Range Interpretation Comments MAGNESIUM (test code = MAG) mg/dL 1.8-2.4 CALCIUM [id number] 12:04:00* Test Item Value Reference Range Interpretation Comments CALCIUM IONIZED (test code = EBENEZER) 1.20 mmol/L 1.12-1.32 N COMPREHENSIVE METABOLIC [id number] 12:03:00* Test Item Value Reference Range Interpretation Comments SODIUM (test code = NA) 138 mmol/L 136-145 N POTASSIUM (test code = K) 4.3 mmol/L 3.5-5.1 N CHLORIDE (test code = CL) 98.0 mmol/L 98-107 N CARBON DIOXIDE (test code = CO2) mmol/L 21-32 ANION GAP (test code = GAP) 10-20 GLUCOSE (test code = GLU) mg/dL 74-106 BLOOD UREA NITROGEN (test code = BUN) mg/dL 7-18 GLOMERULAR FILTRATION RATE (test code = GFR) mL/min >=60 CREATININE (test code = CREAT) mg/dL 0.7-1.3 BUN/CREATININE RATIO (test code = BUN/CREA) 10-20 TOTAL PROTEIN (test code = PROT) gram/dL 6.4-8.2 ALBUMIN (test code = ALB) g/dL 3.4-5.0 GLOBULIN (test code = GLOB) gram/dL 2.7-4.2 ALBUMIN/GLOBULIN RATIO (test code = A/G) 0.75-1.50 CALCIUM (test code = CA) mg/dL 8.5-10.1 BILIRUBIN TOTAL (test code = BILT) mg/dL 0.0-1.0 SGOT/AST (test code = AST) IUnit/L 15-37 SGPT/ALT (test code = ALT) IUnit/L 12-78 ALKALINE PHOSPHATASE TOTAL (test code = ALKP) IUnit/L 45-117 [id number] 12:03:00* Test Item Value Reference Range Interpretation Comments PHOSPHORUS (test code = PHOS) mg/dL 2.5-4.9 [id number] 12:03:00* Test Item Value Reference Range Interpretation Comments MAGNESIUM (test code = MAG) mg/dL 1.8-2.4 CALCIUM [id number] 12:03:00* Test Item Value Reference Range Interpretation Comments CALCIUM IONIZED (test code = EBENEZER) mmol/L 1.12-1.32 CBC W/AUTO [id number] 11:13:00* Test Item Value Reference Range Interpretation Comments WHITE BLOOD CELL (test code = WBC) 8.9 K/mm3 4.5-12.5 N RED BLOOD CELL (test code = RBC) 3.53 mill/mm3 4.0-5.8 L HEMOGLOBIN (test code = HGB) 9.4 gram/dL 13.0-17.5 L HEMATOCRIT (test code = HCT) 29.9 % 42.0-52.0 L MEAN CELL VOLUME (test code = MCV) 84.7 fL 80-98 N MEAN CELL HGB (test code = MCH) 26.6 picogram 27.0-33.0 L MEAN CELL HGB CONCETRATION (test code = MCHC) 31.4 gram/dL 33.0-36. 0 L RED CELL DISTRIBUTION WIDTH (test code = RDW) 15.3 % 11.6-16. 2 N RED CELL DISTRIBUTION WIDTH SD (test code = RDW-SD) 46.5 fL 37 .0-51.0 N PLATELET COUNT (test code = PLT) 298 K/mm3 150-450 N MEAN PLATELET VOLUME (test code = MPV) 10.7 fL 6.7-11.0 N NEUTROPHIL % (test code = NT%) 66.2 % 39.0-69.0 N IMMATURE GRANULOCYTE % (test code = IG%) 1.6 % 0.0-5.0 N LYMPHOCYTE % (test code = LY%) 19.8 % 25.0-55.0 L MONOCYTE % (test code = MO%) 7.2 % 0.0-10.0 N EOSINOPHIL % (test code = EO%) 4.6 % 0.0-5.0 N BASOPHIL % (test code = BA%) 0.6 % 0.0-1.0 N NUCLEATED RBC % (test code = NRBC%) 0.0 % 0-0 N NEUTROPHIL # (test code = NT#) 5.86 K/mm3 1.8-7.7 N IMMATURE GRANULOCYTE # (test code = IG#) 0.14 x10 3/uL 0-0.03 H LYMPHOCYTE # (test code = LY#) 1.75 K/mm3 1.0-5.0 N MONOCYTE # (test code = MO#) 0.64 K/mm3 0-0.8 N EOSINOPHIL # (test code = EO#) 0.41 K/mm3 0.0-0.5 N BASOPHIL # (test code = BA#) 0.05 K/mm3 0.0-0.2 N NUCLEATED RBC # (test code = NRBC#) 0.00 K/mm3 0.0-0.1 N MANUAL DIFF REQUIRED (test code = MDIFF) NO - XR CHEST 2 [id number] 09:15:00 FAX: Gaurav Green MD [phone] [place]: B St: ADM FAX: Baldemar Wilkes MD [phone] FAX: Ines Barbosa MD [phone] Name: MILA MELCHOR [facility] : 1955 Age/S: 63/M [address] [facility] Unit #: [id number] Loc: V.20[address] [place] [address] Phys: Gaurav Amos MD Acct: [id number] Dis Date: Status: ADM IN ONE #: [phone] Exam Date: 05/20/2019 0900 FAX #: [phone] Reason: CHF EXAMS: CPT CODE: [id number] XR CHEST 2 V 43057 REASON FOR EXAM: CHF Exam Order Date: [...] Crow MD CC: Gaurav Amos MD; Baldemar Wilkes MD; Ines Antunez MD Technologist: ETTA KNUTSON JR Trnscrd Date/Time/By: 05/20/2019 (15) : By: [email or web address] Orig Print D/T: S: 05/20/2019 (18) PAGE 1 Signed Report GLUBED 2019-05-20 05:17:00* Test Item Value Reference Range Interpretation Comments GLUBED (test code = GLUBED) 154 mg/dL 74-106 H Performed by certified double cut off saw operator at [facility] [id number] 20:11:00* Test Item Value Reference Range Interpretation Comments GLUBED (test code = GLUBED) 271 mg/dL 74-106 H Performed by certified double cut off saw operator at [facility] [id number] 16:48:00* Test Item Value Reference Range Interpretation Comments GLUBED (test code = GLUBED) 261 mg/dL 74-106 H Performed by certified double cut off saw operator at [facility] [id number] 12:06:00* Test Item Value Reference Range Interpretation Comments GLUBED (test code = GLUBED) 223 mg/dL 74-106 H Performed by certified double cut off saw operator at [facility] B-TYPE NATRIURETIC [id number] 07:51:00* Test Item Value Reference Range Interpretation Comments B-TYPE NATRIURETIC PEPTIDE (test code = BNP) 251.78 pgram/mL 0-100 H BASIC METABOLIC [id number] 07:50:00* Test Item Value Reference Range Interpretation Comments SODIUM (test code = NA) 134 mmol/L 136-145 L POTASSIUM (test code = K) 4.6 mmol/L 3.5-5.1 N CHLORIDE (test code = CL) 101.0 mmol/L 98-107 N CARBON DIOXIDE (test code = CO2) 27.0 mmol/L 21-32 N ANION GAP (test code = GAP) 10.6 10-20 N GLUCOSE (test code = GLU) 260 mg/dL 74-106 H BLOOD UREA NITROGEN (test code = BUN) 53 mg/dL 7-18 H GLOMERULAR FILTRATION RATE (test code = GFR) 38 mL/min >=60 Estimated GFR by using Modified MDRD formula.Chronic kidney disease is defined as either kidney damageor GFR <60 mL/min/1.73 m2 for >3 months. CREATININE (test code = CREAT) 1.80 mg/dL 0.7-1.3 H BUN/CREATININE RATIO (test code = BUN/CREA) 29.6 10-20 H CALCIUM (test code = CA) 8.6 mg/dL 8.5-10.1 N HEPATIC FUNCTION [id number] 07:50:00* Test Item Value Reference Range Interpretation Comments TOTAL PROTEIN (test code = PROT) 8.3 gram/dL 6.4-8.2 H ALBUMIN (test code = ALB) 2.7 g/dL 3.4-5.0 L GLOBULIN (test code = GLOB) 5.6 gram/dL 2.7-4.2 H ALBUMIN/GLOBULIN RATIO (test code = A/G) 0.5 0.75-1.50 L BILIRUBIN TOTAL (test code = BILT) 0.30 mg/dL 0.0-1.0 N BILIRUBIN DIRECT (test code = BILD) 0.15 mg/dL 0.0-0.20 N SGOT/AST (test code = AST) 44 IUnit/L 15-37 H SGPT/ALT (test code = ALT) 62 IUnit/L 12-78 N ALKALINE PHOSPHATASE TOTAL (test code = ALKP) 115 IUnit/L 45-117 N Note change in reference range due to change in reagent. [id number] 07:50:00* Test Item Value Reference Range Interpretation Comments PHOSPHORUS (test code = PHOS) 4.2 mg/dL 2.5-4.9 N [id number] 07:50:00* Test Item Value Reference Range Interpretation Comments MAGNESIUM (test code = MAG) 2.9 mg/dL 1.8-2.4 H CALCIUM [id number] 07:50:00* Test Item Value Reference Range Interpretation Comments CALCIUM IONIZED (test code = EBENEZER) 1.20 mmol/L 1.12-1.32 N BASIC METABOLIC [id number] 07:43:00* Test Item Value Reference Range Interpretation Comments SODIUM (test code = NA) 134 mmol/L 136-145 L POTASSIUM (test code = K) 4.6 mmol/L 3.5-5.1 N CHLORIDE (test code = CL) 101.0 mmol/L 98-107 N CARBON DIOXIDE (test code = CO2) mmol/L 21-32 ANION GAP (test code = GAP) 10-20 GLUCOSE (test code = GLU) mg/dL 74-106 BLOOD UREA NITROGEN (test code = BUN) mg/dL 7-18 GLOMERULAR FILTRATION RATE (test code = GFR) mL/min >=60 CREATININE (test code = CREAT) mg/dL 0.7-1.3 BUN/CREATININE RATIO (test code = BUN/CREA) 10-20 CALCIUM (test code = CA) mg/dL 8.5-10.1 HEPATIC FUNCTION [id number] 07:43:00* Test Item Value Reference Range Interpretation Comments TOTAL PROTEIN (test code = PROT) gram/dL 6.4-8.2 ALBUMIN (test code = ALB) g/dL 3.4-5.0 GLOBULIN (test code = GLOB) gram/dL 2.7-4.2 ALBUMIN/GLOBULIN RATIO (test code = A/G) 0.75-1.50 BILIRUBIN TOTAL (test code = BILT) mg/dL 0.0-1.0 BILIRUBIN DIRECT (test code = BILD) mg/dL 0.0-0.20 SGOT/AST (test code = AST) IUnit/L 15-37 SGPT/ALT (test code = ALT) IUnit/L 12-78 ALKALINE PHOSPHATASE TOTAL (test code = ALKP) IUnit/L 45-117 [id number] 07:43:00* Test Item Value Reference Range Interpretation Comments PHOSPHORUS (test code = PHOS) mg/dL 2.5-4.9 [id number] 07:43:00* Test Item Value Reference Range Interpretation Comments MAGNESIUM (test code = MAG) mg/dL 1.8-2.4 CALCIUM [id number] 07:43:00* Test Item Value Reference Range Interpretation Comments CALCIUM IONIZED (test code = EBENEZER) mmol/L 1.12-1.32 BASIC METABOLIC [id number] 07:43:00* Test Item Value Reference Range Interpretation Comments SODIUM (test code = NA) 134 mmol/L 136-145 L POTASSIUM (test code = K) 4.6 mmol/L 3.5-5.1 N CHLORIDE (test code = CL) 101.0 mmol/L 98-107 N CARBON DIOXIDE (test code = CO2) mmol/L 21-32 ANION GAP (test code = GAP) 10-20 GLUCOSE (test code = GLU) mg/dL 74-106 BLOOD UREA NITROGEN (test code = BUN) mg/dL 7-18 GLOMERULAR FILTRATION RATE (test code = GFR) mL/min >=60 CREATININE (test code = CREAT) mg/dL 0.7-1.3 BUN/CREATININE RATIO (test code = BUN/CREA) 10-20 CALCIUM (test code = CA) mg/dL 8.5-10.1 HEPATIC FUNCTION [id number] 07:43:00* Test Item Value Reference Range Interpretation Comments TOTAL PROTEIN (test code = PROT) gram/dL 6.4-8.2 ALBUMIN (test code = ALB) g/dL 3.4-5.0 GLOBULIN (test code = GLOB) gram/dL 2.7-4.2 ALBUMIN/GLOBULIN RATIO (test code = A/G) 0.75-1.50 BILIRUBIN TOTAL (test code = BILT) mg/dL 0.0-1.0 BILIRUBIN DIRECT (test code = BILD) mg/dL 0.0-0.20 SGOT/AST (test code = AST) IUnit/L 15-37 SGPT/ALT (test code = ALT) IUnit/L 12-78 ALKALINE PHOSPHATASE TOTAL (test code = ALKP) IUnit/L 45-117 [id number] 07:43:00* Test Item Value Reference Range Interpretation Comments PHOSPHORUS (test code = PHOS) mg/dL 2.5-4.9 [id number] 07:43:00* Test Item Value Reference Range Interpretation Comments MAGNESIUM (test code = MAG) mg/dL 1.8-2.4 CALCIUM [id number] 07:43:00* Test Item Value Reference Range Interpretation Comments CALCIUM IONIZED (test code = EBENEZER) 1.20 mmol/L 1.12-1.32 N CBC W/AUTO [id number] 07:21:00* Test Item Value Reference Range Interpretation Comments WHITE BLOOD CELL (test code = WBC) 10.7 K/mm3 4.5-12.5 N RED BLOOD CELL (test code = RBC) 3.22 mill/mm3 4.0-5.8 L HEMOGLOBIN (test code = HGB) 8.5 gram/dL 13.0-17.5 L HEMATOCRIT (test code = HCT) 27.3 % 42.0-52.0 L MEAN CELL VOLUME (test code = MCV) 84.8 fL 80-98 N MEAN CELL HGB (test code = MCH) 26.4 picogram 27.0-33.0 L MEAN CELL HGB CONCETRATION (test code = MCHC) 31.1 gram/dL 33.0-36. 0 L RED CELL DISTRIBUTION WIDTH (test code = RDW) 15.1 % 11.6-16. 2 N RED CELL DISTRIBUTION WIDTH SD (test code = RDW-SD) 46.7 fL 37 .0-51.0 N PLATELET COUNT (test code = PLT) 278 K/mm3 150-450 N MEAN PLATELET VOLUME (test code = MPV) 11.3 fL 6.7-11.0 H NEUTROPHIL % (test code = NT%) 87.0 % 39.0-69.0 H IMMATURE GRANULOCYTE % (test code = IG%) 1.1 % 0.0-5.0 N LYMPHOCYTE % (test code = LY%) 7.1 % 25.0-55.0 L MONOCYTE % (test code = MO%) 4.7 % 0.0-10.0 N EOSINOPHIL % (test code = EO%) 0.0 % 0.0-5.0 N BASOPHIL % (test code = BA%) 0.1 % 0.0-1.0 N NUCLEATED RBC % (test code = NRBC%) 0.0 % 0-0 N NEUTROPHIL # (test code = NT#) 9.34 K/mm3 1.8-7.7 H IMMATURE GRANULOCYTE # (test code = IG#) 0.12 x10 3/uL 0-0.03 H LYMPHOCYTE # (test code = LY#) 0.76 K/mm3 1.0-5.0 L MONOCYTE # (test code = MO#) 0.50 K/mm3 0-0.8 N EOSINOPHIL # (test code = EO#) 0.00 K/mm3 0.0-0.5 N BASOPHIL # (test code = BA#) 0.01 K/mm3 0.0-0.2 N NUCLEATED RBC # (test code = NRBC#) 0.00 K/mm3 0.0-0.1 N [id number] 06:07:00* Test Item Value Reference Range Interpretation Comments GLUBED (test code = GLUBED) 268 mg/dL 74-106 H Performed by certified double cut off saw operator at [facility] [id number] 21:21:00* Test Item Value Reference Range Interpretation Comments GLUBED (test code = GLUBED) 285 mg/dL 74-106 H Performed by certified double cut off saw operator at [facility] [id number] 20:54:00* Test Item Value Reference Range Interpretation Comments GLUBED (test code = GLUBED) 318 mg/dL 74-106 H Performed by certified double cut off saw operator at [facility] [id number] 16:43:00* Test Item Value Reference Range Interpretation Comments GLUBED (test code = GLUBED) 311 mg/dL 74-106 H [facility]~ [id number] 11:58:00* Test Item Value Reference Range Interpretation Comments GLUBED (test code = GLUBED) 197 mg/dL 74-106 H Performed by certified double cut off saw operator at [facility] - CT CHEST W/O [id number] 11:24:00 [facility] 1955 [facility]S: 63 / M [address] Unit #: [id number] Loc: [place] [address] Phys: Gaurav Amos MD Acct: [id number] Dis Date: Status: ADM IN PHONE #: [phone] Exam Date: 05/18/2019 1108 FAX #: [phone] Reason: Infiltrates Dyspnea EXAMS: CPT CODE: [id number] CT CHEST W/O CONTRAST 28226 REASON FOR EXAM: Infiltrates Dyspnea EXAM ORDER DATE: 05/18/2019 8:09 AM Ordering M.Avi: Gaurav Amos MD PROCEDURE: - CT CHEST [...] Powers M.D. CC: Gaurav Amos MD; Baldemar Wilkes MD; Dionicio Antunez MD Technologist:Vin Jackson RT(R)(CT) CTDI: DLP: Trnscb Date/Time: 05/18/2019 (1124) t.SDR.VTL Orig Print D/T: S: 05/18/2019 (1128) PAGE 1 Signed Report - XR CHEST 1 [id number] 08:14:00 FAX: Shreyas Johnson MD [phone] [place]: B St: ADM FAX: Baldemar Wilkes MD [phone] FAX: Ines Barbosa MD [phone] Name: MILA MELCHOR [facility] : 1955 Age/S: 63/M [address] Unit #: [id number] Loc: V.2044 [place] [address] Phys: Shreyas Stack MD Acct: [id number] Dis Date: Status: ADM IN ONE #: [phone] Exam Date: 05/18/201937 FAX #: [phone] Reason: chf EXAMS: CPT CODE: [id number] XR CHEST 1 V 09660 REASON FOR EXAM: chf EXAM ORDER DATE: 05/18/2019 6:00 AM Ord monica Hayes: Shreyas Stack MD PROCEDURE: - XR CHEST 1 V COMPARISON: FINDINGS: Portable AP frontal view of the chest obtained at 7:36 AM shows diffuse airspace opacity. There is no evidence o f effusion. The heart size is minimally enlarged. Pulmonary vasculatures a re unremarkable. IMPRESSION: No active disease. at 0814 Reported and signed by: Trae Powers M.D. CC: Shreyas Stack MD; Baldemar Wilkes MD; Ines Antunez MD Technologist: Richie STEWART(R) Trnscrd Date/Time/By: 05/18/2019 (0814) : By: MyrnaVTL Orig Print D/T: S: 05/18/2019 (17) PAGE 1 Signed Report GLUBED 2019-05-18 06:25:00* Test Item Value Reference Range Interpretation Comments GLUBED (test code = GLUBED) 223 mg/dL 74-106 H [facility] CBC W/AUTO [id number] 05:21:00* Test Item Value Reference Range Interpretation Comments WHITE BLOOD CELL (test code = WBC) 6.5 K/mm3 4.5-12.5 N RED BLOOD CELL (test code = RBC) 3.21 mill/mm3 4.0-5.8 L HEMOGLOBIN (test code = HGB) 8.6 gram/dL 13.0-17.5 L HEMATOCRIT (test code = HCT) 27.2 % 42.0-52.0 L MEAN CELL VOLUME (test code = MCV) 84.7 fL 80-98 N MEAN CELL HGB (test code = MCH) 26.8 picogram 27.0-33.0 L MEAN CELL HGB CONCETRATION (test code = MCHC) 31.6 gram/dL 33.0-36. 0 L RED CELL DISTRIBUTION WIDTH (test code = RDW) 15.0 % 11.6-16. 2 N RED CELL DISTRIBUTION WIDTH SD (test code = RDW-SD) 46.4 fL 37 .0-51.0 N PLATELET COUNT (test code = PLT) 253 K/mm3 150-450 N MEAN PLATELET VOLUME (test code = MPV) 11.1 fL 6.7-11.0 H NEUTROPHIL % (test code = NT%) 89.6 % 39.0-69.0 H IMMATURE GRANULOCYTE % (test code = IG%) 1.1 % 0.0-5.0 N LYMPHOCYTE % (test code = LY%) 6.9 % 25.0-55.0 L MONOCYTE % (test code = MO%) 2.2 % 0.0-10.0 N EOSINOPHIL % (test code = EO%) 0.0 % 0.0-5.0 N BASOPHIL % (test code = BA%) 0.2 % 0.0-1.0 N NUCLEATED RBC % (test code = NRBC%) 0.0 % 0-0 N NEUTROPHIL # (test code = NT#) 5.84 K/mm3 1.8-7.7 N IMMATURE GRANULOCYTE # (test code = IG#) 0.07 x10 3/uL 0-0.03 H LYMPHOCYTE # (test code = LY#) 0.45 K/mm3 1.0-5.0 L MONOCYTE # (test code = MO#) 0.14 K/mm3 0-0.8 N EOSINOPHIL # (test code = EO#) 0.00 K/mm3 0.0-0.5 N BASOPHIL # (test code = BA#) 0.01 K/mm3 0.0-0.2 N NUCLEATED RBC # (test code = NRBC#) 0.00 K/mm3 0.0-0.1 N MANUAL DIFF REQUIRED (test code = MDIFF) NO BASIC METABOLIC [id number] 05:20:00* Test Item Value Reference Range Interpretation Comments SODIUM (test code = NA) 137 mmol/L 136-145 N POTASSIUM (test code = K) 4.6 mmol/L 3.5-5.1 N CHLORIDE (test code = CL) 102.0 mmol/L 98-107 N CARBON DIOXIDE (test code = CO2) 27.0 mmol/L 21-32 N ANION GAP (test code = GAP) 12.6 10-20 N GLUCOSE (test code = GLU) 243 mg/dL 74-106 H BLOOD UREA NITROGEN (test code = BUN) 49 mg/dL 7-18 H GLOMERULAR FILTRATION RATE (test code = GFR) 38 mL/min >=60 Estimated GFR by using Modified MDRD formula.Chronic kidney disease is defined as either kidney damageor GFR <60 mL/min/1.73 m2 for >3 months. CREATININE (test code = CREAT) 1.80 mg/dL 0.7-1.3 H BUN/CREATININE RATIO (test code = BUN/CREA) 28.0 10-20 H CALCIUM (test code = CA) 8.8 mg/dL 8.5-10.1 N [id number] 05:20:00* Test Item Value Reference Range Interpretation Comments PHOSPHORUS (test code = PHOS) 4.4 mg/dL 2.5-4.9 N [id number] 05:20:00* Test Item Value Reference Range Interpretation Comments MAGNESIUM (test code = MAG) 3.0 mg/dL 1.8-2.4 H CALCIUM [id number] 05:20:00* Test Item Value Reference Range Interpretation Comments CALCIUM IONIZED (test code = EBENEZER) 1.21 mmol/L 1.12-1.32 N BASIC METABOLIC [id number] 05:13:00* Test Item Value Reference Range Interpretation Comments SODIUM (test code = NA) 137 mmol/L 136-145 N POTASSIUM (test code = K) 4.6 mmol/L 3.5-5.1 N CHLORIDE (test code = CL) 102.0 mmol/L 98-107 N CARBON DIOXIDE (test code = CO2) mmol/L 21-32 ANION GAP (test code = GAP) 10-20 GLUCOSE (test code = GLU) mg/dL 74-106 BLOOD UREA NITROGEN (test code = BUN) mg/dL 7-18 GLOMERULAR FILTRATION RATE (test code = GFR) mL/min >=60 CREATININE (test code = CREAT) mg/dL 0.7-1.3 BUN/CREATININE RATIO (test code = BUN/CREA) 10-20 CALCIUM (test code = CA) mg/dL 8.5-10.1 [id number] 05:13:00* Test Item Value Reference Range Interpretation Comments PHOSPHORUS (test code = PHOS) mg/dL 2.5-4.9 [id number] 05:13:00* Test Item Value Reference Range Interpretation Comments MAGNESIUM (test code = MAG) mg/dL 1.8-2.4 CALCIUM [id number] 05:13:00* Test Item Value Reference Range Interpretation Comments CALCIUM IONIZED (test code = EBENEZER) 1.21 mmol/L 1.12-1.32 N BASIC METABOLIC [id number] 05:08:00* Test Item Value Reference Range Interpretation Comments SODIUM (test code = NA) mmol/L 136-145 POTASSIUM (test code = K) mmol/L 3.5-5.1 CHLORIDE (test code = CL) mmol/L 98-107 CARBON DIOXIDE (test code = CO2) mmol/L 21-32 ANION GAP (test code = GAP) 10-20 GLUCOSE (test code = GLU) mg/dL 74-106 BLOOD UREA NITROGEN (test code = BUN) mg/dL 7-18 GLOMERULAR FILTRATION RATE (test code = GFR) mL/min >=60 CREATININE (test code = CREAT) mg/dL 0.7-1.3 BUN/CREATININE RATIO (test code = BUN/CREA) 10-20 CALCIUM (test code = CA) mg/dL 8.5-10.1 [id number] 05:08:00* Test Item Value Reference Range Interpretation Comments PHOSPHORUS (test code = PHOS) mg/dL 2.5-4.9 [id number] 05:08:00* Test Item Value Reference Range Interpretation Comments MAGNESIUM (test code = MAG) mg/dL 1.8-2.4 CALCIUM [id number] 05:08:00* Test Item Value Reference Range Interpretation Comments CALCIUM IONIZED (test code = EBENEZER) 1.21 mmol/L 1.12-1.32 N [id number] 20:57:00* Test Item Value Reference Range Interpretation Comments GLUBED (test code = GLUBED) 267 mg/dL 74-106 H Performed by certified double cut off saw operator at [facility] [id number] 17:35:00* Test Item Value Reference Range Interpretation Comments GLUBED (test code = GLUBED) 215 mg/dL 74-106 H Performed by certified double cut off saw operator at [facility] [id number] 17:35:00* Test Item Value Reference Range Interpretation Comments GLUBED (test code = GLUBED) 173 mg/dL 74-106 H Performed by certified double cut off saw operator at [facility] - PULM VENT PERF [id number] 15:34:00 FAX: Gaurav Green MD [phone] [place]: [address] St: ADM FAX: Baldemar Wilkes MD [phone] FAX: Ines Barbosa MD [phone] Name: MILA MELCHOR [facility] : 1955 Age/S: 63/M [address] [facility] Unit #: [id number] Loc: V.[address] [place] [address] Phys: Gaurav Amos MD Acct: [id number] Dis Date: Status: ADM IN ONE #: [phone] Exam Date: 05/17/2019 1516 FAX #: [phone] Reason: Dyspnea EXAMS: CPT CODE: [id number] PU LM VENT PERF IMAG [id number] REASON FOR EXA M: Dyspnea Exam Order Date: 05/17/2019 1:01 PM Procedu re: - PULM VENT PERF IMAG FINDINGS: The patient was injected with 5.5 mCi of technetium 99m MAA. Unremarkable radiotracer uptake in the lungs in the perfusion phase. The patient was then inhaled 10.3 mCi of x enon-133. Unremarkable inhalation uptake seen. IMPRESSION: Low probability of pulmonary embolus at 1530 Reported and signed by: Melanie Powers M.D. CC: Gaurav Amos MD; Baldemar Wilkes MD ; Ines Antunez MD Technologist: Roberta Tena RT(N) Trnscrd Date/Time/By: 05/17/2019 (8550) : By: [id number] Orig Print D/T: S: 05/17/2019 (8330) PAGE 1 Signed Report BASIC METABOLIC [id number] 09:27:00* Test Item Value Reference Range Interpretation Comments SODIUM (test code = NA) 136 mmol/L 136-145 N POTASSIUM (test code = K) 4.3 mmol/L 3.5-5.1 N CHLORIDE (test code = CL) 102.0 mmol/L 98-107 N CARBON DIOXIDE (test code = CO2) 26.0 mmol/L 21-32 N ANION GAP (test code = GAP) 12.3 10-20 N GLUCOSE (test code = GLU) 130 mg/dL 74-106 H BLOOD UREA NITROGEN (test code = BUN) 48 mg/dL 7-18 H GLOMERULAR FILTRATION RATE (test code = GFR) 38 mL/min >=60 Estimated GFR by using Modified MDRD formula.Chronic kidney disease is defined as either kidney damageor GFR <60 mL/min/1.73 m2 for >3 months. CREATININE (test code = CREAT) 1.80 mg/dL 0.7-1.3 H BUN/CREATININE RATIO (test code = BUN/CREA) 26.7 10-20 H CALCIUM (test code = CA) 7.9 mg/dL 8.5-10.1 L [id number] 09:27:00* Test Item Value Reference Range Interpretation Comments PHOSPHORUS (test code = PHOS) 5.2 mg/dL 2.5-4.9 H [id number] 09:27:00* Test Item Value Reference Range Interpretation Comments MAGNESIUM (test code = MAG) 2.8 mg/dL 1.8-2.4 H CALCIUM [id number] 09:27:00* Test Item Value Reference Range Interpretation Comments CALCIUM IONIZED (test code = EBENEZER) 1.17 mmol/L 1.12-1.32 N [id number] 08:20:00* Test Item Value Reference Range Interpretation Comments GLUBED (test code = GLUBED) 149 mg/dL 74-106 H Performed by certified double cut off saw operator at [facility] BASIC METABOLIC [id number] 07:01:00* Test Item Value Reference Range Interpretation Comments SODIUM (test code = NA) mmol/L 136-145 POTASSIUM (test code = K) mmol/L 3.5-5.1 CHLORIDE (test code = CL) mmol/L 98-107 CARBON DIOXIDE (test code = CO2) mmol/L 21-32 ANION GAP (test code = GAP) 10-20 GLUCOSE (test code = GLU) mg/dL 74-106 BLOOD UREA NITROGEN (test code = BUN) mg/dL 7-18 GLOMERULAR FILTRATION RATE (test code = GFR) mL/min >=60 CREATININE (test code = CREAT) mg/dL 0.7-1.3 BUN/CREATININE RATIO (test code = BUN/CREA) 10-20 CALCIUM (test code = CA) mg/dL 8.5-10.1 [id number] 07:01:00* Test Item Value Reference Range Interpretation Comments PHOSPHORUS (test code = PHOS) mg/dL 2.5-4.9 [id number] 07:01:00* Test Item Value Reference Range Interpretation Comments MAGNESIUM (test code = MAG) mg/dL 1.8-2.4 CALCIUM [id number] 07:01:00* Test Item Value Reference Range Interpretation Comments CALCIUM IONIZED (test code = EBENEZER) 1.17 mmol/L 1.12-1.32 N CBC W/AUTO [id number] 06:45:00* Test Item Value Reference Range Interpretation Comments WHITE BLOOD CELL (test code = WBC) 7.1 K/mm3 4.5-12.5 N RED BLOOD CELL (test code = RBC) 2.98 mill/mm3 4.0-5.8 L HEMOGLOBIN (test code = HGB) 8.0 gram/dL 13.0-17.5 L HEMATOCRIT (test code = HCT) 25.3 % 42.0-52.0 L MEAN CELL VOLUME (test code = MCV) 84.9 fL 80-98 N MEAN CELL HGB (test code = MCH) 26.8 picogram 27.0-33.0 L MEAN CELL HGB CONCETRATION (test code = MCHC) 31.6 gram/dL 33.0-36. 0 L RED CELL DISTRIBUTION WIDTH (test code = RDW) 15.4 % 11.6-16. 2 N RED CELL DISTRIBUTION WIDTH SD (test code = RDW-SD) 47.5 fL 37 .0-51.0 N PLATELET COUNT (test code = PLT) 225 K/mm3 150-450 N MEAN PLATELET VOLUME (test code = MPV) 11.6 fL 6.7-11.0 H NEUTROPHIL % (test code = NT%) 65.9 % 39.0-69.0 N IMMATURE GRANULOCYTE % (test code = IG%) 1.4 % 0.0-5.0 N LYMPHOCYTE % (test code = LY%) 17.0 % 25.0-55.0 L MONOCYTE % (test code = MO%) 8.9 % 0.0-10.0 N EOSINOPHIL % (test code = EO%) 6.2 % 0.0-5.0 H BASOPHIL % (test code = BA%) 0.6 % 0.0-1.0 N NUCLEATED RBC % (test code = NRBC%) 0.0 % 0-0 N NEUTROPHIL # (test code = NT#) 4.64 K/mm3 1.8-7.7 N IMMATURE GRANULOCYTE # (test code = IG#) 0.10 x10 3/uL 0-0.03 H LYMPHOCYTE # (test code = LY#) 1.20 K/mm3 1.0-5.0 N MONOCYTE # (test code = MO#) 0.63 K/mm3 0-0.8 N EOSINOPHIL # (test code = EO#) 0.44 K/mm3 0.0-0.5 N BASOPHIL # (test code = BA#) 0.04 K/mm3 0.0-0.2 N NUCLEATED RBC # (test code = NRBC#) 0.00 K/mm3 0.0-0.1 N MANUAL DIFF REQUIRED (test code = MDIFF) NO [id number] 20:58:00* Test Item Value Reference Range Interpretation Comments GLUBED (test code = GLUBED) 195 mg/dL 74-106 H Performed by certified double cut off saw operator at [facility] ARTERIAL BLOOD [id number] 19:24:00* Test Item Value Reference Range Interpretation Comments ARTERIAL BLOOD GAS PH (test code = PHA) 7.47 7.35-7.45 H ARTERIAL BLOOD GAS PCO2 (test code = PCO2A) 33.3 mm Hg 35-45 L ARTERIAL BLOOD GAS PO2 (test code = PO2A) 48.0 mmHg 80-100 LL Results called to and read back by dr colunga 19:05/16/2019; by [id number] BICARBONATE TOTAL HCO3 (test code = HCO3) 23.9 mmol/L 23.0-27.0 N BASE EXCESS (test code = WILFRED) 0.6 mmol/L -3.0-5.0 N ABG O2 SATURATION (test code = SATA) 87.7 % 90.0-98.0 L ABG TYPE (test code = TYPEA) Arterial FIO2 (test code = FIO2A) 32.0 ABG SITE (test code = SITEA) Lt BRACHIAL ARTERY MODIFIED ALLENS (test code = MODALL) Yes CHECK PERFORMED SODIUM (test code = NA/ABG) 132.5 mEq/L 135-148 L POTASSIUM (test code = K/ABG) 3.8 mEq/L 3.5-4.5 N CHLORIDE (test code = CL/ABG) 98 mEq/L 98-106 N GLUCOSE (test code = GLU/ABG) 229 mg/dL 74-99 H HEMATOCRIT (test code = HCT/ABG) 29 % 42-52 L IONIZED CALCIUM (test code = CAIABG) 1.08 mmol/L 1.1-1.37 L TOTAL HGB (test code = THB) 9.9 gram/dL 13.0-17.5 L HGB O2 SAT (test code = HBOSAT) 87.1 % 94.00-98.00 L CARBOXYHEMOGLOBIN (test code = HOHGBT) 0.3 %totalHg 0.5-1.5 LL Results called to and read back by dr colunga 19:05/16/2019; by [id number] METHEMOGLOBIN (test code = METHGB) 0.4 % 0.0-1.50 N O2 CONTENT (test code = O2CT) 12.1 % vol 18.0-22.0 L - XR CHEST 1 [id number] 18:58:00 FAX: Shawna Navarro NP [phone] [facility]: St: ADM FAX: Baldemar Wilkes MD [phone] FAX: Ines Barbosa MD [phone] Name: MILA MELCHOR [facility] : 1955 Age/S: 63/M [address] [facility] Unit #: [id number] Loc: V.S06 [place] [address] Phys: Shawna Navarro NP Acct: [id number] Dis Date: Status: ADM IN [facility] #: [phone] Exam Date: 05/16/20191856 FAX #: [phone] Reason: sob EXAMS: CPT CODE: [id number] XR CHEST 1 V 96456 REASON FOR EXAM: sob EXAM ORDER DATE: [...] failure with den se pulmonary edema at 8418 Reported and signed by: Trae Powers M.D. CC: Shawna Navarro NP; Baldemar Wilkes MD; Ines Antunez MD Technologist: PREM ROGER; David Kirkland RT(R Trnscrd Da te/Time/By: 05/16/2019 (6965) : By: PaigeL Orig Print D/T: S: 05/16 (2864) PAGE 1 Signed Report [id number] 16:25:00* Test Item Value Reference Range Interpretation Comments GLUBED (test code = GLUBED) 131 mg/dL 74-106 H Performed by certified double cut off saw operator at [facility] [id number] 11:43:00* Test Item Value Reference Range Interpretation Comments GLUBED (test code = GLUBED) 153 mg/dL 74-106 H Performed by certified double cut off saw operator at [facility] B-TYPE NATRIURETIC [id number] 07:45:00* Test Item Value Reference Range Interpretation Comments B-TYPE NATRIURETIC PEPTIDE (test code = BNP) 235.78 pgram/mL 0-100 H BASIC METABOLIC [id number] 07:23:00* Test Item Value Reference Range Interpretation Comments SODIUM (test code = NA) 135 mmol/L 136-145 L POTASSIUM (test code = K) 3.9 mmol/L 3.5-5.1 N CHLORIDE (test code = CL) 101.0 mmol/L 98-107 N CARBON DIOXIDE (test code = CO2) 27.0 mmol/L 21-32 N ANION GAP (test code = GAP) 10.9 10-20 N GLUCOSE (test code = GLU) 163 mg/dL 74-106 H BLOOD UREA NITROGEN (test code = BUN) 48 mg/dL 7-18 H GLOMERULAR FILTRATION RATE (test code = GFR) 41 mL/min >=60 Estimated GFR by using Modified MDRD formula.Chronic kidney disease is defined as either kidney damageor GFR <60 mL/min/1.73 m2 for >3 months. CREATININE (test code = CREAT) 1.70 mg/dL 0.7-1.3 H BUN/CREATININE RATIO (test code = BUN/CREA) 28.2 10-20 H CALCIUM (test code = CA) 8.7 mg/dL 8.5-10.1 N [id number] 07:23:00* Test Item Value Reference Range Interpretation Comments ALBUMIN (test code = ALB) 2.4 g/dL 3.4-5.0 L [id number] 07:23:00* Test Item Value Reference Range Interpretation Comments PHOSPHORUS (test code = PHOS) 3.7 mg/dL 2.5-4.9 N [id number] 07:23:00* Test Item Value Reference Range Interpretation Comments MAGNESIUM (test code = MAG) 3.1 mg/dL 1.8-2.4 H CALCIUM [id number] 07:23:00* Test Item Value Reference Range Interpretation Comments CALCIUM IONIZED (test code = EBENEZER) 1.16 mmol/L 1.12-1.32 N - XR CHEST 1 [id number] 07:19:00 FAX: Shreyas Johnson MD [phone] [place]: St: ADM FAX: Baldemar Wilkes MD [phone] FAX: Ines Barbosa MD [phone] Name: MILA MELCHOR [facility] : 1955 Age/S: 63/M [address] [facility] Unit #: [id number] Loc: V.S06 [place] [address] Phys: Shreyas Stack MD Acct: [id number] Dis Date: Status: ADM IN ONE #: [phone] Exam Date: 05/16/2019 05 FAX #: [phone] Reason: chf EXAMS: CPT CODE: [id number] XR CHEST 1 V 74020 CLINICAL HISTO RY: chf TECHNIQUE: AP chest x-ray COMPARISON: 9 IMPRESSION: Diffuse patchy bilateral airspac e opacification. No pleural effusion. Normal heart size. Degenerative ch anges of the spine and shoulders. at 0719 Reported and signed by: Meagan Caldera D.O. CC: Shreyas Stack MD; Baldemar Wilkes MD; Ines Antunez MD Technologist: ETTA KNUTSON JR Trnscrd Date/Time/By: 05/16/2019 (0719) : By: [email or web address] Orig Print D/T: S: 05/16/2019 (0794) PAGE 1 Signed Report BASIC METABOLIC PANEL 2019-05-16 07:09:00* Test Item Value Reference Range Interpretation Comments SODIUM (test code = NA) 135 mmol/L 136-145 L POTASSIUM (test code = K) 3.9 mmol/L 3.5-5.1 N CHLORIDE (test code = CL) 101.0 mmol/L 98-107 N CARBON DIOXIDE (test code = CO2) mmol/L 21-32 ANION GAP (test code = GAP) 10-20 GLUCOSE (test code = GLU) mg/dL 74-106 BLOOD UREA NITROGEN (test code = BUN) mg/dL 7-18 GLOMERULAR FILTRATION RATE (test code = GFR) mL/min >=60 CREATININE (test code = CREAT) mg/dL 0.7-1.3 BUN/CREATININE RATIO (test code = BUN/CREA) 10-20 CALCIUM (test code = CA) mg/dL 8.5-10.1 [id number] 07:09:00* Test Item Value Reference Range Interpretation Comments ALBUMIN (test code = ALB) g/dL 3.4-5.0 [id number] 07:09:00* Test Item Value Reference Range Interpretation Comments PHOSPHORUS (test code = PHOS) mg/dL 2.5-4.9 [id number] 07:09:00* Test Item Value Reference Range Interpretation Comments MAGNESIUM (test code = MAG) mg/dL 1.8-2.4 CALCIUM [id number] 07:09:00* Test Item Value Reference Range Interpretation Comments CALCIUM IONIZED (test code = EBENEZER) 1.16 mmol/L 1.12-1.32 N BASIC METABOLIC [id number] 07:07:00* Test Item Value Reference Range Interpretation Comments SODIUM (test code = NA) 135 mmol/L 136-145 L POTASSIUM (test code = K) 3.9 mmol/L 3.5-5.1 N CHLORIDE (test code = CL) 101.0 mmol/L 98-107 N CARBON DIOXIDE (test code = CO2) mmol/L 21-32 ANION GAP (test code = GAP) 10-20 GLUCOSE (test code = GLU) mg/dL 74-106 BLOOD UREA NITROGEN (test code = BUN) mg/dL 7-18 GLOMERULAR FILTRATION RATE (test code = GFR) mL/min >=60 CREATININE (test code = CREAT) mg/dL 0.7-1.3 BUN/CREATININE RATIO (test code = BUN/CREA) 10-20 CALCIUM (test code = CA) mg/dL 8.5-10.1 [id number] 07:07:00* Test Item Value Reference Range Interpretation Comments ALBUMIN (test code = ALB) g/dL 3.4-5.0 [id number] 07:07:00* Test Item Value Reference Range Interpretation Comments PHOSPHORUS (test code = PHOS) mg/dL 2.5-4.9 [id number] 07:07:00* Test Item Value Reference Range Interpretation Comments MAGNESIUM (test code = MAG) mg/dL 1.8-2.4 CALCIUM [id number] 07:07:00* Test Item Value Reference Range Interpretation Comments CALCIUM IONIZED (test code = EBENEZER) mmol/L 1.12-1.32 CBC W/AUTO [id number] 07:01:00* Test Item Value Reference Range Interpretation Comments WHITE BLOOD CELL (test code = WBC) 8.2 K/mm3 4.5-12.5 N RED BLOOD CELL (test code = RBC) 2.90 mill/mm3 4.0-5.8 L HEMOGLOBIN (test code = HGB) 7.8 gram/dL 13.0-17.5 L HEMATOCRIT (test code = HCT) 24.4 % 42.0-52.0 L MEAN CELL VOLUME (test code = MCV) 84.1 fL 80-98 N MEAN CELL HGB (test code = MCH) 26.9 picogram 27.0-33.0 L MEAN CELL HGB CONCETRATION (test code = MCHC) 32.0 gram/dL 33.0-36. 0 L RED CELL DISTRIBUTION WIDTH (test code = RDW) 14.8 % 11.6-16. 2 N RED CELL DISTRIBUTION WIDTH SD (test code = RDW-SD) 45.4 fL 37 .0-51.0 N PLATELET COUNT (test code = PLT) 210 K/mm3 150-450 N MEAN PLATELET VOLUME (test code = MPV) 11.6 fL 6.7-11.0 H NEUTROPHIL % (test code = NT%) 74.2 % 39.0-69.0 H IMMATURE GRANULOCYTE % (test code = IG%) 1.5 % 0.0-5.0 N LYMPHOCYTE % (test code = LY%) 9.9 % 25.0-55.0 L MONOCYTE % (test code = MO%) 8.3 % 0.0-10.0 N EOSINOPHIL % (test code = EO%) 5.5 % 0.0-5.0 H BASOPHIL % (test code = BA%) 0.6 % 0.0-1.0 N NUCLEATED RBC % (test code = NRBC%) 0.2 % 0-0 H NEUTROPHIL # (test code = NT#) 6.10 K/mm3 1.8-7.7 N IMMATURE GRANULOCYTE # (test code = IG#) 0.12 x10 3/uL 0-0.03 H LYMPHOCYTE # (test code = LY#) 0.81 K/mm3 1.0-5.0 L MONOCYTE # (test code = MO#) 0.68 K/mm3 0-0.8 N EOSINOPHIL # (test code = EO#) 0.45 K/mm3 0.0-0.5 N BASOPHIL # (test code = BA#) 0.05 K/mm3 0.0-0.2 N NUCLEATED RBC # (test code = NRBC#) 0.02 K/mm3 0.0-0.1 N [id number] 19:27:00* Test Item Value Reference Range Interpretation Comments GLUBED (test code = GLUBED) 156 mg/dL 74-106 H Performed by certified double cut off saw operator at [facility] [id number] 17:04:00* Test Item Value Reference Range Interpretation Comments GLUBED (test code = GLUBED) 181 mg/dL 74-106 H Performed by certified double cut off saw operator at [facility] THROMBOPLASTIN TIME [id number] 07:52:00* Test Item Value Reference Range Interpretation Comments THROMBOPLASTIN TIME PARTIAL (test code = PTT) 75.5 seconds 25.0-36. 5 H IS PATIENT ON ANTICOAGULANTS? YLIST ANTICOAGULANTS [id number] 07:50:00* Test Item Value Reference Range Interpretation Comments GLUBED (test code = GLUBED) 210 mg/dL 74-106 H Performed by certified double cut off saw operator at [facility] B-TYPE NATRIURETIC [id number] 07:09:00* Test Item Value Reference Range Interpretation Comments B-TYPE NATRIURETIC PEPTIDE (test code = BNP) 206.46 pgram/mL 0-100 H CBC W/AUTO [id number] 07:03:00* Test Item Value Reference Range Interpretation Comments WHITE BLOOD CELL (test code = WBC) 9.2 K/mm3 4.5-12.5 N RED BLOOD CELL (test code = RBC) 2.81 mill/mm3 4.0-5.8 L HEMOGLOBIN (test code = HGB) 7.7 gram/dL 13.0-17.5 L HEMATOCRIT (test code = HCT) 23.5 % 42.0-52.0 L MEAN CELL VOLUME (test code = MCV) 83.6 fL 80-98 N MEAN CELL HGB (test code = MCH) 27.4 picogram 27.0-33.0 N MEAN CELL HGB CONCETRATION (test code = MCHC) 32.8 gram/dL 33.0-36. 0 L RED CELL DISTRIBUTION WIDTH (test code = RDW) 14.9 % 11.6-16. 2 N RED CELL DISTRIBUTION WIDTH SD (test code = RDW-SD) 45.6 fL 37 .0-51.0 N PLATELET COUNT (test code = PLT) 174 K/mm3 150-450 N MEAN PLATELET VOLUME (test code = MPV) 11.9 fL 6.7-11.0 H NEUTROPHIL % (test code = NT%) 71.9 % 39.0-69.0 H IMMATURE GRANULOCYTE % (test code = IG%) 1.5 % 0.0-5.0 N LYMPHOCYTE % (test code = LY%) 13.1 % 25.0-55.0 L MONOCYTE % (test code = MO%) 9.0 % 0.0-10.0 N EOSINOPHIL % (test code = EO%) 4.1 % 0.0-5.0 N BASOPHIL % (test code = BA%) 0.4 % 0.0-1.0 N NUCLEATED RBC % (test code = NRBC%) 0.2 % 0-0 H NEUTROPHIL # (test code = NT#) 6.60 K/mm3 1.8-7.7 N IMMATURE GRANULOCYTE # (test code = IG#) 0.14 x10 3/uL 0-0.03 H LYMPHOCYTE # (test code = LY#) 1.20 K/mm3 1.0-5.0 N MONOCYTE # (test code = MO#) 0.83 K/mm3 0-0.8 H EOSINOPHIL # (test code = EO#) 0.38 K/mm3 0.0-0.5 N BASOPHIL # (test code = BA#) 0.04 K/mm3 0.0-0.2 N NUCLEATED RBC # (test code = NRBC#) 0.02 K/mm3 0.0-0.1 N COMPREHENSIVE METABOLIC [id number] 06:51:00* Test Item Value Reference Range Interpretation Comments SODIUM (test code = NA) 133 mmol/L 136-145 L POTASSIUM (test code = K) 3.7 mmol/L 3.5-5.1 N CHLORIDE (test code = CL) 99.0 mmol/L 98-107 N CARBON DIOXIDE (test code = CO2) 26.0 mmol/L 21-32 N ANION GAP (test code = GAP) 11.7 10-20 N GLUCOSE (test code = GLU) 180 mg/dL 74-106 H BLOOD UREA NITROGEN (test code = BUN) 53 mg/dL 7-18 H GLOMERULAR FILTRATION RATE (test code = GFR) 36 mL/min >=60 Estimated GFR by using Modified MDRD formula.Chronic kidney disease is defined as either kidney damageor GFR <60 mL/min/1.73 m2 for >3 months. CREATININE (test code = CREAT) 1.90 mg/dL 0.7-1.3 H BUN/CREATININE RATIO (test code = BUN/CREA) 28.3 10-20 H TOTAL PROTEIN (test code = PROT) 7.6 gram/dL 6.4-8.2 N ALBUMIN (test code = ALB) 2.4 g/dL 3.4-5.0 L GLOBULIN (test code = GLOB) 5.2 gram/dL 2.7-4.2 H ALBUMIN/GLOBULIN RATIO (test code = A/G) 0.5 0.75-1.50 L CALCIUM (test code = CA) 8.3 mg/dL 8.5-10.1 L BILIRUBIN TOTAL (test code = BILT) 0.60 mg/dL 0.0-1.0 N SGOT/AST (test code = AST) 48 IUnit/L 15-37 H SGPT/ALT (test code = ALT) 52 IUnit/L 12-78 N ALKALINE PHOSPHATASE TOTAL (test code = ALKP) 114 IUnit/L 45-117 N Note change in reference range due to change in reagent. [id number] 06:51:00* Test Item Value Reference Range Interpretation Comments MAGNESIUM (test code = MAG) 2.9 mg/dL 1.8-2.4 H COMPREHENSIVE METABOLIC [id number] 06:46:00* Test Item Value Reference Range Interpretation Comments SODIUM (test code = NA) 133 mmol/L 136-145 L POTASSIUM (test code = K) 3.7 mmol/L 3.5-5.1 N CHLORIDE (test code = CL) 99.0 mmol/L 98-107 N CARBON DIOXIDE (test code = CO2) mmol/L 21-32 ANION GAP (test code = GAP) 10-20 GLUCOSE (test code = GLU) mg/dL 74-106 BLOOD UREA NITROGEN (test code = BUN) mg/dL 7-18 GLOMERULAR FILTRATION RATE (test code = GFR) mL/min >=60 CREATININE (test code = CREAT) mg/dL 0.7-1.3 BUN/CREATININE RATIO (test code = BUN/CREA) 10-20 TOTAL PROTEIN (test code = PROT) gram/dL 6.4-8.2 ALBUMIN (test code = ALB) g/dL 3.4-5.0 GLOBULIN (test code = GLOB) gram/dL 2.7-4.2 ALBUMIN/GLOBULIN RATIO (test code = A/G) 0.75-1.50 CALCIUM (test code = CA) mg/dL 8.5-10.1 BILIRUBIN TOTAL (test code = BILT) mg/dL 0.0-1.0 SGOT/AST (test code = AST) IUnit/L 15-37 SGPT/ALT (test code = ALT) IUnit/L 12-78 ALKALINE PHOSPHATASE TOTAL (test code = ALKP) IUnit/L 45-117 [id number] 06:46:00* Test Item Value Reference Range Interpretation Comments MAGNESIUM (test code = MAG) mg/dL 1.8-2.4 THROMBOPLASTIN TIME [id number] 01:02:00* Test Item Value Reference Range Interpretation Comments THROMBOPLASTIN TIME PARTIAL (test code = PTT) 45.9 seconds 25.0-36. 5 H IS PATIENT ON ANTICOAGULANTS? YLIST ANTICOAGULANTS [id number] 20:02:00* Test Item Value Reference Range Interpretation Comments GLUBED (test code = GLUBED) 186 mg/dL 74-106 H Performed by certified double cut off saw operator at [facility] THROMBOPLASTIN TIME [id number] 18:53:00* Test Item Value Reference Range Interpretation Comments THROMBOPLASTIN TIME PARTIAL (test code = PTT) 48.3 seconds 25.0-36. 5 H IS PATIENT ON ANTICOAGULANTS? YLIST ANTICOAGULANTS [id number] 16:15:00* Test Item Value Reference Range Interpretation Comments GLUBED (test code = GLUBED) 179 mg/dL 74-106 H Performed by certified double cut off saw operator at [facility] [id number] 15:20:00* Test Item Value Reference Range Interpretation Comments TROPONIN-I (test code = TROPI) 1.440 ng/mL 0-0.045 HH Results called to [id number] by V.LAB. 05/14/19 1520Critical results verified and read back by Nurse? Y THROMBOPLASTIN TIME [id number] 12:45:00* Test Item Value Reference Range Interpretation Comments THROMBOPLASTIN TIME PARTIAL (test code = PTT) 49.5 seconds 25.0-36. 5 H IS PATIENT ON ANTICOAGULANTS? YLIST ANTICOAGULANTS [id number] 11:16:00* Test Item Value Reference Range Interpretation Comments GLUBED (test code = GLUBED) 195 mg/dL 74-106 H Performed by certified double cut off saw operator at [facility] [id number] 10:00:00* Test Item Value Reference Range Interpretation Comments GLUBED (test code = GLUBED) 189 mg/dL 74-106 H Performed by certified double cut off saw operator at [facility] THROMBOPLASTIN TIME [id number] 08:25:00* Test Item Value Reference Range Interpretation Comments THROMBOPLASTIN TIME PARTIAL (test code = PTT) 53.4 seconds 25.0-36. 5 H IS PATIENT ON ANTICOAGULANTS? YLIST ANTICOAGULANTS HEPARINCOMPREHENSIVE METABOLIC [id number] 07:14:00* Test Item Value Reference Range Interpretation Comments SODIUM (test code = NA) 133 mmol/L 136-145 L POTASSIUM (test code = K) 3.4 mmol/L 3.5-5.1 L CHLORIDE (test code = CL) 98.0 mmol/L 98-107 N CARBON DIOXIDE (test code = CO2) 23.0 mmol/L 21-32 N ANION GAP (test code = GAP) 15.4 10-20 N GLUCOSE (test code = GLU) 191 mg/dL 74-106 H BLOOD UREA NITROGEN (test code = BUN) 51 mg/dL 7-18 H GLOMERULAR FILTRATION RATE (test code = GFR) 30 mL/min >=60 Estimated GFR by using Modified MDRD formula.Chronic kidney disease is defined as either kidney damageor GFR <60 mL/min/1.73 m2 for >3 months. CREATININE (test code = CREAT) 2.20 mg/dL 0.7-1.3 H BUN/CREATININE RATIO (test code = BUN/CREA) 23.4 10-20 H TOTAL PROTEIN (test code = PROT) 6.9 gram/dL 6.4-8.2 N ALBUMIN (test code = ALB) 2.6 g/dL 3.4-5.0 L GLOBULIN (test code = GLOB) 4.3 gram/dL 2.7-4.2 H ALBUMIN/GLOBULIN RATIO (test code = A/G) 0.6 0.75-1.50 L CALCIUM (test code = CA) 7.8 mg/dL 8.5-10.1 L BILIRUBIN TOTAL (test code = BILT) 0.80 mg/dL 0.0-1.0 N SGOT/AST (test code = AST) 82 IUnit/L 15-37 H SGPT/ALT (test code = ALT) 68 IUnit/L 12-78 N ALKALINE PHOSPHATASE TOTAL (test code = ALKP) 135 IUnit/L 45-117 H Note change in reference range due to change in reagent. COMPREHENSIVE METABOLIC [id number] 07:05:00* Test Item Value Reference Range Interpretation Comments SODIUM (test code = NA) 133 mmol/L 136-145 L POTASSIUM (test code = K) 3.4 mmol/L 3.5-5.1 L CHLORIDE (test code = CL) 98.0 mmol/L 98-107 N CARBON DIOXIDE (test code = CO2) mmol/L 21-32 ANION GAP (test code = GAP) 10-20 GLUCOSE (test code = GLU) mg/dL 74-106 BLOOD UREA NITROGEN (test code = BUN) mg/dL 7-18 GLOMERULAR FILTRATION RATE (test code = GFR) mL/min >=60 CREATININE (test code = CREAT) mg/dL 0.7-1.3 BUN/CREATININE RATIO (test code = BUN/CREA) 10-20 TOTAL PROTEIN (test code = PROT) gram/dL 6.4-8.2 ALBUMIN (test code = ALB) g/dL 3.4-5.0 GLOBULIN (test code = GLOB) gram/dL 2.7-4.2 ALBUMIN/GLOBULIN RATIO (test code = A/G) 0.75-1.50 CALCIUM (test code = CA) mg/dL 8.5-10.1 BILIRUBIN TOTAL (test code = BILT) mg/dL 0.0-1.0 SGOT/AST (test code = AST) IUnit/L 15-37 SGPT/ALT (test code = ALT) IUnit/L 12-78 ALKALINE PHOSPHATASE TOTAL (test code = ALKP) IUnit/L 45-117 [id number] 06:50:00* Test Item Value Reference Range Interpretation Comments MAGNESIUM (test code = MAG) 2.6 mg/dL 1.8-2.4 H CBC W/AUTO [id number] 06:03:00* Test Item Value Reference Range Interpretation Comments WHITE BLOOD CELL (test code = WBC) 10.0 K/mm3 4.5-12.5 N RED BLOOD CELL (test code = RBC) 3.07 mill/mm3 4.0-5.8 L HEMOGLOBIN (test code = HGB) 8.3 gram/dL 13.0-17.5 L HEMATOCRIT (test code = HCT) 25.7 % 42.0-52.0 L MEAN CELL VOLUME (test code = MCV) 83.7 fL 80-98 N MEAN CELL HGB (test code = MCH) 27.0 picogram 27.0-33.0 N MEAN CELL HGB CONCETRATION (test code = MCHC) 32.3 gram/dL 33.0-36. 0 L RED CELL DISTRIBUTION WIDTH (test code = RDW) 14.8 % 11.6-16. 2 N RED CELL DISTRIBUTION WIDTH SD (test code = RDW-SD) 45.7 fL 37 .0-51.0 N PLATELET COUNT (test code = PLT) 160 K/mm3 150-450 N MEAN PLATELET VOLUME (test code = MPV) 12.0 fL 6.7-11.0 H NEUTROPHIL % (test code = NT%) 74.6 % 39.0-69.0 H IMMATURE GRANULOCYTE % (test code = IG%) 1.3 % 0.0-5.0 N LYMPHOCYTE % (test code = LY%) 13.9 % 25.0-55.0 L MONOCYTE % (test code = MO%) 7.4 % 0.0-10.0 N EOSINOPHIL % (test code = EO%) 2.3 % 0.0-5.0 N BASOPHIL % (test code = BA%) 0.5 % 0.0-1.0 N NUCLEATED RBC % (test code = NRBC%) 0.0 % 0-0 N NEUTROPHIL # (test code = NT#) 7.49 K/mm3 1.8-7.7 N IMMATURE GRANULOCYTE # (test code = IG#) 0.13 x10 3/uL 0-0.03 H LYMPHOCYTE # (test code = LY#) 1.40 K/mm3 1.0-5.0 N MONOCYTE # (test code = MO#) 0.74 K/mm3 0-0.8 N EOSINOPHIL # (test code = EO#) 0.23 K/mm3 0.0-0.5 N BASOPHIL # (test code = BA#) 0.05 K/mm3 0.0-0.2 N NUCLEATED RBC # (test code = NRBC#) 0.00 K/mm3 0.0-0.1 N MANUAL DIFF REQUIRED (test code = MDIFF) NO THROMBOPLASTIN TIME [id number] 01:04:00* Test Item Value Reference Range Interpretation Comments THROMBOPLASTIN TIME PARTIAL (test code = PTT) 61.7 seconds 25.0-36. 5 H IS PATIENT ON ANTICOAGULANTS? [employer] ANTICOAGULANTS [id number] 20:23:00* Test Item Value Reference Range Interpretation Comments GLUBED (test code = GLUBED) 161 mg/dL 74-106 H Performed by certified double cut off saw operator at [facility] THROMBOPLASTIN TIME [id number] 17:45:00* Test Item Value Reference Range Interpretation Comments THROMBOPLASTIN TIME PARTIAL (test code = PTT) 41.3 seconds 25.0-36. 5 H IS PATIENT ON ANTICOAGULANTS? [employer] ANTICOAGULANTS [id number] 16:26:00* Test Item Value Reference Range Interpretation Comments GLUBED (test code = GLUBED) 165 mg/dL 74-106 H Performed by certified double cut off saw operator at [facility] [id number] 11:34:00* Test Item Value Reference Range Interpretation Comments GLUBED (test code = GLUBED) 187 mg/dL 74-106 H Performed by certified double cut off saw operator at [facility] THROMBOPLASTIN TIME [id number] 11:29:00* Test Item Value Reference Range Interpretation Comments THROMBOPLASTIN TIME PARTIAL (test code = PTT) 46.2 seconds 25.0-36. 5 H IS PATIENT ON ANTICOAGULANTS? [employer] ANTICOAGULANTS HEPARINCOMPREHENSIVE METABOLIC [id number] 05:40:00* Test Item Value Reference Range Interpretation Comments SODIUM (test code = NA) 133 mmol/L 136-145 L POTASSIUM (test code = K) 3.4 mmol/L 3.5-5.1 L CHLORIDE (test code = CL) 97.0 mmol/L 98-107 L CARBON DIOXIDE (test code = CO2) 27.0 mmol/L 21-32 N ANION GAP (test code = GAP) 12.4 10-20 N GLUCOSE (test code = GLU) 203 mg/dL 74-106 H BLOOD UREA NITROGEN (test code = BUN) 45 mg/dL 7-18 H RESULT VERIFIED BY REPEAT ANALYSIS GLOMERULAR FILTRATION RATE (test code = GFR) 25 mL/min >=60 Estimated GFR by using Modified MDRD formula.Chronic kidney disease is defined as either kidney damageor GFR <60 mL/min/1.73 m2 for >3 months. CREATININE (test code = CREAT) 2.60 mg/dL 0.7-1.3 H BUN/CREATININE RATIO (test code = BUN/CREA) 17.3 10-20 N TOTAL PROTEIN (test code = PROT) 7.7 gram/dL 6.4-8.2 N ALBUMIN (test code = ALB) 2.5 g/dL 3.4-5.0 L GLOBULIN (test code = GLOB) 5.2 gram/dL 2.7-4.2 H ALBUMIN/GLOBULIN RATIO (test code = A/G) 0.5 0.75-1.50 L CALCIUM (test code = CA) 8.2 mg/dL 8.5-10.1 L BILIRUBIN TOTAL (test code = BILT) 0.70 mg/dL 0.0-1.0 N SGOT/AST (test code = AST) 60 IUnit/L 15-37 H SGPT/ALT (test code = ALT) 54 IUnit/L 12-78 N ALKALINE PHOSPHATASE TOTAL (test code = ALKP) 119 IUnit/L 45-117 H Note change in reference range due to change in reagent. [id number] 05:40:00* Test Item Value Reference Range Interpretation Comments MAGNESIUM (test code = MAG) 2.5 mg/dL 1.8-2.4 H COMPREHENSIVE METABOLIC [id number] 05:15:00* Test Item Value Reference Range Interpretation Comments SODIUM (test code = NA) 133 mmol/L 136-145 L POTASSIUM (test code = K) 3.4 mmol/L 3.5-5.1 L CHLORIDE (test code = CL) 97.0 mmol/L 98-107 L CARBON DIOXIDE (test code = CO2) mmol/L 21-32 ANION GAP (test code = GAP) 10-20 GLUCOSE (test code = GLU) mg/dL 74-106 BLOOD UREA NITROGEN (test code = BUN) mg/dL 7-18 GLOMERULAR FILTRATION RATE (test code = GFR) mL/min >=60 CREATININE (test code = CREAT) mg/dL 0.7-1.3 BUN/CREATININE RATIO (test code = BUN/CREA) 10-20 TOTAL PROTEIN (test code = PROT) gram/dL 6.4-8.2 ALBUMIN (test code = ALB) g/dL 3.4-5.0 GLOBULIN (test code = GLOB) gram/dL 2.7-4.2 ALBUMIN/GLOBULIN RATIO (test code = A/G) 0.75-1.50 CALCIUM (test code = CA) mg/dL 8.5-10.1 BILIRUBIN TOTAL (test code = BILT) mg/dL 0.0-1.0 SGOT/AST (test code = AST) IUnit/L 15-37 SGPT/ALT (test code = ALT) IUnit/L 12-78 ALKALINE PHOSPHATASE TOTAL (test code = ALKP) IUnit/L 45-117 [id number] 05:15:00* Test Item Value Reference Range Interpretation Comments MAGNESIUM (test code = MAG) mg/dL 1.8-2.4 THROMBOPLASTIN TIME [id number] 05:05:00* Test Item Value Reference Range Interpretation Comments THROMBOPLASTIN TIME PARTIAL (test code = PTT) 50.8 seconds 25.0-36. 5 H IS PATIENT ON ANTICOAGULANTS? YLIST ANTICOAGULANTS HEPARINCBC W/AUTO DIFF 2019-05-13 04:59:00* Test Item Value Reference Range Interpretation Comments WHITE BLOOD CELL (test code = WBC) 8.1 K/mm3 4.5-12.5 N RED BLOOD CELL (test code = RBC) 2.99 mill/mm3 4.0-5.8 L HEMOGLOBIN (test code = HGB) 8.1 gram/dL 13.0-17.5 L HEMATOCRIT (test code = HCT) 25.3 % 42.0-52.0 L MEAN CELL VOLUME (test code = MCV) 84.6 fL 80-98 N MEAN CELL HGB (test code = MCH) 27.1 picogram 27.0-33.0 N MEAN CELL HGB CONCETRATION (test code = MCHC) 32.0 gram/dL 33.0-36. 0 L RED CELL DISTRIBUTION WIDTH (test code = RDW) 14.6 % 11.6-16. 2 N RED CELL DISTRIBUTION WIDTH SD (test code = RDW-SD) 45.4 fL 37 .0-51.0 N PLATELET COUNT (test code = PLT) 136 K/mm3 150-450 L MEAN PLATELET VOLUME (test code = MPV) 11.9 fL 6.7-11.0 H NEUTROPHIL % (test code = NT%) 77.0 % 39.0-69.0 H IMMATURE GRANULOCYTE % (test code = IG%) 0.5 % 0.0-5.0 N LYMPHOCYTE % (test code = LY%) 10.8 % 25.0-55.0 L MONOCYTE % (test code = MO%) 10.9 % 0.0-10.0 H EOSINOPHIL % (test code = EO%) 0.4 % 0.0-5.0 N BASOPHIL % (test code = BA%) 0.4 % 0.0-1.0 N NUCLEATED RBC % (test code = NRBC%) 0.0 % 0-0 N NEUTROPHIL # (test code = NT#) 6.27 K/mm3 1.8-7.7 N IMMATURE GRANULOCYTE # (test code = IG#) 0.04 x10 3/uL 0-0.03 H LYMPHOCYTE # (test code = LY#) 0.88 K/mm3 1.0-5.0 L MONOCYTE # (test code = MO#) 0.89 K/mm3 0-0.8 H EOSINOPHIL # (test code = EO#) 0.03 K/mm3 0.0-0.5 N BASOPHIL # (test code = BA#) 0.03 K/mm3 0.0-0.2 N NUCLEATED RBC # (test code = NRBC#) 0.00 K/mm3 0.0-0.1 N THROMBOPLASTIN TIME [id number] 23:37:00* Test Item Value Reference Range Interpretation Comments THROMBOPLASTIN TIME PARTIAL (test code = PTT) 47.7 seconds 25.0-36. 5 H HEMOLYZED, CALLED [id number] FOR REDRAW,V.LAB. IS PATIENT ON ANTICOAG ULANTS? YLIST ANTICOAGULANTS [id number] 18:28:00* Test Item Value Reference Range Interpretation Comments TROPONIN-I (test code = TROPI) 0.324 ng/mL 0-0.045 HH RESULT VERIFIED BY REPEAT ANALYSIS - XR CHEST 1 [id number] 17:30:00 FAX: Baldemar Wilkes MD [phone] [place]: B St: ADM FAX: Ines Barbosa MD [phone] FAX: Elisabeth Lindquist MD [phone] Name: MILA MELCHOR [facility] : 1955 Age/S: 63/M [address] Unit #: [id number] Loc: [address] [address] Phys: Elisabeth Joy MD Acct: [id number] Dis Date: Status: ADM IN ONE #: [phone] Exam Date: 05/12/2019 1710 FAX #: [phone] Reason: CHEST PAIN EXAMS: CPT CODE: [id number] XR CHEST 1 V 03012 REASON FOR EXAM: CHEST PAIN Exam Order [...] igned by: Arya Crow MD CC: Baldemar Wilkes MD; Ines Antunez MD; Elisabeth Joy MD Technologist: Ryne Sexton RT(R) Trnscrd Date/Time/By: 05/12/2019 (5881) : By: [email or web address] Orig Print D/T: S: 05/12/2019 (5029) PAGE 1 Signed Report THROMBOPLASTIN TIME PARTIAL 2019-05-12 17:01:00* Test Item Value Reference Range Interpretation Comments THROMBOPLASTIN TIME PARTIAL (test code = PTT) 47.2 seconds 25.0-36. 5 H IS PATIENT ON ANTICOAGULANTS? YLIST ANTICOAGULANTS HEPARINTROPONIN-I 2019-05-12 11:35:00* Test Item Value Reference Range Interpretation Comments TROPONIN-I (test code = TROPI) 0.484 ng/mL 0-0.045 HH [id number] 11:21:00* Test Item Value Reference Range Interpretation Comments POTASSIUM (test code = K) 3.2 mmol/L 3.5-5.1 L RE SULT VERIFIED BY REPEAT ANALYSIS THROMBOPLASTIN TIME [id number] 10:59:00* Test Item Value Reference Range Interpretation Comments THROMBOPLASTIN TIME PARTIAL (test code = PTT) 47.8 seconds 25.0-36. 5 H IS PATIENT ON ANTICOAGULANTS? YLIST ANTICOAGULANTS HEPARIN- XR CHEST 1 V 2019-05-12 10:16:00 FAX: Baldemar Wilkes MD [phone] [place]: St: ADM FAX: Ines Barbosa MD [phone] FAX: Elisabeth Lindquist MD [phone] Name: MILA MELCHOR [facility] : 1955 Age/S: 63/M [address] [facility] Unit #: [id number] Loc: V.[address] [address] Phys: Elisabeth Joy MD Acct: [id number] Dis Date: Status: ADM IN ONE #: [phone] Exam Date: 05/12/2019 0905 FAX #: [phone] Reason: respiratory failure EXAMS: CPT CODE: [id number] XR CHEST 1 V 64319 HISTORY: Respi ratory failure. COMPARISON: Previous day. Congestion has resolved. Dependent changes. Mild cardiomegaly. IMPRESSIO N: Resolved interstitial edema. Dependent changes. No effusi on. at 1016 Reported and signed by: Nelson Sanchez M.D. CC: Baldemar Wilkes MD; Ines Antunez MD; Elisabeth Joy MD Tech nologist: SEKOU STEWART(R) Trnscrd Date/Ti me/By: 05/12/2019 (1016) : By: [email or web address] Orig Print D/T: S: 05/12/2019 (1019) PAGE 1 Signed Report COMPREHENSIVE METABOLIC [id number] 06:22:00* Test Item Value Reference Range Interpretation Comments SODIUM (test code = NA) 134 mmol/L 136-145 L POTASSIUM (test code = K) 5.6 mmol/L 3.5-5.1 H CHLORIDE (test code = CL) 101.0 mmol/L 98-107 N CARBON DIOXIDE (test code = CO2) 26.0 mmol/L 21-32 N ANION GAP (test code = GAP) 12.6 10-20 N GLUCOSE (test code = GLU) 145 mg/dL 74-106 H BLOOD UREA NITROGEN (test code = BUN) 34 mg/dL 7-18 H GLOMERULAR FILTRATION RATE (test code = GFR) 30 mL/min >=60 Estimated GFR by using Modified MDRD formula.Chronic kidney disease is defined as either kidney damageor GFR <60 mL/min/1.73 m2 for >3 months. CREATININE (test code = CREAT) 2.20 mg/dL 0.7-1.3 H BUN/CREATININE RATIO (test code = BUN/CREA) 15.4 10-20 N TOTAL PROTEIN (test code = PROT) 8.1 gram/dL 6.4-8.2 N ALBUMIN (test code = ALB) 2.6 g/dL 3.4-5.0 L GLOBULIN (test code = GLOB) 5.5 gram/dL 2.7-4.2 H ALBUMIN/GLOBULIN RATIO (test code = A/G) 0.5 0.75-1.50 L CALCIUM (test code = CA) 8.3 mg/dL 8.5-10.1 L BILIRUBIN TOTAL (test code = BILT) 1.00 mg/dL 0.0-1.0 N SGOT/AST (test code = AST) 81 IUnit/L 15-37 H SGPT/ALT (test code = ALT) 52 IUnit/L 12-78 N ALKALINE PHOSPHATASE TOTAL (test code = ALKP) 102 IUnit/L 45-117 N Note change in reference range due to change in reagent. COMPREHENSIVE METABOLIC [id number] 06:08:00* Test Item Value Reference Range Interpretation Comments SODIUM (test code = NA) 134 mmol/L 136-145 L POTASSIUM (test code = K) 5.6 mmol/L 3.5-5.1 H CHLORIDE (test code = CL) 101.0 mmol/L 98-107 N CARBON DIOXIDE (test code = CO2) mmol/L 21-32 ANION GAP (test code = GAP) 10-20 GLUCOSE (test code = GLU) mg/dL 74-106 BLOOD UREA NITROGEN (test code = BUN) mg/dL 7-18 GLOMERULAR FILTRATION RATE (test code = GFR) mL/min >=60 CREATININE (test code = CREAT) mg/dL 0.7-1.3 BUN/CREATININE RATIO (test code = BUN/CREA) 10-20 TOTAL PROTEIN (test code = PROT) gram/dL 6.4-8.2 ALBUMIN (test code = ALB) g/dL 3.4-5.0 GLOBULIN (test code = GLOB) gram/dL 2.7-4.2 ALBUMIN/GLOBULIN RATIO (test code = A/G) 0.75-1.50 CALCIUM (test code = CA) mg/dL 8.5-10.1 BILIRUBIN TOTAL (test code = BILT) mg/dL 0.0-1.0 SGOT/AST (test code = AST) IUnit/L 15-37 SGPT/ALT (test code = ALT) IUnit/L 12-78 ALKALINE PHOSPHATASE TOTAL (test code = ALKP) IUnit/L 45-117 CBC W/AUTO [id number] 05:35:00* Test Item Value Reference Range Interpretation Comments WHITE BLOOD CELL (test code = WBC) 7.9 K/mm3 4.5-12.5 N RED BLOOD CELL (test code = RBC) 3.20 mill/mm3 4.0-5.8 L HEMOGLOBIN (test code = HGB) 8.8 gram/dL 13.0-17.5 L HEMATOCRIT (test code = HCT) 27.3 % 42.0-52.0 L MEAN CELL VOLUME (test code = MCV) 85.3 fL 80-98 N MEAN CELL HGB (test code = MCH) 27.5 picogram 27.0-33.0 N MEAN CELL HGB CONCETRATION (test code = MCHC) 32.2 gram/dL 33.0-36. 0 L RED CELL DISTRIBUTION WIDTH (test code = RDW) 14.9 % 11.6-16. 2 N RED CELL DISTRIBUTION WIDTH SD (test code = RDW-SD) 46.5 fL 37 .0-51.0 N PLATELET COUNT (test code = PLT) 141 K/mm3 150-450 L MEAN PLATELET VOLUME (test code = MPV) 12.0 fL 6.7-11.0 H NEUTROPHIL % (test code = NT%) 72.6 % 39.0-69.0 H IMMATURE GRANULOCYTE % (test code = IG%) 0.5 % 0.0-5.0 N LYMPHOCYTE % (test code = LY%) 12.5 % 25.0-55.0 L MONOCYTE % (test code = MO%) 11.6 % 0.0-10.0 H EOSINOPHIL % (test code = EO%) 2.4 % 0.0-5.0 N BASOPHIL % (test code = BA%) 0.4 % 0.0-1.0 N NUCLEATED RBC % (test code = NRBC%) 0.0 % 0-0 N NEUTROPHIL # (test code = NT#) 5.75 K/mm3 1.8-7.7 N IMMATURE GRANULOCYTE # (test code = IG#) 0.04 x10 3/uL 0-0.03 H LYMPHOCYTE # (test code = LY#) 0.99 K/mm3 1.0-5.0 L MONOCYTE # (test code = MO#) 0.92 K/mm3 0-0.8 H EOSINOPHIL # (test code = EO#) 0.19 K/mm3 0.0-0.5 N BASOPHIL # (test code = BA#) 0.03 K/mm3 0.0-0.2 N NUCLEATED RBC # (test code = NRBC#) 0.00 K/mm3 0.0-0.1 N THROMBOPLASTIN TIME [id number] 04:59:00* Test Item Value Reference Range Interpretation Comments THROMBOPLASTIN TIME PARTIAL (test code = PTT) 59.0 seconds 25.0-36. 5 H IS PATIENT ON ANTICOAGULANTS? YLIST ANTICOAGULANTS HEPARINTHROMBOPLASTIN TIME [id number] 20:47:00* Test Item Value Reference Range Interpretation Comments THROMBOPLASTIN TIME PARTIAL (test code = PTT) 40.2 seconds 25.0-36. 5 H IS PATIENT ON ANTICOAGULANTS? YLIST ANTICOAGULANTS HEPARINTHROMBOPLASTIN TIME [id number] 16:02:00* Test Item Value Reference Range Interpretation Comments THROMBOPLASTIN TIME PARTIAL (test code = PTT) 39.4 seconds 25.0-36. 5 H IS PATIENT ON ANTICOAGULANTS? NB-TYPE NATRIURETIC [id number] 12:56:00* Test Item Value Reference Range Interpretation Comments B-TYPE NATRIURETIC PEPTIDE (test code = BNP) 313.17 pgram/mL 0-100 H COMPREHENSIVE METABOLIC [id number] 12:14:00* Test Item Value Reference Range Interpretation Comments SODIUM (test code = NA) 136 mmol/L 136-145 N POTASSIUM (test code = K) 3.8 mmol/L 3.5-5.1 N CHLORIDE (test code = CL) 102.0 mmol/L 98-107 N CARBON DIOXIDE (test code = CO2) 29.0 mmol/L 21-32 N ANION GAP (test code = GAP) 8.8 10-20 L GLUCOSE (test code = GLU) 196 mg/dL 74-106 H BLOOD UREA NITROGEN (test code = BUN) 34 mg/dL 7-18 H GLOMERULAR FILTRATION RATE (test code = GFR) 29 mL/min >=60 Estimated GFR by using Modified MDRD formula.Chronic kidney disease is defined as either kidney damageor GFR <60 mL/min/1.73 m2 for >3 months. CREATININE (test code = CREAT) 2.30 mg/dL 0.7-1.3 H BUN/CREATININE RATIO (test code = BUN/CREA) 14.9 10-20 N TOTAL PROTEIN (test code = PROT) 7.7 gram/dL 6.4-8.2 N ALBUMIN (test code = ALB) 2.7 g/dL 3.4-5.0 L GLOBULIN (test code = GLOB) 5.0 gram/dL 2.7-4.2 H ALBUMIN/GLOBULIN RATIO (test code = A/G) 0.5 0.75-1.50 L CALCIUM (test code = CA) 7.5 mg/dL 8.5-10.1 L BILIRUBIN TOTAL (test code = BILT) 0.70 mg/dL 0.0-1.0 N SGOT/AST (test code = AST) 63 IUnit/L 15-37 H SGPT/ALT (test code = ALT) 58 IUnit/L 12-78 N ALKALINE PHOSPHATASE TOTAL (test code = ALKP) 106 IUnit/L 45-117 N Note change in reference range due to change in reagent. [id number] 12:14:00* Test Item Value Reference Range Interpretation Comments PHOSPHORUS (test code = PHOS) 3.3 mg/dL 2.5-4.9 N [id number] 12:14:00* Test Item Value Reference Range Interpretation Comments MAGNESIUM (test code = MAG) 2.3 mg/dL 1.8-2.4 N THYROID STIMULATING [id number] 12:14:00* Test Item Value Reference Range Interpretation Comments THYROID STIMULATING HORMONE (test code = TSH) 2.010 uIU/mL 0.36-3.7 4 N TSH REFERENCE RANGES: EUTHYROID: 0.35 - 4.3 mIU/mL HYPO : > 5.5 mIU/mL HYPER : < 0.35 mIU/mL [id number] 12:14:00* Test Item Value Reference Range Interpretation Comments CKMB (test code = CKMBT) 2.3 ng/mL 0-6.0 N [id number] 12:14:00* Test Item Value Reference Range Interpretation Comments TROPONIN-I (test code = TROPI) 0.887 ng/mL 0-0.045 HH Results called to [id number] by RYLAN 05/11/19 1213Critical results verified and read back by Nurse? Y PROTHROMBIN [id number] 12:06:00* Test Item Value Reference Range Interpretation Comments PROTHROMBIN TIME PATIENT (test code = PTP) 15.3 seconds 9.0-14.0 H INTERNATIONAL NORMAL RATIO (test code = INR) 1.3 0.8-1.2 H The therapeutic range for oral anticoagulant therapy [...] (2.5-3.5) IS PATIENT ON ANTICOAGULANTS? NTHROMBOPLASTIN TIME [id number] 12:06:00* Test Item Value Reference Range Interpretation Comments THROMBOPLASTIN TIME PARTIAL (test code = PTT) 54.0 seconds 25.0-36. 5 H IS PATIENT ON ANTICOAGULANTS? NCBC W/AUTO [id number] 12:04:00* Test Item Value Reference Range Interpretation Comments WHITE BLOOD CELL (test code = WBC) 10.7 K/mm3 4.5-12.5 N RED BLOOD CELL (test code = RBC) 3.18 mill/mm3 4.0-5.8 L HEMOGLOBIN (test code = HGB) 8.8 gram/dL 13.0-17.5 L HEMATOCRIT (test code = HCT) 26.9 % 42.0-52.0 L MEAN CELL VOLUME (test code = MCV) 84.6 fL 80-98 N MEAN CELL HGB (test code = MCH) 27.7 picogram 27.0-33.0 N MEAN CELL HGB CONCETRATION (test code = MCHC) 32.7 gram/dL 33.0-36. 0 L RED CELL DISTRIBUTION WIDTH (test code = RDW) 14.9 % 11.6-16. 2 N RED CELL DISTRIBUTION WIDTH SD (test code = RDW-SD) 46.2 fL 37 .0-51.0 N PLATELET COUNT (test code = PLT) 120 K/mm3 150-450 L MEAN PLATELET VOLUME (test code = MPV) 12.6 fL 6.7-11.0 H NEUTROPHIL % (test code = NT%) 85.2 % 39.0-69.0 H IMMATURE GRANULOCYTE % (test code = IG%) 0.7 % 0.0-5.0 N LYMPHOCYTE % (test code = LY%) 5.3 % 25.0-55.0 L MONOCYTE % (test code = MO%) 7.9 % 0.0-10.0 N EOSINOPHIL % (test code = EO%) 0.5 % 0.0-5.0 N BASOPHIL % (test code = BA%) 0.4 % 0.0-1.0 N NUCLEATED RBC % (test code = NRBC%) 0.0 % 0-0 N NEUTROPHIL # (test code = NT#) 9.10 K/mm3 1.8-7.7 H IMMATURE GRANULOCYTE # (test code = IG#) 0.07 x10 3/uL 0-0.03 H LYMPHOCYTE # (test code = LY#) 0.57 K/mm3 1.0-5.0 L MONOCYTE # (test code = MO#) 0.84 K/mm3 0-0.8 H EOSINOPHIL # (test code = EO#) 0.05 K/mm3 0.0-0.5 N BASOPHIL # (test code = BA#) 0.04 K/mm3 0.0-0.2 N NUCLEATED RBC # (test code = NRBC#) 0.00 K/mm3 0.0-0.1 N MANUAL DIFF REQUIRED (test code = MDIFF) NO COMPREHENSIVE METABOLIC [id number] 11:51:00* Test Item Value Reference Range Interpretation Comments SODIUM (test code = NA) 136 mmol/L 136-145 N POTASSIUM (test code = K) 3.8 mmol/L 3.5-5.1 N CHLORIDE (test code = CL) 102.0 mmol/L 98-107 N CARBON DIOXIDE (test code = CO2) mmol/L 21-32 ANION GAP (test code = GAP) 10-20 GLUCOSE (test code = GLU) mg/dL 74-106 BLOOD UREA NITROGEN (test code = BUN) mg/dL 7-18 GLOMERULAR FILTRATION RATE (test code = GFR) mL/min >=60 CREATININE (test code = CREAT) mg/dL 0.7-1.3 BUN/CREATININE RATIO (test code = BUN/CREA) 10-20 TOTAL PROTEIN (test code = PROT) gram/dL 6.4-8.2 ALBUMIN (test code = ALB) g/dL 3.4-5.0 GLOBULIN (test code = GLOB) gram/dL 2.7-4.2 ALBUMIN/GLOBULIN RATIO (test code = A/G) 0.75-1.50 CALCIUM (test code = CA) mg/dL 8.5-10.1 BILIRUBIN TOTAL (test code = BILT) mg/dL 0.0-1.0 SGOT/AST (test code = AST) IUnit/L 15-37 SGPT/ALT (test code = ALT) IUnit/L 12-78 ALKALINE PHOSPHATASE TOTAL (test code = ALKP) IUnit/L 45-117 [id number] 11:51:00* Test Item Value Reference Range Interpretation Comments PHOSPHORUS (test code = PHOS) mg/dL 2.5-4.9 [id number] 11:51:00* Test Item Value Reference Range Interpretation Comments MAGNESIUM (test code = MAG) mg/dL 1.8-2.4 THYROID STIMULATING [id number] 11:51:00* Test Item Value Reference Range Interpretation Comments THYROID STIMULATING HORMONE (test code = TSH) uIU/mL 0.36-3.7 4 [id number] 11:51:00* Test Item Value Reference Range Interpretation Comments CKMB (test code = CKMBT) ng/mL 0-6.0 [id number] 11:51:00* Test Item Value Reference Range Interpretation Comments TROPONIN-I (test code = TROPI) ng/mL 0-0.045 - XR CHEST 1 [id number] 11:28:00 FAX: Baldemar Wilkes MD [phone] [place]: B St: ADM FAX: Ines Barbosa MD [phone] FAX: Elisabeth Lindquist MD [phone] Name: MILA MELCHOR [facility] : 1955 Age/S: 63/M [address] Unit #: [id number] Loc: [address] [address] [address] Phys: Elisabeth Joy MD Acct: [id number] Dis Date: Status: ADM IN ONE #: [phone] Exam Date: 05/11/2019 1119 FAX #: [phone] Reason: chest pain EXAMS: CPT CODE: [id number] XR CHEST 1 V 76380 REASON FOR EXAM: chest pain Exam Order Date: 05/11/2019 10:07 AM Ordering M.DNickie: Elisabeth Joy MD PROCEDURE: - XR CHEST [...] signed by: Arya maldonado MD CC: Baldemar Wilkes MD; Ines Antunez MD; Elisabeth Joy MD T echnologist: ANDRE PATTERSON RT; SEKOU CHOWDARY RT(R) Trnscrd Date /Time/By: 05/11/2019 (1128) : By: [email or web address] Orig Print D/T: S: 019 (9867) PAGE 1 Signed Report [id number] 08:30:00* Test Item Value Reference Range Interpretation Comments GLUBED (test code = GLUBED) 209 mg/dL 74-106 H Performed by certified double cut off saw operator at [facility] THROMBOPLASTIN TIME [id number] 08:19:00* Test Item Value Reference Range Interpretation Comments THROMBOPLASTIN TIME PARTIAL (test code = PTT) 34.8 seconds 25.0-36. 5 N IS PATIENT ON ANTICOAGULANTS? [id number] 08:04:00* Test Item Value Reference Range Interpretation Comments HEMATOCRIT (test code = HCT) 29.5 % 42.0-52.0 L PLATELET [id number] 08:04:00* Test Item Value Reference Range Interpretation Comments PLATELET COUNT (test code = PLT) 131 K/mm3 150-450 L BASIC METABOLIC [id number] 06:44:00* Test Item Value Reference Range Interpretation Comments SODIUM (test code = NA) 138 mmol/L 136-145 N POTASSIUM (test code = K) 3.7 mmol/L 3.5-5.1 N CHLORIDE (test code = CL) 102.0 mmol/L 98-107 N CARBON DIOXIDE (test code = CO2) 25.0 mmol/L 21-32 N ANION GAP (test code = GAP) 14.7 10-20 N GLUCOSE (test code = GLU) 157 mg/dL 74-106 H BLOOD UREA NITROGEN (test code = BUN) 36 mg/dL 7-18 H GLOMERULAR FILTRATION RATE (test code = GFR) 28 mL/min >=60 Estimated GFR by using Modified MDRD formula.Chronic kidney disease is defined as either kidney damageor GFR <60 mL/min/1.73 m2 for >3 months. CREATININE (test code = CREAT) 2.40 mg/dL 0.7-1.3 H BUN/CREATININE RATIO (test code = BUN/CREA) 15.3 10-20 N CALCIUM (test code = CA) 8.5 mg/dL 8.5-10.1 N [id number] 06:44:00* Test Item Value Reference Range Interpretation Comments PHOSPHORUS (test code = PHOS) 4.2 mg/dL 2.5-4.9 N [id number] 06:44:00* Test Item Value Reference Range Interpretation Comments MAGNESIUM (test code = MAG) 2.4 mg/dL 1.8-2.4 N [id number] 06:44:00* Test Item Value Reference Range Interpretation Comments TROPONIN-I (test code = TROPI) 0.017 ng/mL 0-0.045 N CBC W/O [id number] 05:54:00* Test Item Value Reference Range Interpretation Comments WHITE BLOOD CELL (test code = WBC) 12.6 K/mm3 4.5-12.5 H RED BLOOD CELL (test code = RBC) 3.59 mill/mm3 4.0-5.8 L HEMOGLOBIN (test code = HGB) 9.9 gram/dL 13.0-17.5 L HEMATOCRIT (test code = HCT) 30.8 % 42.0-52.0 L MEAN CELL VOLUME (test code = MCV) 85.8 fL 80-98 N MEAN CELL HGB (test code = MCH) 27.6 picogram 27.0-33.0 N MEAN CELL HGB CONCETRATION (test code = MCHC) 32.1 gram/dL 33.0-36. 0 L RED CELL DISTRIBUTION WIDTH (test code = RDW) 15.2 % 11.6-16. 2 N PLATELET COUNT (test code = PLT) 138 K/mm3 150-450 L MEAN PLATELET VOLUME (test code = MPV) 12.7 fL 6.7-11.0 H [id number] 23:27:00* Test Item Value Reference Range Interpretation Comments TROPONIN-I (test code = TROPI) 0.017 ng/mL 0-0.045 N CPK-MB [id number] 20:05:00* Test Item Value Reference Range Interpretation Comments CREATINE KINASE (CK) (test code = CK) 113 IUnit/L 26-208 N CKMB (test code = CKMBT) < 1.0 ng/mL 0-6.0 N RELATIVE % INDEX (test code = REL%) 0.88 % 0.00-2.50 N "If the total CK is elevated, the CKMB Fraction must beinterpreted as a Relative % Index, Normal is less than 2.5%"NOTE: Relative % Index is not valid with a normal total CK. COMPREHENSIVE METABOLIC [id number] 20:05:00* Test Item Value Reference Range Interpretation Comments SODIUM (test code = NA) 136 mmol/L 136-145 N POTASSIUM (test code = K) 3.4 mmol/L 3.5-5.1 L CHLORIDE (test code = CL) 102.0 mmol/L 98-107 N CARBON DIOXIDE (test code = CO2) 27.0 mmol/L 21-32 N ANION GAP (test code = GAP) 10.4 10-20 N GLUCOSE (test code = GLU) 172 mg/dL 74-106 H BLOOD UREA NITROGEN (test code = BUN) 32 mg/dL 7-18 H GLOMERULAR FILTRATION RATE (test code = GFR) 30 mL/min >=60 Estimated GFR by using Modified MDRD formula.Chronic kidney disease is defined as either kidney damageor GFR <60 mL/min/1.73 m2 for >3 months. CREATININE (test code = CREAT) 2.20 mg/dL 0.7-1.3 H BUN/CREATININE RATIO (test code = BUN/CREA) 14.4 10-20 N TOTAL PROTEIN (test code = PROT) 7.9 gram/dL 6.4-8.2 N ALBUMIN (test code = ALB) 2.8 g/dL 3.4-5.0 L GLOBULIN (test code = GLOB) 5.1 gram/dL 2.7-4.2 H ALBUMIN/GLOBULIN RATIO (test code = A/G) 0.5 0.75-1.50 L CALCIUM (test code = CA) 8.0 mg/dL 8.5-10.1 L BILIRUBIN TOTAL (test code = BILT) 0.70 mg/dL 0.0-1.0 N SGOT/AST (test code = AST) 52 IUnit/L 15-37 H SGPT/ALT (test code = ALT) 37 IUnit/L 12-78 N ALKALINE PHOSPHATASE TOTAL (test code = ALKP) 105 IUnit/L 45-117 N Note change in reference range due to change in reagent. [id number] 20:05:00* Test Item Value Reference Range Interpretation Comments TROPONIN-I (test code = TROPI) <0.015 ng/mL 0-0.045 N COMPREHENSIVE METABOLIC [id number] 20:01:00* Test Item Value Reference Range Interpretation Comments SODIUM (test code = NA) 136 mmol/L 136-145 N POTASSIUM (test code = K) 3.4 mmol/L 3.5-5.1 L CHLORIDE (test code = CL) 102.0 mmol/L 98-107 N CARBON DIOXIDE (test code = CO2) mmol/L 21-32 ANION GAP (test code = GAP) 10-20 GLUCOSE (test code = GLU) mg/dL 74-106 BLOOD UREA NITROGEN (test code = BUN) mg/dL 7-18 GLOMERULAR FILTRATION RATE (test code = GFR) mL/min >=60 CREATININE (test code = CREAT) mg/dL 0.7-1.3 BUN/CREATININE RATIO (test code = BUN/CREA) 10-20 TOTAL PROTEIN (test code = PROT) gram/dL 6.4-8.2 ALBUMIN (test code = ALB) g/dL 3.4-5.0 GLOBULIN (test code = GLOB) gram/dL 2.7-4.2 ALBUMIN/GLOBULIN RATIO (test code = A/G) 0.75-1.50 CALCIUM (test code = CA) mg/dL 8.5-10.1 BILIRUBIN TOTAL (test code = BILT) mg/dL 0.0-1.0 SGOT/AST (test code = AST) IUnit/L 15-37 SGPT/ALT (test code = ALT) IUnit/L 12-78 ALKALINE PHOSPHATASE TOTAL (test code = ALKP) IUnit/L 45-117 CBC W/AUTO [id number] 19:57:00* Test Item Value Reference Range Interpretation Comments WHITE BLOOD CELL (test code = WBC) 11.2 K/mm3 4.5-12.5 N RED BLOOD CELL (test code = RBC) 3.51 mill/mm3 4.0-5.8 L HEMOGLOBIN (test code = HGB) 9.6 gram/dL 13.0-17.5 L HEMATOCRIT (test code = HCT) 29.7 % 42.0-52.0 L MEAN CELL VOLUME (test code = MCV) 84.6 fL 80-98 N MEAN CELL HGB (test code = MCH) 27.4 picogram 27.0-33.0 N MEAN CELL HGB CONCETRATION (test code = MCHC) 32.3 gram/dL 33.0-36. 0 L RED CELL DISTRIBUTION WIDTH (test code = RDW) 15.1 % 11.6-16. 2 N RED CELL DISTRIBUTION WIDTH SD (test code = RDW-SD) 45.9 fL 37 .0-51.0 N PLATELET COUNT (test code = PLT) 129 K/mm3 150-450 L MEAN PLATELET VOLUME (test code = MPV) 12.8 fL 6.7-11.0 H NEUTROPHIL % (test code = NT%) 79.5 % 39.0-69.0 H IMMATURE GRANULOCYTE % (test code = IG%) 0.3 % 0.0-5.0 N LYMPHOCYTE % (test code = LY%) 10.2 % 25.0-55.0 L MONOCYTE % (test code = MO%) 7.0 % 0.0-10.0 N EOSINOPHIL % (test code = EO%) 2.7 % 0.0-5.0 N BASOPHIL % (test code = BA%) 0.3 % 0.0-1.0 N NUCLEATED RBC % (test code = NRBC%) 0.0 % 0-0 N NEUTROPHIL # (test code = NT#) 8.92 K/mm3 1.8-7.7 H IMMATURE GRANULOCYTE # (test code = IG#) 0.03 x10 3/uL 0-0.03 N LYMPHOCYTE # (test code = LY#) 1.14 K/mm3 1.0-5.0 N MONOCYTE # (test code = MO#) 0.78 K/mm3 0-0.8 N EOSINOPHIL # (test code = EO#) 0.30 K/mm3 0.0-0.5 N BASOPHIL # (test code = BA#) 0.03 K/mm3 0.0-0.2 N NUCLEATED RBC # (test code = NRBC#) 0.00 K/mm3 0.0-0.1 N MANUAL DIFF REQUIRED (test code = MDIFF) NO [id number] 16:35:00* Test Item Value Reference Range Interpretation Comments GLUBED (test code = GLUBED) 156 mg/dL 74-106 H Performed by certified double cut off saw operator at [facility] [id number] 15:01:00* Test Item Value Reference Range Interpretation Comments TROPONIN-I (test code = TROPI) <0.015 ng/mL 0-0.045 N [id number] 12:13:00* Test Item Value Reference Range Interpretation Comments GLUBED (test code = GLUBED) 174 mg/dL 74-106 H Performed by certified double cut off saw operator at [facility] LIPID PROFILE (CORONARY RISK)2019-05-10 10:41:00* Test Item Value Reference Range Interpretation Comments TRIGLYCERIDES (test code = TRIG) 100 mg/dL 20-150 N CHOLESTEROL (test code = CHOL) 91 mg/dL 0-200 N CHOLESTEROL/HDL RATIO (test code = CHOLHDL) 3.0 RATIO 0-4.9 N RISK ASSOCIATED WITH CHOL/HDL RATIOS: Risk Male Female1/2 AVERAGE 3.43 3.27AVERAGE 4.97 4.442X AVERAGE 9.55 7.053X AVERAGE 23.39 11.04 REFERENCE VALUE IS RELATED TO RISK LEVELS ASRECOMMENDED BY THE [facility]. HEART, LUNG, AND BLOOD INST. HDL CHOLESTEROL (test code = HDL) 27 mg/dL 40-60 L LIPOPROTEIN LDL (test code = LDL) 52 mg/dL 100-129 L Reference Interval: mg/dL mmol/L Optimal <100 <2.6Near/above optimal 100-129 2.6- 3.3Borderline High 130-159 3.4-4.1High 160-189 4.1-4.9Very High >=190 >=4.9========= This LDL result is a direct measurement.========= [id number] 10:09:00* Test Item Value Reference Range Interpretation Comments GLYCOSYLATED HEMOGLOBIN (HA1C) (test code = GLYHGB) 6.4 % HbA1 4. 8-6.0 H ESTIMATED AVERAGE GLUCOSE (test code = EAG) 137 MG/DL [id number] 08:12:00* Test Item Value Reference Range Interpretation Comments GLUBED (test code = GLUBED) 124 mg/dL 74-106 H Performed by certified double cut off saw operator at [facility] [id number] 02:42:00* Test Item Value Reference Range Interpretation Comments GLUBED (test code = GLUBED) 115 mg/dL 74-106 H Performed by certified double cut off saw operator at [facility] [id number] 20:55:00* Test Item Value Reference Range Interpretation Comments GLUBED (test code = GLUBED) 102 mg/dL 74-106 N Performed by certified double cut off saw operator at [facility] [id number] 20:22:00* Test Item Value Reference Range Interpretation Comments TROPONIN-I (test code = TROPI) 0.028 ng/mL 0-0.045 N COMMENTS TO VETERINARY MICROBIOLOGIST: COLLECT 3 HOURS AFTER PREVIOUS [id number] 18:22:00* Test Item Value Reference Range Interpretation Comments TROPONIN-I (test code = TROPI) 0.029 ng/mL 0-0.045 N COMMENTS TO VETERINARY MICROBIOLOGIST: COLLECT 3 HOURS AFTER PREVIOUS [id number] 16:02:00* Test Item Value Reference Range Interpretation Comments GLUBED (test code = GLUBED) 123 mg/dL 74-106 H Performed by certified double cut off saw operator at [facility] URINALYSIS [id number] 13:52:00* Test Item Value Reference Range Interpretation Comments UA COLOR (test code = COLU) Light-Yellow YELLOW UA APPEARANCE (test code = APPU) Cloudy CLEAR A UA GLUCOSE DIPSTICK (test code = DGLUU) NEGATIVE mg/dL NEGATIVE UA BILIRUBIN DIPSTICK (test code = BILU) NEGATIVE mg/dL NEGATIVE UA KETONE DIPSTICK (test code = KETU) NEGATIVE mg/dL NEGATIVE UA SPECIFIC GRAVITY (test code = SGU) 1.014 1.001-1.035 UA BLOOD DIPSTICK (test code = GAGANDEEP) 0.03 mg/dL (Trace) mg/dL NEGATI VE A UA PH DIPSTICK (test code = RAUL) 5.5 5.0-8.0 UA PROTEIN DIPSTICK (test code = PROU) 100 (2+) mg/dL NEGATIVE A UA UROBILINIOGEN DIPSTICK (test code = URO) Normal mg/dL NEGATIVE UA NITRITE DIPSTICK (test code = STACEY) NEGATIVE NEGATIVE UA LEUKOCYTE ESTERASE W REFLEX (test code = LEUUR) 250 Marilee/u L (2+) Marilee/uL NEGATIVE A UA WBC (test code = WBCU) 101-150 per HPF 0-5 A UA RBC (test code = RBCU) 0-2 #/HPF 0-5 UA EPITHELIAL CELLS (test code = EPIU) FEW per HPF FEW UA BACTERIA (test code = BACU) FEW #/HPF NONE A UA MUCUS (test code = MUCU) FEW #/LPF FEW Urine Source? Clean CatchURINALYSIS [id number] 13:20:00* Test Item Value Reference Range Interpretation Comments UA COLOR (test code = COLU) Light-Yellow YELLOW UA APPEARANCE (test code = APPU) Cloudy CLEAR A UA GLUCOSE DIPSTICK (test code = DGLUU) NEGATIVE mg/dL NEGATIVE UA BILIRUBIN DIPSTICK (test code = BILU) NEGATIVE mg/dL NEGATIVE UA KETONE DIPSTICK (test code = KETU) NEGATIVE mg/dL NEGATIVE UA SPECIFIC GRAVITY (test code = SGU) 1.014 1.001-1.035 UA BLOOD DIPSTICK (test code = GAGANDEEP) 0.03 mg/dL (Trace) mg/dL NEGATI VE A UA PH DIPSTICK (test code = RAUL) 5.5 5.0-8.0 UA PROTEIN DIPSTICK (test code = PROU) 100 (2+) mg/dL NEGATIVE A UA UROBILINIOGEN DIPSTICK (test code = URO) Normal mg/dL NEGATIVE UA NITRITE DIPSTICK (test code = STACEY) NEGATIVE NEGATIVE UA LEUKOCYTE ESTERASE W REFLEX (test code = LEUUR) 250 Marilee/u L (2+) Marilee/uL NEGATIVE A UA WBC (test code = WBCU) per HPF 0-5 UA RBC (test code = RBCU) per HPF 0-5 UA EPITHELIAL CELLS (test code = EPIU) per HPF Few UA BACTERIA (test code = BACU) per HPF NONE Urine Source? Clean Catch- DUP AB/PEL/SC [id number] 11:04:00 Name: MILA MELCHOR [facility] : 1955 Age/S: 63 / M [address] [facility] Unit #: [id number] Loc: [place] [address] Phys: Juan Alejandro MD Acct: [id number] Di s Date: Status: REG ER PHONE #: [phone] Exam Date: 05/09/2019 1038 FAX #: Reason: R/O TORSION EXAMS: CPT CODE: [id number] DUP AB/PEL/SC COMP 32098 HISTORY: Left testicular pain. COMPARISON: CT pelvis [...] Sanchez M.D. CC: Janell Alejandro MD; Ines Antunez MD Technologist: OMA ROCHA RT( R),RDUT Trnwib Date/Time: 05/09/2019 (1104) [email or web address] Orig Print D/T: S: 05/09/2019 (0537) Probe: PAGE 1 Signed Report - US SCROTUM AND [id number] 11:04:00 Name: MILA MELCHOR [facility] : 1955 Age/S: 63 / M [address] [facility] Unit #: [id number] Loc: [place] [address] Phys: Juan Alejandro MD Acct: [id number] Dis Date: Status: REG ER PHONE #: [phone] Exam Date: 05/09/2019 1038 FAX #: [phone] Reason: left testis pain EXAMS: CPT CODE: [id number] US SCROTUM AND CNTS 37906 HISTORY: Left testicular pain. COMPARISON: CT pelvis [...] Sanchez M.D. CC: Janell Alejandro MD; Ines Antunez MD Technologist: OMA ROCHA RT( R),RDMS Trnwib Date/Time: 05/09/2019 (1104) [email or web address] Orig Print D/T: S: 05/09/2019 (1107) Probe: PAGE 1 Signed Report BASIC METABOLIC [id number] 10:46:00* Test Item Value Reference Range Interpretation Comments SODIUM (test code = NA) 136 mmol/L 136-145 N POTASSIUM (test code = K) 3.4 mmol/L 3.5-5.1 L CHLORIDE (test code = CL) 102.7 mmol/L 98-107 N CARBON DIOXIDE (test code = CO2) 25.0 mmol/L 21-32 N ANION GAP (test code = GAP) 11.7 10-20 N GLUCOSE (test code = GLU) 136 mg/dL 74-106 H BLOOD UREA NITROGEN (test code = BUN) 25 mg/dL 7-18 H GLOMERULAR FILTRATION RATE (test code = GFR) 29 mL/min >=60 Estimated GFR by using Modified MDRD formula.Chronic kidney disease is defined as either kidney damageor GFR <60 mL/min/1.73 m2 for >3 months. CREATININE (test code = CREAT) 2.28 mg/dL 0.7-1.3 H BUN/CREATININE RATIO (test code = BUN/CREA) 11.0 10-20 N CALCIUM (test code = CA) 8.6 mg/dL 8.5-10.1 N [id number] 10:46:00* Test Item Value Reference Range Interpretation Comments TROPONIN-I (test code = TROPI) 0.031 ng/mL 0-0.045 N CBC W/O [id number] 10:17:00* Test Item Value Reference Range Interpretation Comments WHITE BLOOD CELL (test code = WBC) 17.0 K/mm3 4.5-12.5 H RED BLOOD CELL (test code = RBC) 3.61 mill/mm3 4.0-5.8 L HEMOGLOBIN (test code = HGB) 10.1 gram/dL 13.0-17.5 L HEMATOCRIT (test code = HCT) 31.3 % 42.0-52.0 L MEAN CELL VOLUME (test code = MCV) 86.7 fL 80-98 N MEAN CELL HGB (test code = MCH) 28.0 picogram 27.0-33.0 N MEAN CELL HGB CONCETRATION (test code = MCHC) 32.3 gram/dL 33.0-36. 0 L RED CELL DISTRIBUTION WIDTH (test code = RDW) 15.4 % 11.6-16. 2 N PLATELET COUNT (test code = PLT) 144 K/mm3 150-450 L MEAN PLATELET VOLUME (test code = MPV) 12.2 fL 6.7-11.0 H - XR CHEST 1 [id number] 09:57:00 FAX: Ines Barbosa MD [phone] [place]: St: REG FAX: Mil Milan NP [phone] Name: MILA MELCHOR [facility] : 1955 Age/S: 63/M [address] [facility] Unit #: [id number] Loc: [place] [address] Phys: Mil Milan NP Acct: [id number] Dis Date: Status: REG ER PHONE #: [phone] Exam Date: 05/09/2019 0950 FAX #: [phone] Reason: CHEST PAIN EXAMS: CPT CODE: [id number] XR CHEST 1 V 05863 HISTORY: Chest pain. COMPARISON: February 07, 2019. No acute infiltrates, effusion or congestion is noted. Mild cardiomegaly. IMPRESSION: No acute infiltrates, effusion or congestion. at 0957 Reported and signed by: Nelson Sanchez M.D. CC: Ines Antunez MD; Mil Milan NP Technologist: RT RENETTA(Tanvir) Trnscrd Date/Time/By: 05/09/2019 (0957) : By: [email or web address] Orig Print D/T: S: 05/09/2019 (1000) PAGE 1 Signed Report [id number] 12:56:00* Test Item Value Reference Range Interpretation Comments GLUBED (test code = GLUBED) 181 mg/dL 74-106 H Performed by certified double cut off saw operator at [facility] [id number] 12:55:00* Test Item Value Reference Range Interpretation Comments GLUBED (test code = GLUBED) 151 mg/dL 74-106 H Performed by certified double cut off saw operator at [facility] [id number] 12:55:00* Test Item Value Reference Range Interpretation Comments GLUBED (test code = GLUBED) 137 mg/dL 74-106 H Performed by certified double cut off saw operator at [facility] [id number] 12:54:00* Test Item Value Reference Range Interpretation Comments GLUBED (test code = GLUBED) 176 mg/dL 74-106 H Performed by certified double cut off saw operator at [facility] [id number] 12:54:00* Test Item Value Reference Range Interpretation Comments GLUBED (test code = GLUBED) 229 mg/dL 74-106 H Performed by certified double cut off saw operator at [facility] [id number] 12:54:00* Test Item Value Reference Range Interpretation Comments GLUBED (test code = GLUBED) 187 mg/dL 74-106 H [facility]~ [id number] 12:54:00* Test Item Value Reference Range Interpretation Comments GLUBED (test code = GLUBED) 50 mg/dL 74-106 L Performed by certified double cut off saw operator at [facility] COAGULATION TIME [id number] 09:32:00* Test Item Value Reference Range Interpretation Comments COAGULATION TIME ACTIVATED (test code = ACT) 218 seconds 62.8-88.0 H [id number] 08:19:00* Test Item Value Reference Range Interpretation Comments GLUBED (test code = GLUBED) 164 mg/dL 74-106 H Performed by certified double cut off saw operator at [facility] [id number] 20:42:00* Test Item Value Reference Range Interpretation Comments GLUBED (test code = GLUBED) 137 mg/dL 74-106 H Performed by certified double cut off saw operator at [facility] - CT ABD PELVIS W/O [id number] 18:48:00 Name: MILA MELCHOR [facility] : 1955 Age/S: 63 / M [address] Unit #: [id number] Loc: [place] [address] Phys: Isai oCllins MD Acct: [id number] Dis Date: Status: ADM IN PHONE #: [phone] Exam Date: 02/16/2019 9612 FAX #: [phone] Reason: STONE PROTOCOL. EVALUATE POSSIBLE STONE ON U/S, EXAMS: CPT CODE: [id number] CT ABD PELVIS W/O CONT 19871 HISTORY: STONE PROTOCOL. EVALUATE POSSIBLE STONE ON [...] nodes. PAGE 1 Signed Report (CONTINUED) Name: MILA MELCHOR [facility] : 1955 Age/S: 63 / M [address] [facility] Unit #: [id number] Loc: [place] [address] Phys: Isai Collins MD Acct: [id number] Dis Date: Status: ADM IN PHONE #: [phone] Exam Date: 02/16/20191748 FAX #: [phone] Reason: STONE PROTOCOL. EVALUATE POSSIBLE STONE ON U/S, EXAMS: CPT CODE: [id number] ABD PELVIS W/O CONT 47825 <Continued > at 1848 Reported and signed by: Meagan Caldera D.O. CC: Isai Collins MD; Baldemar Wilkes MD; Ines Antunez MD Technolo gist:Anyi Jackson,RT(R),CT; Gabrielle CTDI: DLP: Trnscb Date/Time: 02/16/2019 (1847) RomeP1 Orig Print D/T: S: 02/16/2019 (094) CTDI: DLP: PAGE 2 Signed Report [id number] 17:07:00* Test Item Value Reference Range Interpretation Comments GLUBED (test code = GLUBED) 223 mg/dL 74-106 H Performed by certified double cut off saw operator at [facility] [id number] 12:43:00* Test Item Value Reference Range Interpretation Comments GLUBED (test code = GLUBED) 173 mg/dL 74-106 H Performed by certified double cut off saw operator at [facility] BASIC METABOLIC [id number] 07:28:00* Test Item Value Reference Range Interpretation Comments SODIUM (test code = NA) 139 mmol/L 136-145 N POTASSIUM (test code = K) 4.1 mmol/L 3.5-5.1 N CHLORIDE (test code = CL) 108.0 mmol/L 98-107 H CARBON DIOXIDE (test code = CO2) 24.0 mmol/L 21-32 N ANION GAP (test code = GAP) 11.1 10-20 N GLUCOSE (test code = GLU) 126 mg/dL 74-106 H BLOOD UREA NITROGEN (test code = BUN) 25 mg/dL 7-18 H GLOMERULAR FILTRATION RATE (test code = GFR) 44 mL/min >=60 Estimated GFR by using Modified MDRD formula.Chronic kidney disease is defined as either kidney damageor GFR <60 mL/min/1.73 m2 for >3 months. CREATININE (test code = CREAT) 1.60 mg/dL 0.7-1.3 H BUN/CREATININE RATIO (test code = BUN/CREA) 15.6 10-20 N CALCIUM (test code = CA) 8.1 mg/dL 8.5-10.1 L BASIC METABOLIC [id number] 07:23:00* Test Item Value Reference Range Interpretation Comments SODIUM (test code = NA) 139 mmol/L 136-145 N POTASSIUM (test code = K) 4.1 mmol/L 3.5-5.1 N CHLORIDE (test code = CL) 108.0 mmol/L 98-107 H CARBON DIOXIDE (test code = CO2) mmol/L 21-32 ANION GAP (test code = GAP) 10-20 GLUCOSE (test code = GLU) mg/dL 74-106 BLOOD UREA NITROGEN (test code = BUN) mg/dL 7-18 GLOMERULAR FILTRATION RATE (test code = GFR) mL/min >=60 CREATININE (test code = CREAT) mg/dL 0.7-1.3 BUN/CREATININE RATIO (test code = BUN/CREA) 10-20 CALCIUM (test code = CA) mg/dL 8.5-10.1 [id number] 06:54:00* Test Item Value Reference Range Interpretation Comments GLUBED (test code = GLUBED) 153 mg/dL 74-106 H Performed by certified double cut off saw operator at [facility] [id number] 20:47:00* Test Item Value Reference Range Interpretation Comments GLUBED (test code = GLUBED) 129 mg/dL 74-106 H Performed by certified double cut off saw operator at [facility] [id number] 13:22:00* Test Item Value Reference Range Interpretation Comments GLUBED (test code = GLUBED) 223 mg/dL 74-106 H Performed by certified double cut off saw operator at [facility] BASIC METABOLIC [id number] 08:49:00* Test Item Value Reference Range Interpretation Comments SODIUM (test code = NA) 139 mmol/L 136-145 N POTASSIUM (test code = K) 4.1 mmol/L 3.5-5.1 N CHLORIDE (test code = CL) 108.0 mmol/L 98-107 H CARBON DIOXIDE (test code = CO2) 26.0 mmol/L 21-32 N ANION GAP (test code = GAP) 9.1 10-20 L GLUCOSE (test code = GLU) 131 mg/dL 74-106 H BLOOD UREA NITROGEN (test code = BUN) 27 mg/dL 7-18 H GLOMERULAR FILTRATION RATE (test code = GFR) 44 mL/min >=60 Estimated GFR by using Modified MDRD formula.Chronic kidney disease is defined as either kidney damageor GFR <60 mL/min/1.73 m2 for >3 months. CREATININE (test code = CREAT) 1.60 mg/dL 0.7-1.3 H BUN/CREATININE RATIO (test code = BUN/CREA) 16.9 10-20 N CALCIUM (test code = CA) 8.5 mg/dL 8.5-10.1 N [id number] 08:49:00* Test Item Value Reference Range Interpretation Comments PHOSPHORUS (test code = PHOS) 3.5 mg/dL 2.5-4.9 N [id number] 08:49:00* Test Item Value Reference Range Interpretation Comments MAGNESIUM (test code = MAG) 2.1 mg/dL 1.8-2.4 N BASIC METABOLIC [id number] 08:24:00* Test Item Value Reference Range Interpretation Comments SODIUM (test code = NA) 139 mmol/L 136-145 N POTASSIUM (test code = K) 4.1 mmol/L 3.5-5.1 N CHLORIDE (test code = CL) 108.0 mmol/L 98-107 H CARBON DIOXIDE (test code = CO2) mmol/L 21-32 ANION GAP (test code = GAP) 10-20 GLUCOSE (test code = GLU) mg/dL 74-106 BLOOD UREA NITROGEN (test code = BUN) mg/dL 7-18 GLOMERULAR FILTRATION RATE (test code = GFR) mL/min >=60 CREATININE (test code = CREAT) mg/dL 0.7-1.3 BUN/CREATININE RATIO (test code = BUN/CREA) 10-20 CALCIUM (test code = CA) mg/dL 8.5-10.1 [id number] 08:24:00* Test Item Value Reference Range Interpretation Comments PHOSPHORUS (test code = PHOS) mg/dL 2.5-4.9 [id number] 08:24:00* Test Item Value Reference Range Interpretation Comments MAGNESIUM (test code = MAG) mg/dL 1.8-2.4 [id number] 06:11:00* Test Item Value Reference Range Interpretation Comments GLUBED (test code = GLUBED) 125 mg/dL 74-106 H Performed by certified double cut off saw operator at [facility] [id number] 15:56:00* Test Item Value Reference Range Interpretation Comments GLUBED (test code = GLUBED) 191 mg/dL 74-106 H Performed by certified double cut off saw operator at [facility] [id number] 14:27:00 Name: MILA MELCHOR [facility] : 1955 Age/S: 63 / M [address] Unit #: [id number] Loc: [place] [address] Phys: Adriano Elizalde MD Acct: [id number] Dis Date: Status: ADM IN PHONE #: [phone] Exam Date: 02/07/2019 1905 FAX #: [phone] Reason: EXAMS: CPT CODE: [id number] US GUIDANCE VASC ACCESS 71884 Fluoro Time: 0 DAP (Gy m2): 0 Air Kerma (mGy): 0 EXAM: Insertion of a non-tunneled temporary hemodialysis catheter with sonographic guidance; CPT: 85147, 56750; INFORMATION: Renal failure; TECHNIQUE AND FINDINGS: After [...] di latation was performed and a 13 [place] triple lumen central line was then inserted [...] signed by: Adriano zeng M.D. CC: Baldemar Wilkes MD; Ines Antunez MD Technologist: Julian Cason [facility] Date/Time: 02/14/2019 (1427) Emily Orig Print D/T: S: 02/14/2019 (2303) PAGE 1 Signed Report BASIC METABOLIC [id number] 06:22:00* Test Item Value Reference Range Interpretation Comments SODIUM (test code = NA) 139 mmol/L 136-145 N POTASSIUM (test code = K) 4.2 mmol/L 3.5-5.1 N CHLORIDE (test code = CL) 106.0 mmol/L 98-107 N CARBON DIOXIDE (test code = CO2) 26.0 mmol/L 21-32 N ANION GAP (test code = GAP) 11.2 10-20 N GLUCOSE (test code = GLU) 128 mg/dL 74-106 H BLOOD UREA NITROGEN (test code = BUN) 31 mg/dL 7-18 H GLOMERULAR FILTRATION RATE (test code = GFR) 41 mL/min >=60 Estimated GFR by using Modified MDRD formula.Chronic kidney disease is defined as either kidney damageor GFR <60 mL/min/1.73 m2 for >3 months. CREATININE (test code = CREAT) 1.70 mg/dL 0.7-1.3 H BUN/CREATININE RATIO (test code = BUN/CREA) 18.2 10-20 N CALCIUM (test code = CA) 7.8 mg/dL 8.5-10.1 L BASIC METABOLIC [id number] 06:18:00* Test Item Value Reference Range Interpretation Comments SODIUM (test code = NA) 139 mmol/L 136-145 N POTASSIUM (test code = K) 4.2 mmol/L 3.5-5.1 N CHLORIDE (test code = CL) 106.0 mmol/L 98-107 N CARBON DIOXIDE (test code = CO2) mmol/L 21-32 ANION GAP (test code = GAP) 10-20 GLUCOSE (test code = GLU) mg/dL 74-106 BLOOD UREA NITROGEN (test code = BUN) mg/dL 7-18 GLOMERULAR FILTRATION RATE (test code = GFR) mL/min >=60 CREATININE (test code = CREAT) mg/dL 0.7-1.3 BUN/CREATININE RATIO (test code = BUN/CREA) 10-20 CALCIUM (test code = CA) mg/dL 8.5-10.1 [id number] 06:14:00* Test Item Value Reference Range Interpretation Comments GLUBED (test code = GLUBED) 133 mg/dL 74-106 H Performed by certified double cut off saw operator at [facility] [id number] 21:05:00* Test Item Value Reference Range Interpretation Comments GLUBED (test code = GLUBED) 168 mg/dL 74-106 H Performed by certified double cut off saw operator at [facility] [id number] 15:24:00* Test Item Value Reference Range Interpretation Comments GLUBED (test code = GLUBED) 172 mg/dL 74-106 H Performed by certified double cut off saw operator at [facility] FECES OVA [id number] 15:11:00* Test Item Value Reference Range Interpretation Comments CONCENTRATE RESULT (test code = CONC) Final report () These results were obtained using wet preparation(s) andtrichrome stained smear. This test does not include testingfor Cryptosporidium parvum, Cyclospora, or Microsporidia. TRICHROME RESULT (test code = TRIC) SOURCE: STOOLSPECIMEN DESCRIPTION: 1ST SPECIMENFECES OVA [id number] 15:11:00* Test Item Value Reference Range Interpretation Comments CONCENTRATE RESULT (test code = CONC) Final report () These results were obtained using wet preparation(s) andtrichrome stained smear. This test does not include testingfor Cryptosporidium parvum, Cyclospora, or Microsporidia. TRICHROME RESULT (test code = TRIC) () No ova, cysts, or parasites seen.One negative specimen does not rule out the possibility ofa parasitic infection.Performed At: [facility] [id number] Kyle L MD Ph:[phone] SOURCE: STOOLSPECIMEN DESCRIPTION: 1ST [id number] 11:34:00* Test Item Value Reference Range Interpretation Comments GLUBED (test code = GLUBED) 204 mg/dL 74-106 H Performed by certified double cut off saw operator at [facility] CBC W/O [id number] 09:16:00* Test Item Value Reference Range Interpretation Comments WHITE BLOOD CELL (test code = WBC) 9.0 K/mm3 4.5-12.5 N RED BLOOD CELL (test code = RBC) 3.64 mill/mm3 4.0-5.8 L HEMOGLOBIN (test code = HGB) 10.4 gram/dL 13.0-17.5 L HEMATOCRIT (test code = HCT) 32.3 % 42.0-52.0 L MEAN CELL VOLUME (test code = MCV) 88.7 fL 80-98 N MEAN CELL HGB (test code = MCH) 28.6 picogram 27.0-33.0 N MEAN CELL HGB CONCETRATION (test code = MCHC) 32.2 gram/dL 33.0-36. 0 L RED CELL DISTRIBUTION WIDTH (test code = RDW) 16.0 % 11.6-16. 2 N PLATELET COUNT (test code = PLT) 141 K/mm3 150-450 L MEAN PLATELET VOLUME (test code = MPV) 11.4 fL 6.7-11.0 H BASIC METABOLIC [id number] 07:50:00* Test Item Value Reference Range Interpretation Comments SODIUM (test code = NA) 140 mmol/L 136-145 N POTASSIUM (test code = K) 3.8 mmol/L 3.5-5.1 N CHLORIDE (test code = CL) 107.0 mmol/L 98-107 N CARBON DIOXIDE (test code = CO2) 26.0 mmol/L 21-32 N ANION GAP (test code = GAP) 10.8 10-20 N GLUCOSE (test code = GLU) 140 mg/dL 74-106 H BLOOD UREA NITROGEN (test code = BUN) 32 mg/dL 7-18 H GLOMERULAR FILTRATION RATE (test code = GFR) 38 mL/min >=60 Estimated GFR by using Modified MDRD formula.Chronic kidney disease is defined as either kidney damageor GFR <60 mL/min/1.73 m2 for >3 months. CREATININE (test code = CREAT) 1.80 mg/dL 0.7-1.3 H BUN/CREATININE RATIO (test code = BUN/CREA) 17.8 10-20 N CALCIUM (test code = CA) 8.3 mg/dL 8.5-10.1 L [id number] 07:50:00* Test Item Value Reference Range Interpretation Comments PHOSPHORUS (test code = PHOS) 3.3 mg/dL 2.5-4.9 N [id number] 07:50:00* Test Item Value Reference Range Interpretation Comments MAGNESIUM (test code = MAG) 2.1 mg/dL 1.8-2.4 N BASIC METABOLIC [id number] 07:44:00* Test Item Value Reference Range Interpretation Comments SODIUM (test code = NA) 140 mmol/L 136-145 N POTASSIUM (test code = K) 3.8 mmol/L 3.5-5.1 N CHLORIDE (test code = CL) 107.0 mmol/L 98-107 N CARBON DIOXIDE (test code = CO2) mmol/L 21-32 ANION GAP (test code = GAP) 10-20 GLUCOSE (test code = GLU) mg/dL 74-106 BLOOD UREA NITROGEN (test code = BUN) mg/dL 7-18 GLOMERULAR FILTRATION RATE (test code = GFR) mL/min >=60 CREATININE (test code = CREAT) mg/dL 0.7-1.3 BUN/CREATININE RATIO (test code = BUN/CREA) 10-20 CALCIUM (test code = CA) mg/dL 8.5-10.1 [id number] 07:44:00* Test Item Value Reference Range Interpretation Comments PHOSPHORUS (test code = PHOS) mg/dL 2.5-4.9 [id number] 07:44:00* Test Item Value Reference Range Interpretation Comments MAGNESIUM (test code = MAG) mg/dL 1.8-2.4 [id number] 06:13:00* Test Item Value Reference Range Interpretation Comments GLUBED (test code = GLUBED) 146 mg/dL 74-106 H Performed by certified double cut off saw operator at [facility] [id number] 16:11:00* Test Item Value Reference Range Interpretation Comments GLUBED (test code = GLUBED) 185 mg/dL 74-106 H Performed by certified double cut off saw operator at [facility] [id number] 07:51:00* Test Item Value Reference Range Interpretation Comments GLUBED (test code = GLUBED) 142 mg/dL 74-106 H Performed by certified double cut off saw operator at [facility] ANGIOTENSIN-I CONVERTING [id number] 07:21:00* Test Item Value Reference Range Interpretation Comments ANGIOTENSIN-I CONVERTING ENZ (test code = ACE1) < 15 U/L 14-82 Results verified by repeat testingPerformed At: [facility] [id number] Sanjai MD Ph:[phone] BASIC METABOLIC [id number] 05:11:00* Test Item Value Reference Range Interpretation Comments SODIUM (test code = NA) 141 mmol/L 136-145 N POTASSIUM (test code = K) 4.2 mmol/L 3.5-5.1 N CHLORIDE (test code = CL) 108.0 mmol/L 98-107 H CARBON DIOXIDE (test code = CO2) 27.0 mmol/L 21-32 N ANION GAP (test code = GAP) 10.2 10-20 N GLUCOSE (test code = GLU) 134 mg/dL 74-106 H BLOOD UREA NITROGEN (test code = BUN) 44 mg/dL 7-18 H GLOMERULAR FILTRATION RATE (test code = GFR) 30 mL/min >=60 Estimated GFR by using Modified MDRD formula.Chronic kidney disease is defined as either kidney damageor GFR <60 mL/min/1.73 m2 for >3 months. CREATININE (test code = CREAT) 2.20 mg/dL 0.7-1.3 H BUN/CREATININE RATIO (test code = BUN/CREA) 20.0 10-20 N CALCIUM (test code = CA) 8.4 mg/dL 8.5-10.1 L [id number] 05:11:00* Test Item Value Reference Range Interpretation Comments PHOSPHORUS (test code = PHOS) 3.6 mg/dL 2.5-4.9 N [id number] 05:11:00* Test Item Value Reference Range Interpretation Comments MAGNESIUM (test code = MAG) 2.1 mg/dL 1.8-2.4 N THROMBOPLASTIN TIME [id number] 05:09:00* Test Item Value Reference Range Interpretation Comments THROMBOPLASTIN TIME PARTIAL (test code = PTT) 38.1 seconds 25.0-36. 5 H IS PATIENT ON ANTICOAGULANTS? YLIST ANTICOAGULANTS HEPARIN ASPIRIN P LAVIXBASIC METABOLIC [id number] 05:06:00* Test Item Value Reference Range Interpretation Comments SODIUM (test code = NA) 141 mmol/L 136-145 N POTASSIUM (test code = K) 4.2 mmol/L 3.5-5.1 N CHLORIDE (test code = CL) 108.0 mmol/L 98-107 H CARBON DIOXIDE (test code = CO2) mmol/L 21-32 ANION GAP (test code = GAP) 10-20 GLUCOSE (test code = GLU) mg/dL 74-106 BLOOD UREA NITROGEN (test code = BUN) mg/dL 7-18 GLOMERULAR FILTRATION RATE (test code = GFR) mL/min >=60 CREATININE (test code = CREAT) mg/dL 0.7-1.3 BUN/CREATININE RATIO (test code = BUN/CREA) 10-20 CALCIUM (test code = CA) 8.4 mg/dL 8.5-10.1 L [id number] 05:06:00* Test Item Value Reference Range Interpretation Comments PHOSPHORUS (test code = PHOS) mg/dL 2.5-4.9 [id number] 05:06:00* Test Item Value Reference Range Interpretation Comments MAGNESIUM (test code = MAG) mg/dL 1.8-2.4 CBC W/O [id number] 05:02:00* Test Item Value Reference Range Interpretation Comments WHITE BLOOD CELL (test code = WBC) 9.4 K/mm3 4.5-12.5 N RED BLOOD CELL (test code = RBC) 3.69 mill/mm3 4.0-5.8 L HEMOGLOBIN (test code = HGB) 10.3 gram/dL 13.0-17.5 L HEMATOCRIT (test code = HCT) 33.3 % 42.0-52.0 L MEAN CELL VOLUME (test code = MCV) 90.2 fL 80-98 N MEAN CELL HGB (test code = MCH) 27.9 picogram 27.0-33.0 N MEAN CELL HGB CONCETRATION (test code = MCHC) 30.9 gram/dL 33.0-36. 0 L RED CELL DISTRIBUTION WIDTH (test code = RDW) 15.9 % 11.6-16. 2 N PLATELET COUNT (test code = PLT) 154 K/mm3 150-450 N MEAN PLATELET VOLUME (test code = MPV) 11.8 fL 6.7-11.0 H HEPATITIS B CORE ANTIBODY,[id number] 01:06:00* Test Item Value Reference Range Interpretation Comments HEPATITIS B CORE ANTIBODY,TOT (test code = HBCAB) Negative Nega tive Performed At: [facility] [id number] Lacey MD Ph:[phone] AB HEPATITIS B [id number] 01:06:00* Test Item Value Reference Range Interpretation Comments AB HEPATITIS B SURFACE (test code = HBSAB) Non Reactive () Non Reactive: Inconsistent with immunity, less than 10 mIU/mL Reactive: Consistent with immunity, greater than 9.9 mIU/mLPerformed At: [facility] [address] [id number] Lacey MD Ph:[phone] THROMBOPLASTIN TIME [id number] 22:06:00* Test Item Value Reference Range Interpretation Comments THROMBOPLASTIN TIME PARTIAL (test code = PTT) 36.4 seconds 25.0-36. 5 N IS PATIENT ON ANTICOAGULANTS? [employer]LIST ANTICOAGULANTS [id number] 16:26:00* Test Item Value Reference Range Interpretation Comments GLUBED (test code = GLUBED) 160 mg/dL 74-106 H Performed by certified double cut off saw operator at [facility] THROMBOPLASTIN TIME [id number] 15:57:00* Test Item Value Reference Range Interpretation Comments THROMBOPLASTIN TIME PARTIAL (test code = PTT) 63.9 seconds 25.0-36. 5 H IS PATIENT ON ANTICOAGULANTS? [employer]LIST ANTICOAGULANTS [id number] 11:38:00* Test Item Value Reference Range Interpretation Comments GLUBED (test code = GLUBED) 138 mg/dL 74-106 H Performed by certified double cut off saw operator at [facility] BASIC METABOLIC [id number] 10:38:00* Test Item Value Reference Range Interpretation Comments SODIUM (test code = NA) 137 mmol/L 136-145 N POTASSIUM (test code = K) 3.8 mmol/L 3.5-5.1 N CHLORIDE (test code = CL) 110.0 mmol/L 98-107 H CARBON DIOXIDE (test code = CO2) 21.0 mmol/L 21-32 N ANION GAP (test code = GAP) 9.8 10-20 L GLUCOSE (test code = GLU) 147 mg/dL 74-106 H BLOOD UREA NITROGEN (test code = BUN) 49 mg/dL 7-18 H GLOMERULAR FILTRATION RATE (test code = GFR) 29 mL/min >=60 Estimated GFR by using Modified MDRD formula.Chronic kidney disease is defined as either kidney damageor GFR <60 mL/min/1.73 m2 for >3 months. CREATININE (test code = CREAT) 2.30 mg/dL 0.7-1.3 H BUN/CREATININE RATIO (test code = BUN/CREA) 21.3 10-20 H CALCIUM (test code = CA) 8.5 mg/dL 8.5-10.1 N BASIC METABOLIC [id number] 10:34:00* Test Item Value Reference Range Interpretation Comments SODIUM (test code = NA) 137 mmol/L 136-145 N POTASSIUM (test code = K) 3.8 mmol/L 3.5-5.1 N CHLORIDE (test code = CL) 110.0 mmol/L 98-107 H CARBON DIOXIDE (test code = CO2) mmol/L 21-32 ANION GAP (test code = GAP) 10-20 GLUCOSE (test code = GLU) mg/dL 74-106 BLOOD UREA NITROGEN (test code = BUN) mg/dL 7-18 GLOMERULAR FILTRATION RATE (test code = GFR) mL/min >=60 CREATININE (test code = CREAT) mg/dL 0.7-1.3 BUN/CREATININE RATIO (test code = BUN/CREA) 10-20 CALCIUM (test code = CA) mg/dL 8.5-10.1 THROMBOPLASTIN TIME [id number] 09:43:00* Test Item Value Reference Range Interpretation Comments THROMBOPLASTIN TIME PARTIAL (test code = PTT) 49.0 seconds 25.0-36. 5 H IS PATIENT ON ANTICOAGULANTS? YLIST ANTICOAGULANTS HEPARINCBC W/AUTO DIFF 2019-02-11 09:31:00* Test Item Value Reference Range Interpretation Comments WHITE BLOOD CELL (test code = WBC) 9.7 K/mm3 4.5-12.5 N RED BLOOD CELL (test code = RBC) 3.77 mill/mm3 4.0-5.8 L HEMOGLOBIN (test code = HGB) 10.6 gram/dL 13.0-17.5 L HEMATOCRIT (test code = HCT) 33.5 % 42.0-52.0 L MEAN CELL VOLUME (test code = MCV) 88.9 fL 80-98 N MEAN CELL HGB (test code = MCH) 28.1 picogram 27.0-33.0 N MEAN CELL HGB CONCETRATION (test code = MCHC) 31.6 gram/dL 33.0-36. 0 L RED CELL DISTRIBUTION WIDTH (test code = RDW) 16.0 % 11.6-16. 2 N RED CELL DISTRIBUTION WIDTH SD (test code = RDW-SD) 51.9 fL 37 .0-51.0 H PLATELET COUNT (test code = PLT) 146 K/mm3 150-450 L MEAN PLATELET VOLUME (test code = MPV) 11.9 fL 6.7-11.0 H NEUTROPHIL % (test code = NT%) 63.5 % 39.0-69.0 N IMMATURE GRANULOCYTE % (test code = IG%) 1.8 % 0.0-5.0 N LYMPHOCYTE % (test code = LY%) 19.5 % 25.0-55.0 L MONOCYTE % (test code = MO%) 10.5 % 0.0-10.0 H EOSINOPHIL % (test code = EO%) 4.3 % 0.0-5.0 N BASOPHIL % (test code = BA%) 0.4 % 0.0-1.0 N NUCLEATED RBC % (test code = NRBC%) 0.0 % 0-0 N NEUTROPHIL # (test code = NT#) 6.14 K/mm3 1.8-7.7 N IMMATURE GRANULOCYTE # (test code = IG#) 0.17 x10 3/uL 0-0.03 H LYMPHOCYTE # (test code = LY#) 1.88 K/mm3 1.0-5.0 N MONOCYTE # (test code = MO#) 1.01 K/mm3 0-0.8 H EOSINOPHIL # (test code = EO#) 0.42 K/mm3 0.0-0.5 N BASOPHIL # (test code = BA#) 0.04 K/mm3 0.0-0.2 N NUCLEATED RBC # (test code = NRBC#) 0.00 K/mm3 0.0-0.1 N MANUAL DIFF REQUIRED (test code = MDIFF) NO [id number] 06:39:00* Test Item Value Reference Range Interpretation Comments GLUBED (test code = GLUBED) 144 mg/dL 74-106 H Performed by certified double cut off saw operator at [facility] THROMBOPLASTIN TIME [id number] 03:09:00* Test Item Value Reference Range Interpretation Comments THROMBOPLASTIN TIME PARTIAL (test code = PTT) 59.3 seconds 25.0-36. 5 H IS PATIENT ON ANTICOAGULANTS? YLIST ANTICOAGULANTS [id number] 21:56:00* Test Item Value Reference Range Interpretation Comments GLUBED (test code = GLUBED) 136 mg/dL 74-106 H Performed by certified double cut off saw operator at [facility] THROMBOPLASTIN TIME [id number] 21:05:00* Test Item Value Reference Range Interpretation Comments THROMBOPLASTIN TIME PARTIAL (test code = PTT) 52.3 seconds 25.0-36. 5 H IS PATIENT ON ANTICOAGULANTS? YLIST ANTICOAGULANTS [id number] 16:57:00* Test Item Value Reference Range Interpretation Comments GLUBED (test code = GLUBED) 144 mg/dL 74-106 H Performed by certified double cut off saw operator at [facility] THROMBOPLASTIN TIME [id number] 14:37:00* Test Item Value Reference Range Interpretation Comments THROMBOPLASTIN TIME PARTIAL (test code = PTT) 56.1 seconds 25.0-36. 5 H IS PATIENT ON ANTICOAGULANTS? YLIST ANTICOAGULANTS [id number] 11:45:00* Test Item Value Reference Range Interpretation Comments GLUBED (test code = GLUBED) 192 mg/dL 74-106 H Performed by certified double cut off saw operator at [facility] THROMBOPLASTIN TIME [id number] 07:34:00* Test Item Value Reference Range Interpretation Comments THROMBOPLASTIN TIME PARTIAL (test code = PTT) 53.9 seconds 25.0-36. 5 H IS PATIENT ON ANTICOAGULANTS? YLIST ANTICOAGULANTS [id number] 06:38:00* Test Item Value Reference Range Interpretation Comments GLUBED (test code = GLUBED) 155 mg/dL 74-106 H [facility] THROMBOPLASTIN TIME [id number] 01:05:00* Test Item Value Reference Range Interpretation Comments THROMBOPLASTIN TIME PARTIAL (test code = PTT) 59.4 seconds 25.0-36. 5 H IS PATIENT ON ANTICOAGULANTS? YLIST ANTICOAGULANTS [id number] 23:19:00* Test Item Value Reference Range Interpretation Comments GLUBED (test code = GLUBED) 156 mg/dL 74-106 H [facility] [id number] 19:17:00* Test Item Value Reference Range Interpretation Comments GLUBED (test code = GLUBED) 169 mg/dL 74-106 H Performed by certified double cut off saw operator at [facility] THROMBOPLASTIN TIME [id number] 18:16:00* Test Item Value Reference Range Interpretation Comments THROMBOPLASTIN TIME PARTIAL (test code = PTT) 58.3 seconds 25.0-36. 5 H IS PATIENT ON ANTICOAGULANTS? YLIST ANTICOAGULANTS HEPARINTHROMBOPLASTIN TIME [id number] 12:51:00* Test Item Value Reference Range Interpretation Comments THROMBOPLASTIN TIME PARTIAL (test code = PTT) 55.1 seconds 25.0-36. 5 H IS PATIENT ON ANTICOAGULANTS? YLIST ANTICOAGULANTS HEPARINBASIC METABOLIC [id number] 11:42:00* Test Item Value Reference Range Interpretation Comments SODIUM (test code = NA) 138 mmol/L 136-145 N POTASSIUM (test code = K) 3.8 mmol/L 3.5-5.1 N CHLORIDE (test code = CL) 104.0 mmol/L 98-107 N CARBON DIOXIDE (test code = CO2) 26.0 mmol/L 21-32 N ANION GAP (test code = GAP) 11.8 10-20 N GLUCOSE (test code = GLU) 218 mg/dL 74-106 H BLOOD UREA NITROGEN (test code = BUN) 73 mg/dL 7-18 H RESULT VERIFIED BY REPEAT ANALYSIS GLOMERULAR FILTRATION RATE (test code = GFR) 18 mL/min >=60 Estimated GFR by using Modified MDRD formula.Chronic kidney disease is defined as either kidney damageor GFR <60 mL/min/1.73 m2 for >3 months. CREATININE (test code = CREAT) 3.50 mg/dL 0.7-1.3 H BUN/CREATININE RATIO (test code = BUN/CREA) 20.9 10-20 H CALCIUM (test code = CA) 7.9 mg/dL 8.5-10.1 L CBC W/AUTO [id number] 09:36:00* Test Item Value Reference Range Interpretation Comments WHITE BLOOD CELL (test code = WBC) 10.5 K/mm3 4.5-12.5 N RED BLOOD CELL (test code = RBC) 3.76 mill/mm3 4.0-5.8 L HEMOGLOBIN (test code = HGB) 10.8 gram/dL 13.0-17.5 L HEMATOCRIT (test code = HCT) 33.0 % 42.0-52.0 L MEAN CELL VOLUME (test code = MCV) 87.8 fL 80-98 N MEAN CELL HGB (test code = MCH) 28.7 picogram 27.0-33.0 N MEAN CELL HGB CONCETRATION (test code = MCHC) 32.7 gram/dL 33.0-36. 0 L RED CELL DISTRIBUTION WIDTH (test code = RDW) 16.0 % 11.6-16. 2 N RED CELL DISTRIBUTION WIDTH SD (test code = RDW-SD) 51.0 fL 37 .0-51.0 N PLATELET COUNT (test code = PLT) 133 K/mm3 150-450 L MEAN PLATELET VOLUME (test code = MPV) 12.7 fL 6.7-11.0 H NEUTROPHIL % (test code = NT%) 81.5 % 39.0-69.0 H IMMATURE GRANULOCYTE % (test code = IG%) 0.7 % 0.0-5.0 N LYMPHOCYTE % (test code = LY%) 8.9 % 25.0-55.0 L MONOCYTE % (test code = MO%) 7.9 % 0.0-10.0 N EOSINOPHIL % (test code = EO%) 0.8 % 0.0-5.0 N BASOPHIL % (test code = BA%) 0.2 % 0.0-1.0 N NUCLEATED RBC % (test code = NRBC%) 0.0 % 0-0 N NEUTROPHIL # (test code = NT#) 8.59 K/mm3 1.8-7.7 H IMMATURE GRANULOCYTE # (test code = IG#) 0.07 x10 3/uL 0-0.03 H LYMPHOCYTE # (test code = LY#) 0.94 K/mm3 1.0-5.0 L MONOCYTE # (test code = MO#) 0.83 K/mm3 0-0.8 H EOSINOPHIL # (test code = EO#) 0.08 K/mm3 0.0-0.5 N BASOPHIL # (test code = BA#) 0.02 K/mm3 0.0-0.2 N NUCLEATED RBC # (test code = NRBC#) 0.00 K/mm3 0.0-0.1 N MANUAL DIFF REQUIRED (test code = MDIFF) NO THROMBOPLASTIN TIME [id number] 06:23:00* Test Item Value Reference Range Interpretation Comments THROMBOPLASTIN TIME PARTIAL (test code = PTT) 34.7 seconds 25.0-36. 5 N IS PATIENT ON ANTICOAGULANTS? [employer]LIST ANTICOAGULANTS PLAVIXHEMATOCRIT 2019-02-09 06:04:00* Test Item Value Reference Range Interpretation Comments HEMATOCRIT (test code = HCT) 32.5 % 42.0-52.0 L PLATELET [id number] 06:04:00* Test Item Value Reference Range Interpretation Comments PLATELET COUNT (test code = PLT) 134 K/mm3 150-450 L [id number] 04:35:00* Test Item Value Reference Range Interpretation Comments TROPONIN-I (test code = TROPI) 1.740 ng/mL 0-0.045 HH Results called to [id number] by V.LAB.AG1 02/09/19 0434Critical results verified and read back by Nurse? Y PT NURSE WAS GOING TO DRAW AND SEND DOWN [id number] 00:40:00* Test Item Value Reference Range Interpretation Comments GLUBED (test code = GLUBED) 144 mg/dL 74-106 H Performed by certified double cut off saw operator at [facility] [id number] 19:32:00* Test Item Value Reference Range Interpretation Comments TROPONIN-I (test code = TROPI) 0.098 ng/mL 0-0.045 HH Results called to [id number] by V.LAB.HP 02/08/19 1932Critical results verified and read back by Nurse? SPECIMEN COMMENTS: CHEST [id number] 17:45:00* Test Item Value Reference Range Interpretation Comments GLUBED (test code = GLUBED) 185 mg/dL 74-106 H Performed by certified double cut off saw operator at [facility] [id number] 13:05:00* Test Item Value Reference Range Interpretation Comments GLYCOSYLATED HEMOGLOBIN (HA1C) (test code = GLYHGB) 7.3 % HbA1 4. 8-6.0 H ESTIMATED AVERAGE GLUCOSE (test code = EAG) 163 MG/DL 0900LIPID PROFILE (CORONARY RISK)2019-02-08 12:41:00* Test Item Value Reference Range Interpretation Comments TRIGLYCERIDES (test code = TRIG) 119 mg/dL 20-150 N CHOLESTEROL (test code = CHOL) 102 mg/dL 0-200 N CHOLESTEROL/HDL RATIO (test code = CHOLHDL) 3.0 RATIO 0-4.9 N RISK ASSOCIATED WITH CHOL/HDL RATIOS: Risk Male Female1/2 AVERAGE 3.43 3.27AVERAGE 4.97 4.442X AVERAGE 9.55 7.053X AVERAGE 23.39 11.04 REFERENCE VALUE IS RELATED TO RISK LEVELS ASRECOMMENDED BY THE [facility]. HEART, LUNG, AND BLOOD INST. HDL CHOLESTEROL (test code = HDL) 26 mg/dL 40-60 L LIPOPROTEIN LDL (test code = LDL) 62 mg/dL 100-129 L Reference Interval: mg/dL mmol/L Optimal <100 <2.6Near/above optimal 100-129 2.6- 3.3Borderline High 130-159 3.4-4.1High 160-189 4.1-4.9Very High >=190 >=4.9========= This LDL result is a direct measurement.========= 02/08/19 0900B-TYPE NATRIURETIC [id number] 12:20:00* Test Item Value Reference Range Interpretation Comments B-TYPE NATRIURETIC PEPTIDE (test code = BNP) 310.97 pgram/mL 0-100 H 00BASI METABOLIC [id number] 12:19:00* Test Item Value Reference Range Interpretation Comments SODIUM (test code = NA) 134 mmol/L 136-145 L POTASSIUM (test code = K) 3.8 mmol/L 3.5-5.1 N CHLORIDE (test code = CL) 101.0 mmol/L 98-107 N CARBON DIOXIDE (test code = CO2) 20.0 mmol/L 21-32 L ANION GAP (test code = GAP) 16.8 10-20 N GLUCOSE (test code = GLU) 177 mg/dL 74-106 H BLOOD UREA NITROGEN (test code = BUN) 100 mg/dL 7-18 H GLOMERULAR FILTRATION RATE (test code = GFR) 13 mL/min >=60 Estimated GFR by using Modified MDRD formula.Chronic kidney disease is defined as either kidney damageor GFR <60 mL/min/1.73 m2 for >3 months. CREATININE (test code = CREAT) 4.50 mg/dL 0.7-1.3 H BUN/CREATININE RATIO (test code = BUN/CREA) 22.2 10-20 H CALCIUM (test code = CA) 7.4 mg/dL 8.5-10.1 L [id number] 12:19:00* Test Item Value Reference Range Interpretation Comments PHOSPHORUS (test code = PHOS) 2.1 mg/dL 2.5-4.9 L [id number] 12:19:00* Test Item Value Reference Range Interpretation Comments MAGNESIUM (test code = MAG) 2.2 mg/dL 1.8-2.4 N 0901BASIC METABOLIC [id number] 12:15:00* Test Item Value Reference Range Interpretation Comments SODIUM (test code = NA) 134 mmol/L 136-145 L POTASSIUM (test code = K) 3.8 mmol/L 3.5-5.1 N CHLORIDE (test code = CL) 101.0 mmol/L 98-107 N CARBON DIOXIDE (test code = CO2) mmol/L 21-32 ANION GAP (test code = GAP) 10-20 GLUCOSE (test code = GLU) mg/dL 74-106 BLOOD UREA NITROGEN (test code = BUN) 100 mg/dL 7-18 H GLOMERULAR FILTRATION RATE (test code = GFR) mL/min >=60 CREATININE (test code = CREAT) mg/dL 0.7-1.3 BUN/CREATININE RATIO (test code = BUN/CREA) 10-20 CALCIUM (test code = CA) 7.4 mg/dL 8.5-10.1 L [id number] 12:15:00* Test Item Value Reference Range Interpretation Comments PHOSPHORUS (test code = PHOS) mg/dL 2.5-4.9 [id number] 12:15:00* Test Item Value Reference Range Interpretation Comments MAGNESIUM (test code = MAG) mg/dL 1.8-2.4 0901CBC W/O [id number] 11:45:00* Test Item Value Reference Range Interpretation Comments WHITE BLOOD CELL (test code = WBC) 7.0 K/mm3 4.5-12.5 N RED BLOOD CELL (test code = RBC) 3.62 mill/mm3 4.0-5.8 L HEMOGLOBIN (test code = HGB) 10.4 gram/dL 13.0-17.5 L HEMATOCRIT (test code = HCT) 31.4 % 42.0-52.0 L MEAN CELL VOLUME (test code = MCV) 86.7 fL 80-98 MEAN CELL HGB (test code = MCH) 28.7 picogram 27.0-33.0 N MEAN CELL HGB CONCETRATION (test code = MCHC) 33.1 gram/dL 33.0-36. 0 N RED CELL DISTRIBUTION WIDTH (test code = RDW) 16.3 % 11.6-16. 2 H PLATELET COUNT (test code = PLT) 132 K/mm3 150-450 L MEAN PLATELET VOLUME (test code = MPV) 12.2 fL 6.7-11.0 H [id number] 06:50:00* Test Item Value Reference Range Interpretation Comments GLUBED (test code = GLUBED) 123 mg/dL 74-106 H Performed by certified double cut off saw operator at [facility] [id number] 03:35:00* Test Item Value Reference Range Interpretation Comments GLUBED (test code = GLUBED) 131 mg/dL 74-106 H Performed by certified double cut off saw operator at [facility] [id number] 01:03:00* Test Item Value Reference Range Interpretation Comments GLUBED (test code = GLUBED) 96 mg/dL 74-106 N Performed by certified double cut off saw operator at [facility] [id number] 23:16:00* Test Item Value Reference Range Interpretation Comments GLUBED (test code = GLUBED) 71 mg/dL 74-106 L Performed by certified double cut off saw operator at [facility] - XR CHEST 1 [id number] 19:27:00 FAX: Baldemar Wilkes MD [phone] [place]: [address]: [facility] FAX: Ines Barbosa MD [phone] Name: MILA MELCHOR [facility] : 1955 Age/S: 63/M [address] Unit #: [id number] Loc: V.2079 [address] [address] Phys: Adriano Elizalde MD Acct: [id number] Dis Date: Status: ADM IN PHONE #: [phone] Exam Date: 02/07/20191924 FAX #: [phone] Reason: Renal failure; [facility] HD cath; EXAMS: CPT CODE: [id number] XR CHEST 1 V [id number] REASON FOR EXAM: Renal failure; [facility] trem[facility] HD cath; EXAM ORDER DATE: 02/07/2019 7:02 PM Ordering M.Avi: Adriano Elizalde MD PROCEDURE: - XR CHEST 1 V COMPARISON: 02/07/2019 at 11:05 AM FINDINGS: Portable AP frontal view of the chest obtained at 7:22 PM shows clear lungs without evidence of consolidation. There is no evidence of effusion. The heart size is minimally enlarged. Pulmonary vasculatures are minimally congested.. IMPRESSION: Newly placed right IJ dialysis catheter tip is in the SVC at 1926 Reported and signed by: Trae Powers M.D. CC: Baldemar Wilkes MD; Ines Antunez MD Technologist: ANDRE PATTERSON Trnscrd Date/Time/By: 02/07/2019 (1926) : By: MyrnaVTL Orig Print D/T: S: 02/07/2019 (1929) PAGE 1 Signed Report [id number] 17:49:00* Test Item Value Reference Range Interpretation Comments GLUBED (test code = GLUBED) 94 mg/dL 74-106 N Performed by certified double cut off saw operator at [facility] [id number] 17:14:00* Test Item Value Reference Range Interpretation Comments GLUBED (test code = GLUBED) 108 mg/dL 74-106 H Performed by certified double cut off saw operator at [facility] [id number] 17:14:00* Test Item Value Reference Range Interpretation Comments GLUBED (test code = GLUBED) 51 mg/dL 74-106 L Performed by certified double cut off saw operator at [facility] LACTIC [id number] 14:08:00* Test Item Value Reference Range Interpretation Comments LACTIC ACID (test code = LACT) 1.1 mmol/L 0.4-1.9 N PT STILL IN THE RESTROOM NOTIFIED RN @[email or web address] [id number] 02/07/19 0958 PROTHROMBIN [id number] 13:54:00* Test Item Value Reference Range Interpretation Comments PROTHROMBIN TIME PATIENT (test code = PTP) 11.9 seconds 9.0-14.0 N INTERNATIONAL NORMAL RATIO (test code = INR) 1.0 0.8-1.2 N The therapeutic range for oral anticoagulant therapy [...] ON ANTICOAGULANTS? YLIST ANTICOAGULANTS ASPIR INCOMMENTS TO VETERINARY MICROBIOLOGIST: NEED STAT FOR SURGERYTHROMBOPLASTIN TIME PARTIAL 2019-02-07 13:54:00* Test Item Value Reference Range Interpretation Comments THROMBOPLASTIN TIME PARTIAL (test code = PTT) 34.7 seconds 25.0-36. 5 N NEED STAT FOR SUGERYIS PATIENT ON ANTICOAGULANTS? YLIST ANTICOAGULANTS ASPIR INCOMMENTS TO VETERINARY MICROBIOLOGIST: NEED STAT FOR SURGERYAG HEPAT B [id number] 13:04:00* Test Item Value Reference Range Interpretation Comments AG HEPAT B SURF (test code = HBSAG) Nonreactive Index Nonreactive - XR CHEST 1 [id number] 11:30:00 FAX: Shreyas Johnson MD [phone] [facility]: St: ADM FAX: Baldemar Wilkes MD [phone] FAX: Ines Barbosa MD [phone] Name: CALLUM MELCHOR [facility] : 1955 Age/S: 63/M [address] [facility] Unit #: [id number] Loc: V.[address] [place] [address] Phys: Shreyas Stack MD Acct: [id number] Dis Date: Status: ADM IN ONE #: [phone] Exam Date: 02/07/2019 1115 FAX #: [phone] Reason: chf EXAMS: CPT CODE: [id number] XR CHEST 1 V 01485 HISTORY: CHF. COMPARISON: February 06, 2019. No acute infiltrates, ef fusion or congestion is noted. Dependent changes. Suboptimal inspiration. Moderate cardiomegaly. IMPRESSION: No acute infiltrates, effusion or congestion. Electronically Si gned by Abigail Sanchez on 02/07/2019 at 1130 Reported and signed by: Nelson Sanchez M.D. CC: Shreyas Stack MD; Baldemar Wilkes MD; Ines Antunez MD Technologist: RT RENETTA(Tanvir) Trnscrd Date/Time/By: 02/07/2019 (1130) : By: [email or web address] Orig Print D/T: S: 02/07/2019 (8627) PAGE 1 Signed Report BASIC METABOLIC [id number] 09:45:00* Test Item Value Reference Range Interpretation Comments SODIUM (test code = NA) 133 mmol/L 136-145 L POTASSIUM (test code = K) 5.4 mmol/L 3.5-5.1 H CHLORIDE (test code = CL) 109.0 mmol/L 98-107 H CARBON DIOXIDE (test code = CO2) 15.0 mmol/L 21-32 L ANION GAP (test code = GAP) 14.4 10-20 N GLUCOSE (test code = GLU) 46 mg/dL 74-106 LL Re sults called to [id number] by XUAN 02/07/19 0836Critical results verified and read back by Nurse? Y BLOOD UREA NITROGEN (test code = BUN) 125 mg/dL 7-18 H GLOMERULAR FILTRATION RATE (test code = GFR) 10 mL/min >=60 Estimated GFR by using Modified MDRD formula.Chronic kidney disease is defined as either kidney damageor GFR <60 mL/min/1.73 m2 for >3 months. CREATININE (test code = CREAT) 5.70 mg/dL 0.7-1.3 H BUN/CREATININE RATIO (test code = BUN/CREA) 21.9 10-20 H CALCIUM (test code = CA) 8.2 mg/dL 8.5-10.1 L [id number] 09:45:00* Test Item Value Reference Range Interpretation Comments ALBUMIN (test code = ALB) 3.6 g/dL 3.4-5.0 N [id number] 09:45:00* Test Item Value Reference Range Interpretation Comments PHOSPHORUS (test code = PHOS) 1.5 mg/dL 2.5-4.9 L [id number] 09:45:00* Test Item Value Reference Range Interpretation Comments MAGNESIUM (test code = MAG) 3.0 mg/dL 1.8-2.4 H CALCIUM [id number] 09:45:00* Test Item Value Reference Range Interpretation Comments CALCIUM IONIZED (test code = EBENEZER) 1.29 mmol/L 1.12-1.32 N PARATHYROID HORMONE [id number] 09:45:00* Test Item Value Reference Range Interpretation Comments PARATHYROID HORMONE INTACT (test code = PARAI) 49.70 pgram/mL 8.4-8 8 N BASIC METABOLIC [id number] 08:36:00* Test Item Value Reference Range Interpretation Comments SODIUM (test code = NA) 133 mmol/L 136-145 L POTASSIUM (test code = K) 5.4 mmol/L 3.5-5.1 H CHLORIDE (test code = CL) 109.0 mmol/L 98-107 H CARBON DIOXIDE (test code = CO2) 15.0 mmol/L 21-32 L ANION GAP (test code = GAP) 14.4 10-20 N GLUCOSE (test code = GLU) 46 mg/dL 74-106 LL Re sults called to [id number] by XUAN 02/07/19 0836Critical results verified and read back by Nurse? Y BLOOD UREA NITROGEN (test code = BUN) 125 mg/dL 7-18 H GLOMERULAR FILTRATION RATE (test code = GFR) 10 mL/min >=60 Estimated GFR by using Modified MDRD formula.Chronic kidney disease is defined as either kidney damageor GFR <60 mL/min/1.73 m2 for >3 months. CREATININE (test code = CREAT) 5.70 mg/dL 0.7-1.3 H BUN/CREATININE RATIO (test code = BUN/CREA) 21.9 10-20 H CALCIUM (test code = CA) 8.2 mg/dL 8.5-10.1 L [id number] 08:36:00* Test Item Value Reference Range Interpretation Comments ALBUMIN (test code = ALB) 3.6 g/dL 3.4-5.0 N [id number] 08:36:00* Test Item Value Reference Range Interpretation Comments PHOSPHORUS (test code = PHOS) 1.5 mg/dL 2.5-4.9 L [id number] 08:36:00* Test Item Value Reference Range Interpretation Comments MAGNESIUM (test code = MAG) 3.0 mg/dL 1.8-2.4 H CALCIUM [id number] 08:36:00* Test Item Value Reference Range Interpretation Comments CALCIUM IONIZED (test code = EBENEZER) 1.29 mmol/L 1.12-1.32 N PARATHYROID HORMONE [id number] 08:36:00* Test Item Value Reference Range Interpretation Comments PARATHYROID HORMONE INTACT (test code = PARAI) pgram/mL 8.4-88 LACTIC [id number] 08:18:00* Test Item Value Reference Range Interpretation Comments LACTIC ACID (test code = LACT) 2.0 mmol/L 0.4-1.9 H Results called to [id number] by XUAN 02/07/19 0817Critical results verified and read back by Nurse? Y BASIC METABOLIC [id number] 08:18:00* Test Item Value Reference Range Interpretation Comments SODIUM (test code = NA) 133 mmol/L 136-145 L POTASSIUM (test code = K) 5.4 mmol/L 3.5-5.1 H CHLORIDE (test code = CL) 109.0 mmol/L 98-107 H CARBON DIOXIDE (test code = CO2) mmol/L 21-32 ANION GAP (test code = GAP) 10-20 GLUCOSE (test code = GLU) mg/dL 74-106 BLOOD UREA NITROGEN (test code = BUN) mg/dL 7-18 GLOMERULAR FILTRATION RATE (test code = GFR) mL/min >=60 CREATININE (test code = CREAT) mg/dL 0.7-1.3 BUN/CREATININE RATIO (test code = BUN/CREA) 10-20 CALCIUM (test code = CA) mg/dL 8.5-10.1 [id number] 08:18:00* Test Item Value Reference Range Interpretation Comments ALBUMIN (test code = ALB) g/dL 3.4-5.0 [id number] 08:18:00* Test Item Value Reference Range Interpretation Comments PHOSPHORUS (test code = PHOS) mg/dL 2.5-4.9 [id number] 08:18:00* Test Item Value Reference Range Interpretation Comments MAGNESIUM (test code = MAG) mg/dL 1.8-2.4 CALCIUM [id number] 08:18:00* Test Item Value Reference Range Interpretation Comments CALCIUM IONIZED (test code = EBENEZER) 1.29 mmol/L 1.12-1.32 N PARATHYROID HORMONE [id number] 08:18:00* Test Item Value Reference Range Interpretation Comments PARATHYROID HORMONE INTACT (test code = PARAI) pgram/mL 8.4-88 BASIC METABOLIC [id number] 08:14:00* Test Item Value Reference Range Interpretation Comments SODIUM (test code = NA) mmol/L 136-145 POTASSIUM (test code = K) mmol/L 3.5-5.1 CHLORIDE (test code = CL) mmol/L 98-107 CARBON DIOXIDE (test code = CO2) mmol/L 21-32 ANION GAP (test code = GAP) 10-20 GLUCOSE (test code = GLU) mg/dL 74-106 BLOOD UREA NITROGEN (test code = BUN) mg/dL 7-18 GLOMERULAR FILTRATION RATE (test code = GFR) mL/min >=60 CREATININE (test code = CREAT) mg/dL 0.7-1.3 BUN/CREATININE RATIO (test code = BUN/CREA) 10-20 CALCIUM (test code = CA) mg/dL 8.5-10.1 [id number] 08:14:00* Test Item Value Reference Range Interpretation Comments ALBUMIN (test code = ALB) g/dL 3.4-5.0 [id number] 08:14:00* Test Item Value Reference Range Interpretation Comments PHOSPHORUS (test code = PHOS) mg/dL 2.5-4.9 [id number] 08:14:00* Test Item Value Reference Range Interpretation Comments MAGNESIUM (test code = MAG) mg/dL 1.8-2.4 CALCIUM [id number] 08:14:00* Test Item Value Reference Range Interpretation Comments CALCIUM IONIZED (test code = EBENEZER) 1.29 mmol/L 1.12-1.32 N PARATHYROID HORMONE [id number] 08:14:00* Test Item Value Reference Range Interpretation Comments PARATHYROID HORMONE INTACT (test code = PARAI) pgram/mL 8.4-88 CBC W/O [id number] 08:09:00* Test Item Value Reference Range Interpretation Comments WHITE BLOOD CELL (test code = WBC) 9.7 K/mm3 4.5-12.5 N RED BLOOD CELL (test code = RBC) 3.89 mill/mm3 4.0-5.8 L HEMOGLOBIN (test code = HGB) 11.2 gram/dL 13.0-17.5 L HEMATOCRIT (test code = HCT) 36.0 % 42.0-52.0 L MEAN CELL VOLUME (test code = MCV) 92.5 fL 80-98 N MEAN CELL HGB (test code = MCH) 28.8 picogram 27.0-33.0 N MEAN CELL HGB CONCETRATION (test code = MCHC) 31.1 gram/dL 33.0-36. 0 L RED CELL DISTRIBUTION WIDTH (test code = RDW) 17.0 % 11.6-16. 2 H PLATELET COUNT (test code = PLT) 155 K/mm3 150-450 N MEAN PLATELET VOLUME (test code = MPV) 12.7 fL 6.7-11.0 H URINALYSIS [id number] 07:41:00* Test Item Value Reference Range Interpretation Comments UA COLOR (test code = COLU) DARK YELLOW YELLOW A UA APPEARANCE (test code = APPU) Cloudy CLEAR A UA GLUCOSE DIPSTICK (test code = DGLUU) NEGATIVE mg/dL NEGATIVE UA BILIRUBIN DIPSTICK (test code = BILU) NEGATIVE mg/dL NEGATIVE UA KETONE DIPSTICK (test code = KETU) NEGATIVE mg/dL NEGATIVE UA SPECIFIC GRAVITY (test code = SGU) 1.020 1.001-1.035 UA BLOOD DIPSTICK (test code = GAGANDEEP) Negative mg/dL NEGATIVE UA PH DIPSTICK (test code = RAUL) 5.0 5.0-8.0 UA PROTEIN DIPSTICK (test code = PROU) 30 (1+) mg/dL NEGATIVE A UA UROBILINIOGEN DIPSTICK (test code = URO) NEGATIVE mg/dL NEGATIVE UA NITRITE DIPSTICK (test code = STACEY) NEGATIVE NEGATIVE UA LEUKOCYTE ESTERASE W REFLEX (test code = LEUUR) NEGATIVE Marilee/uL NEGATIVE UA WBC (test code = WBCU) 0-5 per HPF 0-5 UA RBC (test code = RBCU) 0-2 #/HPF 0-5 UA EPITHELIAL CELLS (test code = EPIU) FEW per HPF FEW UA BACTERIA (test code = BACU) FEW #/HPF NONE A UA HYALINE CAST (test code = HYALU) >20 #/LPF 0-5 A UA MUCUS (test code = MUCU) FEW #/LPF FEW Urine Source? Clean CatchDRUGS OF ABUSE SCREEN [id number] 07:41:00* Test Item Value Reference Range Interpretation Comments URN COCAINE (test code = COCAURN) NEGATIVE <300 ng/mL URN CANNABINOIDS (test code = CANNABURN) NEGATIVE <50 ng/mL URN AMPHETAMINE (test code = AMPHETURN) NEGATIVE <1000 ng/mL URN BARBITURATE (test code = BARBITURN) NEGATIVE <200 ng/mL URN BENZODIAZEPINE (test code = BENZOURN) NEGATIVE <200 ng/mL URN OPIATES (test code = OPIATURN) POSITIVE <300 ng/mL A This test provides only a preliminary test [...] employment testing, legaltesting). URN PHENCYCLIDINE (PCP) (test code = PHENCURN) NEGATIVE <25 ng/ mL URN METHADONE (test code = METHAURN) NEGATIVE <300 ng/mL Urine Source? Clean CatchURINALYSIS [id number] 07:32:00* Test Item Value Reference Range Interpretation Comments UA COLOR (test code = COLU) DARK YELLOW YELLOW A UA APPEARANCE (test code = APPU) Cloudy CLEAR A UA GLUCOSE DIPSTICK (test code = DGLUU) NEGATIVE mg/dL NEGATIVE UA BILIRUBIN DIPSTICK (test code = BILU) NEGATIVE mg/dL NEGATIVE UA KETONE DIPSTICK (test code = KETU) NEGATIVE mg/dL NEGATIVE UA SPECIFIC GRAVITY (test code = SGU) 1.020 1.001-1.035 UA BLOOD DIPSTICK (test code = GAGANDEEP) Negative mg/dL NEGATIVE UA PH DIPSTICK (test code = RAUL) 5.0 5.0-8.0 UA PROTEIN DIPSTICK (test code = PROU) 30 (1+) mg/dL NEGATIVE A UA UROBILINIOGEN DIPSTICK (test code = URO) NEGATIVE mg/dL NEGATIVE UA NITRITE DIPSTICK (test code = STACEY) NEGATIVE NEGATIVE UA LEUKOCYTE ESTERASE W REFLEX (test code = LEUUR) NEGATIVE Marilee/uL NEGATIVE UA WBC (test code = WBCU) 0-5 per HPF 0-5 UA RBC (test code = RBCU) 0-2 #/HPF 0-5 UA EPITHELIAL CELLS (test code = EPIU) FEW per HPF FEW UA BACTERIA (test code = BACU) FEW #/HPF NONE A UA HYALINE CAST (test code = HYALU) >20 #/LPF 0-5 A UA MUCUS (test code = MUCU) FEW #/LPF FEW Urine Source? Clean CatchDRUGS OF ABUSE SCREEN [id number] 07:32:00* Test Item Value Reference Range Interpretation Comments URN COCAINE (test code = COCAURN) <300 ng/mL URN CANNABINOIDS (test code = CANNABURN) <50 ng/mL URN AMPHETAMINE (test code = AMPHETURN) <1000 ng/mL URN BARBITURATE (test code = BARBITURN) <200 ng/mL URN BENZODIAZEPINE (test code = BENZOURN) <200 ng/mL URN OPIATES (test code = OPIATURN) <300 ng/mL URN PHENCYCLIDINE (PCP) (test code = PHENCURN) <25 ng/ mL URN METHADONE (test code = METHAURN) <300 ng/mL Urine Source? Clean CatchUR NA,[id number] 07:21:00* Test Item Value Reference Range Interpretation Comments UR NA,RANDOM (test code = RENY) 14 mmol/L 20-110 L UR CREATININE [id number] 07:21:00* Test Item Value Reference Range Interpretation Comments UR CREATININE RANDOM (test code = CREATU) 341.0 mg/dL 30-125 H URINALYSIS [id number] 07:16:00* Test Item Value Reference Range Interpretation Comments UA COLOR (test code = COLU) DARK YELLOW YELLOW A UA APPEARANCE (test code = APPU) Cloudy CLEAR A UA GLUCOSE DIPSTICK (test code = DGLUU) NEGATIVE mg/dL NEGATIVE UA BILIRUBIN DIPSTICK (test code = BILU) NEGATIVE mg/dL NEGATIVE UA KETONE DIPSTICK (test code = KETU) NEGATIVE mg/dL NEGATIVE UA SPECIFIC GRAVITY (test code = SGU) 1.020 1.001-1.035 UA BLOOD DIPSTICK (test code = GAGANDEEP) Negative mg/dL NEGATIVE UA PH DIPSTICK (test code = RAUL) 5.0 5.0-8.0 UA PROTEIN DIPSTICK (test code = PROU) 30 (1+) mg/dL NEGATIVE A UA UROBILINIOGEN DIPSTICK (test code = URO) NEGATIVE mg/dL NEGATIVE UA NITRITE DIPSTICK (test code = STACEY) NEGATIVE NEGATIVE UA LEUKOCYTE ESTERASE W REFLEX (test code = LEUUR) NEGATIVE Marilee/uL NEGATIVE UA WBC (test code = WBCU) per HPF 0-5 UA RBC (test code = RBCU) per HPF 0-5 UA EPITHELIAL CELLS (test code = EPIU) per HPF Few UA BACTERIA (test code = BACU) per HPF NONE Urine Source? Clean CatchDRUGS OF ABUSE SCREEN [id number] 07:16:00* Test Item Value Reference Range Interpretation Comments URN COCAINE (test code = COCAURN) <300 ng/mL URN CANNABINOIDS (test code = CANNABURN) <50 ng/mL URN AMPHETAMINE (test code = AMPHETURN) <1000 ng/mL URN BARBITURATE (test code = BARBITURN) <200 ng/mL URN BENZODIAZEPINE (test code = BENZOURN) <200 ng/mL URN OPIATES (test code = OPIATURN) <300 ng/mL URN PHENCYCLIDINE (PCP) (test code = PHENCURN) <25 ng/ mL URN METHADONE (test code = METHAURN) <300 ng/mL Urine Source? Clean CatchUR NA,[id number] 07:09:00* Test Item Value Reference Range Interpretation Comments UR NA,RANDOM (test code = RENY) 14 mmol/L 20-110 L UR CREATININE [id number] 07:09:00* Test Item Value Reference Range Interpretation Comments UR CREATININE RANDOM (test code = CREATU) mg/dL 30-125 [id number] 00:20:00* Test Item Value Reference Range Interpretation Comments GLUBED (test code = GLUBED) 62 mg/dL 74-106 L Performed by certified double cut off saw operator at [facility] [id number] 00:05:00* Test Item Value Reference Range Interpretation Comments TROPONIN-I (test code = TROPI) <0.015 ng/mL 0-0.045 N COMMENTS TO VETERINARY MICROBIOLOGIST: COLLECT 3 HOURS AFTER PREVIOUS [id number] 23:56:00* Test Item Value Reference Range Interpretation Comments GLUBED (test code = GLUBED) 87 mg/dL 74-106 N Performed by certified double cut off saw operator at [facility] [id number] 20:57:00* Test Item Value Reference Range Interpretation Comments TROPONIN-I (test code = TROPI) <0.015 ng/mL 0-0.045 N COMMENTS TO VETERINARY MICROBIOLOGIST: COLLECT 3 HOURS AFTER PREVIOUS [id number] 20:35:00* Test Item Value Reference Range Interpretation Comments GLUBED (test code = GLUBED) 78 mg/dL 74-106 N Performed by certified double cut off saw operator at [facility] [id number] 20:35:00* Test Item Value Reference Range Interpretation Comments GLUBED (test code = GLUBED) 55 mg/dL 74-106 L Performed by certified double cut off saw operator at [facility] - US RETRO [id number] 19:32:00 Name: CALLUM MELCHOR [facility] : 1955 Age/S: 63 / M [address] Unit #: [id number] [place] [address] Phys: Shreyas Stack MD Acct: [id number] Dis Date: Status: ADM IN PHONE #: [phone] Exam Date: 02/06/20191919 FAX #: [phone] Reason: eval size EXAMS: CPT CODE: [id number] US RETRO LTD [id number] REASON FOR EXAM: eval size EXAM ORDER DATE: 02/06/2019 6:46 PM Attending M.Esha.: Shreyas Stack MD PROCEDURE: - US RETRO [...] kidney suggestive of nonobstructing renal stones at 1932 Reported and signed by: Trae Powers M.D. CC: Shreyas Stack MD; Baldemar Wilkes MD; Iens Antunez MD Technologist: Santana High Trnscb Date/Time: 02/06/2019 (1931) t.SDR.VTL Orig Print D/T: S: 02/06/2019 (2049) Probe: PAGE 1 Signed Report [id number] 18:46:00* Test Item Value Reference Range Interpretation Comments GLUBED (test code = GLUBED) 39 mg/dL 74-106 LL Performed by certified double cut off saw operator at [facility] [id number] 17:29:00* Test Item Value Reference Range Interpretation Comments GLUBED (test code = GLUBED) 37 mg/dL 74-106 LL Performed by certified [facility] cut [facility] BASIC METABOLIC [id number] 13:35:00* Test Item Value Reference Range Interpretation Comments SODIUM (test code = NA) 134 mmol/L 136-145 L POTASSIUM (test code = K) 5.1 mmol/L 3.5-5.1 N CHLORIDE (test code = CL) 110.0 mmol/L 98-107 H CARBON DIOXIDE (test code = CO2) 14.0 mmol/L 21-32 L ANION GAP (test code = GAP) 15.1 10-20 N GLUCOSE (test code = GLU) 46 mg/dL 74-106 LL Re sults called to [id number] by V.LUDWIN 02/06/19 1335Critical results verified and read back by Nurse? Y BLOOD UREA NITROGEN (test code = BUN) 123 mg/dL 7-18 H GLOMERULAR FILTRATION RATE (test code = GFR) 11 mL/min >=60 Estimated GFR by using Modified MDRD formula.Chronic kidney disease is defined as either kidney damageor GFR <60 mL/min/1.73 m2 for >3 months. CREATININE (test code = CREAT) 5.30 mg/dL 0.7-1.3 H BUN/CREATININE RATIO (test code = BUN/CREA) 23.2 10-20 H CALCIUM (test code = CA) 8.2 mg/dL 8.5-10.1 L HEPATIC FUNCTION [id number] 13:35:00* Test Item Value Reference Range Interpretation Comments TOTAL PROTEIN (test code = PROT) 7.8 gram/dL 6.4-8.2 N ALBUMIN (test code = ALB) 3.6 g/dL 3.4-5.0 N GLOBULIN (test code = GLOB) 4.2 gram/dL 2.7-4.2 N ALBUMIN/GLOBULIN RATIO (test code = A/G) 0.9 0.75-1.50 N BILIRUBIN TOTAL (test code = BILT) 0.20 mg/dL 0.0-1.0 N BILIRUBIN DIRECT (test code = BILD) 0.07 mg/dL 0.0-0.20 N SGOT/AST (test code = AST) 18 IUnit/L 15-37 N SGPT/ALT (test code = ALT) 21 IUnit/L 12-78 N ALKALINE PHOSPHATASE TOTAL (test code = ALKP) 75 IUnit/L 45-117 N Note change in reference range due to change in reagent. [id number] 13:35:00* Test Item Value Reference Range Interpretation Comments TROPONIN-I (test code = TROPI) <0.015 ng/mL 0-0.045 N B-TYPE NATRIURETIC [id number] 13:26:00* Test Item Value Reference Range Interpretation Comments B-TYPE NATRIURETIC PEPTIDE (test code = BNP) 138.69 pgram/mL 0-100 H CBC W/O [id number] 12:49:00* Test Item Value Reference Range Interpretation Comments WHITE BLOOD CELL (test code = WBC) 10.5 K/mm3 4.5-12.5 N RED BLOOD CELL (test code = RBC) 3.90 mill/mm3 4.0-5.8 L HEMOGLOBIN (test code = HGB) 10.9 gram/dL 13.0-17.5 L HEMATOCRIT (test code = HCT) 36.7 % 42.0-52.0 L MEAN CELL VOLUME (test code = MCV) 94.1 fL 80-98 N MEAN CELL HGB (test code = MCH) 27.9 picogram 27.0-33.0 N MEAN CELL HGB CONCETRATION (test code = MCHC) 29.7 gram/dL 33.0-36. 0 L RED CELL DISTRIBUTION WIDTH (test code = RDW) 17.0 % 11.6-16. 2 H PLATELET COUNT (test code = PLT) 162 K/mm3 150-450 N MEAN PLATELET VOLUME (test code = MPV) 12.5 fL 6.7-11.0 H BASIC METABOLIC [id number] 12:48:00* Test Item Value Reference Range Interpretation Comments SODIUM (test code = NA) 134 mmol/L 136-145 L POTASSIUM (test code = K) 5.1 mmol/L 3.5-5.1 N CHLORIDE (test code = CL) 110.0 mmol/L 98-107 H CARBON DIOXIDE (test code = CO2) mmol/L 21-32 ANION GAP (test code = GAP) 10-20 GLUCOSE (test code = GLU) mg/dL 74-106 BLOOD UREA NITROGEN (test code = BUN) mg/dL 7-18 GLOMERULAR FILTRATION RATE (test code = GFR) mL/min >=60 CREATININE (test code = CREAT) mg/dL 0.7-1.3 BUN/CREATININE RATIO (test code = BUN/CREA) 10-20 CALCIUM (test code = CA) mg/dL 8.5-10.1 HEPATIC FUNCTION [id number] 12:48:00* Test Item Value Reference Range Interpretation Comments TOTAL PROTEIN (test code = PROT) gram/dL 6.4-8.2 ALBUMIN (test code = ALB) g/dL 3.4-5.0 GLOBULIN (test code = GLOB) gram/dL 2.7-4.2 ALBUMIN/GLOBULIN RATIO (test code = A/G) 0.75-1.50 BILIRUBIN TOTAL (test code = BILT) mg/dL 0.0-1.0 BILIRUBIN DIRECT (test code = BILD) mg/dL 0.0-0.20 SGOT/AST (test code = AST) IUnit/L 15-37 SGPT/ALT (test code = ALT) IUnit/L 12-78 ALKALINE PHOSPHATASE TOTAL (test code = ALKP) IUnit/L 45-117 [id number] 12:48:00* Test Item Value Reference Range Interpretation Comments TROPONIN-I (test code = TROPI) ng/mL 0-0.045 - CT HEAD/BRAIN W/O [id number] 12:37:00 Name: CALLUM MELCHOR [facility] : 1955 Age/S: 63 / M [address] [facility] Unit #: [id number] Loc: [place] [address] Phys: Juan Alejandro MD Acct: [id number] Dis Date: Status: REG ER PHONE #: [phone] Exam Date: 02/06/2019 1230 FAX #: [phone] Reason: headaches, dizziness EXAMS: CPT CODE: [id number] CT HEAD/BRAIN W/O CONT 72862 HISTORY: Headache and dizziness. COMPARISON: None available. [...] Sanchez M.D. CC: Juan Alejandro MD; Ines Antunez MD Technologist:Damian Rodríguez RT(R),(MR),(CT) CTDI: DLP: Trnscb Date/Time: 02/06/2019 (1237) t.SDR.TH4 Orig Print D/T: S: 02/06/2019 (1240) CTDI: DLP: PAGE 1 Signed Report - XR CHEST 1 V 2019-02-06 12:13:00 FAX: Juan Alejandro [place]: B St: REG FAX: Ines aBrbosa MD [phone] Name: CALLUM MELCHOR [facility] : 1955 Age/S: 63/M [address] [facility] Unit #: [id number] Loc: [place] [id number] Phys: Juan Alejandro MD Acct: [id number] Dis Date: Status: REG ER PHONE #: [phone] Exam Date: 02/06/2019 1200 FAX #: [phone] Reason: CHEST PAIN EXAMS: CPT CODE: [id number] XR CHEST 1 V 46008 HISTORY: Chest pain. COMPARISON: September 03, 2018. No acute infiltrates, effusion or congestion is noted. Cardiomegaly. IMPRESSION: No acute infiltrates, effusion or congestion. at 1213 Reported and signed by: Nelson Sanchez M.D. CC: Juan Alejandro MD; Ines Antunez MD Technologist: Ivonne Silverio RT(R); STUDENT TECHNOLOGIST Trnscrd Date/Time/By: 02/06/2019 (0303) : By: [email or web address] Orig Print D/T: S: 02/06/2019 (2801) PAGE 1 Signed Report TROPONIN I [id number] 12:11:00* Test Item Value Reference Range Interpretation Comments TROPONIN I RAPID (test code = TROPIRAP) 0.01 ng/mL <0.08 Please Note New Reference Range 0.00-0.079 ng/mL - Negative>or= 0.08 ng/mL - Positive The use of serial sampling and testing protocol is arecommended practice.An elevated troponin level alone is often not sufficient fordiagnosis of myocardial infarction. Troponin results obtained by different assays may vary.Evaluation of the extent of myocardial damage based onincrease of troponin would be valid only if similarmethodology is used.
[2020-03-17 17:00] VITALS: BP 121/60
--- NOTE | 2020-03-17 17:00 | NUR ---
pt arrived to room 104; pt awake, alert, oriented x3, no signs of distress.
[2020-03-17 17:24] VITALS: BP 121/60
[2020-03-17] MEDS ORDERED: ACETAMINOPHEN 1000 MG/100 ML IV PRN (18:00)
--- NOTE | 2020-03-17 18:11 | NUR ---
spoke with pt and daughter. pt is refusing to take Vancomycin, stating the last time he was on it, it caused kidney problems and that he was put on Daptomycin instead. paged Dr. Kim requesting a different antibiotic. per Dr. Kim, two more doses of Vancomycin is okay to give patient. no new orders given. pt still refusing. will continue to monitor.
[2020-03-17 18:37] LABS: CREATINE KINASE MB 2.2 ng/mL (0-5.0)
[2020-03-17 18:40] LABS: INR 1.02
[2020-03-17 18:41] LABS: PARTIAL THROMBOPLASTIN TIME 32.3 seconds (23.8-35.5)
[2020-03-17] MEDS: ASPIRIN 325 MG TAB PO SCH (18:41)
[2020-03-17] MEDS: SODIUM CHLORIDE 0.9% 1000ML 1,000 ML IV SCH ×2 (18:41→23:15)
[2020-03-17] MEDS: CELECOXIB 100 MG CAP PO SCH (18:42)
--- NOTE | 2020-03-17 19:00 | NUR ---
pt tolerating PO; IV saline locked.
--- NOTE | 2020-03-17 19:03 | NUR ---
Resumed care of patient. Patient awake and resting in bed, no s/s of distress at this time. Denies chest pain. All safety measures in place. Will continue to monitor.
[2020-03-17] MEDS ORDERED: DEXTROSE 50% SYRINGE 50 ML IV PRN ×2 (19:15→19:30)
[2020-03-17] MEDS ORDERED: JANUVIA100 MG PO (19:28)
[2020-03-17] MEDS ORDERED: RENAGEL800 MG PO (19:28)
[2020-03-17] MEDS ORDERED: MONODOX100 MG PO (19:28)
[2020-03-17] MEDS ORDERED: CLOPIDOGREL75 MG PO (19:28)
[2020-03-17 20:00] VITALS: BP 129/65
--- NOTE | 2020-03-17 20:11 | Consultation ---
DATE OF CONSULTATION: 03/17/2020 Cardiology Consultation Note REASON FOR CONSULTATION: Chest pain. HISTORY OF PRESENT ILLNESS: Mr. Razo is a 64-year-old gentleman, who was admitted for elective left knee arthroplasty. Postoperatively in the recovery room, he complained of some substernal chest pain. Initial electrocardiogram shows sinus rhythm. Initial cardiac enzymes are negative. He is pain-free at this point. PAST MEDICAL HISTORY: Documented in the chart. SOCIAL HISTORY: Documented in the chart. FAMILY HISTORY: Documented in the chart. REVIEW OF SYSTEMS: Negative except as dictated in the History of Present Illness. PHYSICAL EXAMINATION: VITAL SIGNS: Afebrile, heart rate is 78, and blood pressure is 148/90. CARDIOVASCULAR: Regular rhythm. S4 gallop. LUNGS: Clear to auscultation bilaterally. ABDOMEN: Distended. EXTREMITIES: 1+ edema. LABORATORY DATA: Electrocardiogram shows sinus rhythm with nonspecific ST changes. Cardiac enzymes are negative. Remaining labs reviewed. ASSESSMENT: Atypical chest pain in the setting of recent surgery for left knee arthroplasty. Pulmonary embolus is unlikely. Recheck of cardiac enzymes. Rule out myocardial infarction. Initial set is normal. The patient is to be maintained on telemetry overnight. I thank, Dr. Kip Kim, for this consultation. MD ELENA Ramsey/HERIBERTO /[id number]
--- NOTE | 2020-03-17 20:37 | NUR ---
Notified Dr. Jauregui that patient is refusing vancomycin, stating that Dr. Valdes told him not to take vancomycin because "it'll mess up my kidneys." Received orders to give cefazolin 1 g IV every 8 hours x 3 doses.
[2020-03-17] MEDS ORDERED: INSULIN REGULAR, HUMAN 100 UNIT/1 ML 3ML VIAL SQ SCH (21:00)
[2020-03-17] MEDS: INSULIN LISPRO 100 UNIT/1 ML 3ML VIAL SQ SCH (21:07)
[2020-03-17 21:44] VITALS: BP 129/65
[2020-03-17] MEDS: CEFAZOLIN SOD 1 GM/NS 50ML 50 ML IV SCH (22:08)
[2020-03-17] MEDS: HYDROCODONE/APAP 7.5MG-325MG 1 EA TAB PO PRN (22:08)
--- NOTE | 2020-03-17 22:44 | NUR ---
Patient tolerating PO. Saline locked as ordered. Encouraged fluid intake and quad exercises. Patient verbalized understanding and showed return demonstration. Will continue to monitor.
[2020-03-18] VITALS (9 sets, daily range): BP systolic 108–141; BP diastolic 45–63
[2020-03-18] MEDS ORDERED: VANCOMYCIN 1GM/NS 250 ML 250 ML IV SCH
[2020-03-18] MEDS: ZOLPIDEM TARTRATE 5 MG TAB PO PRN ×2 (00:22→21:43)
[2020-03-18] MEDS: HYDROCODONE/APAP 7.5MG-325MG 1 EA TAB PO PRN ×2 (01:59→21:43)
[2020-03-18 05:31] LABS: HEMATOCRIT 31.4 % (38.2-49.6); HEMOGLOBIN 10.1 g/dL (14.0-18.0)
[2020-03-18 05:55] LABS: CHOL/HDL RATIO 3.6 (3.9-4.7)
[2020-03-18] MEDS: CEFAZOLIN SOD 1 GM/NS 50ML 50 ML IV SCH ×2 (06:14→13:24)
--- NOTE | 2020-03-18 07:03 | NUR ---
Bedside report given to day nurse. Patient awake and resting in bed, no s/s of distress at this time. All safety measures in place.
--- NOTE | 2020-03-18 07:43 | Consultation ---
DATE OF CONSULTATION: REASON FOR CONSULTATION: Postop medical management. 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 He is doing well postoperatively. He has minimal left knee pain. REVIEW OF SYSTEMS: Denies any chest pain, fever, chills, nausea, vomiting, headache, shortness of breath, or dizziness. PAST MEDICAL HISTORY: Significant for diabetes, gout, heart disease, hyperlipidemia, hypertension, peripheral neuropathy, end-stage renal disease. MEDICATIONS: See MAR. ALLERGIES: NONE. SOCIAL HISTORY: Nonsmoker and nondrinker. He is a . FAMILY HISTORY: Coronary artery disease. PHYSICAL EXAMINATION: VITAL SIGNS: Temperature is 97.8, pulse 56, blood pressure 111/45, saturations 97% on room air. GENERAL: He is in no apparent distress, lying in bed. NECK: Supple. No lymphadenopathy. CARDIOVASCULAR: Regular rate and rhythm. LUNGS: Clear to auscultation bilaterally. ABDOMEN: Good bowel sounds. Soft, nontender. EXTREMITIES: No clubbing or cyanosis. There is no seepage on his left knee bandage. NEUROLOGIC: He moves all extremities x4. ASSESSMENT/PLAN: 1. Left knee pain. Continue with postoperative care and physical therapy. 2. End-stage renal disease. We will continue with dialysis per Renal. 3. Anemia. Continue to monitor. 4. Diabetes. Continue current care and monitor. 5. Hypertension. We will continue to monitor. Please see hospital chart for full details. MD ALONZO Calvert/HERIBERTO /[id number]
--- NOTE | 2020-03-18 08:05 | NUR ---
DR BARRIOS OFFICE PREARRANGED FOLLOWING DISCHARGE PLAN OF: HOME WITH DAUGHTER Arik EMANUEL SHANTELL BUTLER [phone] HOME [facility] WITH [facility] CONFIRMED WITH [facility], PT IS ALREADY ON SERVICE CANCELLED ORDER PER PT FOR DME, STATES HAS EQUIPMENT AND DOESN'T WANT THE CPM. LET KNOW CELINA AT [facility]SE KNOW [phone].
--- NOTE | 2020-03-18 08:10 | NUR ---
PT WILL GET DIALYSIS PRIOR TO LEAVING TODAY.
[2020-03-18] MEDS: CELECOXIB 100 MG CAP PO SCH ×2 (08:34→17:08)
[2020-03-18] MEDS: ASPIRIN 325 MG TAB PO SCH ×2 (08:34→17:08)
[2020-03-18] MEDS: SODIUM CHLORIDE 0.9% 1000ML 1,000 ML IV SCH ×2 (09:15→18:21)
[2020-03-18] MEDS: INSULIN LISPRO 100 UNIT/1 ML 3ML VIAL SQ SCH ×4 (09:27→21:35)
--- NOTE | 2020-03-18 17:45 | Progress Note ---
DATE: 03/18/2020 Cardiology Progress Note SUBJECTIVE: The patient denies chest pain or shortness of breath. He was seen during hemodialysis. OBJECTIVE: VITAL SIGNS: Temperature 97.8 degrees, pulse 62, respiratory rate 18, blood pressure 125/63, and oxygen saturation 97%. GENERAL: Obese gentleman, in no acute distress. Awake and alert. LUNGS: Clear to auscultation bilaterally. No wheezes or crackles. CARDIOVASCULAR: Normal rate. Regular rhythm. No murmur. Normal S1 and S2. ABDOMEN: Soft and nontender. EXTREMITIES: No edema. CARDIAC MEDICATIONS: Aspirin 325 mg p.o. b.i.d. LABORATORY DATA: Hemoglobin 10.1 and hematocrit 31.4. Triglycerides 125, cholesterol 104, LDL 50, and HDL 29. Troponin 0.019. Telemetry was personally reviewed and interpreted, revealing normal sinus rhythm. IMPRESSION: 1. Chest pain. 2. Coronary artery disease. 3. Aortic stenosis. 4. Chronic diastolic heart failure. 5. Hypertension. 6. Hyperlipidemia. 7. Peripheral arterial disease. RECOMMENDATIONS: The patient has ruled out for myocardial infarction. He has known disease in a small distal OM. No further cardiac evaluation is indicated at this time. Resume home cardiac medications. Monitor the patient on telemetry while admitted. Volume management per Nephrology given the patient is on hemodialysis. Decrease aspirin to 81 mg daily. Restart Plavix once agreeable from a surgical standpoint. Thank you for this consult. We will continue to follow. Radha Almeida MD ABS/MODL /[id number]
--- NOTE | 2020-03-18 21:11 | Consultation ---
DATE OF CONSULTATION: Renal Consultation Thank you for the consultation. HISTORY OF PRESENT ILLNESS: Mr. Razo is a pleasant 64-year-old male patient of mine with end-stage renal disease. He is on hemodialysis at [facility] in [place] under my care, he does dialysis on Monday, Monday, Monday, has a chest CVC catheter, permanent catheter for dialysis and a recent left arm AV fistula created, however, the fistula is not quite mature to be cannulated. The patient came in for knee surgery on his left knee. Subsequent to the surgery, he has been admitted to the hospital here at [facility]. Renal consultation has been asked for to provide his dialysis while he is here. The patient is due for dialysis today. He is tolerating dialysis procedure without any problems. No current nausea. No vomiting. No chest pain. No shortness of breath. No abdominal pain. No other symptoms. PAST MEDICAL HISTORY: End-stage renal disease, history of diabetes mellitus, history of hypertension, history of ATN from vancomycin toxicity with no recovery. The patient now with end-stage renal disease, on permanent dialysis. ALLERGIES: NO KNOWN DRUG ALLERGIES. SOCIAL HISTORY: No tobacco. No alcohol use. FAMILY HISTORY: Noncontributory. REVIEW OF SYSTEMS: See HPI. Otherwise, all systems negative. MEDICATIONS: Outpatient; allopurinol, amlodipine, aspirin, Plavix, gabapentin, insulin, metoprolol, sevelamer, Januvia, tamsulosin, and bumetanide. PHYSICAL EXAMINATION: VITAL SIGNS: Blood pressure is 108 to 130s over 60s, 50s, 60s pulse, 18 respirations, afebrile. HEENT: No cervical lymphadenopathy. NECK: Supple without masses. No obvious JVD. Moist appearing oral mucosa. SKIN: Moist with good skin turgor. CHEST WALL: Good expansion. No chest wall tenderness. LUNGS: Clear to auscultation bilaterally. CARDIOVASCULAR: S1 and S2. No rubs, gallop, or murmur. ABDOMEN: Soft. Positive bowel sounds. Nontender. EXTREMITIES: There is 1 to 2+ edema. No clubbing. No cyanosis. NEUROLOGICAL: Awake and alert x3. Grossly nonfocal exam. LABORATORY DATA: H and H are 11.3 and 35.9. Chemistries from yesterday; sodium 133, potassium 3.9, chloride 98, bicarb 22, BUN is 37, and creatinine is 4.5. IMPRESSION AND PLAN: 1. End-stage renal disease. We will continue to provide dialysis Monday, Monday, Monday. Next dialysis will be on Monday. The patient is tolerating dialysis procedure without any problems. 2. Hypertension. Blood pressure is controlled. Continue current medications. 3. Anemia of chronic disease. Stable H and H. We will continue to monitor closely and make further recommendations. Thank you once again for the consultation. We will follow the patient closely along with you and make further recommendations. Shreyas Stack MD TH/MODL /[id number] cc: Kip Kim MD
[2020-03-19 00:49] VITALS: BP 149/65
[2020-03-19 04:00] VITALS: BP 168/81
[2020-03-19 05:06] LABS: HEMATOCRIT 33.6 % (38.2-49.6); HEMOGLOBIN 10.3 g/dL (14.0-18.0)
[2020-03-19 05:38] LABS: ANION GAP 16.2 mmol/L (8-16); CALCIUM 7.9 mg/dL (8.4-10.2); CREATININE, SERUM 4.34 mg/dL (0.72-1.25); POTASSIUM 4.2 mmol/L (3.5-5.1)
[2020-03-19 08:16] VITALS: BP 134/54
[2020-03-19 08:25] VITALS: BP 134/54
[2020-03-19 08:26] VITALS: BP 134/54
[2020-03-19] MEDS: CELECOXIB 100 MG CAP PO SCH (08:58)
[2020-03-19] MEDS: ASPIRIN 325 MG TAB PO SCH (08:58)
[2020-03-19] MEDS ORDERED: ONDANSETRON HCL 4 MG ORAL DISINTEGRATING TAB PO PRN (09:00)
[2020-03-19] MEDS: INSULIN LISPRO 100 UNIT/1 ML 3ML VIAL SQ SCH (09:21)
--- NOTE | 2020-03-19 16:55 | Operative Report ---
DATE OF PROCEDURE: 03/17/2020 SURGEON: Kip Kim MD TRACK MECHANIC: Mele Garcia, certified PA. PREOPERATIVE DIAGNOSIS: Infection and inflammatory reaction due to internal left knee prosthesis, sequela. 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 POSTOPERATIVE DIAGNOSES: 1. Infection and inflammatory reaction due to internal left knee prosthesis, sequela. 2. 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 PROCEDURES: Second-stage total knee revision with explantation of temporary antibiotic prosthesis, synovectomy, irrigation and debridement, * added complexity secondary to the patient's BMI of 43. INDICATIONS: The patient is a 64-year-old gentleman, who has a long and complicated history involving his left knee. He had a left total knee replacement in 2013, this was done by another physician, this went on to become catastrophically loose. He was noted to have an infection. He has had multiple soft tissue infections and had additional operations for other concerns that have become infected. When he presented to our office, we discussed a long and difficult pathway. He has been through an irrigation and debridement, removal of the prosthesis and placement of a temporary antibiotic prosthesis. He has completed his antibiotic therapy. His wound looks fine. His inflammatory bone work has returned to a more normal pattern. We now planned on a second-stage revision. The risks and benefits have been explained. The added challenges due to his morbid obesity and a body mass index of 43 have been explained. All of his questions have been answered. He states he understands and wishes to proceed. DESCRIPTION OF PROCEDURE: The patient was brought to the operating room and placed under general anesthetic. He received a regional block in the holding area. He received tranexamic acid. His left lower extremity was prepped and draped in a sterile manner. A preoperative time-out was performed. Antibiotics were given. The extremity was exsanguinated and a proximal tourniquet was inflated to 300 mmHg. The previous incision was opened up. Time and difficulty were encountered to mobilize the soft tissue. The previous Ethibond stitches used for closing the arthrotomy were carefully removed. A gentle progression of soft tissue releases was performed. A total synovectomy was necessary to mobilize the soft tissue. A lateral retinacular release and a quadriceps snip were used to mobilize the patella. The knee was gently brought up into flexion. The temporary antibiotic prosthesis was inspected. There was no evidence of any deep purulence in the wound. Cultures were taken. A bone tamp and an osteotome were used to remove the articulating temporary antibiotic prosthesis. The bone surfaces were relatively well preserved. No additional bone loss occurred with removal of the temporary prosthesis. The bone surfaces were gently debrided with a curved curettes. All fibrinous material was removed. A Mosher and NephFigure 8 Surgical Revision Knee System were used. After appropriate exposure of the proximal tibia, an intramedullary cutting guide was used to resect the proximal tibia. We used a 14 mm tibial reamer for stability. A 2 mm cut was made. The tibial base plate was sized #7. We elected to use a 2 mm offset to improve tibial coverage and alignment. The central fin punch was impacted with care. Attention was then directed towards the distal femur. An intramedullary cutting guide was also used in the femur. An 18 mm reamer provided a good stability with the intramedullary canal. A number #7 prosthesis was seated onto the distal femur for sizing. , this appeared to be appropriate. Based on the bone loss, I elected to put a +10 mm medial and lateral distal spacers. A small bone cut was made on both the distal medial femur and the distal lateral femur. The notch cut was made. This allowed preservation of the appropriate joint line. A trial reduction provided appropriate soft tissue balancing in full extension and 90 degrees of flexion with a 9 mm posterior stabilized tibial insert. Attention was then directed towards the patella, this was also debrided, the thickness was well preserved. A biconcave 32 mm x 9 mm patellar button was prepared. Patellar tracking was concentric. The trial implants were then all removed. The knee had been irrigated multiple times during the procedure with a shower tip pulsatile lavage. Additional irrigation was performed with a spray mixture of diluted polymyxin and vancomycin spray. A 100 mL premixed pericapsular DANISH injection was placed into the surrounding soft tissue. The implants were prepared on the back table. 160 mm stems were used for both the femur and the tibia. A single mix of high viscosity Biomet cement with antibiotics was prepared. The components were seated with the distal press-fit stems and proximal cement. The tibial insert was seated after the cement had cured. The patella was cemented into place as well. The wound was further irrigated while the cement cured. The arthrotomy and the quadriceps snip were then repaired with Ethibond stitches. The skin was carefully closed with subcuticular Vicryl and damian. The patient was placed into a sterile Aquacel bandage and a knee immobilizer. He was extubated and transported to the recovery room in stable condition. Estimated blood loss was approximately 100 mL. All needle and sponge counts were correct. Kip Kim MD DR/HERIBERTO /[id number]
[2020-03-19] MEDS ORDERED: CELECOXIB 200 MG CAP PO SCH (17:00)
== END 2020-03-19 09:45 | disposition home or self-care (01) | DRG 466 ==
LOC: OR 09:48 → PACU V 13:06 → MED/SURG 17:02
PROVIDERS: ADMIT Specialist; ATTEND Specialist
PROC: 0SRD0J9 Replacement of Left Knee Joint with Synthetic Substitute, Cemented, Open Approach (ICD-10-PCS; 2020-03-17)
PROC: 0SPD08Z Removal of Spacer from Left Knee Joint, Open Approach (ICD-10-PCS; principal; 2020-03-17 12:00)
PROC: 5A1D70Z Performance of Urinary Filtration, Intermittent, Less than 6 Hours Per Day (ICD-10-PCS; 2020-03-18)
DX: Z47.32 Aftercare following explantation of hip joint prosthesis (principal); N18.6 End stage renal disease; Z68.42 Body mass index [BMI] 45.0-49.9, adult; I13.2 Hypertensive heart and chronic kidney disease with heart failure and with stage 5 chronic kidney disease, or end stage renal disease; I50.32 Chronic diastolic (congestive) heart failure; T84.033D Mechanical loosening of internal left knee prosthetic joint, subsequent encounter; M17.0 Bilateral primary osteoarthritis of knee; M47.896 Other spondylosis, lumbar region; M10.9 Gout, unspecified; E11.40 Type 2 diabetes mellitus with diabetic neuropathy, unspecified; I25.10 Atherosclerotic heart disease of native coronary artery without angina pectoris; Z95.5 Presence of coronary angioplasty implant and graft; E11.22 Type 2 diabetes mellitus with diabetic chronic kidney disease; Z99.2 Dependence on renal dialysis; Z79.4 Long term (current) use of insulin; D63.8 Anemia in other chronic diseases classified elsewhere
CPT/HCPCS: 36415; 71046; 80048; 80053; 80061; 82550; 82553; 82948; 84132; 84484; 85014; 85018; 85025; 85610; 85730; 86850; 86900; 86920; 87071; 87075; 87205; 87635; 93005; 96372; 97139; C1713; C1776; J0171; J0690; J1100; J1200; J1885; J2001; J2250; J2270; J2405; J2795; J3010; J3370; J7030; J7040

== ENCOUNTER → 2020-04-03 | Outpatient (CLI) | payer MEDICARE, OTHER ==
[~2020-04-03] MED LIST changes: -BACITRACIN 50,000 UNIT VIAL ONE; +CLOPIDOGREL75 MG PO; +IOPAMIDOL 370 MG/ML 200 ML INFUS..BTL INJ ONE; +JANUVIA100 MG PO; +MONODOX100 MG PO; +RENAGEL800 MG PO; -ROPIVACAINE 246.25 MG, EPINEPHRINE HCL 1:1000 1ML 0.5 MG, CLONIDINE HCL 0.08 MG, KETORO... INJ ONE; +SODIUM CHLORIDE 0.9% 100 ML ONE; -SODIUM CHLORIDE 0.9% 500ML 500 ML ONE; -TRANEXAMIC ACID 1,000 MG/10 ML ML ONE; -VANCOMYCIN HCL 1,000 MG ONE
--- NOTE | 2020-04-03 14:42 | Diagnostic Imaging Report ---
Abdomen and Pelvis CTA with RUNOFF PROTOCOL WITH IV CONTRAST. INDICATION: Peripheral artery disease COMPARISON: None. TECHNIQUE: Abdomen and pelvis and lower extremities were scanned utilizing a multidetector helical scanner from the lung base to the toes after administration of IV contrast. Coronal and sagittal reformations were obtained. 3D post-processing of the images was performed, and the post-processed images were used in interpretation. CTA runoff protocol was performed. IV CONTRAST: 100mL of Isovue 370 ORAL CONTRAST: None RADIATION DOSE: Total DLP: 1516 mGy*cm FINDINGS: VESSELS: There are mild calcified and noncalcified atherosclerotic plaques in the aorta and its major branches. There is no evidence of a flap within the aorta to suggest a dissection. Mild celiac origin narrowing. The SMA is widely patent. Minimal BAN origin narrowing. There is a single right renal artery and a single left renal artery. The right renal artery is widely patent. Mild narrowing of the proximal left renal artery. Right lower extremity: Mild scattered athetotic calcifications of the right common iliac artery without hemodynamically significant luminal narrowing. The external iliac artery and common femoral artery are widely patent. There is a graft from the right proximal SFA to the right popliteal artery which is widely patent. The SFA demonstrates diffuse atherosclerotic calcification with poor contrast opacification. There is likely occlusion of the distal popliteal artery prior reconstitution distal to the graft. The profunda femoris is patent. The PT, AT, and peroneal arteries are heavily calcified and demonstrate poor contrast opacification, limiting evaluation for distal runoff. Left lower extremity: Mild scattered athetotic calcifications of the left common iliac artery without hemodynamically significant luminal narrowing. The external iliac artery and common femoral artery are widely patent. The SFA demonstrates multifocal atherosclerotic calcifications with mild multifocal narrowing. More distally, there is poor contrast opacification of the distal SFA. The popliteal artery is limited in evaluation by streak artifact from left total knee replacement. The PT, AT, and peroneal arteries are heavily calcified and demonstrate poor contrast opacification, limiting evaluation for distal runoff. NON-VASCULAR: LOWER THORAX: The visualized lungs are clear. There are no pleural effusions. HEPATOBILIARY: No focal hepatic lesions. No biliary ductal dilatation. The gallbladder appears unremarkable. SPLEEN: No splenomegaly. PANCREAS: No focal masses or ductal dilatation. ADRENALS: 4.6 cm fat containing left adrenal nodule consistent with adrenal myelolipoma. KIDNEYS/URETERS: 11 mm left lower pole renal calculus. No hydronephrosis. PELVIC ORGANS/BLADDER: Unremarkable. PERITONEUM / RETROPERITONEUM: No free air or fluid. LYMPH NODES: Retroperitoneal lymphadenopathy, most notably a left common iliac lymph node measuring up to 3.4 x 2.1 cm (axial image 70). Enlarged left external iliac lymph node measures up to 2.7 x 2.9 cm. Enlarged left inguinal lymph nodes measure up to 3.5 x 2.1 cm. GI TRACT: No abnormal bowel thickening. No bowel obstruction. Normal appendix. BONES AND SOFT TISSUES: No acute fracture or dislocation. No suspicious lytic or blastic lesions. Degenerative changes of the visualized spine and both hip joints. Status post left total knee replacement. Moderate left suprapatellar knee joint effusion. Diffuse subcutaneous soft tissue edema of the left lower extremity. IMPRESSION: Patent right lower extremity SFA-popliteal bypass. Likely occlusion of the left distal SFA/left popliteal artery with reconstitution distal to the bypass. Poor contrast opacification of the infrapopliteal arteries on both sides limits evaluation of distal runoff. Left retroperitoneal, iliac chain, and inguinal lymphadenopathy is nonspecific. If there is history of malignancy, recommend image guided tissue sampling. Status post left total knee replacement with streak artifact limiting adjacent evaluation. Moderate left suprapatellar knee joint effusion. Diffuse left lower extremity subcutaneous edema. Left adrenal myelolipoma. 11mm nonobstructive left lower pole renal calculus. Signed by: Eulalio Johnson MD on 04/03/2020 2:39 PM
== END ==
LOC: CT 09:51
PROVIDERS: ATTEND Internal Medicine
DX: I73.9 Peripheral vascular disease, unspecified (principal)
CPT/HCPCS: 75635; J7050; Q9967

== ENCOUNTER 2020-04-21 23:07 | Observation (INO) | payer MEDICARE, OTHER ==
[~2020-04-21] VITALS: Ht 172.7 cm; Wt 132.0 kg
[~2020-04-21 23:07] MED LIST changes: -IOPAMIDOL 370 MG/ML 200 ML INFUS..BTL INJ ONE; -SODIUM CHLORIDE 0.9% 100 ML ONE
[2020-04-21 23:53] LABS: BASOPHILS # (AUTO) 0.1 (0.0-0.1); BASOPHILS % 0.5 % (0.0-1.0); EOSINOPHILS # (AUTO) 0.3 (0.0-0.4); EOSINOPHILS % 3.2 % (0.0-6.0); HEMATOCRIT 27.1 % (38.2-49.6); HEMOGLOBIN 8.4 g/dL (14.0-18.0); LYMPHOCYTES # (AUTO) 1.4 (1.0-3.2); LYMPHOCYTES % 14.1 % (18.0-39.1); MEAN CORPUSCULAR HEMOGLOBIN 26.1 pg (28-32); MEAN CORPUSCULAR VOLUME 84.2 fL (81-99); MONOCYTES # (AUTO) 0.8 (0.2-0.8); MONOCYTES % 7.9 % (4.4-11.3); NEUTROPHILS # (AUTO) 7.5 (2.1-6.9); NEUTROPHILS % 73.9 % (38.7-80.0); PLATELET COUNT 202 x10e3/uL (140-360); RED BLOOD COUNT 3.22 x10e6/uL (4.3-5.7); RED CELL DISTRIBUTION WIDTH 15.7 % (11.7-14.4)
--- NOTE | 2020-04-21 23:56 | Emergency Department Note ---
History of Present Illnes History of Present Illness Chief Complaint: Chest Pain History of Present Illness This is a 64 year old male PRESENTS TO THE ER C/O MIDSTERNAL CHEST PRESSURE ONSET YESTERDAY WITH WORSENING THIS EVENING AROUND 2100; REPORTS PAIN WORSENS WHEN LAYING DOWN; REPORTS TAKING X3 0.4MG NITRO SL WITH NITRO "HELPING A LITTLE BIT"; PT DENIES SOB; HX OF DIALYSIS; LAT DAILYZED YESTERDAY; . Historian: Patient Arrival Mode: Car Onset (how long ago): day(s) (1) Location: CHEST Quality: PRESSURE Radiation: Reports non-radiation Severity: moderate (/10) Onset quality: gradual Duration (how long): day(s) (1) Timing of current episode: constant Progression: waxing and waning Context: Denies recent illness, Denies recent surgery Relieving factors: other (STATES TOOK 3 NTG SL YESTERDAY WITH SLIGHT IMPROVEMENT OF PAIN BUT NO RELIEF) Exacerbating factors: none Associated symptoms: Reports denies other symptoms Treatments prior to arrival: other (NTG SL TIMES 3 YESTERDAY AT HOME) Past Medical/Family History Physician Review I have reviewed the patient's past medical and family history. Any updates have been documented here. Past Medical History Recent Fever: No Clinical Suspicion of Infectio: No New/Unexplained Change in Ment: No Past Medical History: Hypertension, Diabetes, COPD, CHF, [place], CAD Other Medical History: SLEEP APNEA ESRD HEMODIALYSIS M/W/F Past Surgical History: Knee Replacement Other Surgery: CARDIAC STENTS BILATERAL BYPASSES TO KNEES Social History Smoking Cessation: Never Smoker Alcohol Use: None Any Illegal Drug Use: No Physically hurt or threatened: No Family History Family history of heart diseas: Yes Other family history HTN,DM,CAD Review of Systems Review of Systems Constitutional: Reports no symptoms EENTM: Reports no symptoms Cardiovascular: Reports as per HPI Respiratory: Reports no symptoms Gastrointestinal: Reports no symptoms Genitourinary: Reports no symptoms Musculoskeletal: Reports no symptoms Integumentary: Reports no symptoms Neurological: Reports no symptoms Psychological: Reports no symptoms Endocrine: Reports no symptoms Hematological/Lymphatic: Reports no symptoms Physical Exam Related Data Allergies: Coded Allergies: No Known Allergies (Unverified , 09/30/19) Triage Vital Signs Vital Signs Date Time Temp Pulse Resp B/P (MAP) Pulse Ox O2 Delivery O2 Flow Rate FiO2 04/21/20 23:12 98.7 74 20 156/59 100 Room Air Vital signs reviewed: Yes Physical Exam CONSTITUTIONAL Constitutional: Present well-developed, Present well-nourished, Present other (NO APPARENT DISTRESS) HENT HENT: Present normocephalic, Present atraumatic, Present oropharynx clear/moist, Present nose normal HENT L/R: Present left ext ear normal, Present right ext ear normal EYES Eyes: Reports PERRL, Reports conjunctivae normal NECK Neck: Present ROM normal PULMONARY Pulmonary: Present effort normal, Present breath sounds normal CARDIOVASCULAR Cardiovascular: Present regular rhythm, Present heart sounds normal, Present capillary refill normal, Present normal rate GASTROINTESTINAL Abdominal: Present soft, Present nontender, Present bowel sounds normal GENITOURINARY Genitourinary: Present exam deferred SKIN Skin: Present warm, Present dry MUSCULOSKELETAL Musculoskeletal: Present ROM normal, Present other (AV FISTULA LUE, RIGHT SUBCLAVIAN DIALYSIS CATHETER) NEUROLOGICAL Neurological: Present alert, Present oriented x 3, Present no gross motor or sensory deficits PSYCHOLOGICAL Psychological: Present mood/affect normal, Present judgement normal Results Laboratory Laboratory Laboratory Tests Test 04/21/20 23:33 White Blood Count 10.11 x10e3/uL (4.8-10.8) Red Blood Count 3.22 x10e6/uL (4.3-5.7) Hemoglobin 8.4 g/dL (14.0-18.0) Hematocrit 27.1 % (38.2-49.6) Mean Corpuscular Volume 84.2 fL (81-99) Mean Corpuscular Hemoglobin 26.1 pg (28-32) Mean Corpuscular Hemoglobin Concent 31.0 g/dL (31-35) Red Cell Distribution Width 15.7 % (11.7-14.4) Platelet Count 202 x10e3/uL (140-360) Neutrophils (%) (Auto) 73.9 % (38.7-80.0) Lymphocytes (%) (Auto) 14.1 % (18.0-39.1) Monocytes (%) (Auto) 7.9 % (4.4-11.3) Eosinophils (%) (Auto) 3.2 % (0.0-6.0) Basophils (%) (Auto) 0.5 % (0.0-1.0) Neutrophils # (Auto) 7.5 (2.1-6.9) Lymphocytes # (Auto) 1.4 (1.0-3.2) Monocytes # (Auto) 0.8 (0.2-0.8) Eosinophils # (Auto) 0.3 (0.0-0.4) Basophils # (Auto) 0.1 (0.0-0.1) Absolute Immature Granulocyte (auto 0.04 x10e3/uL (0-0.1) Sodium Level 137 mmol/L (136-145) Potassium Level 3.9 mmol/L (3.5-5.1) Chloride Level 100 mmol/L (98-107) Carbon Dioxide Level 26 mmol/L (22-29) Anion Gap 14.9 mmol/L (8-16) Blood Urea Nitrogen 33 mg/dL (7-26) Creatinine 3.81 mg/dL (0.72-1.25) Estimat Glomerular Filtration Rate 16 ML/MIN (60-) BUN/Creatinine Ratio 9 (6-25) Glucose Level 271 mg/dL (74-118) Calcium Level 8.4 mg/dL (8.4-10.2) Total Bilirubin 0.2 mg/dL (0.2-1.2) Aspartate Amino Transf (AST/SGOT) 15 IU/L (5-34) Alanine Aminotransferase (ALT/SGPT) 12 IU/L (0-55) Alkaline Phosphatase 89 IU/L (40-150) Creatine Kinase 101 IU/L (30-200) Creatine Kinase MB 1.00 ng/mL (0-5.0) Troponin I 0.019 ng/mL (0-0.300) Total Protein 8.1 g/dL (6.5-8.1) Albumin 2.9 g/dL (3.5-5.0) Globulin 5.2 g/dL (2.3-3.5) Albumin/Globulin Ratio 0.6 (0.8-2.0) Laboratory Tests Test 04/21/20 23:33 Lab results reviewed: Yes Imaging Imaging results reviewed: Yes Impressions Procedure: [id number] DX/CHEST SINGLE (PORTABLE) Exam Date: 04/21/20 Exam Time: 8404 REPORT STATUS: Signed EXAMINATION: CHEST SINGLE (PORTABLE) INDICATION: Chest pain COMPARISON: Chest x-ray 03/13/2020 FINDINGS: TUBES and LINES: Right IJ central venous catheter, tip in the low SVC. LUNGS: Normal lung volumes. Lungs are clear. Prominent central pulmonary vasculature. PLEURA: No pleural effusion or pneumothorax. HEART AND MEDIASTINUM: The cardiomediastinal silhouette is unremarkable. BONES AND SOFT TISSUES: No acute osseous lesion. Soft tissues are unremarkable. UPPER ABDOMEN: No free air under the diaphragm. IMPRESSION: Pulmonary vascular congestion. Signed by: Carlton Bowers DO on 04/22/2020 1:08 AM Procedures 12 Lead ECG Interpretation ECG Interpretation : ECG: ECG 1 Financial Administrative Assistant: Interpreted by ED physician Date: Apr 21, 2020 Time: 23:20 Rhythm: sinus rhythm Rate: normal BPM: 72 QRS axis: normal ST segment flattening: I, II, III, aVR, aVL, aVF T waves normal: Yes Other findings: no other findings Q waves: V1 Clinical Impression: abnormal ECG Assessment & Plan Medical Decision Making MDM PT WITH CONSTANT CHEST PRESSURE SINCE YESTERDAY MORNING CBC. CMP, EKG, CARDIAC ENZYMES, CXR ORDERED TO EVAL FOR MYOCARDIAL INFARCTION, MYOCARDIAL ISCHEMIA, ELECTROLYTE ABNORMALITY, INTRATHORACIC ABNORMALITY. I SPOKE WITH DR CHAPIN(CARDIOLOGY) AND HE WANTS PT PLACED IN OBS, I SPOKE WITH DR WILKES FOR ADMIT TO OBS Reassessment Reassessment time: 01:26 Reassessment PT STILL IN NO DISTRESS, STATES CHEST PAIN STILL PRESENT, I REVIEWED LAB AND XRAY REPORTS WITH PT Assessment & Plan Final Impression: (1) ESRD (end stage renal disease) on dialysis (2) Chest pain Depart Disposition: ADMITTED Last Vital Signs Date Time Temp Pulse Resp B/P (MAP) Pulse Ox O2 Delivery O2 Flow Rate FiO2 04/21/20 23:12 98.7 74 20 156/59 100 Room Air Home Meds Reported Medications Sevelamer Hcl (RENAGEL) 800 Mg Tablet, 800 MG PO TID, TAB 03/17/20 Doxycycline Monohydrate (MONODOX) 100 Mg Capsule, 100 MG PO BID 03/17/20 Clopidogrel Bisulfate (CLOPIDOGREL) 75 Mg Tablet, 75 MG PO DAILY, #30 TAB 03/17/20 Sitagliptin Phosphate (JANUVIA) 100 Mg Tablet, 25 MG PO ACB, #30 TAB 03/17/20 Nitroglycerin (NITROGLYCERIN) 0.4 Mg Tab.subl, 0.4 MG SL Q5MIN PRN for CHEST P AIN, TAB 09/27/19 Tamsulosin Hcl* (FLOMAX*) 0.4 Mg Cap, 0.4 MG PO DAILY, #30 CAP 09/27/19 Pravastatin Sodium (PRAVASTATIN SODIUM) 40 Mg Tablet, PO HS 09/27/19 Metoprolol Succinate (METOPROLOL SUCCINATE) 50 Mg Tab.er.24h, 50 MG PO DAILY, MG 09/27/19 Aspirin (ASPIR-LOW) 81 Mg Tablet.dr, PO DAILY 09/27/19 [Bumetanide] No Conflict Check, 2 MG PO BID 09/27/19 Allopurinol (ALLOPURINOL) 300 Mg Tablet, 300 MG PO DAILY, #30 TAB 09/27/19 Amlodipine Besylate (AMLODIPINE BESYLATE) 10 Mg Tablet, 10 MG PO DAILY, #30 TAB 09/27/19 [Isosorbide Er] No Conflict Check, 90 MG PO DAILY 09/27/19 Gabapentin (GABAPENTIN) 300 Mg Capsule, 600 MG PO QID, #60 CAP 09/27/19 Insulin Lisp Protam/Lisp Human (HUMALOG MIX 75-25 VIAL) 100 Units/Ml Ml, 30 UNITS SQ QEVENING 09/27/19 Insulin Lisp Protam/Lisp Human (HUMALOG MIX 75-25 VIAL) 100 Units/Ml Ml, 47 UNITS SQ DAILY 09/27/19 ANDRIA MICHAEL MD Apr 21, 2020 23:56
[2020-04-22 00:06] LABS: ALBUMIN 2.9 g/dL (3.5-5.0); ALBUMIN/GLOBULIN RATIO 0.6 (0.8-2.0); ANION GAP 14.9 mmol/L (8-16); CALCIUM 8.4 mg/dL (8.4-10.2); CREATININE, SERUM 3.81 mg/dL (0.72-1.25); POTASSIUM 3.9 mmol/L (3.5-5.1)
--- NOTE | 2020-04-22 01:11 | Diagnostic Imaging Report ---
EXAMINATION: CHEST SINGLE (PORTABLE) INDICATION: Chest pain COMPARISON: Chest x-ray 03/13/2020 FINDINGS: TUBES and LINES: Right IJ central venous catheter, tip in the low SVC. LUNGS: Normal lung volumes. Lungs are clear. Prominent central pulmonary vasculature. PLEURA: No pleural effusion or pneumothorax. HEART AND MEDIASTINUM: The cardiomediastinal silhouette is unremarkable. BONES AND SOFT TISSUES: No acute osseous lesion. Soft tissues are unremarkable. UPPER ABDOMEN: No free air under the diaphragm. IMPRESSION: Pulmonary vascular congestion. Signed by: Carlton Bowers DO on 04/22/2020 1:08 AM
[2020-04-22] MEDS ORDERED: MORPHINE SULFATE 2 MG/ML SYR 1ML IV PRN (01:30)
[2020-04-22] MEDS ORDERED: ONDANSETRON HCL INJ 2MG/ML 2ML 2 MG/ML VIAL IV PRN (01:30)
[2020-04-22] MEDS ORDERED: DEXTROSE 50% SYRINGE 50 ML IV PRN (01:30)
[2020-04-22 02:50] VITALS: BP 127/47
[2020-04-22 02:53] VITALS: BP 127/47
[2020-04-22] MEDS ORDERED: HYDROCODON-ACE1 EA12 PO (03:34)
[2020-04-22] MEDS ORDERED: ISOSORBIDE MONO60 MG PO (03:34)
[2020-04-22] MEDS ORDERED: ACETAMINOPHEN325 M1 PO (03:34)
[2020-04-22] MEDS ORDERED: DOCUSATE SODIU100 MG PO (03:34)
[2020-04-22] MEDS ORDERED: BUMETANIDE1 MG PO (03:34)
--- NOTE | 2020-04-22 03:54 | NUR ---
Attempted to [facility] [phone] and number would not allow voicemail, will retry to call after [phone] patient on hemodialysis list for today.
--- NOTE | 2020-04-22 06:08 | NUR ---
H&P cc: chest pain HPI: 64yoM, PCP , Card , nephr , developed substenal chest pain with SOB. no cough; States had stress test in March 2020. PMH: Gout, sepsis, ESRD on HD, morbid obesity, BPH, DM2, chronic diastolic chf, hypertensive heart ds, aortic stenosis, CAD, PAD PSHx: left knee, HD access, Allergies; see emr FH/SH: no illicits meds; se MAR ROS; no f/c/s/N/V/D/BAILEY/skin rash/confusion/vision changes/leg weakness v/s; revd PE tired appearing anicteric ns1s2 mod bs soft nt nd Mid CHEST WALL TENDER; chr leg changes with scars A&Ox3; Left arm bruit audible labs/meds revd A/P: 64yoM Musculoskeletal chest pain- f/u cardio recs; cardiac enzymes Hypertensive heart ds- cont home meds CHronic diastolic CHF- monitor fluid balance; Aortic stenosis- control BP/HR CAD- cont BB/statin/ASA/arb HLD- check lipids DM2- hba1c/SSI ESRD- HD per nephr Gout- allopurinol Prop; heparin; pepcid dispo: Baldemar Barreto MD, PHD.
--- NOTE | 2020-04-22 07:05 | NUR ---
spoke to [facility] about placing patient on dialysis today.
[2020-04-22] MEDS ORDERED: NITROGLYCERIN 0.4 MG SUBL SL PRN (07:15)
[2020-04-22] MEDS ORDERED: ACETAMINOPHEN 325 MG TAB PO PRN (07:15)
[2020-04-22] MEDS ORDERED: HYDROCODONE/APAP 7.5MG-325MG 1 EA TAB PO PRN (07:15)
[2020-04-22] MEDS ORDERED: SITAGLIPTIN 100 MG TAB PO SCH (07:30)
[2020-04-22 08:29] VITALS: BP 136/58
--- NOTE | 2020-04-22 08:30 | NUR ---
Dialysis nurse here to treat the pt. Morning antihypertensives and anticoagulants held until after the treatment.
[2020-04-22 08:44] LABS: CREATINE KINASE MB 0.8 ng/mL (0-5.0)
[2020-04-22] MEDS ORDERED: SODIUM CHLORIDE 0.9% 1000ML 2,000 ML IV PRN (08:45)
[2020-04-22] MEDS ORDERED: HEPARIN SOD (PORCINE) 1000 UNIT/ML SDV IV PRN (08:45)
[2020-04-22] MEDS ORDERED: ALLOPURINOL 300 MG TAB PO SCH (09:00)
[2020-04-22] MEDS ORDERED: DOXYCYCLINE MONOHYDRATE 100 MG PO SCH (09:00)
[2020-04-22] MEDS ORDERED: METOPROLOL SUCCINATE 50 MG TAB XL PO SCH (09:00)
[2020-04-22] MEDS ORDERED: DOCUSATE SODIUM 100 MG CAP PO SCH (09:00)
[2020-04-22] MEDS ORDERED: INS LISP PRO/LISP HUMAN 75/25 100 UNITS/ML VIAL SC SCH ×2 (09:00→21:00)
[2020-04-22] MEDS ORDERED: ISOSORBIDE MONONITRATE 90 MG PO SCH (09:00)
[2020-04-22] MEDS ORDERED: CLOPIDOGREL BISULFATE 75 MG TAB PO SCH (09:00)
[2020-04-22] MEDS ORDERED: ISOSORBIDE MONONITRATE 30 MG TAB CR PO SCH (09:00)
[2020-04-22] MEDS ORDERED: ASPIRIN 81 MG ENTERIC COATED PO SCH (09:00)
[2020-04-22] MEDS ORDERED: ASPIRIN 81 MG CHEW TAB PO SCH (09:00)
[2020-04-22] MEDS ORDERED: DOXYCYCLINE HYCLATE TABLET 100 MG TAB PO SCH (09:00)
[2020-04-22] MEDS ORDERED: BUMETANIDE 1 MG TAB PO SCH (09:00)
[2020-04-22] MEDS ORDERED: AMLODIPINE BESYLATE 10 MG TAB PO SCH (09:00)
[2020-04-22] MEDS: SEVELAMER CARBONATE 800 MG TAB PO SCH ×2 (09:06→12:00)
[2020-04-22] MEDS: GABAPENTIN 300 MG CAP PO SCH ×2 (09:06→13:00)
[2020-04-22] MEDS: INSULIN REGULAR, HUMAN 100 UNIT/1 ML 3ML VIAL SQ SCH ×2 (09:52→11:30)
[2020-04-22 10:45] VITALS: BP 136/58
[2020-04-22 12:22] VITALS: BP 135/60
[2020-04-22] MEDS ORDERED: RANOLAZINE 500 MG TABSR PO SCH (12:30)
--- NOTE | 2020-04-22 14:33 | NUR ---
D/C summary Principal dx: ' Musculoskeletal CP Secondary Dx: Hypertensive heart ds- cont home meds CHronic diastolic CHF- monitor fluid balance; Aortic stenosis- control BP/HR CAD- cont BB/statin/ASA/arb HLD- check lipids DM2- hba1c/SSI ESRD- HD per nephr Gout- allopurinol Prop; heparin; pepcid dispo: d/c home stable f/u pcp 2 days and cardiology 1 week d/c>35mins Baldemar Barreto MD, PHD.
--- NOTE | 2020-04-22 15:06 | NUR ---
Dialysis is completed and the pt. is discharged home per both dr's and is to follow up with PCP and cardiology. $ liters of fluids were removed during dialysis.
--- NOTE | 2020-04-22 16:51 | NUR ---
The pt. was provided discharge information,script and follow up instructions prior to being escorted to private car for transport home.
[2020-04-22] MEDS ORDERED: NON-FORMULARY MEDICATION (Pravastatin Sodium 40 MG) PO SCH (21:00)
[2020-04-22] MEDS ORDERED: TAMSULOSIN HCL 0.4 MG CAP PO SCH (21:00)
[2020-04-22] MEDS ORDERED: PRAVASTATIN 20 MG TAB PO SCH (21:00)
--- NOTE | 2020-04-23 10:50 | Consultation ---
DATE OF CONSULTATION: Cardiology Consultation HISTORY OF PRESENT ILLNESS: This is a 64-year-old man, well known to our service, who follows my colleague, Dr. Almeida, who has a known history of coronary artery disease and systolic congestive heart failure with previous intervention in 2019. Recent repeat coronary angiogram late last year at [facility] showed patent stents with no significant progression of disease. Evidently, the patient reported mid substernal central chest pressure, no radiation, mild intensity, relieved with nitroglycerin, nonexertional, nonradiating, which worsens slightly with lying down. The patient was ruled out for acute myocardial infarction and is undergoing hemodialysis with improvement of his symptoms. REVIEW OF SYSTEMS: A 12-point review of system was conducted, is negative except as stated above in the HPI. PAST MEDICAL HISTORY: As stated above in the HPI and also including hypertension, diabetes mellitus, obstructive sleep apnea, morbid obesity, COPD, and end-stage renal disease on hemodialysis. PAST SURGICAL HISTORY: Knee replacement. FAMILY HISTORY: Noncontributory to current illness. SOCIAL HISTORY: No illicit drug, alcohol, or tobacco use. ALLERGIES: NO KNOWN DRUG ALLERGIES. MEDICATIONS: See medication reconciliation form. PHYSICAL EXAMINATION: VITAL SIGNS: Temperature is 98.1, heart rate is 72, respirations are 21, blood pressure is 136/58, and oxygen saturation 100% on room air. GENERAL: Well-appearing, well-built, no apparent distress. Alert and oriented x3. HEAD: Normocephalic and atraumatic. EYES: The extraocular movements are intact. Conjunctivae clear. NECK: No JVD. No bruits. CARDIOVASCULAR: Regular rate and rhythm. LUNGS: Clear to auscultation. ABDOMEN: Soft, nontender, and nondistended. EXTREMITIES: No clubbing, cyanosis, or edema. VASCULAR: 2+ pulses. SKIN: Warm, dry, and intact. LABORATORY DATA: Reviewed. Troponins were within normal limits. Creatinine is 3.8 and BUN is 33. A 12-lead electrocardiogram showed normal sinus rhythm with nonspecific ST-T wave abnormalities. IMPRESSION: 1. Stable chronic angina. 2. Coronary artery disease, status post percutaneous coronary intervention. 3. Chronic congestive heart failure. 4. End-stage renal disease, on hemodialysis. 5. Hypertension. 6. Chronic obstructive pulmonary disease. 7. Obstructive sleep apnea. 8. Obesity. RECOMMENDATIONS: Continue his home current cardiovascular medications including isosorbide at 90 mg. May consider increasing this to 120 mg as an outpatient. We will add Ranexa for his chronic angina. Otherwise, the patient is stable from a cardiovascular standpoint, as he ruled out for acute myocardial infarction. No further cardiac interventions or workup is needed at this point in time and he is stable for discharge. DO ARMIDA Nesbitt/MODL /[id number]
== END 2020-04-22 16:25 | disposition home or self-care (01) ==
LOC: ER 23:50 → ERHOLD 04-22 01:30 → MED/SURG2 04-22 02:51
PROVIDERS: ADMIT Internal Medicine; ATTEND Internal Medicine
DX: R07.89 Other chest pain (principal); E11.22 Type 2 diabetes mellitus with diabetic chronic kidney disease; I50.32 Chronic diastolic (congestive) heart failure; I13.2 Hypertensive heart and chronic kidney disease with heart failure and with stage 5 chronic kidney disease, or end stage renal disease; N18.6 End stage renal disease; Z99.2 Dependence on renal dialysis; Z95.5 Presence of coronary angioplasty implant and graft; I25.118 Atherosclerotic heart disease of native coronary artery with other forms of angina pectoris; J44.9 Chronic obstructive pulmonary disease, unspecified; G47.33 Obstructive sleep apnea (adult) (pediatric); E66.9 Obesity, unspecified; I35.0 Nonrheumatic aortic (valve) stenosis; E78.5 Hyperlipidemia, unspecified; M10.9 Gout, unspecified; Z68.41 Body mass index [BMI] 40.0-44.9, adult; Z79.82 Long term (current) use of aspirin; Z79.4 Long term (current) use of insulin
CPT/HCPCS: 36415 ×2; 71045; 80053; 82550 ×2; 82553 ×2; 82948; 83036; 83880; 84484 ×2; 85025; 86704; 86706; 86707; 87340; 87350; 87635; 90935; 93005; 99284; G0378; J1644; J1815; J7030

== ENCOUNTER → 2020-11-05 | Outpatient (CLI) | payer MEDICARE ==
[~2020-11-05] MED LIST changes: +ACETAMINOPHEN325 M1 PO; +BUMETANIDE1 MG PO; +DOCUSATE SODIU100 MG PO; +HYDROCODON-ACE1 EA12 PO; +ISOSORBIDE MONO60 MG PO; +REGADENOSON 0.4 MG/5 ML SYR IV ONE
== END ==
LOC: NM 08:51
PROVIDERS: ATTEND Internal Medicine
DX: I25.10 Atherosclerotic heart disease of native coronary artery without angina pectoris (principal); I65.23 Occlusion and stenosis of bilateral carotid arteries
CPT/HCPCS: 78452; 93017; 93306; 93880; A9502; J2785

== ENCOUNTER → 2023-02-09 | Outpatient (CLI) | payer MEDICARE ==
[~2023-02-09] MED LIST changes: +IOPAMIDOL 370 MG/ML 100 ML INFUS..BTL INJ ONE; -REGADENOSON 0.4 MG/5 ML SYR IV ONE; +SODIUM CHLORIDE 0.9% 100 ML ONE
== END ==
LOC: CT 11:36
PROVIDERS: ATTEND Internal Medicine
DX: I25.10 Atherosclerotic heart disease of native coronary artery without angina pectoris (principal); R79.1 Abnormal coagulation profile
CPT/HCPCS: 71260; J7050; Q9967